=== PATIENT | female | born 1980 ===

== ENCOUNTER 2020-06-13 15:50 | Outpatient (REF) | payer OTHER, SELFPAY ==
--- NOTE | ~2020-06-13 | XR_ITS ---
EXAMINATION: BILATERAL HAND. CLINICAL INFORMATION: Pain. COMPARISON: None TECHNIQUE: 3 views of right hand FINDINGS: RIGHT HAND: There is loss of PIP, DIP and MCP joint space. No bony erosive changes, loose bodies or joint effusion seen. The soft tissues are normal. LEFT HAND: The PIP, DIP and MCP joint space is maintained. No bony erosive changes, loose bodies or soft tissue swelling. No visible acute fracture or dislocation either. XR/XR hand LT 2V IMPRESSION: Unremarkable bilateral hand exam.
--- NOTE | ~2020-06-13 | XR_ITS ---
EXAMINATION: BILATERAL HAND. CLINICAL INFORMATION: Pain. COMPARISON: None TECHNIQUE: 3 views of right hand FINDINGS: RIGHT HAND: There is loss of PIP, DIP and MCP joint space. No bony erosive changes, loose bodies or joint effusion seen. The soft tissues are normal. LEFT HAND: The PIP, DIP and MCP joint space is maintained. No bony erosive changes, loose bodies or soft tissue swelling. No visible acute fracture or dislocation either. XR/XR hand RT 2V IMPRESSION: Unremarkable bilateral hand exam.
== END 2020-06-13 15:51 | disposition home or self-care (01) ==
LOC: HO.XRAY 15:50
PROVIDERS: PCP Internal Medicine; Visit Provider Physician Assistant
DX: M79.641 Pain in right hand (principal); M79.642 Pain in left hand
CPT/HCPCS: 73120

== ENCOUNTER 2020-06-21 15:52 | Outpatient (REF) | payer OTHER, SELFPAY ==
--- NOTE | ~2020-06-21 | CT_ITS ---
EXAMINATION: CT HEAD WITHOUT CONTRAST CLINICAL INFORMATION: Migraine COMPARISON: Previous head CT scans most recent July 2019 TECHNIQUE: Contiguous axial imaging was performed from the skull base to vertex without intravenous administration of contrast. This CT examination was performed using dose optimization techniques as appropriate, variously including the following: *Automated exposure control *Adjustment of mA and/or kV according to patient size (this includes techniques or standardized protocols for targeted exams where dose is matched to indication/reason for exam; i.e. extremities or head) *Use of iterative reconstruction technique DLP: 784 mGy-cm FINDINGS: There is no evidence of acute intracranial hemorrhage or territorial infarction. No abnormal mass effect or midline shift is seen. Noble to white matter differentiation is well preserved. No extra-axial fluid collections are identified. The ventricles are normal in size. There is no abnormal attenuation within the brain parenchyma. The osseous structures and soft tissues are normal. There is membranous soft tissue thickening seen in the floor of the right maxillary sinus. The mastoid air cells and visualized portions of the paranasal sinuses are otherwise clear.. CT/CT head/brain wo con IMPRESSION: No acute intracranial findings. Minimal membranous soft tissue thickening in the floor of the right maxillary sinus.
== END 2020-06-21 15:53 | disposition home or self-care (01) ==
LOC: HO.CT 15:52
PROVIDERS: PCP Physician Assistant; Visit Provider Physician Assistant
DX: G43.009 Migraine without aura, not intractable, without status migrainosus (principal)
CPT/HCPCS: 70450

== ENCOUNTER 2020-11-25 14:38 | Outpatient (REF) | payer OTHER, SELFPAY ==
--- NOTE | ~2020-11-25 | US_ITS ---
EXAMINATION: US VENOUS ULTRASOUND WITH DOPPLER LOWER EXTREMITY, LEFT CLINICAL INFORMATION: Pain left leg. COMPARISON: None TECHNIQUE: Ultrasound of the deep veins is performed from the hip to the calf with compression sonography and color and pulse Doppler assessment. Spectral analysis with color-flow imaging is performed. FINDINGS: There is normal venous compression and respiratory variation and augmented flow. The visualized common femoral vein, superficial femoral vein, profunda femoral vein, popliteal vein, and the trifurcation region shows no evidence of deep venous thrombosis. There is no significant popliteal fossa cyst. If the patient's symptoms persist, followup ultrasound in 5 days 7 days might be of value to exclude proximal propagation from a non-visualized calf vein. US/US venous duplex LE LT IMPRESSION: No DVT demonstrated in the left lower extremity.
== END 2020-11-25 14:39 | disposition home or self-care (01) ==
LOC: HO.US 14:38
PROVIDERS: PCP Internal Medicine; Visit Provider Internal Medicine
DX: M79.605 Pain in left leg (principal)
CPT/HCPCS: 93971

== ENCOUNTER 2021-06-05 13:58 | Emergency (ER) | payer OTHER, SELFPAY ==
[2021-06-05 14:08] VITALS: BP 198/110; PULSE 80; O2SAT 100
[2021-06-05 14:14] VITALS: BP 153/98; PULSE 79; RESP 16; TEMP 36.6; O2SAT 98; BMI 30.7
--- NOTE | 2021-06-05 14:15 | ED_ITS ---
HPI - Allergic Reaction General Chief complaint: Allergic Reaction Stated complaint: sob Time Seen by Provider: 06/05/21 14:12 Source: patient Mode of arrival: EMS Limitations: no limitations History of Present Illness MD complaint: facial swelling (upper lip) Onset (ago): hour(s) (2) Exposure: medication (advil) Symptoms: lip swelling and hoarseness Severity: moderate Treatment prior to arrival: none Previous Allergic Reaction History: other (swelling to aspirin) Related Data Home Medications Medication Instructions Recorded Confirmed fluticasone propionate 110 0 mcg INHALATION 06/02/20 11/24/20 mcg/actuation HFA aerosol inhaler loratadine 10 mg tablet 10 mg PO QAM 06/02/20 11/24/20 montelukast 10 mg tablet 10 mg PO BEDTIME 06/02/20 11/24/20 sumatriptan succinate 50 mg tablet 50 mg PO BID-TID PRN 06/02/20 11/24/20 Previous Rx's Medication Instructions Recorded nnkwfrxklf-tjtewbqkpjikq-ypoacxqk 1 cap PO Q8H 7 Days #21 cap 06/02/20 50 mg-300 mg-40 mg capsule (Fioricet) albuterol sulfate 0.63 mg/3 mL 0.63 mg (3 mL) INHALATION Q4H PRN 02/27/21 solution for nebulization #75 ml albuterol sulfate 90 mcg/actuation 2 puff PO Q4H PRN #6.7 g 02/27/21 aerosol inhaler amoxicillin 875 mg-potassium 1 tab PO Q12H 10 Days #20 tab 02/27/21 clavulanate 125 mg tablet (Augmentin) prednisone 20 mg tablet 20 mg PO DAILY 5 Days #5 tab 02/27/21 prednisone 20 mg tablet 40 mg PO DAILY 3 Days #6 tab 06/05/21 Allergies Allergy/AdvReac Type Severity Reaction Status Date / Time cyclobenzaprine Allergy Intermediate SWELLING Verified 04/05/21 10:48 [From FLEXERIL] aspirin [ASPIRIN] Allergy Mild SWELLING Verified 04/05/21 10:48 ibuprofen [From Allergy Angioedema Verified 06/05/21 15:23 Advil] Review of Systems Verdana 4l Review of Systems: Verdana 4d Verdana 4d Constitutional : No Fever, No Chills ENT/Mouth : positive oral swelling (lip), pos Hoarseness, No Swallowing Difficulty Eyes: No Eye Pain, No Swelling, No Redness Cardiovascular : No Chest Pain, No SOB Respiratory : No Cough, No Sputum, NoNo Wheezing, No Smoke Exposure, No Dyspnea Gastrointestinal : No Nausea, No Vomiting, No Diarrhea, No abdominal Pain Genitourinary : No Dysuria, No Urinary Frequency, No Hematuria Musculoskeletal : No joint pain, No Myalgias, No Joint Swelling Skin : No Skin Lesions, positive rash Neuro : No Weakness, No Numbness, No Headache Psych : No Anxiety/Panic, No Depression Heme/Lymph: No Bruising, No Lymphadenopathy Endocrine : No Polyuria, No Polydipsia All other systems reviewed and are negative [facility] Past Medical History Medical History Hand numbness Left leg pain Moderate persistent asthma in adult without complication Obese Family History Family History (System 04/05/21 @ 10:48 by Denisha Meadows) Mother No problems noted. Father Heart attack Brother No problems noted. Brother Diabetes Sister No problems noted. Sister No problems noted. Daughter No problems noted. 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 Oriented X3. No acute distress. Eyes: Pupils equal, round and reactive to light. ENT: upper lip swelling no stridor no swelling inside mouth, mild hoarseness no diff swallowing no drooling Neck: Normal inspection. Neck supple. CVS: Normal heart rate and rhythm. Pulses normal. Respiratory: No respiratory distress. Breath sounds normal. Abdomen: Soft and non-tender. Skin: Skin warm and dry. Normal skin color. Normal skin turgor. Extremities: No lower extremity edema. No calf ttp Neuro: Oriented X 3. No motor deficit. No sensory deficit. 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 She has no intraoral swelling or diff swallowing. Dispo per improvement. Discharge Plan Discharge Clinical Impression: Angioedema Qualifiers: Encounter type: initial encounter Qualified Code(s): T78.3XXA - Angioneurotic edema, initial encounter Allergic reaction caused by a drug Qualifiers: Encounter type: initial encounter Qualified Code(s): T78.40XA - Allergy, unspecified, initial encounter Patient Disposition: Home, Self-Care Instructions: Angioedema (ED), General Allergic Reaction (ED) Additional Instructions: return to ED for any worsening symptoms or concerns do not take motrin, ibuprofen, advil, aleve, aspirin no tome motrin, ibuprofeno, advil, aleve, aspirina DEVOLVER POR CUALQUIER EMPEORAMIENTO DE LOS S?NTOMAS O PREOCUPACIONES Prescriptions: New prednisone 20 mg tablet 40 mg PO DAILY 3 Days Qty: 6 0RF No Action montelukast 10 mg tablet 10 mg PO BEDTIME 0RF loratadine 10 mg tablet 10 mg PO QAM 0RF sumatriptan succinate 50 mg tablet 50 mg PO BID-TID PRN (Reason: headache) 0RF Flovent HFA 110 mcg/actuation HFA aerosol inhaler 0 mcg inhalation 0RF jzwpsazgrj-ujykqwzfxdzyu-exmm [Fioricet] 50-300-40 mg capsule 1 cap PO Q8H 7 Days Qty: 21 0RF albuterol sulfate 90 mcg/actuation HFA aerosol inhaler 2 puff PO Q4H PRN (Reason: shortness of breath or wheezing) Qty: 6.7 0RF albuterol sulfate 0.63 mg/3 mL solution for nebulization 0.63 mg inhalation Q4H PRN (Reason: shortness of breath or wheezing) Qty: 75 0RF prednisone 20 mg tablet 20 mg PO DAILY 5 Days Qty: 5 0RF amoxicillin-pot clavulanate [Augmentin] 875-125 mg tablet 1 tab PO Q12H 10 Days Qty: 20 0RF Stand Alone Forms: Work/School Release Interventions: ED Discharge Assessment Last Done: 06/05/21 16:59 Discharge Date/Time: 06/05/21 17:00 Print Language: English
[2021-06-05] MEDS: diphenhydrAMINE HCL 50 MG/ML VIAL 25 MG IVPUSH (14:25)
[2021-06-05] MEDS: methylPREDNISolone Sod Succ 125 MG/2 ML VIAL IVPUSH (14:27)
[2021-06-05] MEDS: Famotidine/PF 20 MG/2 ML VIAL IVPUSH (14:28)
[2021-06-05 14:55] VITALS: BP 143/84; PULSE 74; RESP 16; TEMP 36.7; O2SAT 99
--- NOTE | 2021-06-05 15:59 | PC.NURSE ---
Pt alert and oriented x4, calm and cooperative. Denies difficulty breathing or swallowing, pt talking in clear sentences. Pt expresses she feels much better from earlier. O2 on room air is 98% at this time. No swelling noted to the tongue, swelling remains on upper lip, per pt it is improved from earlier. IV intact, vitals stable. Pt resting in stretcher without complaints, will continue to monitor.
[2021-06-05 16:58] VITALS: BP 149/100; PULSE 79; RESP 18; TEMP 36.9; O2SAT 99
== END 2021-06-05 17:00 | disposition home or self-care (01) ==
PROVIDERS: Emergency Provider Emergency Medicine; PCP Internal Medicine
DX: T78.3XXA Angioneurotic edema, initial encounter (principal); T39.315A Adverse effect of propionic acid derivatives, initial encounter; Y92.9 Unspecified place or not applicable
CPT/HCPCS: 96374; 96375; 99284; J1200; J2930

== ENCOUNTER 2021-09-23 10:14 | Outpatient (REF) | payer OTHER, SELFPAY ==
[2021-09-23 11:28] LABS: Alanine Aminotransferase 20 U/L (0-31); Albumin Level 4.2 g/dL (3.5-5.0); Alkaline Phosphatase 69 U/L (39-117); Anion Gap 12 (12-20); Aspartate Amino Transferase 15 U/L (5-31); Bilirubin Total 0.4 mg/dL (0.0-1.0); Blood Urea Nitrogen 8 mg/dL (9-16); Calcium 9.4 mg/dL (8.4-10.2); Carbon Dioxide 28 mmol/L (22-29); Chloride 103 mmol/L (96-108); Cholesterol 156 mg/dL; Estimated Glomerular Filt Rate > 60; Glucose Fasting 98 mg/dL (60-99); HDL Cholesterol 37 mg/dL; LDL Cholesterol Calculated 96 mg/dl; Potassium 4.2 mmol/L (3.3-5.1); Sodium 139 mmol/L (135-145); Total Protein 7.5 g/dL (6.5-8.0); Triglycerides 116 mg/dL
[2021-09-23 11:50] LABS: TSH reflex Free T4 0.87 uIU/mL (0.32-4.0)
[2021-09-25 06:37] LABS: Folate 15.4 ng/mL (> or = 4.0); Vitamin B12 410 pg/mL (200-900)
== END 2021-09-23 10:15 | disposition home or self-care (01) ==
LOC: HO.LAB 10:14
PROVIDERS: PCP Internal Medicine; Visit Provider Nurse Practitioner Family
DX: Z00.00 Encounter for general adult medical examination without abnormal findings (principal); Z13.220 Encounter for screening for lipoid disorders; Z13.29 Encounter for screening for other suspected endocrine disorder
CPT/HCPCS: 36415; 80053; 80061; 82306; 82607; 82746; 84443

== ENCOUNTER 2022-02-20 15:54 | Outpatient (REF) | payer OTHER, SELFPAY ==
[2022-02-21 05:36] LABS: CT PCR NOT DETECTED (Not Detect.); NG PCR NOT DETECTED (Not Detect.)
[2022-02-21 09:22] LABS: BV Int Neg Control Negative (Negative); BV Int Pos Control Positive (Positive)
[2022-02-22 22:17] LABS: HPV mRNA E6/E7 rflx Not Detected (Not Detected)
== END 2022-02-20 15:55 | disposition home or self-care (01) ==
LOC: HO.LNP 15:54
PROVIDERS: Visit Provider Advanced Practice Midwife
DX: Z01.419 Encounter for gynecological examination (general) (routine) without abnormal findings (principal)
CPT/HCPCS: 87480; 87491; 87510; 87591; 87624; 87660; 88142

== ENCOUNTER 2022-02-26 17:17 | Emergency (ER) | payer OTHER, SELFPAY ==
--- NOTE | ~2022-02-26 | CT_ITS ---
EXAMINATION: CT HEAD WITHOUT CONTRAST CLINICAL INFORMATION: Hypertension. Posterior headache. Blurry vision. COMPARISON: CT scan of the head 06/21/2020 TECHNIQUE: Contiguous axial imaging was performed from the skull base to vertex without intravenous administration of contrast. This CT examination was performed using dose optimization techniques as appropriate, variously including the following: *Automated exposure control *Adjustment of mA and/or kV according to patient size (this includes techniques or standardized protocols for targeted exams where dose is matched to indication/reason for exam; i.e. extremities or head) *Use of iterative reconstruction technique DLP: 682 mGy-cm FINDINGS: There is no acute intracranial hemorrhage or abnormal extra-axial collection. No intracranial mass effect or midline shift. Lateral and third ventricles are normal. No hydrocephalus. Noble-white matter differentiation is preserved and there is no evidence of acute territorial infarct. The calvarium and skull base are intact. Mastoid air cells and middle ear cavities are well aerated. No active paranasal sinus disease. CT/CT head/brain wo IV con IMPRESSION: CT scan of the head. No acute intracranial hemorrhage.
--- NOTE | 2022-02-26 17:26 | ECG_ITS ---
Test Reason : CHEST PAIN Blood Pressure : / mmHG Vent. Rate : 087 BPM Atrial Rate : 087 BPM P-R Int : 146 ms QRS Dur : 072 ms QT Int : 372 ms P-R-T Axes : 060 013 014 degrees QTc Int : 447 ms Normal sinus rhythm Moderate voltage criteria for LVH, may be normal variant ( R in aVL , Sokolow-Bui ) Possible Left atrial enlargement Borderline ECG No significant changes seen Referred By: Generic ED Physician Electronically Signed By:DAVE ECHEVARRIA MD
[2022-02-26 18:32] VITALS: BP 139/84; PULSE 73; RESP 16; TEMP 36.6; O2SAT 99; BMI 29.1
--- NOTE | 2022-02-26 21:02 | ED_ITS ---
HPI - Headache General Chief Complaint: Headache Stated Complaint: chest pain, headache Time Seen by Provider: 02/26/22 21:02 Source: patient Mode of arrival: ambulatory Limitations: no limitations History of Present Illness HPI Narrative: 42 yo female with history of GERD, asthma, who presents to the ER for evaluation of hypertension associated with headaches and blurred vision. She states she went to a routine COLLECTIONS ANALYST appointment last week and her BP was noted to be high 160/100. She does not have a history of HTN and is not on any medications for this. She reports she has been checking her BP since and it has been elevated at home, as high as 180/110. She has increased stress and anxiety about it. She has been losing weight if anything and denies increased salt intake. She reports intermittent stabbing chest pains this week as well. They come and go at random times and last seconds. No radiation and no associated SOB, nausea or diaphoresis. Non-smoker. MD elicited complaint: headache Onset (ago): day(s) (6) Onset description: gradually Location: right and occipital Severity: moderate Quality & Timing: aching and throbbing Exacerbating factors: none Relieving factors: nothing Associated symptoms: chest pain Treatments prior to arrival: none Related Data Previous Rx's Medication Instructions Recorded albuterol sulfate 0.63 mg/3 mL 0.63 mg (3 mL) inhalation Q4H PRN 02/27/21 solution for nebulization shortness of breath or wheezing #75 mL sumatriptan succinate 25 mg tablet See Rx Instructions PO .COMPLEX #7 09/20/21 tabs albuterol sulfate 90 mcg/actuation 2 puff PO Q4H PRN shortness of 12/25/21 aerosol inhaler breath or wheezing #6.7 grams cholecalciferol (vitamin D3) 25 25 mcg PO DAILY 90 days #90 caps 12/25/21 mcg (1,000 unit) capsule loratadine 10 mg tablet 10 mg PO QAM 90 days #90 tabs 12/25/21 omeprazole 20 mg capsule,delayed 20 mg PO DAILY 90 days #90 caps 12/25/21 release Allergies Allergy/AdvReac Type Severity Reaction Status Date / Time cyclobenzaprine Allergy Intermediate SWELLING Verified 02/20/22 14:54 [From FLEXERIL] aspirin [ASPIRIN] Allergy Mild SWELLING Verified 02/20/22 14:54 ibuprofen [From Advil] Allergy Angioedema Verified 02/20/22 14:54 Review of Systems Review of Systems: Constitutional: No Fever, No Chills ENT/Mouth: No sore throat, No Rhinorrhea, No Swallowing Difficulty Eyes: No Eye Pain, No Swelling, No Redness, +blurred vision Cardiovascular: + Chest Pain, No SOB, No Orthopnea, No Edema Respiratory: No Cough, No Sputum, No Wheezing, No dyspnea Gastrointestinal: No Nausea, No Vomiting, No Diarrhea, No abdominal Pain Musculoskeletal: No joint pain, No Myalgias Skin: No Skin Lesions, No rash Neuro: No Weakness, No Numbness, No Dizziness, + Headache Psych: + Anxiety/Panic, No Depression Heme/Lymph: No Bruising, No Lymphadenopathy Endocrine: No Polyuria, No Polydipsia [facility] Past Medical History Medical History (Updated 02/26/22 @ 22:03 by ANDERSON Vinson) Acute sinusitis Exposure of implanted vaginal mesh Hand numbness Left leg pain Moderate persistent asthma in adult without complication Obese Surgical History (Updated 02/20/22 @ 16:06 by CRESENCIO Osborne) History of cholecystectomy Hx of tubal ligation Family History Family History Mother No problems noted. Father Heart attack Brother No problems noted. Brother Diabetes Sister No problems noted. Sister No problems noted. Daughter No problems noted. Daughter Down syndrome Other Mental health disorder Social History Social History Housing: Apartment Alcohol intake: never Patient Tobacco Use Status: Never used Tobacco e-Cigarette/Vaping Use: Never Used Second Hand Smoke Exposure: No Advance Directives: No service: No Current occupational status: unemployed Cognitive needs: No Hearing needs: No Vision needs: No Physical Exam Vital Signs: Vital Signs: Last Vital Signs Temp 98.6 F 02/26/22 21:16 Pulse 85 02/26/22 21:16 Resp 13 02/26/22 21:16 BP 129/81 02/26/22 21:16 Pulse Ox 100 02/26/22 21:16 O2 Del Method 02/26/22 21:16 BMI result Body Mass Index 29.1 Appearance: Alert. Oriented X3. No acute distress. Eyes: Pupils equal, round and reactive to light. No nystagmus. Grossly normal visual acuity ENT: Pharynx normal. Neck: Normal inspection. Neck supple. CVS: Normal heart rate and rhythm. Pulses normal. Respiratory: No respiratory distress. Breath sounds normal. Abdomen: Soft and nontender. +BS x4 Skin: Skin warm and dry. Normal skin color. Normal skin turgor. No rashes. Extremities: No lower extremity edema. Neuro: Oriented X 3. No motor deficit. No sensory deficit. CN II-XII intact. Normal speech and cognition. Normal finger to nose and heel to peters bilaterally. Steady gait. Course Course Course Narrative: 42 yo female presenting to the ER for evaluation of HTN along with headaches, blurred vision and chest pain. Reported BP at home 180/110 - here it is 130/80. She appears well. Neuro non-focal. Will get CT head, labs, EKG. Reevaluation(s) Reevaluation #1: Repeat BP 120/80. CT head normal. Troponin <3.5. Her symptoms earlier this week could have been due to symptomatic hypertension but this is now known for sure. She remained normotensive here. No indication to start anti-hypertensive agent. She follows with Dr. Fisher. She will monitor her BP at home and keep a record for her. Return precautions were discussed. Stable for d/c home with outpatient follow up. All questions were answered and patient agrees with plan. [facility] - Headache Medical Records Attestation: I reviewed the patient's medical records. Lab Data Attestation: I reviewed the patient's lab results. Result diagrams: 02/26/22 21:33 02/26/22 21:33 Labs: Lab Results 02/26/22 02/26/22 02/26/22 Range/Units 21:33 21:33 21:33 WBC 7.9 (4.8-10.8) X10*3/uL RBC 4.63 (4.20-5.50) X10*6/uL Hgb 12.5 (12.0-16.0) g/dl Hct 38.3 (37.0-47.0) % MCV 82.7 (80.0-98.0) fL MCH 27.0 (27.0-33.0) pg MCHC 32.6 (31.0-35.0) g/dl RDW 13.1 (11.0-16.0) % Plt Count 281 (160-400) X10*3/uL MPV 9.5 (9.4-12.3) fL Immature Gran % (Auto) 0.1 (0.0-0.4) % Neut % (Auto) 42.3 L (45-73) % Lymph % (Auto) 41.9 H (20-40) % Rogers % (Auto) 12.5 H (2-11) % Eos % (Auto) 2.9 (0-4) % Baso % (Auto) 0.3 (0-2) % Lymph # (Auto) 3.3 (1.2-4.9) X10*3/uL Rogers # (Auto) 1.0 (0.1-1.2) X10*3/uL Eos # (Auto) 0.2 (0.0-0.4) X10*3/uL Baso # (Auto) 0.0 (0.0-0.2) X10*3/uL Abs Immat Gran (auto) 0.01 (0.00-0.03) X10*3/uL Absolute Neuts (auto) 3.4 (2.0-8.3) x10*3/uL Absolute Nucleated RBC 0.000 (0.0-0.012) X10*3/uL Nucleated RBC % (auto) 0.0 (0.0-0.2) /100WBC Sodium 140 (135-145) mmol/L Potassium 4.1 (3.3-5.1) mmol/L Chloride 106 (96-108) mmol/L Carbon Dioxide 25 (22-29) mmol/L Anion Gap 13 (12-20) BUN 12 (9-16) mg/dL Creatinine 0.73 (0.5-1.4) mg/dL Estim Creat Clear Calc 104.5 Estimated GFR > 60 Random Glucose 108 (60-115) mg/dL Calcium 9.2 (8.4-10.2) mg/dL Total Bilirubin < 0.2 (0.0-1.0) mg/dL Direct Bilirubin < 0.2 (0.0-0.5) mg/dL AST 13 (5-31) U/L ALT 14 (0-31) U/L Alkaline Phosphatase 75 (39-117) U/L Troponin I High Sens < 3.5 (<3.5-17.0) ng/L Total Protein 7.2 (6.5-8.0) g/dL Albumin 4.3 (3.5-5.0) g/dL Lipase 31 (8-78) U/L COVID-19 ([facility]) (Negative) COVID-19 Clin Com 02/26/22 Range/Units 21:33 WBC (4.8-10.8) X10*3/uL RBC (4.20-5.50) X10*6/uL Hgb (12.0-16.0) g/dl Hct (37.0-47.0) % MCV (80.0-98.0) fL MCH (27.0-33.0) pg MCHC (31.0-35.0) g/dl RDW (11.0-16.0) % Plt Count (160-400) X10*3/uL MPV (9.4-12.3) fL Immature Gran % (Auto) (0.0-0.4) % Neut % (Auto) (45-73) % Lymph % (Auto) (20-40) % Rogers % (Auto) (2-11) % Eos % (Auto) (0-4) % Baso % (Auto) (0-2) % Lymph # (Auto) (1.2-4.9) X10*3/uL Rogers # (Auto) (0.1-1.2) X10*3/uL Eos # (Auto) (0.0-0.4) X10*3/uL Baso # (Auto) (0.0-0.2) X10*3/uL Abs Immat Gran (auto) (0.00-0.03) X10*3/uL Absolute Neuts (auto) (2.0-8.3) x10*3/uL Absolute Nucleated RBC (0.0-0.012) X10*3/uL Nucleated RBC % (auto) (0.0-0.2) /100WBC Sodium (135-145) mmol/L Potassium (3.3-5.1) mmol/L Chloride (96-108) mmol/L Carbon Dioxide (22-29) mmol/L Anion Gap (12-20) BUN (9-16) mg/dL Creatinine (0.5-1.4) mg/dL Estim Creat Clear Calc Estimated GFR Random Glucose (60-115) mg/dL Calcium (8.4-10.2) mg/dL Total Bilirubin (0.0-1.0) mg/dL Direct Bilirubin (0.0-0.5) mg/dL AST (5-31) U/L ALT (0-31) U/L Alkaline Phosphatase (39-117) U/L Troponin I High Sens (<3.5-17.0) ng/L Total Protein (6.5-8.0) g/dL Albumin (3.5-5.0) g/dL Lipase (8-78) U/L COVID-19 ([facility]) Negative (Negative) COVID-19 Clin Com See Note ECG Data Attestation: I personally reviewed and interpreted this ECG as follows: ECG interpretation date: 02/26/22 ECG interpretation time: 22:13 Interpretation: Normal sinus rhythm, T-wave inversion in lead 3 only, normal CT interval, normal QTC, no ST segment elevations or depressions. Discharge Plan Discharge Clinical Impression: Headache Patient Disposition: Home, Self-Care Instructions: General Headache (ED) Additional Instructions: Your lab workup today was normal. Your EKG was normal. Your chest pain does not seem to be cardiac. Your head CT was normal. Your blood pressure while you were here was normal. No indication to start you on blood pressure medication today. Recommend monitoring your blood pressure 1-2 times per day, keep a record for your doctor. Follow up with your PCP in the next couple of weeks. If you develop new or worsening symptoms call 911 or come back to the ER for further evaluation. Lugo an?lisis de laboratorio de hoy fue normal. Lugo electrocardiograma fue normal. Lugo dolor de pecho no parece ser card?aco. Tu tomograf?a computarizada de la lalito fue normal. Lugo presi?n arterial mientras estuvo aqu? era normal. No hay indicaciones para comenzar con medicamentos para la presi?n arterial hoy. Recomiende controlar lugo presi?n arterial 1-2 veces al d?a, mantenga un registro para lugo m?dico. Nish un seguimiento con lugo PCP en las pr?ximas dos semanas. Si desarrolla s?ntomas nuevos o que empeoran, llame al 911 o regrese a la sepideh de emergencias para renita evaluaci?n adicional. Prescriptions: No Action albuterol sulfate 0.63 mg/3 mL solution for nebulization 0.63 mg inhalation Q4H PRN (Reason: shortness of breath or wheezing) Qty: 75 0RF sumatriptan succinate 25 mg tablet See Rx Instructions PO .COMPLEX Qty: 7 0RF Rx Instructions: take 1 tab at onset of headache; if no relief may repeat 1 tab after at least 2 hrs; max = 4 tabs/24 hr PO cholecalciferol (vitamin D3) 25 mcg (1,000 unit) capsule 25 mcg PO DAILY 90 Days Qty: 90 1RF albuterol sulfate 90 mcg/actuation HFA aerosol inhaler 2 puff PO Q4H PRN (Reason: shortness of breath or wheezing) Qty: 6.7 1RF loratadine 10 mg tablet 10 mg PO QAM 90 Days Qty: 90 0RF omeprazole 20 mg capsule,delayed release(DR/EC) 20 mg PO DAILY 90 Days Qty: 90 1RF Referrals: Tara Powell MD [Primary Care Provider] -
[2022-02-26 21:16] VITALS: BP 129/81; PULSE 85; RESP 13; TEMP 37; O2SAT 100
[2022-02-26 21:38] LABS: MANUAL DIFF FLAG NO
[2022-02-26 21:40] LABS: Basophils Percent Auto 0.3 % (0-2); Eosinophils Absolute Auto 0.2 X10*3/uL (0.0-0.4); Eosinophils Percent Auto 2.9 % (0-4); Hematocrit 38.3 % (37.0-47.0); Hemoglobin 12.5 g/dl (12.0-16.0); Imm Gran Abs Auto 0.01 X10*3/uL (0.00-0.03); Imm Gran Pct Auto 0.1 % (0.0-0.4); Lymphocytes Absolute Auto 3.3 X10*3/uL (1.2-4.9); Lymphocytes Percent Auto 41.9 % (20-40); Mean Corpuscular HGB Conc 32.6 g/dl (31.0-35.0); Mean Corpuscular Volume 82.7 fL (80.0-98.0); Mean Platelet Volume 9.5 fL (9.4-12.3); Monocytes Percent Auto 12.5 % (2-11); Neutrophils Absolute Auto 3.4 x10*3/uL (2.0-8.3); Neutrophils Percent Auto 42.3 % (45-73); Platelet Count 281 X10*3/uL (160-400); Red Blood Count 4.63 X10*6/uL (4.20-5.50); Red Cell Distribution Width 13.1 % (11.0-16.0); White Blood Count 7.9 X10*3/uL (4.8-10.8)
[2022-02-26 21:54] LABS: COVID-19 Test Negative (Negative)
[2022-02-26 22:06] LABS: Troponin-I High Sensitivity < 3.5 ng/L (<3.5-17.0)
[2022-02-26 22:09] LABS: Alanine Aminotransferase 14 U/L (0-31); Albumin Level 4.3 g/dL (3.5-5.0); Alkaline Phosphatase 75 U/L (39-117); Anion Gap 13 (12-20); Aspartate Amino Transferase 13 U/L (5-31); Bilirubin Direct < 0.2 mg/dL (0.0-0.5); Bilirubin Total < 0.2 mg/dL (0.0-1.0); Blood Urea Nitrogen 12 mg/dL (9-16); Calcium 9.2 mg/dL (8.4-10.2); Carbon Dioxide 25 mmol/L (22-29); Chloride 106 mmol/L (96-108); Creatinine Clr Calc Pharmacy 104.5; Estimated Glomerular Filt Rate > 60; Glucose Random 108 mg/dL (60-115); Lipase 31 U/L (8-78); Potassium 4.1 mmol/L (3.3-5.1); Sodium 140 mmol/L (135-145); Total Protein 7.2 g/dL (6.5-8.0)
[2022-02-26] MEDS: Acetaminophen 325 MG TABLET 975 MG PO (22:09)
== END 2022-02-26 22:55 | disposition home or self-care (01) ==
PROVIDERS: Emergency Provider Student in an Organized Health Care Education/Training Program; PCP Internal Medicine
DX: R51.9 Headache, unspecified (principal); R07.89 Other chest pain; Z20.822 Contact with and (suspected) exposure to COVID-19
CPT/HCPCS: 70450; 80053; 82248; 83690; 84484; 85025; 87635; 93005; 99284

== ENCOUNTER 2022-08-29 11:51 | Outpatient (REF) | payer OTHER, SELFPAY ==
[2022-08-29 13:37] LABS: Alanine Aminotransferase 16 U/L (0-31); Albumin Level 4.4 g/dL (3.5-5.0); Alkaline Phosphatase 67 U/L (39-117); Anion Gap 11 (12-20); Aspartate Amino Transferase 16 U/L (5-31); Bilirubin Total 0.5 mg/dL (0.0-1.0); Blood Urea Nitrogen 9 mg/dL (9-16); Calcium 9.3 mg/dL (8.4-10.2); Carbon Dioxide 28 mmol/L (22-29); Chloride 104 mmol/L (96-108); Cholesterol 160 mg/dL; Estimated Glomerular Filt Rate > 60; Glucose Fasting 89 mg/dL (60-99); HDL Cholesterol 44 mg/dL; LDL Cholesterol Calculated 90 mg/dl; Potassium 4.3 mmol/L (3.3-5.1); Sodium 139 mmol/L (135-145); Total Protein 7.2 g/dL (6.5-8.0); Triglycerides 133 mg/dL
== END 2022-08-29 11:52 | disposition home or self-care (01) ==
LOC: HO.LAB 11:51
PROVIDERS: PCP Internal Medicine; Visit Provider Internal Medicine
DX: Z00.00 Encounter for general adult medical examination without abnormal findings (principal)
CPT/HCPCS: 36415; 80053; 80061

== ENCOUNTER 2022-11-21 17:57 | Emergency (ER) | payer OTHER, SELFPAY ==
[2022-11-21 18:11] VITALS: BP 141/87; PULSE 79; RESP 18; TEMP 36.6; O2SAT 100; BMI 30.7
--- NOTE | 2022-11-21 18:12 | ED_ITS ---
HPI - Back Pain/Injury General Chief Complaint: Back Pain/Injury Stated Complaint: L sided back pain? Time Seen by Provider: 11/21/22 18:16 Source: patient Mode of arrival: ambulatory Limitations: no limitations History of Present Illness HPI Narrative: 42-year-old Danish-speaking female presents the ER for evaluation of left-sided middle back pain for the last 3 weeks after she was doing heavy lifting at work. She states the pain has been pretty consistent, worse with movement for last 3 weeks. She denies any associated urinary symptoms, no hematuria, urgency, frequency. No abdominal pain, nausea, vomiting, diarrhea. She has not taken any medications for the pain. MD elicited complaint: back pain and back injury Pertinent past history: prior back pain Onset (ago): week(s) (3) Timing: constant Severity: moderate Quality: stabbing and aching Location: left upper back (Left middle back) Radiation: none Exacerbating factors: movement and lifting Relieving factors: none Context: while lifting Associated symptoms: denies other symptoms Related Data Previous Rx's Medication Instructions Recorded albuterol sulfate 0.63 mg/3 mL 0.63 mg (3 mL) inhalation Q4H PRN 02/27/21 solution for nebulization shortness of breath or wheezing #75 mL sumatriptan succinate 25 mg tablet See Rx Instructions PO .COMPLEX #7 09/20/21 tabs cholecalciferol (vitamin D3) 25 25 mcg PO DAILY 90 days #90 caps 12/25/21 mcg (1,000 unit) capsule loratadine 10 mg tablet 10 mg PO QAM 90 days #90 tabs 12/25/21 omeprazole 20 mg capsule,delayed 20 mg PO DAILY 90 days #90 caps 07/02/22 release Ventolin HFA 90 mcg/actuation 2 puff inhalation Q6H PRN 08/06/22 aerosol inhaler (albuterol sulfate) shortness of breath or wheezing 30 days #8 grams cholestyramine (with sugar) 4 gram 4 g PO DAILY PRN diarrhea 30 days 09/02/22 powder for susp in a packet #60 ea lidocaine 5 % topical patch 1 patch topical DAILY #15 ea 11/21/22 methocarbamol 500 mg tablet 500 mg PO Q8H PRN muscle spasm #14 11/21/22 tabs Allergies Allergy/AdvReac Type Severity Reaction Status Date / Time cyclobenzaprine Allergy Intermediate SWELLING Verified 11/21/22 18:11 [From FLEXERIL] aspirin [ASPIRIN] Allergy Mild SWELLING Verified 11/21/22 18:11 ibuprofen [From Advil] Allergy Angioedema Verified 11/21/22 18:11 Review of Systems Review of Systems: Yes all other systems are reviewed and are negative [facility] Past Medical History Medical History Acute sinusitis Exposure of implanted vaginal mesh Hand numbness Left leg pain Moderate persistent asthma in adult without complication Obese Surgical History History of cholecystectomy Hx of tubal ligation Family History Family History (Updated 08/06/22 @ 14:51 by Tara Mobley MD) Mother HIV (human immunodeficiency virus infection) Father Heart attack HIV (human immunodeficiency virus infection) Brother No problems noted. Brother Diabetes Sister No problems noted. Sister No problems noted. Daughter No problems noted. Daughter Down syndrome Other Mental health disorder Social History Social History Housing: Apartment Alcohol intake: never Patient Tobacco Use Status: Never used Tobacco e-Cigarette/Vaping Use: Never Used Second Hand Smoke Exposure: No Advance Directives: No Advance Directives Information Provided: Yes service: No Current occupational status: unemployed Cognitive needs: No Hearing needs: No Vision needs: No Physical Exam Vital Signs: Vital Signs: Last Vital Signs Temp 97.8 F 11/21/22 18:11 Pulse 79 11/21/22 18:11 Resp 18 11/21/22 18:11 BP 141/87 H 11/21/22 18:11 Pulse Ox 100 11/21/22 18:11 O2 Del Method Room Air 11/21/22 18:11 BMI result Body Mass Index 30.7 Appearance: Alert. Oriented X3. No acute distress. HEENT: normal inspection Neck: Normal inspection. CVS: Normal heart rate and rhythm. Pulses normal. Respiratory: No respiratory distress. Breath sounds normal. Abdomen: Soft and nontender. +BS x4. NO CVA tenderness. Back: normal inspection, nontender spine. Soft tissue tenderness of the middle thoracic area with palpable muscle spasm. Skin: Skin warm and dry. Normal skin color. Normal skin turgor. No rashes. Extremities: No lower extremity edema. No joint swelling. Neuro/psych: Oriented X 3. Grossly normal, nonfocal, steady gait Medical Decision Making Medical Decision Making MDM Narrative: 42-year-old female presents to the ER for evaluation of left low back pain for the last 3 weeks after heavy lifting. Exam is consistent with muscle strain and spasm. No urinary symptoms. She appears well. Whilst treat with muscle relaxers and topical lidocaine patches. She has a history of allergies to NSA IDs and Flexeril. Encouraged follow-up with her primary care doctor, rest, ice. Patient agrees with plan is stable for discharge home Differential Diagnosis Differential Diagnoses: The differential diagnosis associated with the presentation includes muscle strain, muscle spasm, pyelonephritis, UTI, kidney stone External Record Review External record reviewed: Prior outpatient labs and Prior outpatient radiology Tests considered The following testing was considered but not selected: Considered x-ray Prescription Management I considered prescription management with: Pain Medication Critical Care Time Critical Care Time Critical Care Time: No Discharge Plan Discharge Clinical Impression: Back strain Patient Disposition: Home, Self-Care Instructions: Back Pain (ED) Additional Instructions: Your pain is most likely due to muscle strain and spasm. No bending, lifting or twisting. Use ice several times per day for 20 minutes at a time for the next 48 hours and then change to heat. Take medications as prescribed to help with pain and discomfort. Follow up with your Primary Care Doctor this week. If your pain worsens, if you develop new numbness, tingling, weakness, loss of function or incontinence call 911 or come back to the ER right away for evaluation. Lo m?s probable es que perez dolor se deba a tensi?n y espasmos musculares. Sin doblar, levantar o torcer. Use hielo varias veces al d?a edith 20 minutos a la vez edith las pr?ximas 48 horas y luego cambie a calor. Anatone los medicamentos seg?n lo prescrito para ayudar con el dolor y la incomodidad. Nish un seguimiento con perez m?dico de atenci?n primaria esta semana. Si perez dolor empeora, si desarrolla entumecimiento, hormigueo, debilidad, p?rdida de funci?n o incontinencia, llame al 911 o regrese a la sepideh de emergencias de inmediato para renita evaluaci?n. Prescriptions: New lidocaine 5 % adhesive patch,medicated 1 patch topical DAILY Qty: 15 0RF Rx Instructions: leave on most painful area for up to 12 hrs methocarbamol 500 mg tablet 500 mg PO Q8H PRN (Reason: muscle spasm) Qty: 14 0RF No Action omeprazole 20 mg capsule,delayed release(DR/EC) 20 mg PO DAILY 90 Days Qty: 90 1RF cholestyramine (with sugar) 4 gram powder in packet 4 g PO DAILY PRN (Reason: diarrhea) 30 Days Qty: 60 0RF Rx Instructions: administer w/meal; avoid other meds within 1hr before or 4-6hr after dose albuterol sulfate 0.63 mg/3 mL solution for nebulization 0.63 mg inhalation Q4H PRN (Reason: shortness of breath or wheezing) Qty: 75 0RF sumatriptan succinate 25 mg tablet See Rx Instructions PO .COMPLEX Qty: 7 0RF Rx Instructions: take 1 tab at onset of headache; if no relief may repeat 1 tab after at least 2 hrs; max = 4 tabs/24 hr PO cholecalciferol (vitamin D3) 25 mcg (1,000 unit) capsule 25 mcg PO DAILY 90 Days Qty: 90 1RF loratadine 10 mg tablet 10 mg PO QAM 90 Days Qty: 90 0RF albuterol sulfate [Ventolin HFA] 90 mcg/actuation HFA aerosol inhaler 2 puff inhalation Q6H PRN (Reason: shortness of breath or wheezing) 30 Days Qty: 8 1RF Interventions: ED Discharge Assessment Last Done: 11/21/22 18:23 Discharge Date/Time: 11/21/22 18:24
== END 2022-11-21 18:24 | disposition home or self-care (01) ==
PROVIDERS: Emergency Provider Internal Medicine; PCP Internal Medicine
DX: S39.012A Strain of muscle, fascia and tendon of lower back, initial encounter (principal); X50.0XXA Overexertion from strenuous movement or load, initial encounter; Y93.9 Activity, unspecified; Y92.9 Unspecified place or not applicable; Y99.9 Unspecified external cause status
CPT/HCPCS: 99282; 99283

== ENCOUNTER 2022-12-03 16:13 | Emergency (ER) | payer OTHER, SELFPAY ==
--- NOTE | ~2022-12-03 | CT_ITS ---
EXAMINATION: CT ABDOMEN AND PELVIS WITHOUT CONTRAST CLINICAL INFORMATION: Left-sided flank pain. Question stones. COMPARISON: CT 04/14/2019 TECHNIQUE: Multidetector volumetric imaging was performed from the superior aspect of the liver through the pubic symphysis. Sagittal and coronal reformatted images were obtained on the technologist's workstation. This CT examination was performed using dose optimization techniques as appropriate, variously including the following: *Automated exposure control *Adjustment of mA and/or kV according to patient size (this includes techniques or standardized protocols for targeted exams where dose is matched to indication/reason for exam; i.e. extremities or head) *Use of iterative reconstruction technique DLP: 614 mGy-cm FINDINGS: LUNG BASES: The visualized lung bases are unremarkable. LIVER, GALLBLADDER, AND BILIARY TREE: Right lobe measures 20 cm. No focal hepatic lesion or biliary ductal dilatation is present. Status postcholecystectomy. PANCREAS: Unremarkable. No acute inflammatory changes. SPLEEN: Unremarkable. ADRENAL GLANDS: Unremarkable. KIDNEYS AND URETERS: The kidneys are normal in size, shape, and attenuation. No hydronephrosis, hydroureter, or calculi seen. No perinephric stranding. BLADDER: Unremarkable. GASTROINTESTINAL TRACT: The small and large bowel are unremarkable. The appendix is unremarkable. No free fluid. No free air. ABDOMINAL WALL: No significant hernia is appreciated. LYMPH NODES: No lymphadenopathy seen. VASCULAR: Normal caliber aorta. PELVIC VISCERA: Unremarkable. OSSEOUS STRUCTURES: No acute or suspicious osseous abnormality. CT/CT abdomen pelvis wo IV con IMPRESSION: 1. No evidence of renal or ureteral calculi. No hydronephrosis. 2. No acute intra-abdominal findings otherwise identified.. 3. Status postcholecystectomy. Right hepatic lobe measures 20 cm. Fleischner guidelines were followed.
[2022-12-03 16:38] VITALS: BP 148/74; PULSE 80; RESP 18; TEMP 36.9; O2SAT 100; BMI 29.3
--- NOTE | 2022-12-03 16:39 | ED.GENADULT ---
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 Related Data Previous Rx's Medication Instructions Recorded albuterol sulfate 0.63 mg/3 mL 0.63 mg (3 mL) inhalation Q4H PRN 02/27/21 solution for nebulization shortness of breath or wheezing #75 mL sumatriptan succinate 25 mg tablet See Rx Instructions PO .COMPLEX #7 09/20/21 tabs cholecalciferol (vitamin D3) 25 25 mcg PO DAILY 90 days #90 caps 12/25/21 mcg (1,000 unit) capsule loratadine 10 mg tablet 10 mg PO QAM 90 days #90 tabs 12/25/21 omeprazole 20 mg capsule,delayed 20 mg PO DAILY 90 days #90 caps 07/02/22 release Ventolin HFA 90 mcg/actuation 2 puff inhalation Q6H PRN 08/06/22 aerosol inhaler (albuterol sulfate) shortness of breath or wheezing 30 days #8 grams cholestyramine (with sugar) 4 gram 4 g PO DAILY PRN diarrhea 30 days 09/02/22 powder for susp in a packet #60 ea lidocaine 5 % topical patch 1 patch topical DAILY #15 ea 11/21/22 methocarbamol 500 mg tablet 500 mg PO Q8H PRN muscle spasm #14 11/21/22 tabs methocarbamol 500 mg tablet 500 mg PO TID muscle spasm #20 tabs 12/04/22 nitrofurantoin 100 mg PO Q12H 3 days #6 caps 12/04/22 monohydrate/macrocrystals 100 mg capsule (Macrobid) Allergies Allergy/AdvReac Type Severity Reaction Status Date / Time cyclobenzaprine Allergy Intermediate SWELLING Verified 11/21/22 18:11 [From FLEXERIL] aspirin [ASPIRIN] Allergy Mild SWELLING Verified 11/21/22 18:11 ibuprofen [From Advil] Allergy Angioedema Verified 11/21/22 18:11 Review of Systems Constitutional: Constitutional: Reports as per HPI, Denies chills, Denies fatigue, Denies fever(s) and Denies headache(s) ENT: Denies headache(s) Cardiovascular: Cardiovascular: Denies chest pain and Denies dyspnea Respiratory: Respiratory: Denies cough and Denies dyspnea Gastrointestinal: Gastrointestinal: Denies constipation and Denies vomiting Genitourinary: Genitourinary: Denies dysuria Musculoskeletal: Musculoskeletal: Reports back pain Neurologic: Denies headache(s), Denies focal weakness and Denies Sensory deficit (Neuro) Endocrine: Endocrine: Denies fatigue PMFSH Past Medical History Medical History Acute sinusitis Exposure of implanted vaginal mesh Hand numbness Left leg pain Moderate persistent asthma in adult without complication Obese Surgical History History of cholecystectomy Hx of tubal ligation Family History Family History (Updated 08/06/22 @ 14:51 by Tara Mobley MD) Mother HIV (human immunodeficiency virus infection) Father Heart attack HIV (human immunodeficiency virus infection) Brother No problems noted. Brother Diabetes Sister No problems noted. Sister No problems noted. Daughter No problems noted. Daughter Down syndrome Other Mental health disorder Social History Social History Housing: Apartment Alcohol intake: never Patient Tobacco Use Status: Never used Tobacco Smoked in Last 30 Days: No e-Cigarette/Vaping Use: Never Used Second Hand Smoke Exposure: No Use of substances other than those prescribed or required for medical reasons: No Advance Directives: No Advance Directives Information Provided: Yes service: No Current occupational status: unemployed Cognitive needs: No Hearing needs: No Vision needs: No Physical Exam ED Vital Signs: Vital Signs - 24 hr 12/03/22 16:38 Temperature 98.5 F Pulse Rate 80 Respiratory Rate 18 Blood Pressure 148/74 H Pulse Oximetry 100 Oxygen Delivery Method Room Air BMI result Body Mass Index 29.3 Const General: healthy appearing, comfortable, no acute distress, alert and awake Nutritional Appearance: well nourished Orientation/consciousness: patient oriented x3 HENMT Head: Yes normocephalic and Yes atraumatic Eyes Eyelids: Yes eyelids normal Conjunctivae: conjunctivae normal Sclerae: sclerae normal Corneas: corneas normal Pupils: Equal, round and reactive pupils present EOM: EOMs intact bilaterally Neck Neck: Yes full ROM Resp Effort & Inspection: normal respiratory effort, able to speak in complete sentences, no audible wheezes and not labored Auscultation: clear to auscultation bilaterally GI Inspection: No distended Palpation (GI): Soft to palpation, not firm, nontender, no guarding and not rigid Back/Spine/Pelvis Other: Patient is tender in the left lumbar paraspinous region. No vertebral tenderness to straight leg raise. Skin General skin exam: no rashes or lesions noted and elasticity normal Neuro General: patient oriented x3 Cranial nerves: Yes Equal, round and reactive pupils present and Yes Bilaterally intact EOM present Cognition (Neuro): normal cognition Motor exam (neuro): 5/5 motor strength present throughout Sensory Exam: No Sensory deficit (Neuro) Deep tendon reflexes (DTR's): Right patellar reflex intensity grade: 2+ and Left patellar reflex intensity grade: 2+ Extrem Other: Moving all extremities well without any obvious deformities Course Course Course Narrative: This is an RME: Additional HPI, ROS, PE not included below will be deferred to primary provider. 42-year-old male presents with left-sided flank pain, difficulties taking deep breaths, this started a few weeks ago and has been worsening over the past few days , patient reports that left flank pain radiates to left lower abdomen, patient tells me she is very uncomfortable Plan labs, imaging urine. Medical Decision Making Medical Decision Making MDM Narrative: 42-year-old female presents for evaluation of left lower back pain. Her pain is been present for 1 month. Her pain is worse with movement, bending. Her pain is reproducible on exam. Most likely musculoskeletal in origin. She had labs, CT scan the abdomen pelvis did not show any obvious any allergy her pain. She has a UA consistent with contamination versus mild UTI, given she has left flank pain will treat as a UTI. Differential Diagnosis Differential Diagnoses: The differential diagnosis associated with the presentation includes Muscle strain Contusion Radiculopathy Sciatica Pyelonephritis Obstructive uropathy Lab Data MDM Lab Attestation statement: I reviewed the patient's lab results. No leukocytosis, no anemia. No significant chemistry abnormalities or electrolyte abnormalities. 12/03/22 20:29 12/03/22 20:29 Labs: Lab Results 12/03/22 12/03/22 12/03/22 Range/Units 20:29 20:29 20:29 WBC 7.0 (4.8-10.8) X10*3/uL RBC 4.68 (4.20-5.50) X10*6/uL Hgb 12.7 (12.0-16.0) g/dl Hct 39.6 (37.0-47.0) % MCV 84.6 (80.0-98.0) fL MCH 27.1 (27.0-33.0) pg MCHC 32.1 (31.0-35.0) g/dl RDW 12.6 (11.0-16.0) % Plt Count 286 (160-400) X10*3/uL MPV 9.7 (9.4-12.3) fL Immature Gran % (Auto) 0.1 (0.0-0.4) % Neut % (Auto) 41.8 L (45-73) % Lymph % (Auto) 44.8 H (20-40) % Bertie % (Auto) 10.0 (2-11) % Eos % (Auto) 3.0 (0-4) % Baso % (Auto) 0.3 (0-2) % Lymph # (Auto) 3.1 (1.2-4.9) X10*3/uL Bertie # (Auto) 0.7 (0.1-1.2) X10*3/uL Eos # (Auto) 0.2 (0.0-0.4) X10*3/uL Baso # (Auto) 0.0 (0.0-0.2) X10*3/uL Abs Immat Gran (auto) 0.01 (0.00-0.03) X10*3/uL Absolute Neuts (auto) 2.9 (2.0-8.3) x10*3/uL Absolute Nucleated RBC 0.000 (0.0-0.012) X10*3/uL Nucleated RBC % (auto) 0.0 (0.0-0.2) /100WBC D-Dimer High Sensitivty 248 NG/ML Sodium 140 (135-145) mmol/L Potassium 3.7 (3.3-5.1) mmol/L Chloride 105 (96-108) mmol/L Carbon Dioxide 26 (22-29) mmol/L Anion Gap 13 (12-20) BUN 9 (9-16) mg/dL Creatinine 0.71 (0.5-1.4) mg/dL Estim Creat Clear Calc 107.7 Estimated GFR > 60 Random Glucose 111 (60-115) mg/dL Calcium 9.7 (8.4-10.2) mg/dL Magnesium 2.3 (1.6-2.6) mg/dL Total Bilirubin 0.3 (0.0-1.0) mg/dL AST 14 (5-31) U/L ALT 15 (0-31) U/L Alkaline Phosphatase 78 (39-117) U/L Total Protein 7.6 (6.5-8.0) g/dL Albumin 4.2 (3.5-5.0) g/dL Lipase 22 (8-78) U/L Beta HCG, Quant < 2 mIU/mL Urine Color Urine Appearance Urine pH (5.0-9.0) Ur Specific [place] (1.005-1.025) Urine Protein (Neg-Trace) mg/dL Urine Glucose (UA) (Negative) mg/dL Urine Ketones (Negative) mg/dL Urine Blood (Negative) Urine Nitrite (Negative) Ur Leukocyte Esterase (Negative) Urine RBC (0-2) /HPF Urine WBC (0-5) /HPF Ur Squamous Epith Cells (0-2) /HPF Urine Bacteria (None Seen) Hyaline Casts (0-2) /LPF 12/03/22 Range/Units 20:29 WBC (4.8-10.8) X10*3/uL RBC (4.20-5.50) X10*6/uL Hgb (12.0-16.0) g/dl Hct (37.0-47.0) % MCV (80.0-98.0) fL MCH (27.0-33.0) pg MCHC (31.0-35.0) g/dl RDW (11.0-16.0) % Plt Count (160-400) X10*3/uL MPV (9.4-12.3) fL Immature Gran % (Auto) (0.0-0.4) % Neut % (Auto) (45-73) % Lymph % (Auto) (20-40) % Bertie % (Auto) (2-11) % Eos % (Auto) (0-4) % Baso % (Auto) (0-2) % Lymph # (Auto) (1.2-4.9) X10*3/uL Bertie # (Auto) (0.1-1.2) X10*3/uL Eos # (Auto) (0.0-0.4) X10*3/uL Baso # (Auto) (0.0-0.2) X10*3/uL Abs Immat Gran (auto) (0.00-0.03) X10*3/uL Absolute Neuts (auto) (2.0-8.3) x10*3/uL Absolute Nucleated RBC (0.0-0.012) X10*3/uL Nucleated RBC % (auto) (0.0-0.2) /100WBC D-Dimer High Sensitivty NG/ML Sodium (135-145) mmol/L Potassium (3.3-5.1) mmol/L Chloride (96-108) mmol/L Carbon Dioxide (22-29) mmol/L Anion Gap (12-20) BUN (9-16) mg/dL Creatinine (0.5-1.4) mg/dL Estim Creat Clear Calc Estimated GFR Random Glucose (60-115) mg/dL Calcium (8.4-10.2) mg/dL Magnesium (1.6-2.6) mg/dL Total Bilirubin (0.0-1.0) mg/dL AST (5-31) U/L ALT (0-31) U/L Alkaline Phosphatase (39-117) U/L Total Protein (6.5-8.0) g/dL Albumin (3.5-5.0) g/dL Lipase (8-78) U/L Beta HCG, Quant mIU/mL Urine Color Yellow Urine Appearance Cloudy Urine pH 5.5 (5.0-9.0) Ur Specific [place] 1.025 (1.005-1.025) Urine Protein Negative (Neg-Trace) mg/dL Urine Glucose (UA) Negative (Negative) mg/dL Urine Ketones Trace (Negative) mg/dL Urine Blood Trace H (Negative) Urine Nitrite Negative (Negative) Ur Leukocyte Esterase Negative (Negative) Urine RBC 6-10 H (0-2) /HPF Urine WBC 0-5 (0-5) /HPF Ur Squamous Epith Cells 11-20 (0-2) /HPF Urine Bacteria 2+ (None Seen) Hyaline Casts 0-2 (0-2) /LPF Radiology Impression Discussion of test interpretation with radiology: I have reviewed the radiologist's reading. Radiologist Impression: No evidence of renal or ureteral calculi, no hydronephrosis. No acute intra-abdominal findings Discharge Plan Discharge Clinical Impression: Low back pain radiating to left leg, UTI (urinary tract infection) Patient Disposition: Home, Self-Care Instructions: Acute Low Back Pain (ED) Additional Instructions: Your workup in the emergency room today was reassuring Your pain is most likely related to muscle spasms from the your job You did have some bacteria in your urine, so take the Macrobid twice daily for 3 days Use Tylenol as needed for pain and methocarbamol for muscle spasms This may make you sleepy, do not drink alcohol or drive after taking it Prescriptions: New methocarbamol 500 mg tablet 500 mg PO TID Qty: 20 0RF nitrofurantoin monohyd/m-cryst [Macrobid] 100 mg capsule 100 mg PO Q12H 3 Days Qty: 6 0RF Rx Instructions: must administer with a meal/food No Action omeprazole 20 mg capsule,delayed release(DR/EC) 20 mg PO DAILY 90 Days Qty: 90 1RF cholestyramine (with sugar) 4 gram powder in packet 4 g PO DAILY PRN (Reason: diarrhea) 30 Days Qty: 60 0RF Rx Instructions: administer w/meal; avoid other meds within 1hr before or 4-6hr after dose lidocaine 5 % adhesive patch,medicated 1 patch topical DAILY Qty: 15 0RF Rx Instructions: leave on most painful area for up to 12 hrs methocarbamol 500 mg tablet 500 mg PO Q8H PRN (Reason: muscle spasm) Qty: 14 0RF albuterol sulfate 0.63 mg/3 mL solution for nebulization 0.63 mg inhalation Q4H PRN (Reason: shortness of breath or wheezing) Qty: 75 0RF sumatriptan succinate 25 mg tablet See Rx Instructions PO .COMPLEX Qty: 7 0RF Rx Instructions: take 1 tab at onset of headache; if no relief may repeat 1 tab after at least 2 hrs; max = 4 tabs/24 hr PO cholecalciferol (vitamin D3) 25 mcg (1,000 unit) capsule 25 mcg PO DAILY 90 Days Qty: 90 1RF loratadine 10 mg tablet 10 mg PO QAM 90 Days Qty: 90 0RF albuterol sulfate [Ventolin HFA] 90 mcg/actuation HFA aerosol inhaler 2 puff inhalation Q6H PRN (Reason: shortness of breath or wheezing) 30 Days Qty: 8 1RF
[2022-12-03 20:33] LABS: MANUAL DIFF FLAG NO
[2022-12-03 20:38] LABS: Basophils Percent Auto 0.3 % (0-2); Eosinophils Absolute Auto 0.2 X10*3/uL (0.0-0.4); Hematocrit 39.6 % (37.0-47.0); Hemoglobin 12.7 g/dl (12.0-16.0); Imm Gran Abs Auto 0.01 X10*3/uL (0.00-0.03); Imm Gran Pct Auto 0.1 % (0.0-0.4); Lymphocytes Absolute Auto 3.1 X10*3/uL (1.2-4.9); Lymphocytes Percent Auto 44.8 % (20-40); Mean Corpuscular HGB Conc 32.1 g/dl (31.0-35.0); Mean Corpuscular Hemoglobin 27.1 pg (27.0-33.0); Mean Corpuscular Volume 84.6 fL (80.0-98.0); Mean Platelet Volume 9.7 fL (9.4-12.3); Monocytes Absolute Auto 0.7 X10*3/uL (0.1-1.2); Neutrophils Absolute Auto 2.9 x10*3/uL (2.0-8.3); Neutrophils Percent Auto 41.8 % (45-73); Platelet Count 286 X10*3/uL (160-400); Red Blood Count 4.68 X10*6/uL (4.20-5.50); Red Cell Distribution Width 12.6 % (11.0-16.0)
[2022-12-03 20:41] LABS: Appearance Urine Cloudy; Color Urine Yellow; Glucose Urine UA Negative (Negative); Leukocyte Esterase Urine Negative (Negative); Nitrite Urine Negative (Negative); PH 5.5 (5.0-9.0); Specific Gravity - Urine 1.025 (1.005-1.025); UMIC TRIGGER UACC YES; Urine Blood Trace (Negative); Urine Ketones Trace mg/dL (Negative); Urine Protein Negative (Neg-Trace)
[2022-12-03 20:43] LABS: Bacteria Urine 2+ (None Seen); Hyaline Casts Urine 0-2 /LPF (0-2); WBC Urine 0-5 /HPF (0-5)
[2022-12-03 20:48] LABS: D Dimer High Sensitivity 248 NG/ML
[2022-12-03 20:57] LABS: Alanine Aminotransferase 15 U/L (0-31); Albumin Level 4.2 g/dL (3.5-5.0); Alkaline Phosphatase 78 U/L (39-117); Anion Gap 13 (12-20); Aspartate Amino Transferase 14 U/L (5-31); Bilirubin Total 0.3 mg/dL (0.0-1.0); Blood Urea Nitrogen 9 mg/dL (9-16); Calcium 9.7 mg/dL (8.4-10.2); Carbon Dioxide 26 mmol/L (22-29); Chloride 105 mmol/L (96-108); Creatinine Clr Calc Pharmacy 107.7; Estimated Glomerular Filt Rate > 60; Glucose Random 111 mg/dL (60-115); Lipase 22 U/L (8-78); Magnesium 2.3 mg/dL (1.6-2.6); Potassium 3.7 mmol/L (3.3-5.1); Sodium 140 mmol/L (135-145); Total Protein 7.6 g/dL (6.5-8.0)
[2022-12-03 20:58] LABS: HCG Quantitative < 2 mIU/mL
== END 2022-12-04 00:43 | disposition home or self-care (01) ==
PROVIDERS: Physician Assistant; Emergency Provider Emergency Medicine; PCP Internal Medicine
DX: M54.42 Lumbago with sciatica, left side (principal); N39.0 Urinary tract infection, site not specified
CPT/HCPCS: 36415; 74176; 80053; 81001; 83690; 83735; 84702; 85025; 85379; 99284

== ENCOUNTER 2023-02-21 12:57 | Outpatient (REF) | payer OTHER, SELFPAY | END 2023-02-21 12:58 | disposition home or self-care (01) | LOC: HO.LNP 12:57 | PROVIDERS: Visit Provider Advanced Practice Midwife | DX: Z01.419 Encounter for gynecological examination (general) (routine) without abnormal findings (principal); R30.0 Dysuria; T83.721A Exposure of implanted vaginal mesh into vagina, initial encounter; R31.9 Hematuria, unspecified; R33.9 Retention of urine, unspecified; M62.89 Other specified disorders of muscle; Z98.51 Tubal ligation status; Z13.29 Encounter for screening for other suspected endocrine disorder; Z11.3 Encounter for screening for infections with a predominantly sexual mode of transmission; Z79.899 Other long term (current) drug therapy | CPT/HCPCS: 81003; 99396 ==

== ENCOUNTER 2023-02-21 12:57 | Outpatient (AMB) | payer OTHER, SELFPAY ==
[2023-02-21 13:10] VITALS: BP 126/80; BMI 30.3
--- NOTE | 2023-02-21 13:10 | A.OFFVIS_ITS ---
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 Languages And Literature Instructor Required: Yes Languages And Literature Instructor Language: Trinidadian Information Interpreted: non-clinical & clinical Operations Analyst: Operations Analyst Present (Aidyn) Allergies cyclobenzaprine [From FLEXERIL] Allergy (Intermediate, Verified 02/21/23 13:14) SWELLING aspirin [ASPIRIN] Allergy (Mild, Verified 02/21/23 13:14) SWELLING ibuprofen [From Advil] Allergy (Verified 02/21/23 13:14) Angioedema Medication List - Last Reconciled 02/21/23 by Ariana Sims CNM albuterol sulfate 0.63 mg (3 mL) inhalation Q4H PRN cholecalciferol (vitamin D3) 25 mcg PO DAILY 90 days lidocaine 5% 1 patch topical DAILY loratadine 10 mg PO QAM 90 days methocarbamol 500 mg PO TID methocarbamol 500 mg PO Q8H PRN sumatriptan succinate take 1 tab at onset of headache; if no relief may repeat 1 tab after at least 2 hrs; max = 4 tabs/24 hr PO Ventolin HFA 90 mcg/actuation (albuterol sulfate) 2 puffs inhalation Q6H PRN 30 days NS Is last menstrual period known: Yes Last menstrual period: 01/30/23 Post menopausal: No HPI 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 Carrasquillo. Her last Pap smear was done with me on 02/24/2023 but we were at that time in the [facility] office so it was done within the system her previous Paps have been normal but HPV testing was omitted so her Pap smear last year was negative with negative HPV. In addition she tells me she never went for her mammogram that I ordered last year and Dr. Carrasquillo ordered a mammogram for her this year as well and she has that scheduled for March 09. It will be her 1st mammogram she says that her breast do hurt her sometimes before her. Her last period was January 30 2023. She tells me that her periods are sometimes irregular and she sometimes can miss them up for a month or 2 and has in the past miss them for up to 3 months. (I did remind her to please call if that ever happens again and do not wait a long time to seek intervention for that). She has noticed some blood in her urine and also sometimes it candelario in her suprapubic area. She says she had surgery because she had incontinence and even if she coughed her sneezed the urine with just come right out. She said she had mesh surgery and it did fix the problem but now sometimes she sits on the toilet and she can not pee. She says she sometimes goes all day at work without peeing. She does want to be checked for STDs she is worried about her . Patient states is she sometimes feel something in her breast but she could not find it or feel it today and I could not either she is scheduled for mammogram on March 09. [facility] Medical History (Updated 02/21/23 @ 14:03 by Ariana Sims CNM) Exposure of implanted vaginal mesh Moderate persistent asthma in adult without complication Left leg pain Hand numbness Obese Acute sinusitis Surgical History (Updated 02/21/23 @ 13:25 by Ariana Sims CNM) Hx of tubal ligation History of cholecystectomy Family History Mother HIV (human immunodeficiency virus infection) Father Heart attack HIV (human immunodeficiency virus infection) Brother No problems noted. Brother Diabetes Sister No problems noted. Sister No problems noted. Daughter No problems noted. Daughter Down syndrome Other Mental health disorder Social History Housing: Apartment Alcohol intake: never Patient Tobacco Use Status: Never used Tobacco e-Cigarette/Vaping Use: Never Used Second Hand Smoke Exposure: No service: No Current occupational status: unemployed Cognitive needs: No Hearing needs: No Vision needs: No Female Reproductive History Menstrual Age of Menarche: 8 Duration of menses: 3-5 days Date of last menstrual period: 01/30/23 control method: other (tubal ligation) Total pregnancies: 2 Full term: 2 Number of Living Children: 2 Date of last pap smear: 02/21/22 (negative) History of abnormal pap smear: No Physical Exam Vital Signs: Last Vital Signs BP 126/80 02/21/23 13:10 BMI result Body Mass Index 30.3 Const General: healthy appearing, comfortable, no acute distress, well developed and alert Nutritional Appearance: average body habitus Orientation/consciousness: patient oriented x3 Limitations: no limitations HEENT Head: Yes normocephalic Neck Neck: Yes normal visual inspection Chest Chest palpation & inspection: normal inspection of the chest Breast/axilla inspection: normal inspection of the breasts and normal inspection of the axillae Breast/axilla palpation: normal palpation of the breasts and normal palpation of the axillae Resp Effort & Inspection: normal respiratory effort GI Inspection: Yes normal to inspection, No Abdominal wall edema and No distended Palpation (GI): Soft to palpation and nontender Other: Fairly well-healed scars on mons pubis from surgery. External vulva within normal limits vagina pink moist cervix parous pink moist clear discharge no abnormal discharge cervix is mobile nontender uterus midposition to anteverted. Bladder feels somewhat full but patient believes that she did empty completely this time. Very very strong tone with Kegel. General: Yes bladder normal to palpation External Female Exam: normal external appearance and normal appearance of the urethra Speculum Exam - Vagina: normal appearance of the vagina, normal palpation and normal vaginal discharge Speculum Exam - Cervix: normal appearance of the cervix, normal palpation and nontender Bimanual exam- vagina & uterus: normal bimanual exam, normal palpation, uterine size normal, bladder normal to palpation, consistency normal, normal palpation, uterine mobility normal, uterine shape normal, No Cervical tenderness present, non-tender and no cervical motion tenderness Bimanual Exam- Adnexa, other: normal adnexae, no masses, normal and No adnexal tenderness Neuro General: patient oriented x3 Results AMB Urinalysis, Automated UA Leukoctes 0 Michael/uL Last Edit by CRESENCIO Osborne on 02/21/23 13:57 UA Nitrite Negative Last Edit by CRESENCIO Osborne on 02/21/23 13:57 UA Urobilinogen 0 mg/dL Last Edit by CRISTY OsborneA on 02/21/23 13:57 UA Protein 0 mg/dL Last Edit by Aidyn Gt, RMA on 02/21/23 13:57 UA pH 6 Last Edit by Aidyn Gt, RMA on 02/21/23 13:57 UA Blood 1 Tyson/uL Last Edit by Aidyn Gt, RMA on 02/21/23 13:57 UA Specific [place] 1.020 Last Edit by Aidyn Gt, RMA on 02/21/23 13: 57 UA Ketone Negative Last Edit by Aidyn Gt, RMA on 02/21/23 13:57 UA Bilirubin 0 mg/dL Last Edit by Aidaliza Gt, RMA on 02/21/23 13:57 UA Glucose 0 mg/dL Last Edit by Aidaliza Gt, RMA on 02/21/23 13:57 Results Reviewed Results Reviewed: Name: Srikanth GriffithJasson Age/Sex: 42/F Attending: Ariana Sims CNM : 1980 Submitted by: Ariana Sims CNM Copies to: MR #: [id number] Status: DEP REF Collected: 02/20/22 Location: [facility] Received: 02/21/22 Interpretation Satisfactory for evaluation. Negative for intraepithelial lesion or malignancy. HPV mRNA E6/E7: NOT DETECTED This assay detects E6/E7 viral messenger RNA (mRNA) from 14 high-risk HPV types (16, 18, 31, 33, 35, 39, 45, 51, 52, 56, 58, 59, 66, 68) HPV testing performed by [facility], [place], [place]. See reference laboratory pion of the EMR for entire report. Clinical Information LMP: Unknown Previous PAP test: 02/25/18, WNL Material Received ThinPrep-Cervical Electronically Signed By: GRACE Ulloa (ASCP) 02/28/22 [id number] The Pap Test is a screening procedure with the inherent possibility of both false negative and false positive results. Results should be interpreted in the context of historic and current clinical findings. Reliability of the Pap Test is enhanced by performing the test on a regular repetitive basis. Patient: Jasson Rocha Age/Sex: 42/F MR#: [id number] Page 1 of 1 Assessment & Plan Assessment & Plan (1) Cervical cancer screening: Comment: 02/20/2022 Pap is negative with negative HPV. Code(s): Z12.4 - Encounter for screening for malignant neoplasm of cervix (2) Women's annual routine gynecological examination: Code(s): Z01.419 - Encounter for gynecological examination (general) (routine) without abnormal findings (3) Dysuria: Code(s): R30.0 - Dysuria (4) Exposure of implanted vaginal mesh: Code(s): T83.721A - Exposure of implanted vaginal mesh into vagina, initial encounter (5) Hx of tubal ligation: Code(s): Z98.51 - Tubal ligation status (6) Urinary retention with incomplete bladder emptying: Code(s): R33.9 - Retention of urine, unspecified (7) Breast cancer screening: Code(s): Z12.39 - Encounter for other screening for malignant neoplasm of breast (8) Screen for sexually transmitted diseases: Code(s): Z11.3 - Encounter for screening for infections with a predominantly sexual mode of transmission Plan 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 Carrasquillo. Her last Pap smear was done with me on 02/24/2023 but we were at that time in the [facility] office so it was done within the system her previous Paps have been normal but HPV testing was omitted so her Pap smear last year was negative with negative HPV. In addition she tells me she never went for her mammogram that I ordered last year and Dr. Carrasquillo ordered a mammogram for her this year as well and she has that scheduled for March 09. It will be her 1st mammogram she says that her breast do hurt her sometimes before her. Her last period was January 30 2023. She tells me that her periods are sometimes irregular and she sometimes can miss them up for a month or 2 and has in the past miss them for up to 3 months. (I did remind her to please call if that ever happens again and do not wait a long time to seek intervention for that). She has noticed some blood in her urine and also sometimes it candelario in her suprapubic area. She says she had surgery because she had incontinence and even if she coughed her sneezed the urine with just come right out. She said she had mesh surgery and it did fix the problem but now sometimes she sits on the toilet and she can not pee. She says she sometimes goes all day at work without peeing. She does want to be checked for STDs she is worried about her . Reminded her that the mammogram had been ordered last year and she is going to keep the appointment she has this year for it. I also told her we will send the urinalysis for culture to see if she does have a UTI but she should also be following up with her primary care provider and in fact her primary care provider had ordered a UA BORING MACHINE OPERATOR though the patient states she never got a call so she did not know about it. I offered the patient the option of a urogynecological referral back to [facility] or to start with physical therapy to see if there was something she can do to improve her complete emptying and she chose physical therapy I gave her the brochure for it and she says her daughter can translated for her and I placed a referral. In addition she did want to get tested for STDs these by blood work so I ordered HIV hep B hep C and syphilis for her as well testing was done during the visit for gonorrhea chlamydia trichomoniasis Gardnerella and Tena. She was not due for Pap smear as last year's was completely normal with negative HPV. Orders: Orders Bacterial Vaginosis Panel Today R31.9 - Hematuria, unspecified CT NG by PCR Today R31.9 - Hematuria, unspecified Urine Culture Today R31.9 - Hematuria, unspecified Hepatitis C Antibody Today R30.0 - Dysuria, Z11.3 - Encounter for screening for infections with a predominantly sexual mode of transmission HIV Ab/Ag Today R30.0 - Dysuria, Z11.3 - Encounter for screening for infections with a predominantly sexual mode of transmission AMB Urinalysis Automated Today R31.9 - Hematuria, unspecified Hepatitis B Surface Antigen Today R30.0 - Dysuria, Z11.3 - Encounter for screening for infections with a predominantly sexual mode of transmission Syphilis Screen Today R30.0 - Dysuria, Z11.3 - Encounter for screening for infections with a predominantly sexual mode of transmission Referrals Pelvic Professional Architect Referral M62.89 - Other specified disorders of muscle, R30.0 - Dysuria, R33.9 - Retention of urine, unspecified, T83.721A - Exposure of implanted vaginal mesh into vagina, initial encounter, Z01.419 - Encounter for gynecological examination (general) (routine) without abnormal findings, Z12.39 - Encounter for other screening for malignant neoplasm of breast, Z12.4 - Encounter for screening for malignant neoplasm of cervix, Z98.51 - Tubal ligation status Coding Level of Care Code Est Pt Prev Care 40-64y(33454) Diagnoses Cervical cancer screening Z12.4 Women's annual routine gynecological examination Z01.419 Dysuria R30.0 Exposure of implanted vaginal mesh T83.721A Hx of tubal ligation Z98.51 Urinary retention with incomplete bladder emptying R33.9 Breast cancer screening Z12.39 Screen for sexually transmitted diseases Z11.3
== END 2023-02-21 14:00 | disposition home or self-care (01) ==
PROVIDERS: PCP Internal Medicine; Visit Provider Advanced Practice Midwife
DX: Z12.4 Encounter for screening for malignant neoplasm of cervix (principal); Z01.419 Encounter for gynecological examination (general) (routine) without abnormal findings; R30.0 Dysuria; T83.721A Exposure of implanted vaginal mesh into vagina, initial encounter; Z98.51 Tubal ligation status; R33.9 Retention of urine, unspecified; Z12.39 Encounter for other screening for malignant neoplasm of breast; Z11.3 Encounter for screening for infections with a predominantly sexual mode of transmission; R31.9 Hematuria, unspecified
CPT/HCPCS: 99396

== ENCOUNTER 2023-02-21 14:06 | Outpatient (REF) | payer OTHER, SELFPAY ==
[2023-02-21 17:46] LABS: CT PCR NOT DETECTED (Not Detect.); NG PCR NOT DETECTED (Not Detect.)
[2023-02-22 07:26] LABS: HBsAGNum1 0.35 S/CO (0.00-0.99); HIV AB/AG Nonreactive (Nonreactive); HIV Num 1 0.07 S/CO (0.00-0.99); Hepatitis B Surface Antigen Negative (Negative); ~HepC Num1 0.13 S/CO (0.00-0.79); ~Hepatitis C Antibody Nonreactive (Nonreactive)
[2023-02-22 07:41] LABS: Syphilis Screen Nonreactive (Nonreactive)
[2023-02-22 11:15] LABS: BV Int Neg Control Negative (Negative); BV Int Pos Control Positive (Positive)
== END 2023-02-21 14:07 | disposition home or self-care (01) ==
LOC: HO.LAB 14:06
PROVIDERS: PCP Internal Medicine; Visit Provider Advanced Practice Midwife
DX: R30.0 Dysuria (principal); R31.29 Other microscopic hematuria; R39.9 Unspecified symptoms and signs involving the genitourinary system; Z11.3 Encounter for screening for infections with a predominantly sexual mode of transmission
CPT/HCPCS: 0353U; 86780; 86803; 87086; 87340; 87389; 87480; 87510; 87660

== ENCOUNTER 2023-03-30 10:31 | Outpatient (REF) | payer OTHER, SELFPAY ==
--- NOTE | ~2023-03-30 | MM_ITS ---
EXAMINATION: MM SCREENING DIGITAL BREAST TOMOSYNTHESIS, BILATERAL CLINICAL INFORMATION: Screening. Asymptomatic. COMPARISON: Mammography: There are no prior mammograms comparison. This is a baseline study. TECHNIQUE: Digital breast tomosynthesis is performed in both the craniocaudal and mediolateral oblique views along with computer-aided detection (CAD). Synthesized 2D images are generated from the tomosynthesis. FINDINGS: The breasts are heterogeneously dense, which may obscure small masses (ACR BI-RADS breast composition Category c). There are no significant masses, abnormal calcifications, or other abnormalities. MM/MM tomosynthesis screening BI IMPRESSION: No mammographic evidence of malignancy. ASSESSMENT: BI-RADS BI-RADS 1 - Negative RECOMMENDATION: Routine annual mammography screening. 1 year F/U This examination should not preclude the clinical evaluation of a suspicious palpable abnormality. This patient's information was entered into a reminder system with a target due date for their next mammogram.
== END 2023-03-30 10:32 | disposition home or self-care (01) ==
LOC: HO.MAMMO 10:31
PROVIDERS: PCP Internal Medicine; Visit Provider Internal Medicine
DX: Z12.31 Encounter for screening mammogram for malignant neoplasm of breast (principal)
CPT/HCPCS: 77063; 77067

== ENCOUNTER → 2023-03-30 10:45 | Outpatient (BNV) | payer OTHER, SELFPAY | PROVIDERS: PCP Internal Medicine; Visit Provider Radiology Diagnostic Radiology | DX: Z12.31 Encounter for screening mammogram for malignant neoplasm of breast (principal) | CPT/HCPCS: 77063; 77067 ==

== ENCOUNTER 2023-08-12 17:17 | Outpatient (AMB) | payer OTHER, SELFPAY ==
[2023-08-12 17:35] VITALS: BP 124/80
--- NOTE | 2023-08-12 17:35 | MHC.PC.OV ---
Vital Signs 08/12/23 17:35 Height 5 ft 5 in Weight 180 lb BMI 30.0 BP 124/80 Blood Pressure Location Lt brachial Position Sitting Intake Visit Reasons: Annual Exam Intake Note: Patient here for an annual physical exam Wellness Trainer Required: No Accompanied by: Self / Same As Patient Allergies cyclobenzaprine [From FLEXERIL] Allergy (Intermediate, Verified 08/12/23 17:43) SWELLING aspirin [ASPIRIN] Allergy (Mild, Verified 08/12/23 17:43) SWELLING ibuprofen [From Advil] Allergy (Verified 08/12/23 17:43) Angioedema Medication List - Last Reconciled 08/12/23 by Tara Mobley MD albuterol sulfate 0.63 mg (3 mL) inhalation Q4H PRN lidocaine 5% 1 patch topical DAILY loratadine 10 mg PO QAM 90 days methocarbamol 500 mg PO TID sumatriptan succinate take 1 tab at onset of headache; if no relief may repeat 1 tab after at least 2 hrs; max = 4 tabs/24 hr PO Ventolin HFA 90 mcg/actuation (albuterol sulfate) 2 puffs inhalation Q6H PRN 30 days NS Tobacco use date assessed: 08/12/23 Dental Screening Dental Screen Date: 08/12/23 Did you have a dental visit in the last 12 months?: Yes Did you have a dental problem in the last 6 months where you did not have access to dental care?: No Was dental information given to patient?: Patient has dentist HPI HPI Comments History of Present Illness Details This is a 43-year-old female with mild major depression that comes for her physical exam. Last mammogram was 2022. Last Pap smear was 2021 and was normal. I will start her on escitalopram at bedtime for her depression. Denies any chest pain or shortness of breath. [facility] Medical History (Updated 08/12/23 @ 18:50 by Tara Mobley MD) Exposure of implanted vaginal mesh Moderate persistent asthma in adult without complication Left leg pain Hand numbness Obese Acute sinusitis Surgical History Hx of tubal ligation History of cholecystectomy Family History Mother HIV (human immunodeficiency virus infection) Father Heart attack HIV (human immunodeficiency virus infection) Brother No problems noted. Brother Diabetes Sister No problems noted. Sister No problems noted. Daughter No problems noted. Daughter Down syndrome Other Mental health disorder Social History Housing: Apartment Alcohol intake: never Patient Tobacco Use Status: Never used Tobacco e-Cigarette/Vaping Use: Never Used Second Hand Smoke Exposure: No service: No Current occupational status: employed Current occupational exposures/hazards: No Cognitive needs: No Hearing needs: No Vision needs: No Female Reproductive History Menstrual Age of Menarche: 8 Questionnaire PHQ-9 Over the last 2 weeks, how often have you been bothered by any of the following problems? 1. Little interest or pleasure in doing things: several days 2. Feeling down, depressed, or hopeless: several days 3. Trouble falling or staying asleep, or sleeping too much: nearly every day 4. Feeling tired or having little energy: nearly every day 5. Poor appetite or overeating: nearly every day 6. Feeling bad about yourself - or that you are a failure or have let yourself or your family down: not at all 7. Trouble concentrating on things, such as reading the newspaper or watching television: not at all 8. Moving or speaking so slowly that other people could have noticed. Or the opposite - being so fidgety or restless that you have been moving around a lot more than usual: not at all 9. Thoughts that you would be better off or of hurting yourself in some way: not at all Total score: 11 Depression Screening Interpretation: Positive Depression Screening Done: Yes 04718 - PHQ-9 Billing: Yes Source: Developed by Drs. Gasper Estrada, Radhika Garcia, Jun Wells and colleagues, with an educational agatha from [employer]. Thrive Questionnaire Date Thrive assessed: 08/12/23 I am a: Patient What is your living situation today?: I have a steady place to live Within the past 12 months, did the food you bought not last and you didn't have the money to get more?: Never true Within the past 12 months, did you worry whether your food would run out before you got money to buy more?: Never true Do you have trouble paying for medicines?: No Do you have trouble getting transportation to medical appointments?: No Do you have trouble paying your heating and electricity bill?: No Do you have trouble taking care of your child, family member or friend?: No Do you have trouble with day-to-day activities such as bathing, preparing meals, shopping, managing finances, etc.?: No Are you currently unemployed and looking for a job?: No Are you interested in more education?: No Please select the resources that you would like help with: None Currently or been in a relationship where the following occur: no concerns reported THRIVE Score: 0 MACHELLE-7 AMB Questionnaire MACHELLE-7 Date MACHELLE - 7 assessed: 08/12/23 Feeling nervous, anxious, or on edge: 3 = Nearly every day Not being able to stop or control worryin = More than half the days Worrying too much about different things: 3 = Nearly every day Trouble relaxin = Several days Being so restless that it is hard to sit still: 1 = Several days Becoming easily annoyed or irritable: 2 = More than half the days Feeling afraid as if something awful might happen: 2 = More than half the days Total MACHELLE-7 score (0-4 normal; 5-9 mild; 10-14 moderate; 15-21 severe): 14 Source: Developed by Drs. Gasper Estrada, Radhika Garcia, Jun Wells and colleagues, with an educational agatha from [employer]. MACHELLE-7 Assessment Billing MACHELLE-7 Assessment Tool: MACHELLE-7 Assessment 08700 Review of Systems Const All systems reviewed & are unremarkable except as noted in HPI and below Eyes Reports no additional complaints, Denies change in vision and Denies other visual disturbances Card Denies chest pain at rest, Denies chest pain with activity, Denies edema, Denies irregular heart rhythm, Denies claudication, Denies dyspnea, Denies dyspnea on exertion, Denies orthopnea, Denies paroxysmal nocturnal dyspnea and Denies slow heart rate Resp Denies cough, Denies dyspnea and Denies dyspnea on exertion GI Denies abdominal pain, Denies change in bowel habits, Denies excessive flatus, Denies nausea and Denies vomiting Physical exam (Primary Care) Vital Signs: Last Vital Signs BP 124/80 08/12/23 17:35 BMI result Body Mass Index 30.0 Tobacco/Smoking Status: Tobacco use Status Tobacco use date assessed 08/12/23 08/12/23 17:43 Patient Tobacco Use Status Never used Tobacco 08/12/23 17:43 e-Cigarette/Vaping Use Never Used 08/12/23 17:43 PHQ-9: PHQ-9 Score PHQ-9: Total score 11 08/12/23 17:46 Depression Screening Interpretation: Positive Thrive Assessment: Date of Thrive Assessment Date Thrive assessed 08/12/23 08/12/23 17:43 Currently or been in a relationship where the following occur: no concerns reported Const Orientation/consciousness: patient oriented x3 HENMT Head: Yes normal to inspection, Yes normocephalic and Yes atraumatic Ears: external ears normal Eyes General: appearance normal, both eyes and all related structures Eyelids: Yes eyelids normal Conjunctivae: conjunctivae normal Neck Neck: Yes normal visual inspection and Yes supple Resp Effort & Inspection: normal respiratory effort Auscultation: clear to auscultation bilaterally Cardio Jugular venous distension: no JVD Rate: regular rate Rhythm: regular rhythm Heart sounds: S1 normal heart sound present and S2 normal heart sound present GI Inspection: Yes normal to inspection Palpation (GI): Soft to palpation and nontender Auscultation: normal bowel sounds Skin General skin exam: no rashes or lesions noted Neuro General: patient oriented x3 and no focal motor deficits Extrem General: Yes full ROM Psych Appearance: grossly normal Assessment and Plan Assessment & Plan (1) Physical exam: Code(s): Z00.00 - Encounter for general adult medical examination without abnormal findings Plan: Repeat in a year. (2) Mild major depression: Code(s): F32.0 - Major depressive disorder, single episode, mild Plan: Start escitalopram. Orders: Orders Comprehensive [place]. Panel Fast Today Z00.00 - Encounter for general adult medical examination without abnormal findings Lipid Panel Today E78.5 - Hyperlipidemia, unspecified, Z00.00 - Encounter for general adult medical examination without abnormal findings Vitamin D 25-OH Total Today E55.9 - Vitamin D deficiency, unspecified Thyroid Stimulating Hormone Today R63.4 - Abnormal weight loss Referrals Ophthalmology Referral H53.8 - Other visual disturbances Medications: New escitalopram oxalate 5 mg PO BEDTIME 90 days 90 tabs 1RF Refilled methocarbamol 500 mg PO TID 20 tabs 0RF muscle spasm sumatriptan succinate take 1 tab at onset of headache; if no relief may repeat 1 tab after at least 2 hrs; max = 4 tabs/24 hr PO 7 tabs 0RF G43.909 - Migraine, unspecified, not intractable, without status migrainosus Coding Level of Care Code Est Pt Prev Care 40-64y(07261) Diagnoses Physical exam Z00.00 Mild major depression F32.0 Additional Codes MACHELLE-7 Assessment Billing - MACHELLE-7 Assessment Tool: AMCHELLE-7 Assessment 10667 ([id number]) Time Spent (min) 33
== END 2023-08-12 17:51 | disposition home or self-care (01) ==
PROVIDERS: Visit Provider Internal Medicine
DX: Z00.00 Encounter for general adult medical examination without abnormal findings (principal); F32.0 Major depressive disorder, single episode, mild
CPT/HCPCS: 96127; 99396

== ENCOUNTER 2023-08-18 13:19 | Emergency (ER) | payer OTHER, SELFPAY ==
--- NOTE | ~2023-08-18 | XR_ITS ---
Exam: Left shoulder 3 views and right shoulder 3 views. HISTORY: Severe pain. FINDINGS: Preservation joint spaces. No focal bony lesion or soft tissue abnormality. No calcifications. Bone mineralization normal. Lung apices clear. XR/XR shoulder LT min 2V IMPRESSION: Normal left and right shoulder imaging.
--- NOTE | ~2023-08-18 | XR_ITS ---
Exam: Left shoulder 3 views and right shoulder 3 views. HISTORY: Severe pain. FINDINGS: Preservation joint spaces. No focal bony lesion or soft tissue abnormality. No calcifications. Bone mineralization normal. Lung apices clear. XR/XR shoulder RT min 2V IMPRESSION: Normal left and right shoulder imaging.
[2023-08-18 13:22] VITALS: BP 158/100; PULSE 81; RESP 16; TEMP 36.9; O2SAT 95; BMI 30.2
--- NOTE | 2023-08-18 13:24 | ED.BACK ---
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 She states that the pain starts in her shoulders and radiate down into her wrist. Denies any numbness, tingling or weakness. She has been taking Tylenol without any relief. Followed up with her primary care physician who did not advise her on any treatment. She denies any fevers, chills, dizziness, blurred vision, neck pain, chest pain, shortness of breath, abdominal pain, nausea, vomiting or diarrhea. Denies taking any other medications to treat her symptoms. No other complaints or concerns at this time. Timing: constant Severity: moderate Similar Symptoms Previously: No Quality: aching Radiation: none Exacerbating factors: none Relieving factors: none Associated symptoms: denies other symptoms Related Data Previous Rx's ?Medication ?Instructions ?Recorded albuterol sulfate 0.63 mg/3 mL 0.63 mg (3 mL) inhalation Q4H PRN 02/27/21 solution for nebulization shortness of breath or wheezing #75 mL loratadine 10 mg tablet 10 mg PO QAM 90 days #90 tabs 12/25/21 Ventolin HFA 90 mcg/actuation 2 puff inhalation Q6H PRN 08/06/22 aerosol inhaler (albuterol sulfate) shortness of breath or wheezing 30 days #8 grams lidocaine 5 % topical patch 1 patch topical DAILY #15 ea 11/21/22 escitalopram oxalate 5 mg tablet 5 mg PO BEDTIME 90 days #90 tabs 08/12/23 methocarbamol 500 mg tablet 500 mg PO TID muscle spasm #20 tabs 08/12/23 sumatriptan succinate 25 mg tablet See Rx Instructions PO .COMPLEX #7 08/12/23 tabs methocarbamol 750 mg tablet 750 mg PO TID 3 days #9 tabs 08/18/23 prednisone 20 mg tablet 20 mg PO DAILY 5 days #5 tabs 08/18/23 Allergies Allergy/AdvReac Type Severity Reaction Status Date / Time cyclobenzaprine Allergy Intermediate SWELLING Verified 08/18/23 13:23 [From FLEXERIL] aspirin [ASPIRIN] Allergy Mild SWELLING Verified 08/18/23 13:23 ibuprofen [From Advil] Allergy Angioedema Verified 08/18/23 13:23 Review of Systems Review of Systems: Yes all other systems are reviewed and are negative Constitutional: Constitutional: Reports as per [facility] Past Medical History Medical History (Updated 08/19/23 @ 00:01 by Background Dagarret) Exposure of implanted vaginal mesh Moderate persistent asthma in adult without complication Left leg pain Hand numbness Obese Acute sinusitis Surgical History Hx of tubal ligation History of cholecystectomy Family History Family History Mother HIV (human immunodeficiency virus infection) Father Heart attack HIV (human immunodeficiency virus infection) Brother No problems noted. Brother Diabetes Sister No problems noted. Sister No problems noted. Daughter No problems noted. Daughter Down syndrome Other Mental health disorder Social History Social History Housing: Apartment Alcohol intake: never Patient Tobacco Use Status: Never used Tobacco e-Cigarette/Vaping Use: Never Used Second Hand Smoke Exposure: No Advance Directives: No Advance Directives Information Provided: Yes service: No Current occupational status: employed Current occupational exposures/hazards: No Cognitive needs: No Hearing needs: No Vision needs: No Physical Exam Vital Signs: Vital Signs: Last Vital Signs Temp 98 F 08/18/23 16:09 Pulse 73 08/18/23 16:09 Resp 19 08/18/23 16:09 BP 168/90 H 08/18/23 16:09 Pulse Ox 97 08/18/23 16:09 O2 Del Method Room Air 08/18/23 16:09 BMI result Body Mass Index 30.2 Const: General: cooperative, comfortable and no acute distress Orientation/consciousness: patient oriented x3 Limitations: no limitations HEENT: Head: Yes normal to inspection, Yes normocephalic and Yes atraumatic Ears: hearing grossly normal bilaterally General nose exam: Normal external nose present Face and sinus: Yes normal facial exam Mouth: Normal oral and palatal mucosa present, oropharynx normal and moist mucous membranes Throat: Yes posterior oropharynx normal Eyes: General: appearance normal, both eyes and all related structures Eyelids: Yes eyelids normal Conjunctivae: conjunctivae normal Sclerae: sclerae normal Pupils: Equal, round and reactive pupils present EOM: EOMs intact bilaterally Neck: Neck: Yes normal visual inspection, Yes full ROM and Yes no lymphadenopathy Lymphatic: no lymphadenopathy noted Chest: Chest palpation & inspection: normal inspection of the chest Resp: Effort & Inspection: normal respiratory effort and able to speak in complete sentences Auscultation: clear to auscultation bilaterally, no crackles, no rales, no rhonchi and no wheezes Cardio: Rate: regular rate Rhythm: regular rhythm Heart sounds: S1 normal heart sound present and S2 normal heart sound present GI: Inspection: Yes normal to inspection Skin: General skin exam: no rashes or lesions noted Trauma: no lacerations or abrasions Wounds: no wounds Neuro: General: patient oriented x3 and moves all extremities Cranial nerves: Yes Equal, round and reactive pupils present Extrem: Other: Bilateral shoulders with diffuse tenderness without any point tenderness, good range of motion of the shoulders. Negative empty can test bilaterally. Bilateral arms including biceps, triceps and forearms are diffusely tender without any point tenderness. No overlying erythema, edema, increased warmth or swelling. Strong radial pulse. Distal sensation circulation intact. General: Yes normal to inspection Right upper extremity: normal to inspection Left upper extremity: normal to inspection Right lower extremity: normal to inspection Left lower extremity: normal to inspection Course Course Course Narrative: This is an RME: Additional HPI, ROS, PE not included below will be deferred to primary provider. Patient is a 43-year-old female bilateral arm pain; reports starts at shoulders, radiates to bilateral hands, without numbness or tingling. Denies neck pain. Denies precipitating injury. Denies history of similar pain in the past. Denies known tick bite or exposure. Denies CP. Onset was 1 month ago but is progressively worsening. 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 Medical Decision Making Medical Decision Making MDM Narrative: This is a 43-year-old female presenting to the emergency department for evaluation of bilateral shoulder and arm pain x1 month. On arrival, patient mildly hypertensive at 158/100, bilateral arms or diffusely tender without any point tenderness, pain worsens with range of motion. Differential diagnoses include muscle spasms, strain, strain, contusion. Also AC joint separation, arthritis considered. Less likely, septic arthritis. X-rays were obtained, revealing no bony abnormalities. Given patient is allergic to NSAIDs, will treat with course of prednisone, Tylenol, and muscle relaxants. Given return precautions. Advised patient to follow-up with her primary care physician as physical therapy may be beneficial. She understands agrees with plan. Patient stable for discharge. Differential Diagnosis Differential Diagnoses: The differential diagnosis associated with the presentation includes See above Admission/Observation Consideration of admission/observation: Escalation of care including admission/observation considered Escalation of care including admission/observation considered however given workup today not warranted at this time. Lab Data MDM Lab Attestation statement: I reviewed the patient's lab results. Radiology Impression Discussion of test interpretation with radiology: I have reviewed the radiologist's reading. Radiologist Impression: Exam: Left shoulder 3 views and right shoulder 3 views. HISTORY: Severe pain. FINDINGS: Preservation joint spaces. No focal bony lesion or soft tissue abnormality. No calcifications. Bone mineralization normal. Lung apices clear. XR/XR shoulder RT min 2V IMPRESSION: Normal left and right shoulder imaging. Dictated By: Rajinder Larios MD Exam: Left shoulder 3 views and right shoulder 3 views. HISTORY: Severe pain. FINDINGS: Preservation joint spaces. No focal bony lesion or soft tissue abnormality. No calcifications. Bone mineralization normal. Lung apices clear. XR/XR shoulder LT min 2V IMPRESSION: Normal left and right shoulder imaging. Dictated By: Rajinder Larios MD Discharge Plan Discharge Clinical Impression: Muscle spasm, Bilateral shoulder pain Patient Disposition: Home, Self-Care Instructions: Muscle Spasm (ED), Shoulder Pain (ED) Additional Instructions: You were seen in the emergency department due to bilateral arm pain. This is likely due to muscle spasms and strains due to what you do for work. Take anti-inflammatory, prednisone, for the next 5 days. You using Tylenol as directed as needed for pain. Take muscle relaxants as directed, please be advised that this can cause drowsiness, do not drink alcohol or drive while taking this medication. Gentle stretching, massage, can also help with your symptoms. If any new or worsening symptoms occur including but not limited to fevers, chills, chest pain, shortness breast, please return for re-evaluation. Prescriptions: New prednisone 20 mg tablet 20 mg PO DAILY 5 Days Qty: 5 0RF methocarbamol 750 mg tablet 750 mg PO TID 3 Days Qty: 9 0RF No Action lidocaine 5 % adhesive patch,medicated 1 patch topical DAILY Qty: 15 0RF Rx Instructions: leave on most painful area for up to 12 hrs albuterol sulfate 0.63 mg/3 mL solution for nebulization 0.63 mg inhalation Q4H PRN (Reason: shortness of breath or wheezing) Qty: 75 0RF loratadine 10 mg tablet 10 mg PO QAM 90 Days Qty: 90 0RF methocarbamol 500 mg tablet 500 mg PO TID Qty: 20 0RF sumatriptan succinate 25 mg tablet See Rx Instructions PO .COMPLEX Qty: 7 0RF Rx Instructions: take 1 tab at onset of headache; if no relief may repeat 1 tab after at least 2 hrs; max = 4 tabs/24 hr PO escitalopram oxalate 5 mg tablet 5 mg PO BEDTIME 90 Days Qty: 90 1RF albuterol sulfate [Ventolin HFA] 90 mcg/actuation HFA aerosol inhaler 2 puff inhalation Q6H PRN (Reason: shortness of breath or wheezing) 30 Days Qty: 8 1RF Stand Alone Forms: Work/School Release Interventions: ED Discharge Assessment Last Done: 08/18/23 16:09 Discharge Date/Time: 08/18/23 16:10 Print Language: [place]
[2023-08-18 14:20] VITALS: BP 147/96; PULSE 76; RESP 18; TEMP 36.7; O2SAT 98
[2023-08-18 16:09] VITALS: BP 168/90; PULSE 73; RESP 19; TEMP 36.6; O2SAT 97
== END 2023-08-18 16:10 | disposition home or self-care (01) ==
PROVIDERS: Emergency Provider Student in an Organized Health Care Education/Training Program; PCP Internal Medicine
DX: M25.511 Pain in right shoulder (principal); M25.512 Pain in left shoulder; M62.838 Other muscle spasm
CPT/HCPCS: 73030; 99282; 99283

== ENCOUNTER 2023-08-24 09:39 | Outpatient (REF) | payer OTHER, SELFPAY ==
[2023-08-24 11:48] LABS: Alanine Aminotransferase 14 U/L (0-31); Alkaline Phosphatase 64 U/L (39-117); Anion Gap 10 (12-20); Aspartate Amino Transferase 12 U/L (5-31); Bilirubin Total 0.5 mg/dL (0.0-1.0); Blood Urea Nitrogen 8 mg/dL (9-16); Calcium 8.9 mg/dL (8.4-10.2); Carbon Dioxide 27 mmol/L (22-29); Chloride 107 mmol/L (96-108); Cholesterol 141 mg/dL (<200); Estimated Glomerular Filt Rate > 60; Glucose Fasting 91 mg/dL (60-99); HDL Cholesterol 39 mg/dL (>40); LDL Cholesterol Calculated 89 mg/dL (<100); Potassium 3.5 mmol/L (3.3-5.1); Sodium 140 mmol/L (135-145); Triglycerides 67 mg/dL (<150)
[2023-08-24 12:05] LABS: Thyroid Stimulating Hormone 0.73 uIU/mL (0.32-4.0); Vitamin D 25-OH Total 10.1 ng/mL (>30)
== END 2023-08-24 09:40 | disposition home or self-care (01) ==
LOC: HO.LAB 09:39
PROVIDERS: PCP Internal Medicine; Visit Provider Internal Medicine
DX: Z00.00 Encounter for general adult medical examination without abnormal findings (principal); E78.5 Hyperlipidemia, unspecified; E55.9 Vitamin D deficiency, unspecified; R63.4 Abnormal weight loss
CPT/HCPCS: 36415; 80053; 80061; 82306; 84443

== ENCOUNTER 2023-10-18 17:25 | Emergency (ER) | payer OTHER, SELFPAY ==
--- NOTE | ~2023-10-18 | XR_ITS ---
EXAMINATION: XR SHOULDER, RIGHT CLINICAL INFORMATION: Pain COMPARISON: X-rays of the right shoulder 08/18/2023 TECHNIQUE: AP external rotation, Grashey, scapular Y, and axillary views of the right shoulder. FINDINGS: The bones and soft tissues are normal. No fracture. Glenohumeral and acromioclavicular alignment is anatomic with normal joint space. No abnormal soft tissue calcifications. XR/XR shoulder RT min 2V IMPRESSION: Normal right shoulder.
--- NOTE | ~2023-10-18 | XR_ITS ---
EXAMINATION: XR CERVICAL SPINE CLINICAL INFORMATION: Neck pain. Right arm pain. COMPARISON: None available. TECHNIQUE: 4 views of the cervical spine were obtained. All FINDINGS: Cervical spinal alignment is anatomic in the sagittal projection. Vertebral bodies demonstrate preserved stature. Intervertebral disc space heights are well preserved. The C1-C2 relationship is anatomic. The dens is intact. Prevertebral soft tissue is normal in appearance. There is no acute fracture. Lung apices are clear. XR/XR cervical spine 3V IMPRESSION: No acute osseous cervical spine abnormality.
[2023-10-18 17:28] VITALS: BP 159/95; PULSE 87; RESP 16; TEMP 37.1; O2SAT 99; BMI 30.8
--- NOTE | 2023-10-18 17:33 | ED.EXTPRO ---
HPI - Extremity Problem General Chief complaint: Extremity Injury, Upper Stated complaint: R shoulder pain Time Seen by Provider: 10/18/23 17:36 Source: patient and RN notes reviewed Mode of arrival: ambulatory Limitations: no limitations History of Present Illness ED Provider: Radha Bunn PA-C HPI Narrative: This is a 43-year-old Citizen [place]-speaking female, with a history of depression, who presents emergency department with complaints of right shoulder pain for the last several months. 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 She reports that these frequent movements caused her to have worsening pain in her right shoulder. She denies any new injury or trauma. No heavy lifting or falls. She was seen back in August for similar symptoms, was discharged on prednisone and muscle relaxants which provided her with minimal relief. She has not followed up with her primary care physician. She has not been seen by Orthopedics. She denies any fevers, chills, dizziness, blurred vision, neck pain, chest pain, shortness of breath, abdominal pain, nausea, vomiting or diarrhea. She has been taking Tylenol for her symptoms recently which provided her minimal relief. No other complaints or concerns at this time. MD Complaint: extremity pain and joint pain Onset (ago): month(s) Pain Consistency: constant Location: right and upper extremity Quality: aching Radiation: none Relieving factors: immobilization Exacerbating factors: range of motion and palpation Associated symptoms: denies other symptoms Related Data Previous Rx's ?Medication ?Instructions ?Recorded albuterol sulfate 0.63 mg/3 mL 0.63 mg (3 mL) inhalation Q4H PRN 02/27/21 solution for nebulization shortness of breath or wheezing #75 mL loratadine 10 mg tablet 10 mg PO QAM 90 days #90 tabs 12/25/21 Ventolin HFA 90 mcg/actuation 2 puff inhalation Q6H PRN 08/06/22 aerosol inhaler (albuterol sulfate) shortness of breath or wheezing 30 days #8 grams lidocaine 5 % topical patch 1 patch topical DAILY #15 ea 11/21/22 escitalopram oxalate 5 mg tablet 5 mg PO BEDTIME 90 days #90 tabs 08/12/23 methocarbamol 500 mg tablet 500 mg PO TID muscle spasm #20 tabs 08/12/23 sumatriptan succinate 25 mg tablet See Rx Instructions PO .COMPLEX #7 08/12/23 tabs methocarbamol 750 mg tablet 750 mg PO TID 3 days #9 tabs 08/18/23 prednisone 20 mg tablet 20 mg PO DAILY 5 days #5 tabs 08/18/23 cholecalciferol (vitamin D3) 50 50 mcg PO DAILY 90 days #90 caps 08/25/23 mcg (2,000 unit) capsule acetaminophen 500 mg tablet 1,000 mg (2 x 500 mg) PO QID PRN 10/18/23 (Tylenol Extra Strength) pain #30 tabs methocarbamol 750 mg tablet 750 mg PO TID PRN spasm 3 days #9 10/18/23 tabs Allergies Allergy/AdvReac Type Severity Reaction Status Date / Time cyclobenzaprine Allergy Intermediate SWELLING Verified 10/18/23 17:31 [From FLEXERIL] aspirin [ASPIRIN] Allergy Mild SWELLING Verified 10/18/23 17:31 ibuprofen [From Advil] Allergy Angioedema Verified 10/18/23 17:31 Review of Systems Review of Systems: Yes all other systems are reviewed and are negative Constitutional: Constitutional: Reports as per [facility] Past Medical History Medical History (Updated 10/18/23 @ 19:13 by ANDERSON Ramsey) Exposure of implanted vaginal mesh Moderate persistent asthma in adult without complication Left leg pain Hand numbness Obese Acute sinusitis Surgical History Hx of tubal ligation History of cholecystectomy Family History Family History Mother HIV (human immunodeficiency virus infection) Father Heart attack HIV (human immunodeficiency virus infection) Brother No problems noted. Brother Diabetes Sister No problems noted. Sister No problems noted. Daughter No problems noted. Daughter Down syndrome Other Mental health disorder Social History Social History Housing: Apartment Alcohol intake: never Patient Tobacco Use Status: Never used Tobacco e-Cigarette/Vaping Use: Never Used Second Hand Smoke Exposure: No Advance Directives: No Advance Directives Information Provided: No service: No Current occupational status: employed Current occupational exposures/hazards: No Cognitive needs: No Hearing needs: No Vision needs: No Physical Exam Vital Signs: Vital Signs: Last Vital Signs Temp 97.5 F 10/18/23 18:14 Pulse 83 10/18/23 18:14 Resp 16 10/18/23 18:14 BP 135/86 10/18/23 18:14 Pulse Ox 99 10/18/23 18:14 O2 Del Method Room Air 10/18/23 18:14 BMI result Body Mass Index 30.8 Const: General: cooperative, comfortable and no acute distress Orientation/consciousness: patient oriented x3 Limitations: no limitations HEENT: Head: Yes normal to inspection, Yes normocephalic and Yes atraumatic Ears: hearing grossly normal bilaterally General nose exam: Normal external nose present Face and sinus: Yes normal facial exam Mouth: Normal oral and palatal mucosa present, oropharynx normal and moist mucous membranes Throat: Yes posterior oropharynx normal Eyes: General: appearance normal, both eyes and all related structures Eyelids: Yes eyelids normal Conjunctivae: conjunctivae normal Sclerae: sclerae normal Pupils: Equal, round and reactive pupils present EOM: EOMs intact bilaterally Neck: Neck: Yes normal visual inspection, Yes full ROM and Yes no lymphadenopathy Lymphatic: no lymphadenopathy noted Chest: Chest palpation & inspection: normal inspection of the chest Resp: Effort & Inspection: normal respiratory effort and able to speak in complete sentences Auscultation: clear to auscultation bilaterally, no crackles, no rales, no rhonchi and no wheezes Cardio: Rate: regular rate Rhythm: regular rhythm Heart sounds: S1 normal heart sound present and S2 normal heart sound present GI: Inspection: Yes normal to inspection Skin: General skin exam: no rashes or lesions noted Trauma: no lacerations or abrasions Wounds: no wounds Neuro: General: patient oriented x3 and moves all extremities Cranial nerves: Yes Equal, round and reactive pupils present Extrem: Other: Right shoulder, with tenderness palpation throughout the entire joint, most tenderness to palpation along the right AC joint. Patient does have tenderness palpation along the right trapezius muscle with spasm noted. Able to forward flex to about 90?, unable to abduct. Negative empty can. Distal sensation circulation intact. No palpable masses. No obvious bony deformity or swelling. General: Yes normal to inspection Right upper extremity: normal to inspection Left upper extremity: normal to inspection Right lower extremity: normal to inspection Left lower extremity: normal to inspection Course Course Course Narrative: This is an RME performed by Yennifer Argueta CNP: Additional HPI, ROS, PE not included below will be deferred to primary provider. Patient is a 43-year-old female who presents emergency department for evaluation of right neck/right shoulder pain. Onset was a few months ago. Denies obvious injury but does admit to heavy lifting and repetitive motions to the arm while at work. States she was seen here a couple of months ago, received a prescription for muscle relaxers without any improvement. Has not followed up with primary care provider as they do not have an appointment till ?next year?. Reports symptoms are worsening, pain radiates down the left arm, with intermittent numbness Physical exam: not moving the right arm at all reportedly due to pain, neurovascularly intact distally. Plan: Radiographic imaging Reevaluation(s) Reevaluation #1: Cervical x-ray revealing no acute bony abnormality. Shoulder is still pending at this time. X-ray of the shoulder unremarkable. Discussed findings with patient. Placed in sling, cautioned about adhesive capsulitis. Given orthopedic follow-up. She understands and agrees with plan. Discharged on muscle relaxants and Tylenol. Given return precautions. Patient stable for discharge Time: 19:13 Medical Decision Making Medical Decision Making MDM Narrative: This is a 43-year-old female with a history of depression who presents emergency department with complaints of right shoulder pain for the last several months. No trauma or injury to her right shoulder. She was seen in August for similar symptoms, was discharged on prednisone and muscle relaxants which she took with minimal relief. She has not followed up with orthopedics. On arrival, vital signs within normal limits. She is alert and oriented x4. Differential diagnoses include muscle spasm, shoulder strain, sprain, contusion, ligamentous injury. X-rays were ordered by my colleague to rule out any bony abnormalities. Differential Diagnosis Differential Diagnoses: The differential diagnosis associated with the presentation includes See above Radiology Impression Discussion of test interpretation with radiology: I have reviewed the radiologist's reading. Radiologist Impression: EXAMINATION: XR CERVICAL SPINE CLINICAL INFORMATION: Neck pain. Right arm pain. COMPARISON: None available. TECHNIQUE: 4 views of the cervical spine were obtained. All FINDINGS: Cervical spinal alignment is anatomic in the sagittal projection. Vertebral bodies demonstrate preserved stature. Intervertebral disc space heights are well preserved. The C1-C2 relationship is anatomic. The dens is intact. Prevertebral soft tissue is normal in appearance. There is no acute fracture. Lung apices are clear. XR/XR cervical spine 3V IMPRESSION: No acute osseous cervical spine abnormality. Dictated By: Glenn Piper Jr DO EXAMINATION: XR SHOULDER, RIGHT CLINICAL INFORMATION: Pain COMPARISON: X-rays of the right shoulder 08/18/2023 TECHNIQUE: AP external rotation, Grashey, scapular Y, and axillary views of the right shoulder. FINDINGS: The bones and soft tissues are normal. No fracture. Glenohumeral and acromioclavicular alignment is anatomic with normal joint space. No abnormal soft tissue calcifications. XR/XR shoulder RT min 2V IMPRESSION: Normal right shoulder. Dictated By: Edward Montenegro MD Discharge Plan Discharge Clinical Impression: Acute shoulder pain, Trapezius muscle spasm Patient Disposition: Still a Patient Instructions: Muscle Spasm (ED), Shoulder Pain (ED) Additional Instructions: You were seen in the ER for right shoulder pain. You need to follow up with orthopedics for further management of your symptoms. Continue taking tylenol for symptoms. Take muscle relaxants as prescribed. Please be advised that this can cause drowsiness, do not drink alcohol or drive while taking this medication. Gentle massage, stretching, and applying heat or ice can help with your symptoms. If any new or worsening symptoms occur including but not limited to worsening pain, please return for re-evaluation. Call Orthopedics on Saturday for evaluation. We applied a sling to your right shoulder, please do not remain in this at all times, only wear this for comfort. Take or mount of sling multiple times per day and perform gentle stretching and range of motion to prevent frozen shoulder. Prescriptions: New methocarbamol 750 mg tablet 750 mg PO TID PRN (Reason: spasm) 3 Days Qty: 9 0RF acetaminophen [Tylenol Extra Strength] 500 mg tablet 1,000 mg PO QID PRN (Reason: pain) Qty: 30 0RF No Action cholecalciferol (vitamin D3) 50 mcg (2,000 unit) capsule 50 mcg PO DAILY 90 Days Qty: 90 1RF lidocaine 5 % adhesive patch,medicated 1 patch topical DAILY Qty: 15 0RF Rx Instructions: leave on most painful area for up to 12 hrs prednisone 20 mg tablet 20 mg PO DAILY 5 Days Qty: 5 0RF methocarbamol 750 mg tablet 750 mg PO TID 3 Days Qty: 9 0RF albuterol sulfate 0.63 mg/3 mL solution for nebulization 0.63 mg inhalation Q4H PRN (Reason: shortness of breath or wheezing) Qty: 75 0RF loratadine 10 mg tablet 10 mg PO QAM 90 Days Qty: 90 0RF methocarbamol 500 mg tablet 500 mg PO TID Qty: 20 0RF sumatriptan succinate 25 mg tablet See Rx Instructions PO .COMPLEX Qty: 7 0RF Rx Instructions: take 1 tab at onset of headache; if no relief may repeat 1 tab after at least 2 hrs; max = 4 tabs/24 hr PO escitalopram oxalate 5 mg tablet 5 mg PO BEDTIME 90 Days Qty: 90 1RF albuterol sulfate [Ventolin HFA] 90 mcg/actuation HFA aerosol inhaler 2 puff inhalation Q6H PRN (Reason: shortness of breath or wheezing) 30 Days Qty: 8 1RF Referrals: [facility] [place] Orth[facility] Surgeons [Provider Group] Print Language: Citizen [place]
--- OUTSIDE RECORDS SUMMARY | 2023-10-18 17:40 | XMS_ITS | Patient Health Record ---
Author Organization Gasper Ruiz III, MD Address [address] [place] [address] Care Team Providers [employer] Name Role Phone [facility] MD Primary Care Provider Gasper Adams Unavailable [phone] ALLERGIES Allergen (clinical drug ingredient) Drug/Non Drug Allergy documented on EMR Reaction Allergy Type Onset Date Status aspirin Aspirin edema Drug Allergy Active REASON FOR REFERRAL No Information MEDICATIONS Medication SIG (Take, Route, Frequency, Duration) Notes Start Date End Date Status Ethambutol HCl 400 MG as directed Orally Active Pyrazinamide 500 MG as directed Orally Active rifAMPin 300 MG 1 capsule after meal s Orally Once a day Active Isoniazid 300 MG 1 tablet Orally Once a day Active Paxil 20 MG 1 tablet in the morn ing Orally Once a day Not-Taking PriLOSEC 20 MG 1 capsule Orally Onc e a day Not-Taking Vitamin B-6 Active Vistaril 25 MG 1 capsule Orally Thr ee times a day Not-Taking SOCIAL HISTORY Tobacco Use: Social History Observation Description Date Details (start date - stop date) Never Smoker NA - NA Sex Assigned At : Social History Observation Description Sex Assigned At Unknown Tobacco Use/Smoking Question Answer Notes Patient is a nonsmoker Additional Findings: Tobacco Non-User Aggressive non-smoker PROBLEMS Problem Type ICD Code Onset Dates Problem Status W/U Status Risk SNOMED Code Notes Problem Granulocytopenia (D70.9) Active confirmed [id number] The mild neutr openia and granulocytopenia is stable. Flow cytometry on the lymph node showed no lymphoproliferative clonal process. Problem Allergic to aspirin (Z88.8) Active confirmed [id number] She has h ad no serious reactions lately. Problem Lymphadenopathy (R59.1) Active confirmed [id number] The biopsy of the lymph node showed granulomatous disease and she is now being treated with triple therapy at the tuberculosis clinic in [place], [place]. She will not need to return to this office. PLAN OF TREATMENT No Information Insurance Providers Payer Name Payer Address Payer Phone Subscriber Number Group Number Insured Name Patient Relationship to Insured Coverage Start Date Coverage End Date MEDICAID [address] TIFFANY WHITTEN [id number] [phone] [id number] Jasson Duke Self - patient is the insured MEDICAL (GENERAL) HISTORY Medical History History ICD Code Panic attacks menstrual irregularity hemorrhoids intermittent chronic diarrhea Surgical History Surgery Date(Month/Year) tubal ligation lymph node excision mesh placement cholecystectomy, [facility], [address] [facility] 2013 Hospitalization History Reason Date(Month/Year) cholecystectomy 2014
[2023-10-18 18:14] VITALS: BP 135/86; PULSE 83; RESP 16; TEMP 36.4; O2SAT 99
[2023-10-18 19:25] VITALS: BP 135/86; PULSE 83; RESP 16; TEMP 36.4; O2SAT 99
[2023-10-18 19:31] VITALS: BP 148/96; PULSE 73; RESP 16; TEMP 37.1; O2SAT 99
== END 2023-10-18 19:34 | disposition still patient (30) ==
PROVIDERS: Emergency Provider Internal Medicine; PCP Internal Medicine
DX: M25.511 Pain in right shoulder (principal); M54.2 Cervicalgia; M62.838 Other muscle spasm; Z79.899 Other long term (current) drug therapy
CPT/HCPCS: 72040; 73030; 99283; 99284

== ENCOUNTER 2023-11-05 09:50 | Outpatient (AMB) | payer MEDICAID, SELFPAY ==
--- NOTE | 2023-11-05 09:51 | A.OFFVIS_ITS ---
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 The patient describes her pain as sharp and severe in nature. Her pain has gotten worse over the last 6 months in spite of continued non operative treatments. She has failed the last 3 months of a home exercise program. She reports weakness when lifting her right hand above shoulder height. She has tried Tylenol and anti-inflammatory medicines which gave her minimal relief. Group Art Supervisor Services: Group Art Supervisor Present (sister) Allergies cyclobenzaprine [From FLEXERIL] Allergy (Intermediate, Verified 11/05/23 09:51) SWELLING aspirin [ASPIRIN] Allergy (Mild, Verified 11/05/23 09:51) SWELLING ibuprofen [From Advil] Allergy (Verified 11/05/23 09:51) Angioedema Medication List - Last Reconciled 11/05/23 by Dax Day MD acetaminophen (Tylenol Extra Strength) 1,000 mg (2 x 500 mg) PO QID PRN albuterol sulfate 0.63 mg (3 mL) inhalation Q4H PRN cholecalciferol (vitamin D3) 50 mcg PO DAILY 90 days escitalopram oxalate 5 mg PO BEDTIME 90 days lidocaine 5% 1 patch topical DAILY loratadine 10 mg PO QAM 90 days sumatriptan succinate take 1 tab at onset of headache; if no relief may repeat 1 tab after at least 2 hrs; max = 4 tabs/24 hr PO Ventolin HFA 90 mcg/actuation (albuterol sulfate) 2 puffs inhalation Q6H PRN 30 days NS PFSH Medical History (Updated 10/21/23 @ 12:33 by Tara Mobley MD) Exposure of implanted vaginal mesh Moderate persistent asthma in adult without complication Left leg pain Hand numbness Obese Acute sinusitis Surgical History Hx of tubal ligation History of cholecystectomy Family History Mother HIV (human immunodeficiency virus infection) Father Heart attack HIV (human immunodeficiency virus infection) Brother No problems noted. Brother Diabetes Sister No problems noted. Sister No problems noted. Daughter No problems noted. Daughter Down syndrome Other Mental health disorder Social History Housing: Apartment Alcohol intake: never Patient Tobacco Use Status: Never used Tobacco e-Cigarette/Vaping Use: Never Used Second Hand Smoke Exposure: No service: No Current occupational status: employed Current occupational exposures/hazards: No Cognitive needs: No Hearing needs: No Vision needs: No Female Reproductive History Menstrual Age of Menarche: 8 Physical Exam Const Other: Well-nourished well-developed very friendly female awake alert and oriented x3 in no acute distress Extrem Other: Bilateral upper extremity examination shows good capillary refill, no skin lesions noted, normal sensation light touch Right shoulder examination shows decreased range of motion when compared to her left shoulder, 4+ out of 5 strength with supraspinatus testing, tenderness over her acromioclavicular joint, positive impingement signs, no instability Results Reviewed Results Reviewed: X-rays of the patient's right shoulder show severe acromioclavicular joint narrowing, a type 2 acromion, no acute bony abnormalities Assessment & Plan Assessment & Plan (1) Right shoulder pain: Code(s): M25.511 - Pain in right shoulder Category: Medical Plan Ms. Srikanth Griffith presents with progressively worsening right shoulder pain and weakness due to impingement syndrome and possible rotator cuff tearing. I had a lengthy discussion with the patient regarding the treatment options. The risks and benefits of a right shoulder cortisone injection were discussed at length with the patient. The patient wished to proceed. She tolerated the injection well. I will also send the patient for an MRI of her right shoulder to further evaluate the status of her rotator cuff tendons. I will see her back once the MRI is completed. She will continue with her home stretching program in the meantime. Feel free to call me at any time should questions regarding her orthopedic management arise. Thank you very much for asking me to see this very friendly patient. I spent 22 minutes in reviewing the patient's records and imaging studies, seeing the patient and documenting in the medical record. Orders: Orders AMB Joint Injection/Aspiration Today M25.511 - Pain in right shoulder MR shoulder RT wo con Today M25.511 - Pain in right shoulder Coding Level of Care Code New Pt Level 3 (76310) Diagnoses Right shoulder pain M25.511
== END 2023-11-05 10:15 | disposition home or self-care (01) ==
PROVIDERS: PCP Internal Medicine; Visit Provider Orthopaedic Surgery
DX: M25.511 Pain in right shoulder (principal)
CPT/HCPCS: 20610; 99203

== ENCOUNTER → 2023-11-05 09:50 | Outpatient (BNVA) | payer OTHER, SELFPAY | PROVIDERS: PCP Internal Medicine; Visit Provider Orthopaedic Surgery | DX: M25.511 Pain in right shoulder (principal) | CPT/HCPCS: 20610; 99202; J1010 ==

== ENCOUNTER 2023-11-26 12:41 | Outpatient (AMB) | payer OTHER, SELFPAY ==
--- NOTE | 2023-11-26 12:50 | A.OFFVIS_ITS ---
Intake Visit Reasons: OV- RT shoulder pain, discuss tx options Intake Note: Jasson is a 43 year old female who presents with complaints of progressively worsening right shoulder pain and stiffness. She describes her pain as sharp and severe in nature, 02/12. Her symptoms have gotten worse over the last year in spite of continued non operative treatments. I did order an MRI of the patient's right shoulder but it was denied by her insurance company. She has had cortisone injections in the past which gave her no relief. She has also done physical therapy exercises which aggravated her pain. The patient states that she has difficulty lifting her right hand to shoulder height. She has tried Tylenol and anti-inflammatory medicines which gave her minimal relief. Allergies cyclobenzaprine [From FLEXERIL] Allergy (Intermediate, Verified 11/26/23 12:50) SWELLING aspirin [ASPIRIN] Allergy (Mild, Verified 11/26/23 12:50) SWELLING ibuprofen [From Advil] Allergy (Verified 11/26/23 12:50) Angioedema Medication List - Last Reconciled 11/26/23 by Dax Day MD acetaminophen (Tylenol Extra Strength) 1,000 mg (2 x 500 mg) PO QID PRN albuterol sulfate 0.63 mg (3 mL) inhalation Q4H PRN cholecalciferol (vitamin D3) 50 mcg PO DAILY 90 days escitalopram oxalate 5 mg PO BEDTIME 90 days lidocaine 5% 1 patch topical DAILY loratadine 10 mg PO QAM 90 days sumatriptan succinate take 1 tab at onset of headache; if no relief may repeat 1 tab after at least 2 hrs; max = 4 tabs/24 hr PO Ventolin HFA 90 mcg/actuation (albuterol sulfate) 2 puffs inhalation Q6H PRN 30 days NS PFS Medical History Exposure of implanted vaginal mesh Moderate persistent asthma in adult without complication Left leg pain Hand numbness Obese Acute sinusitis Surgical History Hx of tubal ligation History of cholecystectomy Family History Mother HIV (human immunodeficiency virus infection) Father Heart attack HIV (human immunodeficiency virus infection) Brother No problems noted. Brother Diabetes Sister No problems noted. Sister No problems noted. Daughter No problems noted. Daughter Down syndrome Other Mental health disorder Social History Housing: Apartment Alcohol intake: never Patient Tobacco Use Status: Never used Tobacco e-Cigarette/Vaping Use: Never Used Second Hand Smoke Exposure: No service: No Current occupational status: employed Current occupational exposures/hazards: No Cognitive needs: No Hearing needs: No Vision needs: No Female Reproductive History Menstrual Age of Menarche: 8 Physical Exam Const Other: Well-nourished well-developed very friendly female awake alert and oriented x3 in no acute distress Extrem Other: Bilateral upper extremity examination shows good capillary refill, no skin lesio ns noted, normal sensation light touch Right shoulder examination shows decreased active and passive range of motion when compared to her left shoulder with forward flexion to 70 degrees compared to 170 degrees, external rotation to 10 degrees compared to 50 degrees, internal rotation to 10 degrees compared to 50 degrees, 4+ out of 5 strength with supraspinatus testing, positive impingement signs, tenderness over her acromioclavicular joint, no instability Results Reviewed Results Reviewed: X-rays of the patient's right shoulder show severe acromioclavicular joint narrowing, a type 2 acromion, no acute bony abnormalities Assessment & Plan Assessment & Plan (1) Impingement of right shoulder: Code(s): M25.811 - Other specified joint disorders, right shoulder Category: Medical Plan Ms. Srikanth Griffith presents with progressively worsening right shoulder pain and stiffness due to impingement syndrome, acromioclavicular joint arthritis and adhesive capsulitis. I had a lengthy discussion with the patient regarding the treatment options. At this point she has failed continued non operative treatments. The patient's right shoulder MRI was denied by her insurance company. The risks and benefits of right shoulder surgery were discussed at length with the patient. The patient wishes to proceed with surgery. Surgery will involve right shoulder diagnostic arthroscopy with arthroscopic distal clavicle excision, arthroscopic acromioplasty, arthroscopic anterior capsular release and manipulation under anesthesia. The patient will be scheduled for next available date. She will follow-up as instructed. Feel free to call me at any time should questions regarding her orthopedic management arise. I spent 22 minutes in reviewing the patient's records and imaging studies, seeing the patient and documenting in the medical record. Coding Level of Care Code Est Pt Level 3 (84566) Diagnoses Impingement of right shoulder M25.811
== END 2023-11-26 13:13 | disposition home or self-care (01) ==
PROVIDERS: PCP Internal Medicine; Visit Provider Orthopaedic Surgery
DX: M25.811 Other specified joint disorders, right shoulder (principal)
CPT/HCPCS: 99214

== ENCOUNTER → 2023-11-26 12:41 | Outpatient (BNVA) | payer OTHER, SELFPAY | PROVIDERS: PCP Internal Medicine; Visit Provider Orthopaedic Surgery | DX: M25.811 Other specified joint disorders, right shoulder (principal); M19.011 Primary osteoarthritis, right shoulder; M75.01 Adhesive capsulitis of right shoulder | CPT/HCPCS: 99212 ==

== ENCOUNTER 2023-12-27 05:46 | Day surgery (SDC) | payer OTHER, SELFPAY ==
[2023-12-25 10:18] VITALS: BMI 30.8
[2023-12-27] VITALS (7 sets, daily range): BP systolic 140–167; BP diastolic 79–103; PULSE 73–86; RESP 14–17; TEMP 36.3–36.9; O2SAT 96–100
[2023-12-27] MEDS: Lactated Ringers 1,000 ML 80 ML IVCONT (06:47)
--- NOTE | 2023-12-27 09:26 | PM.OP ---
Brief Operative Note Date of Service: 12/27/23 Pre-op diagnosis: Right shoulder impingement syndrome, right shoulder acromioclavicular joint arthritis, right shoulder adhesive capsulitis Post-op diagnosis: same Procedure: Right shoulder diagnostic arthroscopy with right shoulder arthroscopic distal clavicle excision, right shoulder arthroscopic acromioplasty, right shoulder arthroscopic anterior capsular release, right shoulder manipulation under anesthesia Implants: None Surgeon: Dax Day MD Anesthesia: GETA and regional Was an Chemical Treatment Plant Technician used for this Procedure?: No Estimated blood loss (mL): 10 Pathology: none sent Condition: stable Disposition: PACU
--- NOTE | 2023-12-27 09:27 | P.OP_ITS ---
Operative Note Operative Note Date of Service: 12/27/23 Narrative: After the patient was identified as Jasson Griffith and her right shoulder was initialed by myself the patient was brought to the holding area where a right shoulder interscalene regional block was performed by the anesthesiologist in routine fashion. The patient was then brought to the operating room where general anesthesia was induced by the anesthesiologist in routine fashion. The patient was given 2 g of IV Ancef preoperatively for infection prophylaxis. Examination under anesthesia of the patient's right shoulder showed decreased passive range of motion when compared to the left shoulder. The patient's right shoulder had passive forward flexion to 130 degrees compared to 170 degrees, external rotation to 30 degrees compared to 60 degrees, and internal rotation to 50 degrees compared to 60 degrees. The patient was gently positioned in the beach chair position with all bony prominences well padded. The patient's right shoulder region and upper extremity were prepped and draped in sterile fashion. A formal time-out was completed. A #11 scalpel blade was used to make a posterior portal 2 cm inferior and 1 cm medial to the posterolateral corner of the acromion. Blunt trocar technique was used to enter the glenohumeral joint in routine fashion. An anterior portal was made just lateral to the coracoid process after proper positioning was confirmed using a spinal needle. Diagnostic arthroscopy showed minimal degenerative changes of the glenoid and humeral head articular surfaces. There was no evidence of rotator cuff tearing. There was no evidence of injury to the biceps tendon or its insertion onto the glenoid. There was inflammation of the anterior joint capsule consistent with adhesive capsulitis. The ArthroCare Wand was then used to perform an anterior capsular release between the inferior border of the biceps tendon and the superior border of the subscapularis tendon. The arthroscope was then placed from the posterior portal into the subacromial space. A lateral portal was made 2 fingerbreadths lateral to the anterior lateral corner of the acromion. The ArthroCare Wand was used to ablate soft tissues along the undersurface of the acromion as well as to excise the coracoacromial ligament. There was a sharp spur along the undersurface of the acromion which was removed using the hooded bur. The arthroscope was then placed into the lateral portal and the acro mioplasty was completed with the bur in the posterior portal using the posterior aspect of the acromion as a cutting block. The ArthroCare Wand was then brought in through the anterior portal and was used to ablate soft tissues along the acromioclavicular joint and distal clavicle. The posterior and superior ligamentous structures were left intact. A distal clavicle excision of 8 mm was performed using the fluted bur. Any remaining bursal tissue was removed using the arthroscopic shaver. The subacromial space was irrigated and then drained. All arthroscopic instruments were removed. A gentle manipulation under anesthesia was then performed. Full passive range of motion was easily attained. The 3 portals were closed with 3-0 nylon interrupted suture. The subacromial space was injected with Marcaine. Dry sterile dressing was placed over all incisions. The patient's right upper extremity was placed into a sling. The patient was awoken and extubated in the operating room. The patient was transferred to the recovery room in stable condition.
[2023-12-27] MEDS: cefTRIAXone sodium 1 GM in 0.9 % Sodium Chloride 50 ML IV (09:40)
[2023-12-27] MEDS: ondansetron HCL 4 MG/2 ML VIAL IVPUSH (09:59)
--- NOTE | 2023-12-27 10:01 | HO.ANESPROP2 ---
HPI - Anesthesia Eval Consult details Narrative: right shoulder impingement PMFSH Active Problems Active Problems: All Active Problems (Updated 12/27/23 @ 06:17 by Vesta Hart RN) Impingement of right shoulder (Acute) Right shoulder pain (Acute) Mild major depression (Acute) Blurry vision (Acute) Weight loss (Acute) Screen for sexually transmitted diseases (Acute) Breast cancer screening (Acute) Urinary retention with incomplete bladder emptying (Acute) Dysuria (Acute) Physical exam (Acute) Cervical cancer screening (Acute) Women's annual routine gynecological examination (Acute) Low vitamin D level (Acute) Foot callus (Acute) GERD (gastroesophageal reflux disease) (Acute) Screening for diabetes mellitus (Acute) Screening for hyperlipidemia (Acute) Screening for hypothyroidism (Acute) Adult general medical exam (Acute) Bilateral hand pain (Acute) Migraines (Acute) Hx of tubal ligation (Acute) Moderate persistent asthma in adult without complication (Acute) Left leg pain (Acute) Hand numbness (Acute) Obese (Acute) Past Medical History Medical History Lymphoma History of panic attacks Exposure of implanted vaginal mesh Moderate persistent asthma in adult without complication Left leg pain Hand numbness Obese Acute sinusitis Family History Family History Mother HIV (human immunodeficiency virus infection) Father Heart attack HIV (human immunodeficiency virus infection) Brother No problems noted. Brother Diabetes Sister No problems noted. Sister No problems noted. Daughter No problems noted. Daughter Down syndrome Other Mental health disorder Family history of problems with anesthesia: No Surgical History Surgical History Hx of tubal ligation History of cholecystectomy History of Problems with Anesthesia: No Social History Social History Housing: Apartment Are you a primary primary care coordinator to a significant other at home: No Do you presently have visiting nurse or other home services: No Alcohol intake: never Patient Tobacco Use Status: Never used Tobacco e-Cigarette/Vaping Use: Never Used Second Hand Smoke Exposure: No Use of substances other than those prescribed or required for medical reasons: No Have you been hit, kicked, punched, or otherwise hurt by someone within the past year? If so, by whom?: No Are you DNR?: No Advance Directives: No Advance Directives Information Provided: Yes Advance Directives on File: No Recently lost weight without trying: No Patient : No FDLMP: 11/23/2023 : No Poor oral hygiene: No service: No Current occupational status: employed Current occupational exposures/hazards: No Cognitive needs: No Hearing needs: No Vision needs: No Meds Allergies Allergy/AdvReac Type Severity Reaction Status Date / Time ibuprofen [From Advil] Allergy Severe Angioedema Verified 12/27/23 06:19 aspirin [ASPIRIN] Allergy Intermediate SWELLING Verified 12/27/23 06:19 cyclobenzaprine Allergy Intermediate SWELLING Verified 12/27/23 06:19 [From FLEXERIL] Active Medications: Current Medications Lactated Ringer's (Lr) 1,000 mls @ 80 mls/hr IVCONT .[id number] KEISHA Last Admin: 12/27/23 06:47 Dose: 80 mls/hr Exam Height,Weight and Vital Signs: Height 5 ft 5 in Weight 81.647 kg Last Vital Signs Temp 98.5 F 12/27/23 09:23 Pulse 73 12/27/23 09:53 Resp 17 12/27/23 09:53 BP 150/87 H 12/27/23 09:53 Pulse Ox 100 12/27/23 09:53 O2 Del Method Room Air 12/27/23 09:53 O2 Flow Rate 2 12/27/23 09:33 Airway Mallampati Class: II TM Dist: >3cm Neck ROM: Full Heart: rrr Lungs: cta Assessment and Plan Assessment Anesthesia Assessment: Anesthesia Plan Discussed and Chart Reviewed (unable to check reviewed option in chart, but all problems reviewed.) Final Anesthetic Review Family History of Problems with Anesthesia: No History of Problems with Anesthesia: No NPO: Yes ASA Class: II Final Preanesthetic Review: No Changes in Pt Med Stat, Meds/Allgs Chart Reviewed, Consent Obtained/Reviewed and Anes Risks/Benef Reviewed Patient Risk: Intermediate Procedure Risk: Intermediate Anesthetic Plan Anesthetic Plan: GA and Regional Block Disposition: Standard PACU
== END 2023-12-27 10:31 | disposition home or self-care (01) ==
PROVIDERS: PCP Internal Medicine; Visit Provider Orthopaedic Surgery
PROC: (CPT 29805; principal; 2023-12-27 07:30)
DX: M75.41 Impingement syndrome of right shoulder (principal); M75.01 Adhesive capsulitis of right shoulder; M19.011 Primary osteoarthritis, right shoulder; M25.811 Other specified joint disorders, right shoulder; R20.0 Anesthesia of skin; J45.40 Moderate persistent asthma, uncomplicated; Z79.899 Other long term (current) drug therapy; Z88.8 Allergy status to other drugs, medicaments and biological substances; Z88.6 Allergy status to analgesic agent; Z98.890 Other specified postprocedural states
CPT/HCPCS: 29824; 29825; 29826; J0131; J0171; J0665; J0690; J0696; J1100; J2250; J2371; J2405; J2704; J2795; J3010

== ENCOUNTER → 2023-12-27 05:46 | Outpatient (BNV) | payer OTHER, SELFPAY | PROVIDERS: PCP Internal Medicine; Visit Provider Orthopaedic Surgery | DX: M75.41 Impingement syndrome of right shoulder (principal); M19.011 Primary osteoarthritis, right shoulder; M75.01 Adhesive capsulitis of right shoulder | CPT/HCPCS: 29824; 29826 ==

== ENCOUNTER 2024-01-09 08:51 | Outpatient (AMB) | payer OTHER, SELFPAY ==
--- NOTE | 2024-01-09 08:52 | MHC.OFFVIS ---
Intake Visit Reasons: PO RT Shoulder 12/27/23 Intake Note: Jasson is a 44 year old female who presents with complaints of mild to moderate discomfort in her right shoulder after undergoing right shoulder arthroscopic surgery on 12/27/2023. She denies any fevers or chills. She has been doing gentle [id number] exercises on her own. She takes oxycodone which gives her fairly good relief. Allergies ibuprofen [From Advil] Allergy (Severe, Verified 01/09/24 08:52) Angioedema aspirin [ASPIRIN] Allergy (Intermediate, Verified 01/09/24 08:52) SWELLING cyclobenzaprine [From FLEXERIL] Allergy (Intermediate, Verified 01/09/24 08:52) SWELLING Medication List - Last Reconciled 01/09/24 by Dax Day MD acetaminophen (Tylenol Extra Strength) 1,000 mg (2 x 500 mg) PO QID PRN albuterol sulfate 0.63 mg (3 mL) inhalation Q4H PRN cholecalciferol (vitamin D3) 50 mcg PO DAILY 90 days escitalopram oxalate 5 mg PO BEDTIME 90 days lidocaine 5% 1 patch topical DAILY loratadine 10 mg PO QAM 90 days lorazepam (Ativan) 1 mg PO Q12H PRN oxycodone 10 mg (2 x 5 mg) PO Q4H PRN 1 week sumatriptan succinate take 1 tab at onset of headache; if no relief may repeat 1 tab after at least 2 hrs; max = 4 tabs/24 hr PO Ventolin HFA 90 mcg/actuation (albuterol sulfate) 2 puffs inhalation Q6H PRN 30 days NS PFSH Medical History Lymphoma History of panic attacks Exposure of implanted vaginal mesh Moderate persistent asthma in adult without complication Left leg pain Hand numbness Obese Acute sinusitis Surgical History Hx of tubal ligation History of cholecystectomy Family History Mother HIV (human immunodeficiency virus infection) Father Heart attack HIV (human immunodeficiency virus infection) Brother No problems noted. Brother Diabetes Sister No problems noted. Sister No problems noted. Daughter No problems noted. Daughter Down syndrome Other Mental health disorder Social History Housing: Apartment Are you a primary laboratory animal care veterinarian to a significant other at home: No Do you presently have visiting nurse or other home services: No Alcohol intake: never Patient Tobacco Use Status: Never used Tobacco e-Cigarette/Vaping Use: Never Used Second Hand Smoke Exposure: No service: No Current occupational status: employed Current occupational exposures/hazards: No Cognitive needs: No Hearing needs: No Vision needs: No Female Reproductive History Menstrual Age of Menarche: 8 Physical Exam Extrem Other: Right shoulder examination shows that the surgical incisions are healing well, no erythema, mild discomfort with gentle range of motion Assessment & Plan Assessment & Plan (1) Right shoulder pain: Code(s): M25.511 - Pain in right shoulder Category: Medical Plan Ms. Srikanth Griffith is doing well after undergoing right shoulder arthroscopic surgery on 12/27/2023. Her sutures were removed and Steri-Strips placed over her incisions. I did give her a prescription to go to formal physical therapy if she chooses to do so. Otherwise she will continue with her home stretching program. I did refill her prescription for oxycodone. She will contact me prior to her follow-up appointment in 6 weeks should any questions or concerns arise. Feel free to call me at any time should questions regarding her orthopedic management arise. Orders: Orders PT Evaluation and Treatment Today M25.511 - Pain in right shoulder Medications: New oxycodone Partial Fill upon patient request. 5 mg PO Q4H PRN 40 tabs 0RF pain Coding Level of Care Code Global (45932) Diagnoses Right shoulder pain M25.511
== END 2024-01-09 09:15 | disposition home or self-care (01) ==
PROVIDERS: PCP Internal Medicine; Visit Provider Orthopaedic Surgery
DX: M25.511 Pain in right shoulder (principal)
CPT/HCPCS: 99024

== ENCOUNTER → 2024-01-09 08:51 | Outpatient (BNVA) | payer OTHER, SELFPAY | PROVIDERS: PCP Internal Medicine; Visit Provider Orthopaedic Surgery | DX: M25.511 Pain in right shoulder (principal); Z47.89 Encounter for other orthopedic aftercare; Z98.890 Other specified postprocedural states | CPT/HCPCS: 99212 ==

== ENCOUNTER 2024-02-27 11:39 | Outpatient (AMB) | payer OTHER, SELFPAY ==
--- NOTE | 2024-02-27 11:40 | A.OFFVIS_ITS ---
Intake Visit Reasons: PO RT Shoulder 12/27/23 Intake Note: Jasson is a 44 year old female who presents with complaints of mild to moderate discomfort in her right shoulder after undergoing right shoulder arthroscopic surgery on 12/27/2023. She continues with her home stretching program. She would like to go to formal physical therapy here at [facility]. She does take oxycodone as needed for discomfort. Allergies ibuprofen [From Advil] Allergy (Severe, Verified 02/27/24 11:44) Angioedema aspirin [ASPIRIN] Allergy (Intermediate, Verified 02/27/24 11:44) SWELLING cyclobenzaprine [From FLEXERIL] Allergy (Intermediate, Verified 02/27/24 11:44) SWELLING Medication List - Last Reconciled 02/27/24 by Dax Day MD acetaminophen (Tylenol Extra Strength) 1,000 mg (2 x 500 mg) PO QID PRN albuterol sulfate 0.63 mg (3 mL) inhalation Q4H PRN cholecalciferol (vitamin D3) 50 mcg PO DAILY 90 days escitalopram oxalate 5 mg PO BEDTIME 90 days lidocaine 5% 1 patch topical DAILY loratadine 10 mg PO QAM 90 days lorazepam (Ativan) 1 mg PO Q12H PRN oxycodone 10 mg (2 x 5 mg) PO Q4H PRN 1 week oxycodone 5 mg PO Q4H PRN sumatriptan succinate take 1 tab at onset of headache; if no relief may repeat 1 tab after at least 2 hrs; max = 4 tabs/24 hr PO Ventolin HFA 90 mcg/actuation (albuterol sulfate) 2 puffs inhalation Q6H PRN 30 days NS [facility] Medical History Lymphoma History of panic attacks Exposure of implanted vaginal mesh Moderate persistent asthma in adult without complication Left leg pain Hand numbness Obese Acute sinusitis Surgical History Hx of tubal ligation History of cholecystectomy Family History Mother HIV (human immunodeficiency virus infection) Father Heart attack HIV (human immunodeficiency virus infection) Brother No problems noted. Brother Diabetes Sister No problems noted. Sister No problems noted. Daughter No problems noted. Daughter Down syndrome Other Mental health disorder Social History Housing: Apartment Are you a primary animal care service worker to a significant other at home: No Do you presently have visiting nurse or other home services: No Alcohol intake: never Patient Tobacco Use Status: Never used Tobacco e-Cigarette/Vaping Use: Never Used Second Hand Smoke Exposure: No service: No Current occupational status: employed Current occupational exposures/hazards: No Cognitive needs: No Hearing needs: No Vision needs: No Female Reproductive History Menstrual Age of Menarche: 8 Physical Exam Extrem Other: Right shoulder examination shows that the surgical incisions are well healed, no erythema, slightly decreased range of motion when compared to her left shoulder, no instability Assessment & Plan Assessment & Plan (1) Right shoulder pain: Code(s): M25.511 - Pain in right shoulder Category: Medical Plan Jasson continues to do fairly well after undergoing right shoulder arthroscopic surgery on 12/27/2023. She does remain somewhat stiff. I did give her a prescription to go to formal physical therapy here at [facility] per her request. The do's and don'ts of lifting were discussed at length with the patient. I did refill her prescription for oxycodone. She will contact me prior to her follow-up appointment in 2 months should any questions or concerns arise. Feel free to call me at any time should questions regarding her orthopedic management arise. Orders: Orders PT Evaluation and Treatment Today M25.511 - Pain in right shoulder Medications: Changed From oxycodone Partial Fill upon patient request. Take 1-2 tabs every 4 hours as needed for pain following your right shoulder surgery. 10 mg (2 x 5 mg) PO Q4H 1 week PRN 40 tabs 0RF pain To oxycodone Partial Fill upon patient request. Take 1-2 tabs every 4 hours as needed for pain following your right shoulder surgery. 5 mg PO Q8H PRN 30 tabs 0RF pain Coding Level of Care Code Global (41455) Diagnoses Right shoulder pain M25.511
== END 2024-02-27 11:59 | disposition home or self-care (01) ==
PROVIDERS: PCP Internal Medicine; Visit Provider Orthopaedic Surgery
DX: M25.511 Pain in right shoulder (principal)
CPT/HCPCS: 99024

== ENCOUNTER → 2024-02-27 11:39 | Outpatient (BNVA) | payer OTHER, SELFPAY | PROVIDERS: PCP Internal Medicine; Visit Provider Orthopaedic Surgery | DX: F32.0 Major depressive disorder, single episode, mild (principal); R07.2 Precordial pain; I10 Essential (primary) hypertension; E55.9 Vitamin D deficiency, unspecified; Z79.899 Other long term (current) drug therapy; Z23 Encounter for immunization; M25.511 Pain in right shoulder; Z98.890 Other specified postprocedural states | CPT/HCPCS: 90471; 90656; 99212 ==

== ENCOUNTER 2024-02-27 16:41 | Outpatient (AMB) | payer OTHER, SELFPAY ==
[2024-02-27 16:46] VITALS: BP 170/100; BMI 31.1
--- NOTE | 2024-02-27 16:46 | A.OFFPC_ITS ---
Vital Signs 02/27/24 16:46 02/27/24 17:00 Height 5 ft 5 in Weight 187 lb BMI 31.1 BP 170/100 H 170/90 H Blood Pressure Location Lt brachial Lt brachial Position Sitting Sitting Intake Visit Reasons: 6 MONTH DEPRESSION Appeals Officer Required: No Accompanied by: Self / Same As Patient Allergies ibuprofen [From Advil] Allergy (Severe, Verified 02/27/24 17:05) Angioedema aspirin [ASPIRIN] Allergy (Intermediate, Verified 02/27/24 17:05) SWELLING cyclobenzaprine [From FLEXERIL] Allergy (Intermediate, Verified 02/27/24 17:05) SWELLING Medication List - Last Reconciled 02/27/24 by Tara Mobley MD acetaminophen (Tylenol Extra Strength) 1,000 mg (2 x 500 mg) PO QID PRN albuterol sulfate 0.63 mg (3 mL) inhalation Q4H PRN cholecalciferol (vitamin D3) 50 mcg PO DAILY 90 days escitalopram oxalate 5 mg PO BEDTIME 90 days lidocaine 5% 1 patch topical DAILY loratadine 10 mg PO QAM 90 days lorazepam (Ativan) 1 mg PO Q12H PRN oxycodone 5 mg PO Q8H PRN oxycodone 5 mg PO Q4H PRN sumatriptan succinate take 1 tab at onset of headache; if no relief may repeat 1 tab after at least 2 hrs; max = 4 tabs/24 hr PO Ventolin HFA 90 mcg/actuation (albuterol sulfate) 2 puffs inhalation Q6H PRN 30 days NS Tobacco use date assessed: 08/12/23 Dental Screening Dental Screen Date: 08/12/23 HPI HPI Comments History of Present Illness Details This is a 44-year-old female with mild major depression and low vitamin-D that comes today complaining of chest pain located in the left side of the chest that can happen at rest or on exertion. Has had 2 or 3 episodes already. Will order EKG. No associated symptoms with it. Blood pressure has been elevated for awhile and I will start her on losartan. Blood pressure will be recheck in 3 weeks by nurse navigator. Depression is in remission and she stopped taking escitalopram. On vitamin-D supplements for her low vitamin-D. [facility] Medical History (Updated 02/28/24 @ 08:52 by Tara Mobley MD) Lymphoma History of panic attacks Exposure of implanted vaginal mesh Moderate persistent asthma in adult without complication Left leg pain Hand numbness Obese Acute sinusitis Surgical History Hx of tubal ligation History of cholecystectomy Family History Mother HIV (human immunodeficiency virus infection) Father Heart attack HIV (human immunodeficiency virus infection) Brother No problems noted. Brother Diabetes Sister No problems noted. Sister No problems noted. Daughter No problems noted. Daughter Down syndrome Other Mental health disorder Social History Housing: Apartment Are you a primary day care teacher to a significant other at home: No Do you presently have visiting nurse or other home services: No Alcohol intake: never Patient Tobacco Use Status: Never used Tobacco e-Cigarette/Vaping Use: Never Used Second Hand Smoke Exposure: No service: No Current occupational status: employed Current occupational exposures/hazards: No Cognitive needs: No Hearing needs: No Vision needs: No Female Reproductive History Menstrual Age of Menarche: 8 Questionnaire Thrive Questionnaire Date Thrive assessed: 08/12/23 AUDIT C Alcohol Use Questionnaire (AUDIT-C) 1. How often do you have a drink containing alcohol?: Never Total Score: 0 Score Reviewed/Action Taken: No MACHELLE-7 AMB Questionnaire MACHELLE-7 Date MACHELLE - 7 assessed: 08/12/23 Source: Developed by Drs. Gasper Estrada, Radhika Garcia, Jun Wells and colleagues, with an educational agatha from [employer]. Review of Systems Const All systems reviewed & are unremarkable except as noted in HPI and below Card Reports chest pain at rest, Reports chest pain with activity, Denies edema, Denies irregular heart rhythm, Denies claudication, Denies dyspnea, Denies dyspnea on exertion, Denies orthopnea, Denies paroxysmal nocturnal dyspnea and Denies slow heart rate Resp Denies cough, Denies dyspnea and Denies dyspnea on exertion GI Denies abdominal pain, Denies change in bowel habits, Denies excessive flatus, Denies nausea and Denies vomiting Denies urinary incontinence, Denies urinary hesitancy and Denies urinary urgency Musc Denies atrophy, Denies deformity and Denies limited range of motion Physical exam (Primary Care) Vital Signs: Last Vital Signs BP 170/100 H 02/27/24 16:46 BMI result Body Mass Index 31.1 BMI Assessment/Plan discussion: High BMI High, discussed plan: lifestyle, weight reduction, dietary and physical activity Tobacco/Smoking Status: Tobacco use Status Tobacco use date assessed 08/12/23 02/27/24 16:51 Patient Tobacco Use Status Never used Tobacco 02/27/24 16:51 e-Cigarette/Vaping Use Never Used 02/27/24 16:51 Thrive Assessment: Date of Thrive Assessment Date Thrive assessed 08/12/23 02/27/24 16:51 Resp Effort & Inspection: normal respiratory effort Auscultation: clear to auscultation bilaterally Cardio Jugular venous distension: no JVD Rate: regular rate Rhythm: regular rhythm Heart sounds: S1 normal heart sound present and S2 normal heart sound present Extrem General: Yes full ROM Office Procedures Flu Questionnaire Does the patient have a severe egg allergy?: No Does the patient have severe life threatening allergies?: No Does the patient have a fever or illness today?: No Has the patient ever had Guillain-Arverne Syndrome?: No Has the patient ever had any past reaction to a flu shot?: No Immunizations Fluarix Triv [id number] (PF) 45 mcg (15 mcg x 3)/0.5 mL IM syringe Performing Provider: Tara Mobley MD [facility] Administered by: CRESENCIO Cartagena on 02/27/24 17:23 Dose Route Admin Location Dispensed Lot Number Expiration Date [facility] Director Labor Standards 0.5 mL IM Left Deltoid 0.5 mL [id number] 11/02/24 62627-338-75 [facility] VIS Given Date VIS Provided VIS Publication Date 02/27/24 Single Vaccine 20 Eligibility Eligibility Date Funding Source Not [facility] Eligible 02/27/24 Private Coding Level of Care Code Est Pt Level 4 (03122) Complex EM visit Add On G2211 Diagnoses Mild major depression F32.0 Precordial pain R07.2 Chest pain type: precordial pain Essential hypertension I10 Low vitamin D level R79.89 Time Spent (min) 21 Assessment & Plan Assessment & Plan (1) Mild major depression: Code(s): F32.0 - Major depressive disorder, single episode, mild Category: Medical Plan: In remission. (2) Chest pain: Code(s): R07.9 - Chest pain, unspecified Category: Medical Qualifiers: Chest pain type: precordial pain Qualified Code(s): R07.2 - Precordial pain Plan: EKG ordered. (3) Essential hypertension: Code(s): I10 - Essential (primary) hypertension Category: Medical Plan: Start losartan. Blood pressure goal is equal or less than 130/80. Recheck blood pressure with nurse navigator in 3 weeks. (4) Low vitamin D level: Code(s): R79.89 - Other specified abnormal findings of blood chemistry Category: Medical Plan: Continue vitamin-D supplements. Orders: Orders Influenza [id number] Immunization 02/27/24 Z23 - Encounter for immunization ECG 12 lead EKG 02/27/24 R07.9 - Chest pain, unspecified Medications: New losartan 25 mg PO DAILY 90 tabs 1RF 90 days Discontinued escitalopram oxalate Discontinued Reason: Patient Completed Course 5 mg PO BEDTIME 90 days 90 tabs 1RF
[2024-02-27 17:00] VITALS: BP 170/90
== END 2024-02-27 17:18 | disposition home or self-care (01) ==
PROVIDERS: PCP Internal Medicine; Visit Provider Internal Medicine
DX: I10 Essential (primary) hypertension (principal); F32.0 Major depressive disorder, single episode, mild; R07.2 Precordial pain; R79.89 Other specified abnormal findings of blood chemistry

== ENCOUNTER → 2024-03-13 12:43 | Outpatient (REF) | payer OTHER, SELFPAY ==
--- NOTE | 2024-03-13 12:47 | ECG_ITS ---
Test Reason : CHEST PAIN Blood Pressure : / mmHG Vent. Rate : 085 BPM Atrial Rate : 085 BPM P-R Int : 134 ms QRS Dur : 074 ms QT Int : 372 ms P-R-T Axes : 060 022 000 degrees QTc Int : 442 ms Normal sinus rhythm Minimal voltage criteria for LVH, may be normal variant ( Sokolow-Bui ) Borderline ECG When compared with ECG of 26-FEB-2022 17:54, No significant change was found Referred By: Tara Mobley Electronically Signed By:JEFFREY SKY MD
== END ==
LOC: HO.CARD 12:43
PROVIDERS: PCP Internal Medicine; Visit Provider Internal Medicine
DX: R07.9 Chest pain, unspecified (principal)
CPT/HCPCS: 93005

== ENCOUNTER → 2024-03-13 12:47 | Outpatient (BNV) | payer OTHER, SELFPAY | PROVIDERS: PCP Internal Medicine; Visit Provider Internal Medicine Cardiovascular Disease | DX: R07.9 Chest pain, unspecified (principal) | CPT/HCPCS: 93010 ==

== ENCOUNTER → 2024-03-19 15:04 | Outpatient (BNVA) | payer OTHER, SELFPAY | PROVIDERS: PCP Internal Medicine ==

== ENCOUNTER 2024-04-09 11:31 | Outpatient (REF) | payer OTHER, SELFPAY ==
[2024-04-09 12:58] LABS: Appearance Urine Clear; Color Urine Yellow; Glucose Urine UA Negative (Negative); Leukocyte Esterase Urine Negative (Negative); Nitrite Urine Negative (Negative); PH 5.5 (5.0-9.0); Specific Gravity - Urine 1.025 (1.005-1.025); UMIC TRIGGER UACC YES; Urine Blood Small (1+) (Negative); Urine Ketones Negative (Negative); Urine Protein Negative (Neg-Trace)
[2024-04-09 14:17] LABS: Bacteria Urine None Seen (None Seen); Hyaline Casts Urine 0-2 /LPF (0-2); RBC Urine 0-2 /HPF (0-2); Squamous Epithelial Cell Urine 0-2 /HPF (0-2); WBC Urine 0-5 /HPF (0-5)
== END 2024-04-09 11:32 | disposition home or self-care (01) ==
LOC: HO.LAB 11:31
PROVIDERS: PCP Internal Medicine; Visit Provider Internal Medicine
DX: R33.9 Retention of urine, unspecified (principal)
CPT/HCPCS: 81001; 81003

== ENCOUNTER 2024-05-05 11:29 | Outpatient (AMB) | payer OTHER, SELFPAY ==
--- NOTE | 2024-05-05 11:42 | MHC.OFFVIS ---
Vital Signs 05/05/24 11:43 Height 5 ft 5 in Weight 187 lb BMI 31.1 Intake Visit Reasons: OV RT Shoulder 12/27/23 Intake Note: Jasson is a 44 year old female who presents with complaints of mild to moderate discomfort in her right shoulder after undergoing right shoulder arthroscopic surgery on 12/27/2023. She denies any fevers or chills. She is due to start physical therapy next week. She continues with her home stretching program. Emd Teacher Required: Yes Emd Teacher Language: Office Services Clerk Services: Emd Teacher Present Emd Teacher Name: ManiCRESENCIO sandra/RAI Allergies ibuprofen [From Advil] Allergy (Severe, Verified 05/05/24 11:43) Angioedema aspirin [ASPIRIN] Allergy (Intermediate, Verified 05/05/24 11:43) SWELLING cyclobenzaprine [From FLEXERIL] Allergy (Intermediate, Verified 05/05/24 11:43) SWELLING Medication List - Last Reconciled 05/05/24 by Dax Day MD acetaminophen (Tylenol Extra Strength) 1,000 mg (2 x 500 mg) PO QID PRN albuterol sulfate 0.63 mg (3 mL) inhalation Q4H PRN cholecalciferol (vitamin D3) 50 mcg PO DAILY 90 days lidocaine 5% 1 patch topical DAILY loratadine 10 mg PO QAM 90 days lorazepam (Ativan) 1 mg PO Q12H PRN losartan 50 mg PO DAILY 90 days oxycodone 5 mg PO Q8H PRN sumatriptan succinate take 1 tab at onset of headache; if no relief may repeat 1 tab after at least 2 hrs; max = 4 tabs/24 hr PO Ventolin HFA 90 mcg/actuation (albuterol sulfate) 2 puffs inhalation Q6H PRN 30 days NS PFSH Medical History Lymphoma History of panic attacks Exposure of implanted vaginal mesh Moderate persistent asthma in adult without complication Left leg pain Hand numbness Obese Acute sinusitis Surgical History Hx of tubal ligation History of cholecystectomy Family History Mother HIV (human immunodeficiency virus infection) Father Heart attack HIV (human immunodeficiency virus infection) Brother No problems noted. Brother Diabetes Sister No problems noted. Sister No problems noted. Daughter No problems noted. Daughter Down syndrome Other Mental health disorder Social History Housing: Apartment Are you a primary patient care technician instructor to a significant other at home: No Do you presently have visiting nurse or other home services: No Alcohol intake: never Patient Tobacco Use Status: Never used Tobacco e-Cigarette/Vaping Use: Never Used Second Hand Smoke Exposure: No service: No Current occupational status: employed Current occupational exposures/hazards: No Cognitive needs: No Hearing needs: No Vision needs: No Female Reproductive History Menstrual Age of Menarche: 8 Physical Exam Vital Signs: BMI result Body Mass Index 31.1 Const Other: Well-nourished well-developed very friendly female awake alert and oriented x3 in no acute distress Extrem Other: Bilateral upper extremity examination shows good capillary refill, no skin lesions noted, normal sensation light touch Right shoulder examination shows that the surgical incisions are well healed, no erythema, almost full range of motion when compared to her left shoulder, 4+ out of 5 strength with supraspinatus testing, no instability Assessment & Plan Assessment & Plan (1) Right shoulder pain: Code(s): M25.511 - Pain in right shoulder Category: Medical Plan Ms. Srikanth Griffith continues to do fairly well after undergoing right shoulder arthroscopic surgery on 12/27/2023. She will continue with her home stretching program to prevent stiffness. She will start physical therapy next week as scheduled. The do's and don'ts of lifting were discussed at length with the patient. She will contact me prior to her follow-up appointment in 3 months should any questions or concerns arise. Feel free to call me at any time should questions regarding her orthopedic management arise. I spent 21 minutes in reviewing the patient's records and imaging studies, seeing the patient and documenting in the medical record. Coding Level of Care Code Est Pt Level 3 (92172) Complex EM visit Add On G2211 Diagnoses Right shoulder pain M25.511
[2024-05-05 11:43] VITALS: BMI 31.1
== END 2024-05-05 11:57 | disposition home or self-care (01) ==
PROVIDERS: PCP Internal Medicine; Visit Provider Orthopaedic Surgery
DX: M25.511 Pain in right shoulder (principal)
CPT/HCPCS: 99213; G2211

== ENCOUNTER → 2024-05-05 11:29 | Outpatient (BNVA) | payer OTHER, SELFPAY | PROVIDERS: PCP Internal Medicine; Visit Provider Orthopaedic Surgery | DX: M25.511 Pain in right shoulder (principal) | CPT/HCPCS: 99212 ==

== ENCOUNTER 2024-06-17 13:51 | Outpatient (RCR) | payer OTHER, SELFPAY ==
--- NOTE | 2024-05-19 13:20 | MHC.PT.EP ---
[facility] [place] Office [place] Office [place] Office [address] [place] [address] [facility] [phone] F: [phone] F: [phone] F: [phone] F: [phone] Physical Therapy Plan of Care Date of Evaluation: 05/19/24 Date of Surgery: 12/27/23 Diagnosis: Pain in right shoulder s/p Right shoulder diagnostic arthroscopy with right shoulder arthroscopic distal clavicle excision, right shoulder arthroscopic acromioplasty, right shoulder arthroscopic anterior capsular release, right shoulder manipulation under anesthesia with Dr. Day on 12/27/23 Assessment: Pt is a pleasant 44yo F who is 20 weeks post op s/p Right shoulder diagnostic arthroscopy with arthroscopic distal clavicle excision, arthroscopic acromioplasty, arthroscopic anterior capsular release, and manipulation under anesthesia with Dr. Day on 12/27/23. She presents to PT with current impairments in pain, decreased ROM, decreased strength, soft tissue restrictions, decreased scar tissue mobility, and impaired posture. She is limited functionally by overhead ADLs, lifting, reaching and functional use of R UE. She is a good candidate for skilled PT in order to address current impairments in order maximize function and management of symptoms. She is recommended to be seen 2x/week for 4 weeks and will be reassessed. Frequency and Duration: The patient will be seen 2x/week for 4 weeks Short Term Goals: Pt will be I with HEP to promote self management of symptoms Pt will improve R shoulder AROM flexion by at least 10 degrees Pt will report maximum pain of 8/10 in 2 weeks Care Home Goals: Pt will achieve full ROM all planes of right shoulder to assist with overhead ADLs Pt will improve right shoulder flexion strength to at least 4+/5 to assist with lifting and reaching Pt will demonstrate improvements in function as evidenced by statistically significant improvement in SPADI outcome measure Treatment Plan: Modalities to reduce pain, spasms and effusion. Manual therapy to restore motion and function. Therapeutic exercise to improve strength and flexibility. Neuromuscular re-education for posture and balance. Therapeutic activities to return to functional activities of daily living. Electronically signed by: Luna Hernandez, PT, DPT Please sign and return to therapist. Thank you for your referral.
--- NOTE | 2024-07-22 08:39 | MHC.PT.DC ---
[facility] [place] Office [place] Office [address] [phone] F: [phone] F: [phone] F: [phone] F: [phone] Physical Therapy Discharge Report Diagnosis: Pain in right shoulder s/p Right shoulder diagnostic arthroscopy with right shoulder arthroscopic distal clavicle excision, right shoulder arthroscopic acromioplasty, right shoulder arthroscopic anterior capsular release, right shoulder manipulation under anesthesia with Dr. Day on 12/27/23 Date of Surgery: 12/27/23 Date of Evaluation: 05/19/24 Date of Discharge: 07/22/24 Treatments to Date: 5 Cancellations to Date: 2 No Shows to Date: Discharge Status: Discharge Summary: Pt was seen for skilled PT from 05/19/24-06/17/24. Her last scheduled and attended appointment was 06/17/24. She made good progress throughout skilled PT and demonstrated significant improvements in ROM of R shoulder throughout treatment sessions. She is being D/C from skilled PT as she has not attended in > 30 days Electronically signed by: Luna Hernandez, PT, DPT Please sign and return to therapist. Thank you for your referral.
== END 2024-07-22 08:38 | disposition home or self-care (01) ==
LOC: HO.PT 13:51
PROVIDERS: PCP Internal Medicine; Visit Provider Orthopaedic Surgery
DX: M25.511 Pain in right shoulder (principal); Z98.890 Other specified postprocedural states
CPT/HCPCS: 97110; 97140; 97162

== ENCOUNTER 2024-07-29 18:56 | Emergency (ER) | payer OTHER, SELFPAY ==
--- NOTE | ~2024-07-29 | CT_ITS ---
CLINICAL HISTORY: pain r flank?stone CT abdomen and pelvis without contrast Comparison: CT/REG/SR - CT ABDOMEN PELVIS WO IV CON - 12/03/22 17:02 EDT Findings: The lung bases are clear. Hepatomegaly with steatosis. Possible subtle punctate less than 2 mm calculi scattered in the right lower pole kidney series 6, image 49 for example. Diffuse fluid-filled bowel. No bowel obstruction. Diffuse rectal and colonic mural thickening can be seen with proctocolitis. No bowel obstruction. Anteverted uterus with prominent fluid-filled uterine cavity, may be physiologic. Colonic diverticulosis without diverticulitis. Normal appendix. The bones are intact. Postcholecystectomy. IMPRESSION: 1. Possible subtle, less than 2 mm nonobstructive calculi in the right lower pole kidney. 2. Suspect mild proctocolitis. This document has been electronically signed by: Roosevelt Martinez MD on 07/29/2024 21:20:09
[2024-07-29 19:05] VITALS: BP 202/92; PULSE 93; RESP 16; TEMP 36.7; O2SAT 97; BMI 31.1
--- NOTE | 2024-07-29 19:05 | PC.NURSE ---
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
--- NOTE | 2024-07-29 19:07 | ED_ITS ---
HPI - General Adult General Chief complaint: Abdominal Pain Stated complaint: strong abd pain x2days Time Seen by Provider: 07/29/24 20:08 Source: patient Mode of arrival: ambulatory Limitations: no limitations History of Present Illness ED Provider: HPI narrative: Patient is status post cholecystectomy with no significant abdominal complaints in the past noticed sudden onset of pain 2 days ago in the right upper and right mid abdomen associated with nausea no urinary complaint no hematuria no diarrhea no fever no chills no nausea no vomiting Related Data Previous Rx's ?Medication ?Instructions ?Recorded albuterol sulfate 0.63 mg/3 mL 0.63 mg (3 mL) inhalation Q4H PRN 02/27/21 solution for nebulization shortness of breath or wheezing #75 mL loratadine 10 mg tablet 10 mg PO QAM 90 days #90 tabs 12/25/21 Ventolin HFA 90 mcg/actuation 2 puff inhalation Q6H PRN 08/06/22 aerosol inhaler (albuterol sulfate) shortness of breath or wheezing 30 days #8 grams lidocaine 5 % topical patch 1 patch topical DAILY #15 ea 11/21/22 sumatriptan succinate 25 mg tablet See Rx Instructions PO .COMPLEX #7 08/12/23 tabs cholecalciferol (vitamin D3) 50 50 mcg PO DAILY 90 days #90 caps 08/25/23 mcg (2,000 unit) capsule acetaminophen 500 mg tablet 1,000 mg (2 x 500 mg) PO QID PRN 10/18/23 (Tylenol Extra Strength) pain #30 tabs lorazepam 1 mg tablet (Ativan) 1 mg PO Q12H PRN anxiety #5 tabs 11/28/23 oxycodone 5 mg tablet 5 mg PO Q8H PRN pain #30 tabs 03/04/24 losartan 50 mg tablet 50 mg PO DAILY 90 days #90 tabs 03/20/24 ciprofloxacin HCl 500 mg tablet 500 mg PO BID #20 tabs 07/29/24 (Cipro) metronidazole 500 mg tablet 500 mg PO TID #30 tabs 07/29/24 oxycodone 5 mg tablet 5 mg PO Q6H PRN pain #20 tabs 07/29/24 Allergies Allergy/AdvReac Type Severity Reaction Status Date / Time ibuprofen [From Advil] Allergy Severe Angioedema Verified 07/29/24 19:09 aspirin [ASPIRIN] Allergy Intermediate SWELLING Verified 07/29/24 19:09 cyclobenzaprine Allergy Intermediate SWELLING Verified 07/29/24 19:09 [From FLEXERIL] Review of Systems 2 Review of Systems: Yes all other systems are reviewed and are negative [facility] Past Medical History Medical History Lymphoma History of panic attacks Exposure of implanted vaginal mesh Moderate persistent asthma in adult without complication Left leg pain Hand numbness Obese Acute sinusitis Surgical History Hx of tubal ligation History of cholecystectomy Family History Family History Mother HIV (human immunodeficiency virus infection) Father Heart attack HIV (human immunodeficiency virus infection) Brother No problems noted. Brother Diabetes Sister No problems noted. Sister No problems noted. Daughter No problems noted. Daughter Down syndrome Other Mental health disorder Social History Social History Housing: Apartment Are you a primary rn palliative care to a significant other at home: No Do you presently have visiting nurse or other home services: No Alcohol intake: never Patient Tobacco Use Status: Never used Tobacco e-Cigarette/Vaping Use: Never Used Second Hand Smoke Exposure: No Advance Directives: No Advance Directives Information Provided: No Do you have a plan to hurt others: No Plan service: No Current occupational status: employed Current occupational exposures/hazards: No Cognitive needs: No Hearing needs: No Vision needs: No Physical Exam ED Vital Signs: Vital Signs - 24 hr 07/29/24 19:05 07/29/24 21:01 Temperature 98.1 F 98.2 F Pulse Rate 93 87 Respiratory Rate 16 18 Blood Pressure 202/92 H 181/97 H Pulse Oximetry 97 98 Oxygen Delivery Method Room Air Room Air BMI result Body Mass Index 31.1 Appearance: Alert. Oriented X3. No acute distress. Eyes: No pallor or icterus ENT: Pharynx normal. Oral Mucosa moist Neck: Normal inspection. Neck supple. CVS: Normal heart rate and rhythm. Pulses normal. Respiratory: No respiratory distress. Equal air entry bilateral, no wheezing/rales/rhonchi Abdomen: Soft Bowel sounds are present, no mass palpable, right CVA tenderness in right mid and lower abdominal tenderness no rebound tenderness or guarding Skin: Skin warm and dry. Normal skin color. Normal skin turgor. Extremities: No lower extremity edema. No calf tenderness Neuro: Oriented X 3. No motor deficit. Course Course Course Narrative: RME, this is a rapid medical exam performed by Dani Palafox please refer to primary provider for complete H&P- 44 year old female with past medical history significant hypertension, obesity, GERD, status post cholecystectomy presents for evaluation of lower abdominal pain with associated nausea. Plan for basic labs, UA, , will defer any potential imaging to primary ER provider Medications Administered Discontinued Medications Generic Name Dose Route Start Last Admin Trade Name Freq PRN Reason Stop Dose Admin Sodium Chloride 1,000 mls @ 999 mls/hr 07/29/24 20:39 07/29/24 20:54 Ns IV 07/29/24 21:39 999 mls/hr .Q1H1M ONE Administration Morphine Sulfate 4 mg 07/29/24 20:39 07/29/24 20:54 Morphine Sulfate 4 Mg/Ml Cartridge IVPUSH 07/29/24 20:40 4 mg ONCE ONE Administration Protocol Ondansetron HCl 4 mg 07/29/24 20:40 07/29/24 20:55 Ondansetron Hcl 4 Mg/2 Ml Vial IVPUSH 07/29/24 20:41 4 mg ONCE ONE Administration Medical Decision Making Medical Decision Making [facility] Narrative: Cause of patient's right abdominal pain is not clear CT scan showed proctocolitis patient denied any rectal intercourse with pain in the rectum area labs are stable will start on Cipro and Flagyl and follow up with PCP patient has a normal bowel Homans there soft no blood in the stool Differential Diagnosis Differential Diagnoses: The differential diagnosis associated with the presentation includes Renal colic/ diverticulitis/biliary stones/ Lab Data [facility] Lab Attestation statement: I reviewed the patient's lab results. 07/29/24 19:15 07/29/24 19:16 Labs: Lab Results 07/29/24 07/29/24 07/29/24 Range/Units 19:15 19:16 20:10 WBC 6.6 (4.8-10.8) X10*3/uL RBC 4.80 (4.20-5.50) X10*6/uL Hgb 13.2 (12.0-16.0) g/dl Hct 38.5 (37.0-47.0) % MCV 80.2 (80.0-98.0) fL MCH 27.5 (27.0-33.0) pg MCHC 34.3 (31.0-35.0) g/dl RDW 12.4 (11.0-16.0) % Plt Count 297 (160-400) X10*3/uL MPV 9.4 (9.4-12.3) fL Immature Gran % (Auto) 0.2 (0.0-0.4) % Neut % (Auto) 39.2 L (45-73) % Lymph % (Auto) 45.1 H (20-40) % [place] % (Auto) 12.0 H (2-11) % Eos % (Auto) 3.2 (0-4) % Baso % (Auto) 0.3 (0-2) % Lymph # (Auto) 3.0 (1.2-4.9) X10*3/uL [place] # (Auto) 0.8 (0.1-1.2) X10*3/uL Eos # (Auto) 0.2 (0.0-0.4) X10*3/uL Baso # (Auto) 0.0 (0.0-0.2) X10*3/uL Abs Immat Gran (auto) 0.01 (0.00-0.03) X10*3/uL Absolute Neuts (auto) 2.6 (2.0-8.3) x10*3/uL Absolute Nucleated RBC 0.000 (0.0-0.012) X10*3/uL Nucleated RBC % (auto) 0.0 (0.0-0.2) /100WBC Sodium 141 (135-145) mmol/L Potassium 3.6 (3.3-5.1) mmol/L Chloride 107 (96-108) mmol/L Carbon Dioxide 26 (22-29) mmol/L Anion Gap 12 (12-20) BUN 9 (9-16) mg/dL Creatinine 0.68 (0.5-1.4) mg/dL Estim Creat Clear Calc 113.5 Estimated GFR > 60 Random Glucose 100 (60-115) mg/dL Calcium 9.5 D (8.4-10.2) mg/dL Total Bilirubin 0.3 (0.0-1.0) mg/dL AST 41 H (5-31) U/L ALT 64 H (0-31) U/L Alkaline Phosphatase 87 (39-117) U/L Total Protein 7.6 (6.5-8.0) g/dL Albumin 4.3 (3.5-5.0) g/dL Lipase 24 (8-78) U/L Beta HCG, Quant < 2 mIU/mL Urine Color Yellow Urine Appearance Clear Urine pH 6.0 (5.0-9.0) Ur Specific [place] 1.020 (1.005-1.025) Urine Protein Negative (Neg-Trace) mg/dL Urine Glucose (UA) Negative (Negative) mg/dL Urine Ketones Negative (Negative) mg/dL Urine Blood Trace H (Negative) Urine Nitrite Negative (Negative) Ur Leukocyte Esterase Negative (Negative) Urine RBC 3-5 H (0-2) /HPF Urine WBC 0-5 (0-5) /HPF Ur Squamous Epith Cells 0-2 (0-2) /HPF Urine Bacteria None Seen (None Seen) Hyaline Casts 0-2 (0-2) /LPF Independent Interpretation I performed an independent interpretation of an: CT Scan Radiology Impression Discussion of test interpretation with radiology: I have reviewed the radiologist's reading. Radiologist Impression: IMPRESSION: 1. Possible subtle, less than 2 mm nonobstructive calculi in the right lower pole kidney. 2. Suspect mild proctocolitis. This document has been electronically signed by: Roosevelt Martinez MD on 07/29/2024 21:20:09 Discharge Plan Discharge Clinical Impression: Proctocolitis, Right upper quadrant abdominal pain Patient Disposition: Home, Self-Care Instructions: Abdominal Pain (ED), Colitis (ED) Additional Instructions: Cause of your right-sided pain is not clear CT scan showed inflammation rectum and colon Take antibiotics as prescribed Pain medication as prescribed Report to the ER/PCP if not better Prescriptions: New oxycodone 5 mg tablet 5 mg PO Q6H PRN (Reason: pain) Qty: 20 0RF Rx Instructions: Partial Fill upon patient request. ciprofloxacin HCl [Cipro] 500 mg tablet 500 mg PO BID Qty: 20 0RF metronidazole 500 mg tablet 500 mg PO TID Qty: 30 0RF No Action cholecalciferol (vitamin D3) 50 mcg (2,000 unit) capsule 50 mcg PO DAILY 90 Days Qty: 90 1RF lorazepam [Ativan] 1 mg tablet 1 mg PO Q12H PRN (Reason: anxiety) Qty: 5 0RF oxycodone 5 mg tablet 5 mg PO Q8H PRN (Reason: pain) Qty: 30 0RF Rx Instructions: Partial Fill upon patient request. losartan 50 mg tablet 50 mg PO DAILY 90 Days Qty: 90 1RF lidocaine 5 % adhesive patch,medicated 1 patch topical DAILY Qty: 15 0RF Rx Instructions: leave on most painful area for up to 12 hrs acetaminophen [Tylenol Extra Strength] 500 mg tablet 1,000 mg PO QID PRN (Reason: pain) Qty: 30 0RF albuterol sulfate 0.63 mg/3 mL solution for nebulization 0.63 mg inhalation Q4H PRN (Reason: shortness of breath or wheezing) Qty: 75 0RF loratadine 10 mg tablet 10 mg PO QAM 90 Days Qty: 90 0RF sumatriptan succinate 25 mg tablet See Rx Instructions PO .COMPLEX Qty: 7 0RF Rx Instructions: take 1 tab at onset of headache; if no relief may repeat 1 tab after at least 2 hrs; max = 4 tabs/24 hr PO albuterol sulfate [Ventolin HFA] 90 mcg/actuation HFA aerosol inhaler 2 puff inhalation Q6H PRN (Reason: shortness of breath or wheezing) 30 Days Qty: 8 1RF Print Language: Mongolian
[2024-07-29 19:20] LABS: MANUAL DIFF FLAG NO
[2024-07-29 19:21] LABS: Basophils Percent Auto 0.3 % (0-2); Eosinophils Absolute Auto 0.2 X10*3/uL (0.0-0.4); Eosinophils Percent Auto 3.2 % (0-4); Hematocrit 38.5 % (37.0-47.0); Hemoglobin 13.2 g/dl (12.0-16.0); Imm Gran Abs Auto 0.01 X10*3/uL (0.00-0.03); Imm Gran Pct Auto 0.2 % (0.0-0.4); Lymphocytes Percent Auto 45.1 % (20-40); Mean Corpuscular HGB Conc 34.3 g/dl (31.0-35.0); Mean Corpuscular Hemoglobin 27.5 pg (27.0-33.0); Mean Corpuscular Volume 80.2 fL (80.0-98.0); Mean Platelet Volume 9.4 fL (9.4-12.3); Monocytes Absolute Auto 0.8 X10*3/uL (0.1-1.2); Neutrophils Absolute Auto 2.6 x10*3/uL (2.0-8.3); Neutrophils Percent Auto 39.2 % (45-73); Platelet Count 297 X10*3/uL (160-400); Red Cell Distribution Width 12.4 % (11.0-16.0); White Blood Count 6.6 X10*3/uL (4.8-10.8)
[2024-07-29 19:45] LABS: Alanine Aminotransferase 64 U/L (0-31); Albumin Level 4.3 g/dL (3.5-5.0); Alkaline Phosphatase 87 U/L (39-117); Anion Gap 12 (12-20); Aspartate Amino Transferase 41 U/L (5-31); Bilirubin Total 0.3 mg/dL (0.0-1.0); Blood Urea Nitrogen 9 mg/dL (9-16); Calcium 9.5 mg/dL (8.4-10.2); Carbon Dioxide 26 mmol/L (22-29); Chloride 107 mmol/L (96-108); Creatinine Clr Calc Pharmacy 113.5; Estimated Glomerular Filt Rate > 60; Glucose Random 100 mg/dL (60-115); HCG Quantitative < 2 mIU/mL; Lipase 24 U/L (8-78); Potassium 3.6 mmol/L (3.3-5.1); Sodium 141 mmol/L (135-145); Total Protein 7.6 g/dL (6.5-8.0)
[2024-07-29 20:15] LABS: Appearance Urine Clear; Color Urine Yellow; Glucose Urine UA Negative (Negative); Leukocyte Esterase Urine Negative (Negative); Nitrite Urine Negative (Negative); UMIC TRIGGER UACC YES; Urine Blood Trace (Negative); Urine Ketones Negative (Negative); Urine Protein Negative (Neg-Trace)
[2024-07-29 20:17] LABS: Bacteria Urine None Seen (None Seen); Hyaline Casts Urine 0-2 /LPF (0-2); Squamous Epithelial Cell Urine 0-2 /HPF (0-2); WBC Urine 0-5 /HPF (0-5)
[2024-07-29] MEDS: 0.9 % Sodium Chloride 1,000 ML 999 ML IV (20:54)
[2024-07-29] MEDS: Morphine Sulfate 4 MG/ML CARTRIDGE IVPUSH (20:54)
[2024-07-29] MEDS: ondansetron HCL 4 MG/2 ML VIAL IVPUSH (20:55)
[2024-07-29 21:01] VITALS: BP 181/97; PULSE 87; RESP 18; TEMP 36.8; O2SAT 98
--- NOTE | 2024-07-29 21:07 | PC.NURSE ---
Notified Dr. Braga of PTs bp
[2024-07-29 21:53] VITALS: BP 150/84; PULSE 74; RESP 16; TEMP 36.8; O2SAT 98
[2024-07-29] MEDS: levoFLOXacin 500 MG TABLET PO (21:59)
[2024-07-29] MEDS: Dicyclomine HCl 10 MG CAPSULE 20 MG PO (21:59)
[2024-07-29] MEDS: metroNIDAZOLE 500 MG TABLET PO (21:59)
[2024-07-29 22:06] VITALS: BP 150/84; PULSE 74; RESP 16; TEMP 36.8; O2SAT 98
== END 2024-07-29 22:07 | disposition home or self-care (01) ==
PROVIDERS: Physician Assistant; Emergency Provider Internal Medicine; PCP Internal Medicine
DX: K51.30 Ulcerative (chronic) rectosigmoiditis without complications (principal); R10.11 Right upper quadrant pain; Z90.49 Acquired absence of other specified parts of digestive tract
CPT/HCPCS: 36415; 74176; 80053; 81001; 83690; 84702; 85025; 96374; 96375; 99284; J2270; J2405

== ENCOUNTER → 2024-07-29 20:38 | Outpatient (BNV) | payer OTHER, SELFPAY | PROVIDERS: Emergency Provider Internal Medicine; PCP Internal Medicine; Visit Provider Radiology Diagnostic Radiology | DX: N20.0 Calculus of kidney (principal); R16.0 Hepatomegaly, not elsewhere classified; K76.0 Fatty (change of) liver, not elsewhere classified | CPT/HCPCS: 74176 ==

== ENCOUNTER 2024-08-19 16:52 | Outpatient (AMB) | payer OTHER, SELFPAY ==
--- NOTE | 2024-08-19 16:54 | MHC.PC.OV ---
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 Accompanied by: Self / Same As Patient Allergies ibuprofen [From Advil] Allergy (Severe, Verified 08/19/24 17:21) Angioedema aspirin [ASPIRIN] Allergy (Intermediate, Verified 08/19/24 17:21) SWELLING cyclobenzaprine [From FLEXERIL] Allergy (Intermediate, Verified 08/19/24 17:21) SWELLING Medication List - Last Reconciled 08/19/24 by Tara Mobley MD albuterol sulfate 0.63 mg (3 mL) inhalation Q4H PRN losartan 50 mg PO DAILY 90 days sumatriptan succinate take 1 tab at onset of headache; if no relief may repeat 1 tab after at least 2 hrs; max = 4 tabs/24 hr PO Ventolin HFA 90 mcg/actuation (albuterol sulfate) 2 puffs inhalation Q6H PRN 30 days NS Tobacco use date assessed: 08/19/24 Dental Screening Dental Screen Date: 08/19/24 Did you have a dental visit in the last 12 months?: No Did you have a dental problem in the last 6 months where you did not have access to dental care?: No Was dental information given to patient?: Patient has dentist HPI HPI Comments History of Present Illness Details The patient is a 44-year-old female presenting for her physical exam. She needs hypertension management and migraine management. Her hypertension is currently managed with losartan 50 mg. She reports no adverse symptoms such as dizziness, palpitations, or headaches related to her hypertension. For her migraines, she is prescribed sumatriptan, and she reports no significant change in symptomatology. She experiences persistent diarrhea following her previous cholecystectomy, which she attributes to the procedure. The patient has undergone a right shoulder arthroscopy and reports ongoing discomfort, especially upon movement. She has a history of anemia noted but not detailed further. Her health maintenance history includes a normal Pap smear in 2021 and a mammogram in 2022. - Normal Pap smear in 2021 - Mammogram performed in 2022 [facility] Medical History (Updated 08/19/24 @ 17:40 by Tara Mobley MD) Lymphoma History of panic attacks Exposure of implanted vaginal mesh Moderate persistent asthma in adult without complication Left leg pain Hand numbness Obese Acute sinusitis Surgical History (Updated 08/19/24 @ 17:25 by Tara Mobley MD) History of arthroscopy of right shoulder Hx of tubal ligation History of cholecystectomy Family History Mother HIV (human immunodeficiency virus infection) Father Heart attack HIV (human immunodeficiency virus infection) Brother No problems noted. Brother Diabetes Sister No problems noted. Sister No problems noted. Daughter No problems noted. Daughter Down syndrome Other Mental health disorder Social History Housing: Apartment Are you a primary rn palliative care to a significant other at home: No Do you presently have visiting nurse or other home services: No Alcohol intake: never Patient Tobacco Use Status: Never used Tobacco e-Cigarette/Vaping Use: Never Used Second Hand Smoke Exposure: No service: No Current occupational status: employed Current occupational exposures/hazards: No Cognitive needs: No Hearing needs: No Vision needs: No Female Reproductive History Menstrual Age of Menarche: 8 Questionnaire PHQ-9 Over the last 2 weeks, how often have you been bothered by any of the following problems? 1. Little interest or pleasure in doing things: not at all 2. Feeling down, depressed, or hopeless: not at all 3. Trouble falling or staying asleep, or sleeping too much: several days 4. Feeling tired or having little energy: not at all 5. Poor appetite or overeating: not at all 6. Feeling bad about yourself - or that you are a failure or have let yourself or your family down: not at all 7. Trouble concentrating on things, such as reading the newspaper or watching television: not at all 8. Moving or speaking so slowly that other people could have noticed. Or the opposite - being so fidgety or restless that you have been moving around a lot more than usual: not at all 9. 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 Gasper Estrada, Jun Garcia and colleagues, with an educational agatha from [employer]. Thrive Questionnaire Date Thrive assessed: 08/19/24 I am a: Patient What is your living situation today?: I have a steady place to live Within the past 12 months, did the food you bought not last and you didn't have the money to get more?: Sometimes True Within the past 12 months, did you worry whether your food would run out before you got money to buy more?: Sometimes True Do you have trouble paying for medicines?: No Do you have trouble getting transportation to medical appointments?: No Do you have trouble paying your heating and electricity bill?: I choose not to answer this question Do you have trouble taking care of your child, family member or friend?: No Do you have trouble with day-to-day activities such as bathing, preparing meals, shopping, managing finances, etc.?: No Are you currently unemployed and looking for a job?: Yes Are you interested in more education?: Yes Please select the resources that you would like help with: Job search/training Currently or been in a relationship where the following occur: No concerns reported THRIVE Score: 2 AUDIT C Alcohol Use Questionnaire (AUDIT-C) 1. How often do you have a drink containing alcohol?: Never Total Score: 0 Score Reviewed/Action Taken: No MACHELLE-7 AMB Questionnaire MACHELLE-7 Date MACHELLE - 7 assessed: 08/19/24 Feeling nervous, anxious, or on edge: 0 = Not at all Not being able to stop or control worryin = Several days Worrying too much about different things: 1 = Several days Trouble relaxin = Several days Being so restless that it is hard to sit still: 1 = Several days Becoming easily annoyed or irritable: 1 = Several days Feeling afraid as if something awful might happen: 0 = Not at all Total MACHELLE-7 score (0-4 normal; 5-9 mild; 10-14 moderate; 15-21 severe): 5 Source: Developed by Radhika Sepulveda Kurt Kroenke and colleagues, with an educational agatha from [employer]. MACHELLE-7 Assessment Billing MACHELLE-7 Assessment Tool: MACHELLE-7 Assessment 49804 Review of Systems Const All systems reviewed & are unremarkable except as noted in HPI and below Card Denies chest pain at rest, Denies chest pain with activity, Denies edema, Denies irregular heart rhythm, Denies claudication, Denies dyspnea, Denies dyspnea on exertion, Denies orthopnea, Denies paroxysmal nocturnal dyspnea and Denies slow heart rate Resp Denies cough, Denies dyspnea and Denies dyspnea on exertion GI Denies abdominal pain, Denies change in bowel habits, Denies excessive flatus, Denies nausea and Denies vomiting Physical exam (Primary Care) Vital Signs: Last Vital Signs BP 132/80 08/19/24 16:57 BMI result Body Mass Index 32.3 Tobacco/Smoking Status: Tobacco use Status Tobacco use date assessed 08/19/24 08/19/24 17:07 Patient Tobacco Use Status Never used Tobacco 08/19/24 16:56 e-Cigarette/Vaping Use Never Used 08/19/24 16:56 PHQ-9: PHQ-9 Score PHQ-9: Total score 1 08/19/24 17:26 Depression Screening Interpretation: Positive Depression Screening Follow-up: Existing condition, Community Mental Health Worker F/U and Follow-up Visit Requested Thrive Assessment: Date of Thrive Assessment Date Thrive assessed 08/19/24 08/19/24 16:56 Currently or been in a relationship where the following occur: No concerns reported HENNM Head: Yes normal to inspection, Yes normocephalic and Yes atraumatic Ears: external ears normal Eyes General: appearance normal, both eyes and all related structures Eyelids: Yes eyelids normal Conjunctivae: conjunctivae normal Neck Neck: Yes normal visual inspection and Yes supple Resp Effort & Inspection: normal respiratory effort Auscultation: clear to auscultation bilaterally Cardio Jugular venous distension: no JVD Rate: regular rate Rhythm: regular rhythm Heart sounds: S1 normal heart sound present and S2 normal heart sound present GI Inspection: Yes normal to inspection Palpation (GI): Soft to palpation and nontender Auscultation: normal bowel sounds Skin General skin exam: no rashes or lesions noted Neuro General: no focal motor deficits Extrem General: Yes full ROM Psych Appearance: grossly normal Coding Level of Care Code Est Pt Level 3 (57731) Est Pt Prev Care 40-64y(33752) Diagnoses Physical exam Z00.00 Blurry vision H53.8 Left foot pain M79.672 Screening for HIV (human immunodeficiency virus) Z11.4 Chronic GERD K21.9 Impingement of right shoulder M25.811 Mild major depression F32.0 Additional Codes MACHELLE-7 Assessment Billing - MACHELLE-7 Assessment Tool: MACHELLE-7 Assessment 13405 ([id number]) PHQ-9 - 11268 - PHQ-9 Billing: Yes ([id number]) Time Spent (min) 40 Assessment & Plan Assessment & Plan (1) Physical exam: Code(s): Z00.00 - Encounter for general adult medical examination without abnormal findings Category: Medical (2) Blurry vision: Code(s): H53.8 - Other visual disturbances Category: Medical (3) Left foot pain: Code(s): M79.672 - Pain in left foot Category: Medical (4) Screening for HIV (human immunodeficiency virus): Code(s): Z11.4 - Encounter for screening for human immunodeficiency virus [HIV] Category: Medical (5) Chronic GERD: Code(s): K21.9 - Gastro-esophageal reflux disease without esophagitis Category: Medical (6) Impingement of right shoulder: Code(s): M25.811 - Other specified joint disorders, right shoulder Category: Medical (7) Mild major depression: Code(s): F32.0 - Major depressive disorder, single episode, mild Category: Medical Plan During this visit, her hypertension remains managed with losartan 50 mg. I instructed the patient on the importance of monitoring her blood pressure and to report symptoms such as dizziness. Her migraine management with sumatriptan was reviewed. For her ongoing post-cholecystectomy diarrhea, dietary adjustments may help in symptom management, while for right shoulder discomfort post-arthroscopy, I recommended [id number] exercises. Monitoring her anemia status through regular blood work was discussed. Overall adherence to prescribed health maintenance programs, such as regular screenings, was encouraged. Patient was informed and verbally consented to the use of an ambient scribe for clinic note documentation during this visit. During the visit, I discussed the importance of continuing losartan for hypertension and its impact on reducing cardiovascular risks. The use of sumatriptan for managing migraines was reviewed, highlighting its efficacy in controlling her symptoms. The patient was informed of the potential causes of her post-cholecystectomy diarrhea and that dietary changes might alleviate her condition. The need for continued physical therapy exercises for right shoulder post-arthroscopy was explained to maintain mobility. I emphasized the importance of regular follow-ups for her anemia history and adherence to screenings like Pap smears and mammograms. The patient agreed with the management plans, and no additional risks or complications were identified during the discussion. Orders: Orders IRON PROFILE Today D64.9 - Anemia, unspecified [place] upper GI series Today K21.9 - Gastro-esophageal reflux disease without esophagitis Vitamin D 25-OH Total Today E55.9 - Vitamin D deficiency, unspecified Lipid Panel Today E78.5 - Hyperlipidemia, unspecified, I10 - Essential (primary) hypertension Comprehensive [place]. Panel Fast Today I10 - Essential (primary) hypertension HIV Ab/Ag Today Z11.4 - Encounter for screening for human immunodeficiency virus [HIV] Referrals Gastroenterology Referral K21.9 - Gastro-esophageal reflux disease without esophagitis Podiatry Referral M79.672 - Pain in left foot Ophthalmology Referral H53.8 - Other visual disturbances Medications: New omeprazole 20 mg PO DAILY 90 caps 1RF 90 days Refilled Ventolin HFA 90 mcg/actuation (albuterol sulfate) 2 puffs inhalation Q6H PRN 8 grams 1RF shortness of breath or wheezing 30 days NS
[2024-08-19 16:57] VITALS: BP 132/80; BMI 32.3
--- OUTSIDE RECORDS SUMMARY | 2024-08-19 18:25 | XMS_ITS | Patient Health Record ---
Author Organization Gasper Ruiz III, MD Address [address] [place] [address] Care Team Providers Care Dry Folder Cloth Name Role Phone [facility] MD Primary Care Provider Gasper Adams Unavailable [phone] Allergies Allergen (clinical drug ingredient) Drug/Non Drug Allergy documented on EMR Reaction Allergy Type Onset Date Status aspirin Aspirin edema Drug Allergy Active Reason For Referral No Information Medications Medication SIG (Take, Route, Frequency, Duration) Notes [...] Orally Thr ee times a day Not-Taking Social History Tobacco Use: Social History Observation Description Date Details (start date - stop date) Never Smoker NA - NA Tobacco Use/Smoking Question Answer Notes Patient is a nonsmoker Additional Findings: Tobacco Non-User Aggressive non-smoker Problems Problem Type SNOMED Code ICD Code Onset Dates Problem Status W/U Status Risk Notes Problem 700064075 Granulocytopenia (D70.9) Active confirmed The mild neutro penia and granulocytopenia is stable. Flow cytometry on the lymph node showed no lymphoproliferative clonal process. Problem 56509823 Lymphadenopathy (R59.1) Active confirmed The biopsy of t he lymph node showed granulomatous disease and she is now being treated with triple therapy at the tuberculosis clinic in [place], [place]. She will not need to return to this office. Problem 073535106 Allergic to aspirin (Z88.8) Active confirmed She has had no serious reactions lately. Plan Of Treatment No Information Insurance Providers Payer Name Payer Address Payer Phone Subscriber Number Group Number Insured Name Patient Relationship to Insured Coverage Start Date Coverage End Date [place] [address] [place]FFANY WHITTEN [id number] [phone] [id number] Jasson Duke Self - patient is the insured Medical (General) History Medical History History ICD Code Panic attacks menstrual irregularity hemorrhoids intermittent chronic diarrhea Surgical History Surgery Date(Month/Year) tubal ligation lymph node excision mesh placement cholecystectomy, [facility], Dr. West 2013 Hospitalization History Reason Date(Month/Year) cholecystectomy 2013
== END 2024-08-19 17:42 | disposition home or self-care (01) ==
LOC: HO.HMCH 16:53
PROVIDERS: PCP Internal Medicine; Visit Provider Internal Medicine
DX: Z00.00 Encounter for general adult medical examination without abnormal findings (principal); H53.8 Other visual disturbances; F32.0 Major depressive disorder, single episode, mild; Z11.4 Encounter for screening for human immunodeficiency virus [HIV]; M79.672 Pain in left foot; K21.9 Gastro-esophageal reflux disease without esophagitis; M25.811 Other specified joint disorders, right shoulder

== ENCOUNTER → 2024-08-19 16:52 | Outpatient (BNVA) | payer OTHER, SELFPAY | PROVIDERS: PCP Internal Medicine; Visit Provider Internal Medicine | DX: Z00.01 Encounter for general adult medical examination with abnormal findings (principal); H53.8 Other visual disturbances; M79.672 Pain in left foot; K21.9 Gastro-esophageal reflux disease without esophagitis; M25.811 Other specified joint disorders, right shoulder; F32.0 Major depressive disorder, single episode, mild; Z79.899 Other long term (current) drug therapy | CPT/HCPCS: 96127; 99212; 99396 ==

== ENCOUNTER 2024-08-24 12:13 | Outpatient (REF) | payer OTHER, SELFPAY ==
[2024-08-24 13:25] LABS: Alanine Aminotransferase 70 U/L (0-31); Albumin Level 4.3 g/dL (3.5-5.0); Alkaline Phosphatase 66 U/L (39-117); Anion Gap 11 (12-20); Aspartate Amino Transferase 41 U/L (5-31); Bilirubin Total 0.5 mg/dL (0.0-1.0); Blood Urea Nitrogen 10 mg/dL (9-16); Calcium 9.3 mg/dL (8.4-10.2); Carbon Dioxide 28 mmol/L (22-29); Chloride 105 mmol/L (96-108); Cholesterol 183 mg/dL (<200); Estimated Glomerular Filt Rate > 60; Glucose Fasting 101 mg/dL (60-99); HDL Cholesterol 40 mg/dL (>40); Iron 90 mcg/dL (30-160); LDL Cholesterol Calculated 109 mg/dL (<100); Percent Iron Saturation 30 % (15-50); Potassium 4.2 mmol/L (3.3-5.1); Sodium 140 mmol/L (135-145); Total Iron Binding Capacity 304 mcg/dL (228-428); Total Protein 7.4 g/dL (6.5-8.0); Triglycerides 171 mg/dL (<150); Unsaturated Iron Binding 214 ug/dL
[2024-08-24 13:42] LABS: Vitamin D 25-OH Total 15.8 ng/mL (>30)
[2024-08-25 08:30] LABS: HIV AB/AG Nonreactive (Nonreactive); HIV Num 1 0.07 S/CO (0.00-0.99)
== END 2024-08-24 12:14 | disposition home or self-care (01) ==
LOC: HO.LAB 12:13
PROVIDERS: PCP Internal Medicine; Visit Provider Internal Medicine
DX: I10 Essential (primary) hypertension (principal); E55.9 Vitamin D deficiency, unspecified; D64.9 Anemia, unspecified; E78.5 Hyperlipidemia, unspecified; Z11.4 Encounter for screening for human immunodeficiency virus [HIV]
CPT/HCPCS: 36415; 80053; 80061; 82306; 83540; 87389

== ENCOUNTER 2024-09-08 01:58 | Inpatient (IN) | payer OTHER, SELFPAY ==
[2024-09-08] VITALS (7 sets, daily range): BP systolic 128–189; BP diastolic 78–115; PULSE 60–97; RESP 16–18; TEMP 36.6–36.8; O2SAT 98–100; BMI 31.9; BMI 31.8
--- NOTE | ~2024-09-08 | CT_ITS ---
CLINICAL HISTORY: Right flank, RLQ tenderness R O appy, stone CT abdomen and pelvis with contrast Comparison: CT/SR - CT ABDOMEN PELVIS WO IV CON - 07/29/24 20:44 EDT Findings: No consolidation or effusion. Hepatomegaly with steatosis. Tiny splenule. Small cystic focus in the proximal pancreas measuring 7 mm, only visualized on coronal. If clinical concern persists consider follow-up MRI. No urolithiasis. Diffuse colonic mural thickening. Distal small bowel mural thickening pronounced of the terminal ileum with mucosal hyperemia and right lower quadrant inflammatory changes with trace ascites. Regional stranding of the mesenteric fat. No bowel obstruction. Bilateral ovarian cysts, on the left measuring 3.4 cm and on the right measuring 2.8 cm. This may be further evaluated with ultrasound. Anteverted uterus with prominent fluid-filled uterine cavity, may be physiologic. Colonic diverticulosis without focal diverticulitis. Normal appendix. No acute fracture. Disc bulge at L4-L5 and L5-S1. Postcholecystectomy. IMPRESSION: Pancolitis and distal enteritis in the right lower quadrant with trace ascites. This document has been electronically signed by: Roosevelt Martinez MD on 09/08/2024 06:15:37
--- NOTE | ~2024-09-08 | US_ITS ---
EXAMINATION: US ABDOMEN LIMITED CLINICAL INFORMATION: Right sided abdominal pain.. COMPARISON: 06/02/2019 renal ultrasound. Correlation made with CT abdomen and pelvis 09/08/2024. TECHNIQUE: Real-time imaging of the right upper quadrant abdominal viscera. FINDINGS: PANCREAS: Visualized portions are unremarkable. LIVER: The liver is normal in size. Right hepatic lobe measures 15.0 cm. The liver contour is normal. There is diffuse increased liver parenchymal echogenicity, consistent with hepatic steatosis. No focal hepatic lesion. There is no intrahepatic biliary duct dilatation seen. GALLBLADDER: Surgically absent. COMMON BILE DUCT: Normal in caliber measuring 0.7 cm in diameter. RIGHT KIDNEY: No hydronephrosis. Mild caliectasis, uncertain significance. No renal calculi or focal parenchymal lesions. The kidney measures 11.6 cm in maximum dimension. FREE FLUID: None. US/US abdomen limited IMPRESSION: 1. Echogenic liver suggesting fatty infiltration. 2. Cholecystectomy. 3. Mild caliectasis of the right kidney, uncertain etiology or significance. Electronically signed by: Marcos Richmond MD 09/11/2024 03:41 PM EDT
[2024-09-08 02:27] LABS: Hematocrit 40.5 % (37.0-47.0); Hemoglobin 13.7 g/dl (12.0-16.0); Mean Corpuscular HGB Conc 33.8 g/dl (31.0-35.0); Mean Corpuscular Hemoglobin 27.2 pg (27.0-33.0); Mean Corpuscular Volume 80.4 fL (80.0-98.0); Mean Platelet Volume 9.6 fL (9.4-12.3); Platelet Count 263 X10*3/uL (160-400); Red Blood Count 5.04 X10*6/uL (4.20-5.50); Red Cell Distribution Width 12.3 % (11.0-16.0); White Blood Count 5.8 X10*3/uL (4.8-10.8)
[2024-09-08 02:29] LABS: Appearance Urine Clear; Color Urine Yellow; Glucose Urine UA Negative (Negative); Leukocyte Esterase Urine Negative (Negative); Nitrite Urine Negative (Negative); PH 6.5 (5.0-9.0); Specific Gravity - Urine 1.015 (1.005-1.025); UMIC TRIGGER UACC YES; Urine Blood Trace (Negative); Urine Ketones Negative (Negative); Urine Protein Negative (Neg-Trace)
[2024-09-08 02:33] LABS: Bacteria Urine None Seen (None Seen); Hyaline Casts Urine 0-2 /LPF (0-2); Squamous Epithelial Cell Urine 0-2 /HPF (0-2); WBC Urine 0-5 /HPF (0-5)
[2024-09-08 02:41] LABS: COVID-19 Test Negative (Negative); IDNOW Serial# 58CA691E
[2024-09-08 02:42] LABS: IDNOW Serial# 55D5AD1C; Influenza A Negative (Negative); Influenza B2 Negative (Negative)
[2024-09-08 02:54] LABS: Alanine Aminotransferase 69 U/L (0-31); Albumin Level 4.5 g/dL (3.5-5.0); Alkaline Phosphatase 105 U/L (39-117); Anion Gap 15 (12-20); Aspartate Amino Transferase 37 U/L (5-31); Bilirubin Total 0.4 mg/dL (0.0-1.0); Blood Urea Nitrogen 8 mg/dL (9-16); Calcium 9.3 mg/dL (8.4-10.2); Carbon Dioxide 26 mmol/L (22-29); Chloride 104 mmol/L (96-108); Creatinine Clr Calc Pharmacy 116.6; Estimated Glomerular Filt Rate > 60; Glucose Random 128 mg/dL (60-115); Lipase 28 U/L (8-78); Magnesium 1.9 mg/dL (1.6-2.6); Potassium 3.7 mmol/L (3.3-5.1); Sodium 141 mmol/L (135-145); Total Protein 7.6 g/dL (6.5-8.0)
--- NOTE | 2024-09-08 05:20 | ED.ABDPAIN ---
HPI - Abdominal Pain General Chief Complaint: Abdominal Pain Stated Complaint: abd pain Time Seen by Provider: 09/08/24 05:05 Source: patient Mode of arrival: ambulatory Limitations: language barrier (Gambian speaking only, [facility] [place] used[place] History of Present Illness ED Provider: Dr. Juan Antonio Sommers HPI narrative: 44-year-old female with a history of diabetes mellitus, asthma who presents emergency department for evaluation of right lower quadrant abdominal pain, nausea, vomiting and diarrhea. Patient states that at around 01:15 hours she woke up suddenly with severe right lower quadrant pain radiating to her right flank. She states that it was 10/10. Patient reports that she had at least 6 episodes of loose diarrheal stool yesterday and multiple episodes of vomiting. She denied fever or chills. The patient was seen in the emergency department on 07/29/2024 (10 days prior to evaluation) for sudden onset of right upper quadrant and mid abdominal pain associated with nausea. Patient's CT scan of the abdomen pelvis at that time was concerning for mild proctocolitis. She also had an incidental 2 mm right renal stone. Patient was discharged with prescription for ciprofloxacin 500 mg b.i.d. times 10 days and metronidazole 500 mg t.i.d. times 10 days. She was also given a prescription for oxycodone 5 mg q.6 hours PRN. The patient states since since having her cholecystectomy she has had 1-2 loose stools per day. Related Data Home Medications ?Medication ?Instructions ?Recorded ?Confirmed omeprazole 20 mg capsule,delayed 20 mg PO DAILY@0630 09/08/24 09/08/24 release Previous Rx's ?Medication ?Instructions ?Recorded albuterol sulfate 0.63 mg/3 mL 0.63 mg (3 mL) inhalation Q4H PRN 02/27/21 solution for nebulization shortness of breath or wheezing #75 mL sumatriptan succinate 25 mg tablet See Rx Instructions PO .COMPLEX #7 08/12/23 tabs losartan 50 mg tablet 50 mg PO DAILY 90 days #90 tabs 03/20/24 Ventolin HFA 90 mcg/actuation 2 puff inhalation Q6H PRN 08/19/24 aerosol inhaler (albuterol sulfate) shortness of breath or wheezing 30 days #8 grams cholecalciferol (vitamin D3) 50 50 mcg PO DAILY 90 days #90 caps 08/24/24 mcg (2,000 unit) capsule Allergies Allergy/AdvReac Type Severity Reaction Status Date / Time ibuprofen [From Advil] Allergy Severe Angioedema Verified 09/08/24 02:10 aspirin [ASPIRIN] Allergy Intermediate SWELLING Verified 09/08/24 02:10 cyclobenzaprine Allergy Intermediate SWELLING Verified 09/08/24 02:10 [From FLEXERIL] Review of Systems Review of Systems Yes all other systems are reviewed and are negative [facility] Past Medical History [facility] Narrative: Social history: She denies tobacco, alcohol and drug use Medical History Lymphoma History of panic attacks Exposure of implanted vaginal mesh Moderate persistent asthma in adult without complication Left leg pain Hand numbness Obese Acute sinusitis Surgical History History of arthroscopy of right shoulder Hx of tubal ligation History of cholecystectomy Family History Family History Mother HIV (human immunodeficiency virus infection) Father Heart attack HIV (human immunodeficiency virus infection) Brother No problems noted. Brother Diabetes Sister No problems noted. Sister No problems noted. Daughter No problems noted. Daughter Down syndrome Other Mental health disorder Social History Social History Housing: Apartment Are you a primary intensive care medicine specialist to a significant other at home: No Do you presently have visiting nurse or other home services: No Alcohol intake: never Patient Tobacco Use Status: Never used Tobacco e-Cigarette/Vaping Use: Never Used Second Hand Smoke Exposure: No Use of substances other than those prescribed or required for medical reasons: No Advance Directives: No Advance Directives Information Provided: Yes service: No Current occupational status: employed Current occupational exposures/hazards: No Cognitive needs: No Hearing needs: No Vision needs: No Physical Exam ED Vital Signs: Vital Signs - 24 hr 09/08/24 02:05 09/08/24 06:09 Temperature 98.3 F Pulse Rate 97 72 Respiratory Rate 18 18 Blood Pressure 176/115 H 144/90 H Pulse Oximetry 98 99 Oxygen Delivery Method Room Air Room Air BMI result Body Mass Index 31.9 Vital signs revealed an elevated blood pressure of 176/115 otherwise unremarkable Exam: General: Awake, alert in no distress Head: Normocephalic, atraumatic EENT: PERRL, Lids normal, sclera normal, conjunctiva normal, nose normal , ears normal, throat without erythema or exudates Neck: Supple, no adenopathy Lung: breath sounds symmetric, no wheezing, rales or rhonchi Chest: symmetric movement, nontender Heart: regular rate and rhythm, normal S1, S2 no murmurs or rubs Abdomen: soft, moderate right lower quadrant tenderness, mild to moderate diffuse abdominal tenderness, normoactive bowel sounds, no rebound, no voluntary or involuntary guarding Back: no vertebral tenderness, no CVAT Extremities: no deformities, moves all extremities symmetrically Neuro: Awake, alert, oriented, normal speech, cranial nerves intact, moves all extremities symmetrically Psych: Pleasant, cooperative Medical Decision Making Medical Decision Making MDM Narrative: 44-year-old female with a history of diabetes mellitus, asthma who presents emergency department for evaluation of right lower quadrant abdominal pain, nausea, vomiting and diarrhea. Patient states that at around 01:15 hours she woke up suddenly with severe right lower quadrant pain radiating to her right flank. She states that it was 10/10. Patient reports that she had at least 6 episodes of loose diarrheal stool yesterday. She denied fever or chills. The patient was seen in the emergency department on 07/29/2024 (10 days prior to evaluation) for sudden onset of right upper quadrant and mid abdominal pain associated with nausea. Patient's CT scan of the abdomen pelvis at that time was concerning for mild proctocolitis. She also had an incidental 2 mm right renal stone. Patient was discharged with prescription for ciprofloxacin 500 mg b.i.d. times 10 days and metronidazole 500 mg t.i.d. times 10 days. She was also given a prescription for oxycodone 5 mg q.6 hours PRN. Vital signs revealed an elevated blood pressure otherwise unremarkable. Physical examination revealed moderate right lower quadrant tenderness with mild to moderate diffuse abdominal tenderness. Differential diagnosis: ?Includes but is not limited to pancreatitis, diverticulitis, C difficile colitis, appendicitis, ureteral colic, ureteral stone, anemia, electrolyte abnormalities, viral gastroenteritis, COVID, influenza, RSV Course: 05:20 Patient was treated with normal saline IV x1 L, morphine 4 mg IV and Zofran 4 mg IV. 07:07 Patient's pain improved from 5/10 to 2/10. My interpretation patient's laboratory evaluation is as follows: WBC was normal 5800. CMP revealed an elevated glucose of 128, elevated AST and ALT of 37 and 69. COVID-19, RSV and influenza tests were negative. Quantitative beta-hCG was below detectable limits. CT scan of the abdomen pelvis with IV contrast revealed a normal appendix. The patient had diffuse colonic mural thickening with distal small bowel mural thickening more prominent at the terminal ileum with mucosal hyperemia and right lower quadrant inflammation with trace ascites and regional stranding of the mesenteric fat. Given these finding, it is possible the patient may have inflammatory bowel disease versus infectious enteritis/colitis. I did order CRP, ESR, blood cultures x2, lactic acid, C diff and GI panel. Patient was ordered to get normal saline IV at 125 cc an hour, Zosyn 4.5 g IV. I did discuss the patient's presentation over tiger text with the covering hospitalist, Dr Pedro and the patient will be admitted for further treatment. Admission/Observation Consideration of admission/observation: Escalation of care including admission/observation considered (Yes) Consult Healthcare Provider Management of the patient was discussed with: Hospitalist Lab Data MDM Lab Attestation statement: I reviewed the patient's lab results. 09/08/24 02:20 09/08/24 02:20 Labs: Lab Results 09/08/24 Range/Units 02:20 WBC 5.8 (4.8-10.8) X10*3/uL RBC 5.04 (4.20-5.50) X10*6/uL Hgb 13.7 (12.0-16.0) g/dl Hct 40.5 (37.0-47.0) % MCV 80.4 (80.0-98.0) fL MCH 27.2 (27.0-33.0) pg MCHC 33.8 (31.0-35.0) g/dl RDW 12.3 (11.0-16.0) % Plt Count 263 (160-400) X10*3/uL MPV 9.6 (9.4-12.3) fL Absolute Nucleated RBC 0.000 (0.0-0.012) X10*3/uL Nucleated RBC % (auto) 0.0 (0.0-0.2) /100WBC Sodium 141 (135-145) mmol/L Potassium 3.7 (3.3-5.1) mmol/L Chloride 104 (96-108) mmol/L Carbon Dioxide 26 (22-29) mmol/L Anion Gap 15 (12-20) BUN 8 L (9-16) mg/dL Creatinine 0.67 (0.5-1.4) mg/dL Estim Creat Clear Calc 116.6 Estimated GFR > 60 Random Glucose 128 H (60-115) mg/dL Estimat Average Glucose 120 mg/dL Hemoglobin A1c % 5.8 (<6.0) % Calcium 9.3 (8.4-10.2) mg/dL Magnesium 1.9 (1.6-2.6) mg/dL Total Bilirubin 0.4 (0.0-1.0) mg/dL AST 37 H (5-31) U/L ALT 69 H (0-31) U/L Alkaline Phosphatase 105 (39-117) U/L Total Protein 7.6 (6.5-8.0) g/dL Albumin 4.5 (3.5-5.0) g/dL Lipase 28 (8-78) U/L Beta HCG, Quant < 2 mIU/mL Urine Color Yellow Urine Appearance Clear Urine pH 6.5 (5.0-9.0) Ur Specific Patterson 1.015 (1.005-1.025) Urine Protein Negative (Neg-Trace) mg/dL Urine Glucose (UA) Negative (Negative) mg/dL Urine Ketones Negative (Negative) mg/dL Urine Blood Trace H (Negative) Urine Nitrite Negative (Negative) Ur Leukocyte Esterase Negative (Negative) Urine RBC 3-5 H (0-2) /HPF Urine WBC 0-5 (0-5) /HPF Ur Squamous Epith Cells 0-2 (0-2) /HPF Urine Bacteria None Seen (None Seen) Hyaline Casts 0-2 (0-2) /LPF COVID-19 (LUZ ELENA) Negative (Negative) COVID-19 Clin Com See Note Influenza Type A (MALIKA) Negative (Negative) Influenza Type B (MALIKA) Negative (Negative) Influenza A & B Note See Note Radiology Impression Discussion of test interpretation with radiology: I have reviewed the radiologist's reading. Radiologist Impression: CT abdomen and pelvis with contrast Comparison: CT/SR - CT ABDOMEN PELVIS WO IV CON - 3/26/25 20:44 EDT Findings: No consolidation or effusion. Hepatomegaly with steatosis. Tiny splenule. Small cystic focus in the proximal pancreas measuring 7 mm, only visualized on coronal. If clinical concern persists consider follow-up MRI. No urolithiasis. Diffuse colonic mural thickening. Distal small bowel mural thickening pronounced of the terminal ileum with mucosal hyperemia and right lower quadrant inflammatory changes with trace ascites. Regional stranding of the mesenteric fat. No bowel obstruction. Bilateral ovarian cysts, on the left measuring 3.4 cm and on the right measuring 2.8 cm. This may be further evaluated with ultrasound. Anteverted uterus with prominent fluid-filled uterine cavity, may be physiologic. Colonic diverticulosis without focal diverticulitis. Normal appendix. No acute fracture. Disc bulge at L4-L5 and L5-S1. Postcholecystectomy. IMPRESSION: Pancolitis and distal enteritis in the right lower quadrant with trace ascites. This document has been electronically signed by: Roosevelt Martinez MD on 09/08/2024 06:15:37 Independent Historian Clinical information obtained from an independent historian. History obtained from or confirmed by: Spouse Chronic Conditions Patient?s care impacted by: Diabetes and Other ( asthma) Medications Administered Generic Name Dose Route Start Last Admin Trade Name Freq PRN Reason Stop Dose Admin Piperacillin Sod/Tazobactam 100 mls @ 200 mls/hr 09/08/24 14:00 09/08/24 14:33 Sod 4.5 gm/ Sodium Chloride IV Infused Q6H KEISHA Infusion Morphine Sulfate 4 mg 09/08/24 07:23 09/08/24 11:55 Morphine Sulfate 4 Mg/Ml Cartridge IVPUSH 4 mg Q4H PRN Administration Pain, Severe (Pain Scale 7-10) Protocol Sodium Chloride 3 ml 09/08/24 08:00 09/08/24 15:07 0.9 % Sodium Chloride Flush 3 Ml Syringe IVFLUSH Not Given QSHIFT KEISHA Discontinued Medications Generic Name Dose Route Start Last Admin Trade Name Freq PRN Reason Stop Dose Admin Sodium Chloride 1,000 mls @ 999 mls/hr 09/08/24 05:20 09/08/24 06:29 Ns IV 09/08/24 06:20 Infused .Q1H1M STA Infusion Sodium Chloride 1,000 mls @ 125 mls/hr 09/08/24 06:56 09/08/24 15:08 Ns IV 09/08/24 14:55 Infused .Q8H STA Infusion Piperacillin Sod/Tazobactam 100 mls @ 200 mls/hr 09/08/24 06:56 09/08/24 10:28 Sod 4.5 gm/ Sodium Chloride IV 09/08/24 07:25 Infused ONCE ONE Infusion Iohexol 85 ml 09/08/24 05:54 09/08/24 05:55 Iohexol 350 Mg/Ml 100 Ml Infus..Btl IV 09/08/24 05:55 85 ml ONCE ONE Administration Morphine Sulfate 4 mg 09/08/24 05:20 09/08/24 05:27 Morphine Sulfate 4 Mg/Ml Cartridge IVPUSH 09/08/24 05:21 4 mg ONCE STA Administration Protocol Ondansetron HCl 4 mg 09/08/24 05:20 09/08/24 05:27 Ondansetron Hcl 4 Mg/2 Ml Vial IVPUSH 09/08/24 05:21 4 mg ONCE ONE Administration Critical Care Time Critical Care Time Critical Care Time: Yes Total Critical Care Time: 35 Attestation: Critical Care: The patient was critically ill with a high probability of imminent or life threatening deterioration. I spent greater than 30 minutes of discontinuous time evaluating the patient,delivering critical care at the bedside, discussing and evaluating pertinent data with consultants. Critical care time does not include time spent performing separately billable procedures or teaching. Total time spent performing critical care was 35 minutes. Discharge Plan Discharge Clinical Impression: Terminal ileitis, Abdominal pain, Pancolitis, Vomiting, Diarrhea Interventions: Admission Worksheet (ED) Last Done: 09/08/24 15:25
[2024-09-08] MEDS: 0.9 % Sodium Chloride 1,000 ML 999 ML IV (05:27)
[2024-09-08] MEDS: ondansetron HCL 4 MG/2 ML VIAL IVPUSH ×2 (05:27→16:54)
[2024-09-08] MEDS: Morphine Sulfate 4 MG/ML CARTRIDGE IVPUSH ×3 (05:27→16:54)
[2024-09-08 05:46] LABS: HCG Quantitative < 2 mIU/mL
[2024-09-08] MEDS: iohexoL 350 MG/ML 100 ML INFUS..BTL 85 ML IV (05:55)
[2024-09-08] MEDS: Piperacillin Sodium/Tazobactam 4.5 GM in 0.9 % Sodium Chloride 100 ML IV ×3 (07:32→19:04)
[2024-09-08] MEDS: 0.9 % Sodium Chloride 1,000 ML 125 ML IV (07:36)
[2024-09-08] MEDS: 0.9 % Sodium Chloride Flush 3 ML SYRINGE IVFLUSH ×2 (07:40→19:06)
[2024-09-08 07:48] LABS: C Reactive Protein 0.93 mg/dL (< or = 0.50)
[2024-09-08 07:50] LABS: Lactic Acid 1.2 mmol/L (0.5-2.0)
[2024-09-08 08:08] LABS: Erythrocyte Sedimentation Rate 9 MM/HR (0-20)
[2024-09-08 08:35] LABS: Estimated Average Glucose 120 mg/dL; Hemoglobin A1C 141.6377 umol/L; Hemoglobin A1c % 5.8 % (<6.0)
--- NOTE | 2024-09-08 09:50 | PHA.MEDREC ---
Addendum entered by Maureen Navarro RPh 09/08/24 10:43: [facility] [place] reviewed Original Note: Pharmacy Consult ? Medication Reconciliation Pharmacy has completed the medication reconciliation. Spoke to patient through diplomatic interpreter/translator service to confirm med list. Patient was able to name all of her medications.
--- NOTE | 2024-09-08 11:18 | MHC.CM.PN ---
PT LIVES WITH FAMILY SHE IS INDEPENDENT HAS A RIDE HOME WILL NOT NEED SERVICES WHEN DCD
--- NOTE | 2024-09-08 11:40 | PM.IMHP ---
History of Present Illness Date of Service: 09/08/24 Attending physician on admission: Vijay Pedro Chief Complaint: abd pain 44 y/o F with pmhx of asthma (mild intermittent)came for lower quadrant abdominal pain(both sides ), nausea, vomiting and diarrhea. on 07/29/2024-patient had abd pain and has CT scan of the abdomen pelvis at that time was concerning for mild proctocolitis. She also had an incidental 2 mm right renal stone. Patient was discharged with prescription for ciprofloxacin 500 mg b.i.d. times 10 days and metronidazole 500 mg t.i.d. times 10 days. She was also given a prescription for oxycodone 5 mg q.6 hours PRN. Patient says that she was feeling somewhat better with the above management but was still having intermittent abdominal pain and she says she has diarrhea on and off at the baseline . She comes to the hospital this time complaining of lower back abdominal pain , nausea vomiting, diarrhea-she says her symptoms are somewhat more pronounced than before, she denies any recent travel or sick contacts or eating outside food. Denies any fever or chills Vital signs revealed an elevated blood pressure otherwise unremarkable. Physical examination revealed moderate right lower quadrant tenderness with mild to moderate diffuse abdominal tenderness. No significant abnormalities on the patient's labs. CT scan of the abdomen pelvis IV contrast revealed a normal appendix, has that terminal ileitis and pancolitis. in ED:given morphine 4 mg IV, Zofran 4 mg IV and normal saline x1 L with improvement of her pain. After the CT finding I ordered blood cultures x2, lactic acid, C diff, GI panel, ESR, CRP and Zosyn 4.5 g IV. Patient is admitted for further evaluation of her enteritis/pancolitis Review of Systems Review of Systems: as above. Yes all other systems are reviewed and are negative [facility] [place] Medical History Lymphoma History of panic attacks Exposure of implanted vaginal mesh Moderate persistent asthma in adult without complication Left leg pain Hand numbness Obese Acute sinusitis Family History Mother HIV (human immunodeficiency virus infection) Father Heart attack HIV (human immunodeficiency virus infection) Brother No problems noted. Brother Diabetes Sister No problems noted. Sister No problems noted. Daughter No problems noted. Daughter Down syndrome Other Mental health disorder Surgical History History of arthroscopy of right shoulder Hx of tubal ligation History of cholecystectomy Social History Household Members: Family Housing: Apartment Are you a primary child day care provider to a significant other at home: No Do you presently have visiting nurse or other home services: No Alcohol intake: never Patient Tobacco Use Status: Never used Tobacco e-Cigarette/Vaping Use: Never Used Second Hand Smoke Exposure: No service: No Current occupational status: employed Current occupational exposures/hazards: No Cognitive needs: No Hearing needs: No Vision needs: No Meds Allergies Allergy/AdvReac Type Severity Reaction Status Date / Time ibuprofen [From Advil] Allergy Severe Angioedema Verified 09/08/24 02:10 aspirin [ASPIRIN] Allergy Intermediate SWELLING Verified 09/08/24 02:10 cyclobenzaprine Allergy Intermediate SWELLING Verified 09/08/24 02:10 [From FLEXERIL] Active Medications: Current Medications Acetaminophen (Acetaminophen 325 Mg Tablet) 650 mg PO Q6H PRN PRN Reason: Pain, Mild 1-3,fever,headache Calcium Carbonate (Calcium Carbonate 750 Mg Tab.Chew) 750 mg PO Q4H PRN PRN Reason: Heartburn Sodium Chloride (Ns) 1,000 mls @ 125 mls/hr IV .Q8H STA Stop: 09/08/24 14:55 Last Admin: 09/08/24 07:36 Dose: 125 mls/hr Piperacillin Sod/Tazobactam (Sod 4.5 gm/ Sodium Chloride) 100 mls @ 200 mls/hr IV Q6H KEISHA Magnesium Hydroxide (Milk Of Magnesia 30 Ml Oral.Susp) 30 ml PO DAILY PRN PRN Reason: Constipation Melatonin (Melatonin 3 Mg Tablet) 6 mg PO BEDTIME PRN PRN Reason: Insomnia Morphine Sulfate (Morphine Sulfate 4 Mg/Ml Cartridge) 4 mg IVPUSH Q4H PRN; Protocol PRN Reason: Pain, Severe (Pain Scale 7-10) Sodium Chloride (0.9 % Sodium Chloride Flush 3 Ml Syringe) 3 ml IVFLUSH QSHIFT KEISHA Last Admin: 09/08/24 07:40 Dose: 3 ml Home Medications ?Medication ?Instructions ?Recorded ?Confirmed ?Last Taken ?Type omeprazole 20 mg capsule,delayed 20 mg PO DAILY@0630 09/08/24 09/08/24 09/07/24 History release Physical Exam Vital Signs and Narrative: Vital Signs: Last Vital Signs Temp 98.3 F 09/08/24 02:05 Pulse 67 09/08/24 08:57 Resp 16 09/08/24 08:57 BP 128/81 09/08/24 08:57 Pulse Ox 98 09/08/24 08:57 O2 Del Method Room Air 09/08/24 08:57 BMI result Body Mass Index 31.9 Appearance: Alert.? Oriented X3.? cvs: rrr, [id number] . res: clear to auscultation ,no rhonchii or wheezing abd: no rebound or guarding ,nt, bs present. ext pulses present , no cyanosis ,. neuro: axo3 , nonfocal. Results Labs 09/08/24 02:20 09/08/24 02:20 Labs: Laboratory Results - last 24 hr 09/08/24 09/08/24 02:20 07:25 MCV 80.4 MCH 27.2 MCHC 33.8 RDW 12.3 Plt Count 263 MPV 9.6 Absolute Nucleated RBC 0.000 Nucleated RBC % (auto) 0.0 ESR 9 Anion Gap 15 Estim Creat Clear Calc 116.6 Estimated GFR > 60 Random Glucose 128 H Estimat Average Glucose 120 Hemoglobin A1c % 5.8 Lactic Acid 1.2 Calcium 9.3 Magnesium 1.9 Total Bilirubin 0.4 AST 37 H ALT 69 H Alkaline Phosphatase 105 C-Reactive Protein 0.93 H Total Protein 7.6 Albumin 4.5 Lipase 28 Beta HCG, Quant < 2 Urine Color Yellow Urine Appearance Clear Urine pH 6.5 Ur Specific [place] 1.015 Urine Protein Negative Urine Glucose (UA) Negative Urine Ketones Negative Urine Blood Trace H Urine Nitrite Negative Ur Leukocyte Esterase Negative Urine RBC 3-5 H Urine WBC 0-5 Ur Squamous Epith Cells 0-2 Urine Bacteria None Seen Hyaline Casts 0-2 COVID-19 (LUZ ELENA) Negative COVID-19 Clin Com See Note Influenza Type A (MALIKA) Negative Influenza Type B (MALIKA) Negative Influenza A & B Note See Note Imaging Radiologist's Impressions: CT abd: Pancolitis and distal enteritis in the right lower quadrant with trace ascites. Assessment and Plan (1) Diarrhea: Qualifiers: Diarrhea type: infectious Qualified Code(s): A09 - Infectious gastroenteritis and colitis, unspecified Status: Acute (2) Vomiting: Qualifiers: Vomiting type: unspecified Nausea presence: unspecified Qualified Code(s): R11.10 - Vomiting, unspecified Status: Acute (3) Pancolitis: Status: Acute (4) Abdominal pain: Qualifiers: Abdominal location: right lower quadrant Qualified Code(s): R10.31 - Right lower quadrant pain Status: Acute Plan 44 y/o F with pmhx of asthma (mild intermittent)came for lower quadrant abdominal pain(both sides ), nausea, vomiting and diarrhea. Medrano colitis: Significant abdominal pain, nausea vomiting unable to tolerate diet Denies any fever On and off symptoms from couple of weeks now which is getting worse. Not septic at present. Plan: IV hydration, IV antibiotics, IV pain medication, antiemetics, GI evaluation Asthma: Stable Continue home asthma medications. Mild hyperglycemia: We will check hemoglobin A1c. Hypotension: Continue home medication losartan. DVT prophylaxis: SubQ Lovenox. Patient confirmed that she is full code. Above management discussed with the patient detail length, patient patient will benefit from at least 2 midnight stays considering has medrano colitis and significant symptoms as well as unable to tolerate diet, need IV hydration, renal function electrolyte monitoring as well as IV antibiotics and pain medications. Also need GI evaluation. Above management discussed with the patient in detail length with the help of formal service waiter, time spent 70 minute. Quality Stroke Does the patient have a stroke diagnosis?: No VTE Prior VTE?: No VTE Risk Level:: Medical - moderate - high VTE Device Contraindication: N/A - Device Ordered VTE Drug Contraindication: N/A - Med Ordered
--- NOTE | 2024-09-08 13:13 | P.CNGI_ITS ---
History of Present Illness Data of Consult Service Date: 09/08/24 Requesting physician: Vijay Pedro Primary Care Provider: Tara Mobley MD HPI Reason for consult: Enterocolitis This is a 44-year-old female past medical history of cholecystectomy, who presents to the hospital for right-sided abdominal pain with nausea and vomiting. Pt seen with jailor. Patient states that she has been having intermittent relapsing remitting abdominal pain since at least July. She was seen in the emergency room at that time as well and noted to have proctocolitis on imaging. She was discharged home at that time. Since then, has been having this pain intermittently assoc with 4-5 loose watery non bloody stools daily. Has not seen flavoring maker for this. Has never had a colonoscopy. No family history of inflammatory bowel disease or colon cancer. Currently, has had 4 bowel movements since this morning. She also had 5 episodes of nonbloody nonbilious emesis at home but that has since improved. Labs showed no white count. Chem 7 normal with mildly elevated LFTs CRP is 0.9. Stool studies including GI PCR and C diff are pending. CT abdomen pelvis with IV contrast independently reviewed and shows thickening of rectum and sigmoid colon as well as ileocecal valve and terminal ileum. Review of Systems 2 Review of Systems: Yes all other systems are reviewed and are negative PMFSH Past Medical History Medical History Lymphoma History of panic attacks Exposure of implanted vaginal mesh Moderate persistent asthma in adult without complication Left leg pain Hand numbness Obese Acute sinusitis Family History Family History Mother HIV (human immunodeficiency virus infection) Father Heart attack HIV (human immunodeficiency virus infection) Brother No problems noted. Brother Diabetes Sister No problems noted. Sister No problems noted. Daughter No problems noted. Daughter Down syndrome Other Mental health disorder Surgical History Surgical History History of arthroscopy of right shoulder Hx of tubal ligation History of cholecystectomy Social History Social History Housing: Apartment Are you a primary health careers instructor to a significant other at home: No Do you presently have visiting nurse or other home services: No Alcohol intake: never Patient Tobacco Use Status: Never used Tobacco e-Cigarette/Vaping Use: Never Used Second Hand Smoke Exposure: No Use of substances other than those prescribed or required for medical reasons: No Advance Directives: No Advance Directives Information Provided: Yes service: No Current occupational status: employed Current occupational exposures/hazards: No Cognitive needs: No Hearing needs: No Vision needs: No Meds Allergies Allergy/AdvReac Type Severity Reaction Status Date / Time ibuprofen [From Advil] Allergy Severe Angioedema Verified 09/08/24 02:10 aspirin [ASPIRIN] Allergy Intermediate SWELLING Verified 09/08/24 02:10 cyclobenzaprine Allergy Intermediate SWELLING Verified 09/08/24 02:10 [From FLEXERIL] Active Medications: Current Medications Acetaminophen (Acetaminophen 325 Mg Tablet) 650 mg PO Q6H PRN PRN Reason: Pain, Mild 1-3,fever,headache Calcium Carbonate (Calcium Carbonate 750 Mg Tab.Chew) 750 mg PO Q4H PRN PRN Reason: Heartburn Sodium Chloride (Ns) 1,000 mls @ 125 mls/hr IV .Q8H STA Stop: 09/08/24 14:55 Last Admin: 09/08/24 07:36 Dose: 125 mls/hr Piperacillin Sod/Tazobactam (Sod 4.5 gm/ Sodium Chloride) 100 mls @ 200 mls/hr IV Q6H [facility] Magnesium Hydroxide (Milk Of Magnesia 30 Ml Oral.Susp) 30 ml PO DAILY PRN PRN Reason: Constipation Melatonin (Melatonin 3 Mg Tablet) 6 mg PO BEDTIME PRN PRN Reason: Insomnia Morphine Sulfate (Morphine Sulfate 4 Mg/Ml Cartridge) 4 mg IVPUSH Q4H PRN; Protocol PRN Reason: Pain, Severe (Pain Scale 7-10) Last Admin: 09/08/24 11:55 Dose: 4 mg Sodium Chloride (0.9 % Sodium Chloride Flush 3 Ml Syringe) [facility] Last Admin: 09/08/24 07:40 Dose: 3 ml Home Medications ?Medication ?Instructions ?Recorded ?Confirmed ?Last Taken ?Type omeprazole 20 mg capsule,delayed 20 mg PO DAILY@0630 09/08/24 09/08/24 09/07/24 History release Physical Exam 2 Vital Signs: Vital Signs: Last Vital Signs Temp 98.0 F 09/08/24 12:00 Pulse 60 09/08/24 12:00 Resp 18 09/08/24 12:00 BP 152/80 H 09/08/24 12:00 Pulse Ox 99 09/08/24 12:00 O2 Del Method Room Air 09/08/24 12:00 BMI result Body Mass Index 31.9 No apparent distress Nonicteric No overt resp distress Abdomen soft, mildly distended, mild tenderness in RLQ without guarding Alert and oriented x3 Results Labs 09/08/24 02:20 09/08/24 02:20 Labs: Short CBC 09/08/24 Range/Units 02:20 WBC 5.8 (4.8-10.8) X10*3/uL Hgb 13.7 (12.0-16.0) g/dl Hct 40.5 (37.0-47.0) % Plt Count 263 (160-400) X10*3/uL BMP 09/08/24 02:20 Sodium 141 Potassium 3.7 Chloride 104 Carbon Dioxide 26 BUN 8 L Creatinine 0.67 Calcium 9.3 Liver Function 09/08/24 Range/Units 02:20 Total Bilirubin 0.4 (0.0-1.0) mg/dL AST 37 H (5-31) U/L ALT 69 H (0-31) U/L Alkaline Phosphatase 105 (39-117) U/L Albumin 4.5 (3.5-5.0) g/dL Urine 09/08/24 Range/Units 02:20 Urine Color Yellow Urine Appearance Clear Urine pH 6.5 (5.0-9.0) Ur Specific [place] 1.015 (1.005-1.025) Urine Protein Negative (Neg-Trace) mg/dL Urine Glucose (UA) Negative (Negative) mg/dL Assessment and Plan (1) Abdominal pain: Status: Acute (2) Terminal ileitis: Status: Acute (3) Diarrhea: Status: Acute (4) Vomiting: Status: Acute Plan Patient presenting with abdominal pain x 2 months with chronic watery nonbloody diarrhea. Differentials include inflammatory bowel disease, especially Crohn's given terminal ileum involvement on the CT scan, chronic infectious illness, mesenteric ischemia less likely given age and location - patient would be much sicker with IRCI. Plan: - Agree with GI PCR, C Diff and fecal calpro - If infectious panel negative, will plan for diagnostic colo - tentatively booked for - Diet as tolerated today. CLD tmrw - Serial abd exams - Hepatitis serology and TSPOT ordered in case crohns confirmed and pt needs to start therapy Thank you for allowing me to participate in her care. Please do not hesitate to reach out for any questions or concerns. Procedures Date of Service Date of Service: 09/08/24
[2024-09-08] MEDS: Losartan Potassium 50 MG TABLET PO (16:52)
[2024-09-08] MEDS: Metoclopramide HCl 10 MG/2 ML VIAL 5 MG IVPUSH (19:49)
[2024-09-08] MEDS: Lactated Ringers 1,000 ML 100 ML IVCONT (20:35)
[2024-09-09 00:05] LABS: CDiff Gene PCR NEGATIVE (Negative)
[2024-09-09] MEDS: Piperacillin Sodium/Tazobactam 4.5 GM in 0.9 % Sodium Chloride 100 ML IV ×4 (01:50→20:53)
[2024-09-09 03:08] VITALS: BP 130/67; PULSE 72; RESP 20; TEMP 36.3; O2SAT 97
[2024-09-09] MEDS: Omeprazole 20 MG CAPSULE.DR PO (05:37)
[2024-09-09] MEDS: Lactated Ringers 1,000 ML 100 ML IVCONT ×2 (07:01→15:57)
[2024-09-09 07:10] LABS: HBS Num1 0.35 mIU/mL (0-7.99); HBc Num1 0.13 S/CO (0.00-0.79); HBsAGNum1 0.38 S/CO (0.00-0.99); Hepatitis B Core Antibody Nonreactive (Nonreactive); Hepatitis B Surface Antigen Negative (Negative); ~HepC Num1 0.18 S/CO (0.00-0.79); ~Hepatitis B Surface Antibody NONREACTIVE (Nonreactive); ~Hepatitis C Antibody Nonreactive (Nonreactive)
[2024-09-09 07:37] VITALS: BP 149/74; PULSE 64; TEMP 36.2; O2SAT 96
[2024-09-09 07:51] VITALS: BP 149/74
[2024-09-09] MEDS: Losartan Potassium 50 MG TABLET PO (07:51)
[2024-09-09] MEDS: Cholecalciferol (Vitamin D3) 25 MCG TABLET 50 MCG PO (07:52)
[2024-09-09] MEDS: 0.9 % Sodium Chloride Flush 3 ML SYRINGE IVFLUSH ×2 (08:06→20:53)
--- NOTE | 2024-09-09 08:20 | HO.PM.IMPN ---
Subjective Subjective Date of Service: 09/09/24 Review of Systems Follow up pancolitis pain is improved still some nausea Physical Exam Vital Signs: Vital Signs: Last Vital Signs Temp 97.1 F 09/09/24 07:37 Pulse 64 09/09/24 07:37 Resp 20 09/09/24 03:08 BP 149/74 H 09/09/24 07:51 Pulse Ox 96 09/09/24 07:37 O2 Del Method Room Air 09/09/24 07:37 BMI result Body Mass Index 31.8 Appearing in no acute distress lung sounds are clear to auscultation heart regular rate rhythm, clear S1, S2 positive bowel sounds, abdomen is soft, nontender neuro patient is alert x3, no focal deficits Objective Data Active Medications Acetaminophen (Acetaminophen 325 Mg Tablet) 650 mg PO Q6H PRN PRN Reason: Pain, Mild 1-3,fever,headache Albuterol Sulfate (Albuterol Sulfate (0.042%) 1.25 Mg/3 Ml Vial.Neb) 0.63 mg INHALE Q4H PRN PRN Reason: shortness of breath or wheezing Albuterol Sulfate (Albuterol Sulfate 90 Mcg 8 Gm Inhaler) 2 puff INHALE Q6H PRN PRN Reason: shortness of breath or wheezing Calcium Carbonate (Calcium Carbonate 750 Mg Tab.Chew) 750 mg PO Q4H PRN PRN Reason: Heartburn Piperacillin Sod/Tazobactam (Sod 4.5 gm/ Sodium Chloride) 100 mls @ 200 mls/hr IV Q6H [facility] Last Admin: 09/09/24 07:52 Dose: 200 mls/hr Documented By: KAYLEEN Lactated Ringer's (Lr) 1,000 mls @ 100 mls/hr IVCONT .Q10H [facility] Last Admin: 09/09/24 07:01 Dose: 100 mls/hr Documented By: DANIEL Losartan Potassium (Losartan Potassium 50 Mg Tablet) 50 mg PO DAILY [facility]; Protocol Last Admin: 09/09/24 07:51 Dose: 50 mg Documented By: KAYLEEN Magnesium Hydroxide (Milk Of Magnesia 30 Ml Oral.Susp) 30 ml PO DAILY PRN PRN Reason: Constipation Melatonin (Melatonin 3 Mg Tablet) 6 mg PO BEDTIME PRN PRN Reason: Insomnia Morphine Sulfate (Morphine Sulfate 4 Mg/Ml Cartridge) 4 mg IVPUSH Q4H PRN; Protocol PRN Reason: Pain, Severe (Pain Scale 7-10) Last Admin: 09/08/24 16:54 Dose: 4 mg Documented By: DANILO Omeprazole (Omeprazole 20 Mg Capsule.Dr) 20 mg PO DAILY@0630 [facility] Last Admin: 09/09/24 05:37 Dose: 20 mg Documented By: DANIEL Ondansetron HCl (Ondansetron Hcl 4 Mg/2 Ml Vial) 4 mg IVPUSH Q6H PRN PRN Reason: Nausea and Vomiting Last Admin: 09/08/24 16:54 Dose: 4 mg Documented By: DANILO Polyethylene Glycol/Electrolytes (Peg 3350/Na Sulf,Bicarb,Cl/Kcl 4,000 Ml Soln.Recon) 4,000 ml PO ONCE@1500 [facility]ISHA; Protocol Stop: 09/09/24 15:01 Sodium Chloride (0.9 % Sodium Chloride Flush 3 Ml Syringe) 3 ml IVFLUSH QSHIFT [facility] Last Admin: 09/09/24 08:06 Dose: 3 ml Documented By: KAYLEEN Sumatriptan Succinate (Sumatriptan Succinate 25 Mg Tablet) 25 mg PO DAILY MRX1 PRN PRN Reason: Migraine Headache Vitamin D (Cholecalciferol (Vitamin D3) 25 Mcg Tablet) 50 mcg PO DAILY [facility] Last Admin: 09/09/24 07:52 Dose: 50 mcg Documented By: KAYLEEN Labs 09/08/24 02:20 09/08/24 02:20 Labs: Laboratory Results - last 24 hr 09/08/24 09/08/24 09/09/24 02:20 23:01 06:15 Hold Purple Top SEE NOTE Estimat Average Glucose 120 Hemoglobin A1c % 5.8 C. difficile Tox B Gene NEGATIVE Hep Bs Antigen Hep Bs Antibody Hep B Core Total Ab Hepatitis C Ab (EIA) 09/09/24 06:19 Hold Purple Top Estimat Average Glucose Hemoglobin A1c % C. difficile Tox B Gene Hep Bs Antigen Negative Hep Bs Antibody NONREACTIVE Hep B Core Total Ab Nonreactive Hepatitis C Ab (EIA) Nonreactive Assessment and Plan (1) Abdominal pain: Status: Acute Plan 44 y/o F with pmhx of asthma (mild intermittent) came for lower quadrant abdominal pain(both sides ), nausea, vomiting and diarrhea. Pancolitis On and off symptoms from couple of weeks now which is getting worse. Abdominal CT showing pancolitis and distal enteritis in the right lower quadrant with trace ascites No sepsis C diff negative, stool studies pending, hepatitis panel negative, Tspot pending Continue IV fluids Continue Zosyn Continue PPI GI> plan for colonoscopy on , clear liquid diet today and NPO after midnight Asthma No exacerbation Continue inhalers as needed Mild hyperglycemia A1c 5.8 Hypertension with Hypotension. Resolved Continue losartan DVT prophylaxis: SubQ Lovenox. Full code Quality Stroke Does the patient have a stroke diagnosis?: No VTE Prior VTE?: No VTE Risk Level:: Medical - moderate - high VTE Device Contraindication: N/A - Device Ordered VTE Drug Contraindication: N/A - Med Ordered
[2024-09-09 09:52] LABS: Adenovirus F 40/41 Not Detected (Not Detect.); Astrovirus Not Detected (Not Detect.); Campylobacter Not Detected (Not Detect.); Cryptosporidium Not Detected (Not Detect.); Cyclospora cayetanensis Not Detected (Not Detect.); E. coli EAEC Not Detected (Not Detect.); E. coli EPEC Not Detected (Not Detect.); E. coli ETEC Not Detected (Not Detect.); E. coli STEC Not Detected (Not Detect.); Entamoeba histolytica Not Detected (Not Detect.); Giardia lamblia Not Detected (Not Detect.); Norovirus GI/GII Not Detected (Not Detect.); Plesiomonas shigelloides Not Detected (Not Detect.); Rotavirus A Not Detected (Not Detect.); Salmonella Not Detected (Not Detect.); Sapovirus Not Detected (Not Detect.); Shigella sp./EIEC Not Detected (Not Detect.); Vibrio Not Detected (Not Detect.); Vibrio Cholerae Not Detected (Not Detect.); Yersinia enterocolitica Not Detected (Not Detect.)
--- NOTE | 2024-09-09 11:08 | MHC.CM.PN ---
NOT MEDICALLY CLEARED FOR DC AT THIS TIME. CM WILL CONTINUE TO FOLLOW.
[2024-09-09] MEDS: Acetaminophen 325 MG TABLET 650 MG PO (14:21)
[2024-09-09] MEDS: PEG 3350/Na Sulf,Bicarb,Cl/KCL 4,000 ML SOLN.RECON 4000 ML PO (14:21)
[2024-09-09 15:54] VITALS: BP 125/84; PULSE 67; RESP 16; TEMP 36.2; O2SAT 98
[2024-09-09 19:18] VITALS: BP 166/84; PULSE 69; RESP 16; TEMP 36.4; O2SAT 98
[2024-09-09] MEDS: Morphine Sulfate 4 MG/ML CARTRIDGE IVPUSH (20:50)
[2024-09-09] MEDS: ondansetron HCL 4 MG/2 ML VIAL IVPUSH (20:57)
[2024-09-10] VITALS (7 sets, daily range): BP systolic 127–178; BP diastolic 72–100; PULSE 61–83; RESP 14–18; TEMP 36.2–37.1; O2SAT 97–98
[2024-09-10] MEDS: Lactated Ringers 1,000 ML 100 ML IVCONT (00:56)
[2024-09-10] MEDS: Piperacillin Sodium/Tazobactam 4.5 GM in 0.9 % Sodium Chloride 100 ML IV ×3 (02:16→13:06)
[2024-09-10 03:58] LABS: Hepatitis A Antibody IgG Nonreactive (Nonreactive); ~Hepatitis A Antibody IgG 0.52 S/CO (0.00-0.99)
[2024-09-10] MEDS: Acetaminophen 325 MG TABLET 650 MG PO (06:29)
[2024-09-10] MEDS: Losartan Potassium 50 MG TABLET PO (07:52)
--- NOTE | 2024-09-10 08:51 | PC.NURSE ---
per primary rn from floor pt tb spot for crohns panel not tb infection pt off resp precaution or aware
--- NOTE | 2024-09-10 13:05 | MHC.SHP ---
Pre-Procedural Eval Section A - 24 Hr Update-Section A only Date of Service: 09/10/24 The patient is an INPATIENT: Yes The patient has been examined within 24 hours of the surgical procedure. The History & Physical has been completed within 30 days and I have reviewed it.: Yes Section B - Complete if H&P > 30 days Chief Complaint: Pancolitis Allergies: Allergies Allergy/AdvReac Type Severity Reaction Status Date / Time ibuprofen [From Advil] Allergy Severe Angioedema Verified 09/08/24 02:10 aspirin [ASPIRIN] Allergy Intermediate SWELLING Verified 09/08/24 02:10 cyclobenzaprine Allergy Intermediate SWELLING Verified 09/08/24 02:10 [From FLEXERIL] Plan Diagnosis/Plan: Unchanged I have reviewed the history and physical and performed a pertinent physical examination on my patient. No changes have occurred unless specified. Time Spent With Patient Time: Total time managing care of this patient today ____ minutes.
[2024-09-10] MEDS: Lactated Ringers 1,000 ML 80 ML IVCONT (13:43)
--- NOTE | 2024-09-10 14:29 | HO.ANESPROP2 ---
HPI - Anesthesia Eval Consult details Narrative: 44 yo F presenting for colonoscopy PMF Active Problems Active Problems: All Active Problems Diarrhea (Acute) Vomiting (Acute) Pancolitis (Acute) Abdominal pain (Acute) Terminal ileitis (Acute) Blurry vision (Acute) Left foot pain (Acute) Screening for HIV (human immunodeficiency virus) (Acute) Chronic GERD (Acute) Essential hypertension (Acute) Chest pain (Acute) Impingement of right shoulder (Acute) Right shoulder pain (Acute) Mild major depression (Acute) Blurry vision (Acute) Weight loss (Acute) Screen for sexually transmitted diseases (Acute) Breast cancer screening (Acute) Urinary retention with incomplete bladder emptying (Acute) Dysuria (Acute) Physical exam (Acute) Cervical cancer screening (Acute) Women's annual routine gynecological examination (Acute) Low vitamin D level (Acute) Foot callus (Acute) GERD (gastroesophageal reflux disease) (Acute) Screening for diabetes mellitus (Acute) Screening for hyperlipidemia (Acute) Screening for hypothyroidism (Acute) Adult general medical exam (Acute) Bilateral hand pain (Acute) Migraines (Acute) Hx of tubal ligation (Acute) Moderate persistent asthma in adult without complication (Acute) Left leg pain (Acute) Hand numbness (Acute) Obese (Acute) Past Medical History Medical History Lymphoma History of panic attacks Exposure of implanted vaginal mesh Moderate persistent asthma in adult without complication Left leg pain Hand numbness Obese Acute sinusitis Family History Family History Mother HIV (human immunodeficiency virus infection) Father Heart attack HIV (human immunodeficiency virus infection) Brother No problems noted. Brother Diabetes Sister No problems noted. Sister No problems noted. Daughter No problems noted. Daughter Down syndrome Other Mental health disorder Family history of problems with anesthesia: No Surgical History Surgical History History of arthroscopy of right shoulder Hx of tubal ligation History of cholecystectomy History of Problems with Anesthesia: No Social History Social History Household Members: Family Housing: Apartment Are you a primary health care administrator to a significant other at home: No Do you presently have visiting nurse or other home services: No Alcohol intake: never Patient Tobacco Use Status: Never used Tobacco e-Cigarette/Vaping Use: Never Used Second Hand Smoke Exposure: No service: No Current occupational status: employed Current occupational exposures/hazards: No Cognitive needs: No Hearing needs: No Vision needs: No Meds Allergies Allergy/AdvReac Type Severity Reaction Status Date / Time ibuprofen [From Advil] Allergy Severe Angioedema Verified 09/08/24 02:10 aspirin [ASPIRIN] Allergy Intermediate SWELLING Verified 09/08/24 02:10 cyclobenzaprine Allergy Intermediate SWELLING Verified 09/08/24 02:10 [From FLEXERIL] Active Medications: Current Medications Acetaminophen (Acetaminophen 325 Mg Tablet) 650 mg PO Q6H PRN PRN Reason: Pain, Mild 1-3,fever,headache Last Admin: 09/10/24 06:29 Dose: 650 mg Albuterol Sulfate (Albuterol Sulfate (0.042%) 1.25 Mg/3 Ml Vial.Neb) 0.63 mg INHALE Q4H PRN PRN Reason: shortness of breath or wheezing Albuterol Sulfate (Albuterol Sulfate 90 Mcg 8 Gm Inhaler) 2 puff INHALE Q6H PRN PRN Reason: shortness of breath or wheezing Calcium Carbonate (Calcium Carbonate 750 Mg Tab.Chew) 750 mg PO Q4H PRN PRN Reason: Heartburn Piperacillin Sod/Tazobactam (Sod 4.5 gm/ Sodium Chloride) 100 mls @ 200 mls/hr IV Q6H [facility], [facility]1983 Last Infusion: 09/10/24 13:39 Dose: Infused Lactated Ringer's (Lr) 1,000 mls @ 100 mls/hr IVCONT .Q10H [facility] Last Admin: 09/10/24 13:39 Dose: Not Given Lactated Ringer's (Lr) 1,000 mls @ 80 mls/hr IVCONT .[id number] [facility], [facility]1983 Last Admin: 09/10/24 13:43 Dose: 80 mls/hr Losartan Potassium (Losartan Potassium 50 Mg Tablet) 50 mg PO DAILY [facility]; Protocol Last Admin: 09/10/24 07:52 Dose: 50 mg Magnesium Hydroxide (Milk Of Magnesia 30 Ml Oral.Susp) 30 ml PO DAILY PRN PRN Reason: Constipation Melatonin (Melatonin 3 Mg Tablet) 6 mg PO BEDTIME PRN PRN Reason: Insomnia Morphine Sulfate (Morphine Sulfate 4 Mg/Ml Cartridge) 4 mg IVPUSH Q4H PRN; Protocol PRN Reason: Pain, Severe (Pain Scale 7-10) Last Admin: 09/09/24 20:50 Dose: 4 mg Omeprazole (Omeprazole 20 Mg Capsule.Dr) 20 mg PO DAILY@629 [facility] Last Admin: 09/10/24 06:29 Dose: Not Given Ondansetron HCl (Ondansetron Hcl 4 Mg/2 Ml Vial) 4 mg IVPUSH Q6H PRN PRN Reason: Nausea and Vomiting Last Admin: 09/09/24 20:57 Dose: 4 mg Sodium Chloride (0.9 % Sodium Chloride Flush 3 Ml Syringe) 3 ml IVFLUSH QSHIFT [facility] Last Admin: 09/10/24 08:01 Dose: Not Given Sumatriptan Succinate (Sumatriptan Succinate 25 Mg Tablet) 25 mg PO DAILY MRX1 PRN PRN Reason: Migraine Headache Vitamin D (Cholecalciferol (Vitamin D3) 25 Mcg Tablet) 50 mcg PO DAILY [facility] Last Admin: 09/10/24 08:47 Dose: Not Given Home Medications ?Medication ?Instructions ?Recorded ?Confirmed ?Last Taken ?Type omeprazole 20 mg capsule,delayed 20 mg PO DAILY@62909/08/24 09/08/24 09/07/24 History release Exam Exam Date and Time: 09/10/24 1430 Height,Weight and Vital Signs: Height 5 ft 5 in Weight 86.8 kg Last Vital Signs Temp 98.7 F 09/10/24 13:36 Pulse 82 09/10/24 13:36 Resp 14 09/10/24 13:36 BP 178/100 H 09/10/24 13:36 Pulse Ox 98 09/10/24 13:36 O2 Del Method Room Air 09/10/24 13:36 Pertinent Lab Results Pertinent Lab Results: Laboratory Tests 09/08/24 09/08/24 09/08/24 02:20 07:25 23:01 WBC 5.8 RBC 5.04 Hgb 13.7 Hct 40.5 MCV 80.4 MCH 27.2 MCHC 33.8 RDW 12.3 Plt Count 263 MPV 9.6 Absolute Nucleated RBC 0.000 Nucleated RBC % (auto) 0.0 ESR 9 Hold Purple Top Sodium 141 Potassium 3.7 Chloride 104 Carbon Dioxide 26 Anion Gap 15 BUN 8 L Creatinine 0.67 Estim Creat Clear Calc 116.6 Estimated GFR > 60 Random Glucose 128 H Estimat Average Glucose 120 Hemoglobin A1c % 5.8 Lactic Acid 1.2 Calcium 9.3 Magnesium 1.9 Total Bilirubin 0.4 AST 37 H ALT 69 H Alkaline Phosphatase 105 C-Reactive Protein 0.93 H Total Protein 7.6 Albumin 4.5 Lipase 28 Beta HCG, Quant < 2 Urine Color Yellow Urine Appearance Clear Urine pH 6.5 Ur Specific Dale 1.015 Urine Protein Negative Urine Glucose (UA) Negative Urine Ketones Negative Urine Blood Trace H Urine Nitrite Negative Ur Leukocyte Esterase Negative Urine RBC 3-5 H Urine WBC 0-5 Ur Squamous Epith Cells 0-2 Urine Bacteria None Seen Hyaline Casts 0-2 Stl C. cayetanensis PCR Not Detected Stool Rotavirus A PCR Not Detected Stl Adenov F 40/41 PCR Not Detected Stool Astrovirus (PCR) Not Detected Stool Campylobacter PCR Not Detected Stool Cryptosporidium PCR Not Detected Stl Sh Tox Pr E STEC PCR Not Detected Stool E coli O157 PCR Not applicable Stl Enterotoxigenic E PCR Not Detected Stool EPEC (PCR) Not Detected Stool EAEC (PCR) Not Detected Stl E. histolytica PCR Not Detected Stool Giardia Lamblia PCR Not Detected Stl P. shigelloides PCR Not Detected Stool Salmonella PCR Not Detected Stool Sapovirus (PCR) Not Detected Stl Shigella/EIEC PCR Not Detected St Y.enterocolitica PCR Not Detected Stool Vibrio (PCR) Not Detected Stl Vibrio cholerae PCR Not Detected Stl Norovirus GI/GII PCR Not Detected C. difficile Tox B Gene NEGATIVE COVID-19 (LUZ ELENA) Negative COVID-19 Clin Com See Note Hepatitis A IgG Ab Hep Bs Antigen Hep Bs Antibody Hep B Core Total Ab Hepatitis C Ab (EIA) Influenza Type A (MALIKA) Negative Influenza Type B (MALIKA) Negative Influenza A & B Note See Note 09/09/24 09/09/24 06:15 06:19 WBC RBC Hgb Hct MCV MCH MCHC RDW Plt Count MPV Absolute Nucleated RBC Nucleated RBC % (auto) ESR Hold Purple Top SEE NOTE Sodium Potassium Chloride Carbon Dioxide Anion Gap BUN Creatinine Estim Creat Clear Calc Estimated GFR Random Glucose Estimat Average Glucose Hemoglobin A1c % Lactic Acid Calcium Magnesium Total Bilirubin AST ALT Alkaline Phosphatase C-Reactive Protein Total Protein Albumin Lipase Beta HCG, Quant Urine Color Urine Appearance Urine pH Ur Specific Dale Urine Protein Urine Glucose (UA) Urine Ketones Urine Blood Urine Nitrite Ur Leukocyte Esterase Urine RBC Urine WBC Ur Squamous Epith Cells Urine Bacteria Hyaline Casts Stl C. cayetanensis PCR Stool Rotavirus A PCR Stl Adenov F 40/41 PCR Stool Astrovirus (PCR) Stool Campylobacter PCR Stool Cryptosporidium PCR Stl Sh Tox Pr E STEC PCR Stool E coli O157 PCR Stl Enterotoxigenic E PCR Stool EPEC (PCR) Stool EAEC (PCR) Stl E. histolytica PCR Stool Giardia Lamblia PCR Stl P. shigelloides PCR Stool Salmonella PCR Stool Sapovirus (PCR) Stl Shigella/EIEC PCR St Y.enterocolitica PCR Stool Vibrio (PCR) Stl Vibrio cholerae PCR Stl Norovirus GI/GII PCR C. difficile Tox B Gene COVID-19 (LUZ ELENA) COVID-19 Clin Com Hepatitis A IgG Ab Nonreactive Hep Bs Antigen Negative Hep Bs Antibody NONREACTIVE Hep B Core Total Ab Nonreactive Hepatitis C Ab (EIA) Nonreactive Influenza Type A (MALIKA) Influenza Type B (MALIKA) Influenza A & B Note Airway Mallampati Class: I TM Dist: >3cm Neck ROM: Full Loose/Missing/Broken Teeth: No (patient denies any loose or broken teeth) Heart: S1S2 Lungs: CTAB Assessment and Plan Assessment Anesthesia Assessment: Anesthesia Plan Discussed and Chart Reviewed Final Anesthetic Review Family History of Problems with Anesthesia: No History of Problems with Anesthesia: No NPO: Yes ASA Class: II Final Preanesthetic Review: No Changes in Pt Med Stat, Meds/Allgs Chart Reviewed, Consent Obtained/Reviewed and Anes Risks/Benef Reviewed Patient Risk: Low Procedure Risk: Low Anesthetic Plan Anesthetic Plan: MAC: and Agree w/ Assess. and Plan Disposition: Standard PACU
--- NOTE | 2024-09-10 15:00 | P.OPN-COLO_ITS ---
Colonoscopy Operative Note Operative Note Date of Service: 09/10/24 Narrative: Procedure: Colonoscopy Indication: Chronic diarrhea, abnormal CT scan Endoscopist: Nataly Hilario MD Anesthesia Provider: Dr Brigida Hawk Anesthesia type: MAC Instrument: Olympus [id number]-[id number] Consent: Indication, risks vs benefits, and alternatives were discussed with the patient who gave written informed consent to proceed. An parts interpreter was utilized to assist with the consent. EKG, pulse, pulse oximetry and blood pressure were monitored throughout the procedure. Please see anesthesia flowsheet. Procedure: The patient was brought to the procedure room and placed in the left lateral decubitus position. IV medications were administered by the anesthesia provider in attendance. A digital rectal exam was performed which was normal. A distal attachment cap was affixed to the tip of the colonoscope which was then inserted through the anus and advanced through the colon to the cecum at 75 cm,and terminal ileum. Appendiceal orifice and ileocecal valve were identified. Mucosa was carefully examined under high definition white light as the instrument was slowly withdrawn in a retrograde panoramic fashion. Retroflexion was performed in ascending colon and rectum. The procedure was not difficult. There were no immediate obvious complications. The quality of the prep was BBPS: 3+2+3 = adequate Withdrawal time 8 minutes. Limitations: No limitations. Findings: Mucosa: Normal to cecum and terminal ileum. Cold forceps biopsies were taken from terminal ileum and all portions of the colon for histological evaluation. Protruding lesions: * Medium internal hemorrhoids [without] stigmata of recent bleeding. Impression: 1. Normal colon and terminal ileum mucosa 2. Internal hemorrhoids Recommendations: - Follow path results. - Can discontinue antibiotics - Diet as tolerated - repeat colonoscopy for asymptomatic colorectal cancer screening in 10 years
[2024-09-10] MEDS: 0.9 % Sodium Chloride Flush 3 ML SYRINGE IVFLUSH ×2 (16:40→20:39)
--- NOTE | 2024-09-10 16:44 | P.DS_ITS ---
DS: Providers Provider Date of Service: 09/11/24 Date of admission: 09/08/24 07:24 Date of discharge: 09/11/24 Primary care physician: Tara Mobley MD Consults: 09/08/24 08:22 Consult to Gastroenterology Routine Consulting Provider: [facility] [place] [facility] Reason for consultation: Colitis Has provider been notified: No Attending physician on discharge: [facility] Discharging clinician: Carmella Peres DS: Diagnosis Discharge Diagnosis (1) Abdominal pain: Status: Acute DS: Summary Hospital Course Hospital Course: From H&P on the day of admission 44 y/o F with pmhx of asthma (mild intermittent)came for lower quadrant abdominal pain(both sides ), nausea, vomiting and diarrhea. on 07/29/2024-patient had abd pain and has CT scan of the abdomen pelvis at that time was concerning for mild proctocolitis. She also had an incidental 2 mm right renal stone. Patient was discharged with prescription for ciprofloxacin 500 mg b.i.d. times 10 days and metronidazole 500 mg t.i.d. times 10 days. She was also given a prescription for oxycodone 5 mg q.6 hours PRN. Patient says that she was feeling somewhat better with the above management but was still having intermittent abdominal pain and she says she has diarrhea on and off at the baseline . She comes to the hospital this time complaining of lower back abdominal pain , nausea vomiting, diarrhea-she says her symptoms are somewhat more pronounced than before, she denies any recent travel or sick contacts or eating outside food. Denies any fever or chills Vital signs revealed an elevated blood pressure otherwise unremarkable. Physical examination revealed moderate right lower quadrant tenderness with mild to moderate diffuse abdominal tenderness. No significant abnormalities on the patient's labs. CT scan of the abdomen pelvis IV contrast revealed a normal appendix, has that terminal ileitis and pancolitis. in ED:given morphine 4 mg IV, Zofran 4 mg IV and normal saline x1 L with improvement of her pain. After the CT finding I ordered blood cultures x2, lactic acid, C diff, GI panel, ESR, CRP and Zosyn 4.5 g IV. Patient is admitted for further evaluation of her enteritis/pancolitis abdominal pain Pancolitis seen on imaging. No sepsis C diff negative, gi panel negative. initially treated with IV antibiotics. Seen by GI, underwent colonoscopy on September 10 - noted to have normal colon and terminal ileum mucosa, internal hemorrhoids. Recommended to discontinue antibiotics and advance diet as tolerated. RUQ US negative pt s/p cholecystectomy. Outpatient follow-up for path results. CT scan showing bilateral ovarian cysts-can have further evaluation outpatient ultrasound. No lower abdominal pain. patient feeling better, tolerated regular diet and eager to return home. Time Attestation Discharge Coordination Time (in mins): 35 Quality: Safe Use of Opioids Does Pt have an Active Cancer Diagnosis on the Problem List?: No Quality: Stroke Does the patient have a stroke diagnosis?: No Physical Exam Vital Signs: Vital Signs: Last Vital Signs Temp 98.6 F 09/10/24 15:21 Pulse 68 09/10/24 15:21 Resp 16 09/10/24 15:21 BP 150/88 H 09/10/24 15:21 Pulse Ox 98 09/10/24 15:21 O2 Del Method Room Air 09/10/24 15:21 BMI result Body Mass Index 31.8 Const: General: cooperative, comfortable, no acute distress, alert and awake Nutritional Appearance: average body habitus Orientation/consciousness: patient oriented x3 Resp: Effort & Inspection: normal respiratory effort, able to speak in c omplete sentences, no respiratory distress and no use of accessory muscles Cardio: Rate: regular rate GI: Inspection: No distended Palpation (GI): Soft to palpation Neuro: General: patient oriented x3, moves all extremities and CN's II-XI intact bilaterally DS: Data Data Completed and Pending Pending studies at discharge: Pending at discharge 09/10/24 14:51 Surgical [PTH] Routine Labs on day of discharge: Laboratory Results - last 24 hr 09/09/24 06:19 Hepatitis A IgG Ab Nonreactive Preliminary micro results at discharge 09/08/24 07:28 Blood Culture - Preliminary Blood - Venous No growth after 48 hours. 09/08/24 07:25 Blood Culture - Preliminary Blood - Venous No growth after 48 hours. Discharge Plan Discharge Anticipated Discharge Date/Time: 09/11/24 16:07 Patient Disposition: Home, Self-Care Discharge Diagnosis: abdominal pain Referrals: Tara Powell MD [Primary Care Provider] - 1 Week Nataly Hilario MD [Physician] - 1 Week Discharge Medications: Continued losartan 50 mg tablet 50 mg PO DAILY 90 Days Qty: 90 1RF cholecalciferol (vitamin D3) 50 mcg (2,000 unit) capsule 50 mcg PO DAILY 90 Days Qty: 90 1RF omeprazole 20 mg capsule,delayed release(DR/EC) 20 mg PO DAILY@0630 albuterol sulfate 0.63 mg/3 mL solution for nebulization 0.63 mg inhalation Q4H PRN (Reason: shortness of breath or wheezing) Qty: 75 0RF sumatriptan succinate 25 mg tablet See Rx Instructions PO .COMPLEX Qty: 7 0RF Rx Instructions: take 1 tab at onset of headache; if no relief may repeat 1 tab after at least 2 hrs; max = 4 tabs/24 hr PO albuterol sulfate [Ventolin HFA] 90 mcg/actuation HFA aerosol inhaler 2 puff inhalation Q6H PRN (Reason: shortness of breath or wheezing) 30 Days Qty: 8 1RF Discharge Orders: Discharge Order (Routine); Ordered 09/11/24 Ordered By: Carmella Peres Activity on Discharge: As tolerated Stand Alone Forms: Patient Portal Discharge page Print Language: Kiswahili Care Plan Goals: See below Health Concerns: abdominal pain Plan of Treatment: no indication for antibiotics. Colonoscopy unremarkable follow-up with GI for pathology results ovarian cysts - recommend outpatient US follow up - discuss with PCP call to schedule follow-up appointment with PCP Assessment: see discharge summary
[2024-09-10] MEDS: Morphine Sulfate 4 MG/ML CARTRIDGE IVPUSH (20:39)
[2024-09-10] MEDS: Melatonin 3 MG TABLET 6 MG PO (20:39)
[2024-09-11 03:45] VITALS: BP 129/78; PULSE 73; RESP 16; TEMP 36.7; O2SAT 98
[2024-09-11] MEDS: Omeprazole 20 MG CAPSULE.DR PO (05:29)
[2024-09-11] MEDS: Morphine Sulfate 4 MG/ML CARTRIDGE IVPUSH (07:10)
--- NOTE | 2024-09-11 07:10 | P.PNIM_ITS ---
Subjective Subjective Date of Service: 09/10/24 Interval History: Seen and examined this morning Still reporting some right side pain Plan for colonoscopy today Review of Systems Review of Systems: Yes all other systems are reviewed and are negative Constitutional Constitutional: Denies chills and Denies fever(s) Physical Exam 2 Vital Signs: Vital Signs: Last Vital Signs Temp 98.0 F 09/11/24 03:45 Pulse 73 09/11/24 03:45 Resp 16 09/11/24 03:45 BP 129/78 09/11/24 03:45 Pulse Ox 98 09/11/24 03:45 O2 Del Method Room Air 09/11/24 03:45 BMI result Body Mass Index 31.8 Const: General: cooperative, comfortable, no acute distress, alert and awake Nutritional Appearance: average body habitus Orientation/consciousness: p atient oriented x3 Resp: Effort & Inspection: normal respiratory effort and able to speak in complete sentences Cardio: Rate: regular rate GI: Inspection: No distended Palpation (GI): Soft to palpation Neuro: General: patient oriented x3, moves all extremities and CN's II-XI intact bilaterally Objective Data Active Medications Acetaminophen (Acetaminophen 325 Mg Tablet) 650 mg PO Q6H PRN PRN Reason: Pain, Mild 1-3,fever,headache Last Admin: 09/10/24 06:29 Dose: 650 mg Documented By: APOORVA Albuterol Sulfate (Albuterol Sulfate (0.042%) 1.25 Mg/3 Ml Vial.Neb) 0.63 mg INHALE Q4H PRN PRN Reason: shortness of breath or wheezing Albuterol Sulfate (Albuterol Sulfate 90 Mcg 8 Gm Inhaler) 2 puff INHALE Q6H PRN PRN Reason: shortness of breath or wheezing Calcium Carbonate (Calcium Carbonate 750 Mg Tab.Chew) 750 mg PO Q4H PRN PRN Reason: Heartburn Losartan Potassium (Losartan Potassium 50 Mg Tablet) 50 mg PO DAILY KEISHA; Protocol Last Admin: 09/10/24 07:52 Dose: 50 mg Documented By: TELLO Magnesium Hydroxide (Milk Of Magnesia 30 Ml Oral.Susp) 30 ml PO DAILY PRN PRN Reason: Constipation Melatonin (Melatonin 3 Mg Tablet) 6 mg PO BEDTIME PRN PRN Reason: Insomnia Last Admin: 09/10/24 20:39 Dose: 6 mg Documented By: DANIEL Morphine Sulfate (Morphine Sulfate 4 Mg/Ml Cartridge) 4 mg IVPUSH Q4H PRN; Protocol PRN Reason: Pain, Severe (Pain Scale 7-10) Last Admin: 09/10/24 20:39 Dose: 4 mg Documented By: DANIEL Naloxone HCl (Naloxone Hcl 0.4 Mg/Ml Vial) 0.04 mg IVPUSH Q5M PRN PRN Reason: Excessive sedation or RR < 8 Omeprazole (Omeprazole 20 Mg Capsule.Dr) 20 mg PO DAILY@0630 [facility] Last Admin: 09/11/24 05:29 Dose: 20 mg Documented By: DANIEL Ondansetron HCl (Ondansetron Hcl 4 Mg/2 Ml Vial) 4 mg IVPUSH Q6H PRN PRN Reason: Nausea and Vomiting Last Admin: 09/09/24 20:57 Dose: 4 mg Documented By: DEMETRIUS Sodium Chloride (0.9 % Sodium Chloride Flush 3 Ml Syringe) 3 ml IVFLUSH QSHIFT [facility] Last Admin: 09/10/24 20:39 Dose: 3 ml Documented By: DANIEL Sumatriptan Succinate (Sumatriptan Succinate 25 Mg Tablet) 25 mg PO DAILY MRX1 PRN PRN Reason: Migraine Headache Vitamin D (Cholecalciferol (Vitamin D3) 25 Mcg Tablet) 50 mcg PO DAILY [facility] Last Admin: 09/10/24 08:47 Dose: Not Given Documented By: TELLO Non-Admin Reason: NPO Labs 09/08/24 02:20 09/08/24 02:20 Microbiology Microbiology Results: Microbiology 09/08/24 07:28 Blood Culture - Preliminary Blood - Venous No growth after 48 hours. 09/08/24 07:25 Blood Culture - Preliminary Blood - Venous No growth after 48 hours. Assessment and Plan (1) Abdominal pain: Status: Acute Plan 44 y/o F with pmhx of asthma (mild intermittent) came for lower quadrant abdominal pain(both sides ), nausea, vomiting and diarrhea. Pancolitis Abdominal CT showing pancolitis and distal enteritis in the right lower quadrant with trace ascites No sepsis C diff negative, stool studies negative continue abx colonoscopy planned today Asthma No exacerbation Continue inhalers as needed Mild hyperglycemia A1c 5.8 Hypertension with Hypotension. Resolved Continue losartan DVT prophylaxis: SubQ Lovenox. Full code Quality Stroke Does the patient have a stroke diagnosis?: No VTE Prior VTE?: No VTE Risk Level:: Medical - moderate - high VTE Device Contraindication: N/A - Device Ordered VTE Drug Contraindication: N/A - Med Ordered
[2024-09-11] MEDS: 0.9 % Sodium Chloride Flush 3 ML SYRINGE IVFLUSH (07:11)
--- NOTE | 2024-09-11 07:44 | HO.POSTANES ---
Post Anesthesia Evaluation Post Anesthesia Evaluation Date of Service: 09/11/24 Vital Signs: Vital Signs Temp Pulse Resp BP Pulse Ox O2 Del Method 09/11/24 03:45 98.0 F 73 16 129/78 98 Room Air 09/10/24 23:26 97.9 F 67 16 127/72 97 Room Air 09/10/24 19:59 97.5 F 69 18 159/80 H 97 Room Air Anesthesia: TIVA Mental Status: Awake Pain Control: Satisfactory Nausea/Vomiting: None Hydration: Adequate Anesthesia-Related Issues: No Anes. Related Issues
[2024-09-11 07:58] VITALS: BP 132/82; PULSE 64; RESP 16; TEMP 36.7; O2SAT 96
[2024-09-11 09:11] VITALS: BP 131/78
[2024-09-11] MEDS: Losartan Potassium 50 MG TABLET PO (09:11)
[2024-09-11] MEDS: Cholecalciferol (Vitamin D3) 25 MCG TABLET 50 MCG PO (09:11)
[2024-09-11] MEDS: ondansetron HCL 4 MG/2 ML VIAL IVPUSH (09:13)
[2024-09-11 12:00] VITALS: BP 136/86; PULSE 65; RESP 16; TEMP 36.8; O2SAT 97
--- NOTE | 2024-09-11 12:06 | MHC.CM.PN ---
Patient not medically cleared for dc at this time. CM will continue to follow.
[2024-09-11] MEDS: Prochlorperazine Edisylate 10 MG/2 ML VIAL 5 MG IVPUSH (13:19)
[2024-09-11 15:48] VITALS: BP 160/82; PULSE 73; RESP 18; TEMP 36.5; O2SAT 98
[2024-09-12 09:58] LABS: TS Negative Control Passed; TS Panel A 11; TS Panel B 9; TS Positive Control Passed; TSpotTB Positive (Negative)
[2024-09-14 16:58] LABS: Calprotectin, Fecal 340 mcg/g
== END 2024-09-11 17:02 | disposition home or self-care (01) | DRG 251 ==
LOC: HO.ED 05:10 → HO.EDOVER 07:31 → HO.S3 15:19
PROVIDERS: Internal Medicine; Admitting Provider Internal Medicine; Emergency Provider Emergency Medicine Emergency Medical Services; PCP Internal Medicine; Visit Provider Physician Assistant Medical
PROC: 0DJD8ZZ Inspection of Lower Intestinal Tract, Via Natural or Artificial Opening Endoscopic (ICD-10-PCS; CPT 45378; principal; 2024-09-10 14:40)
DX: R10.9 Unspecified abdominal pain (principal); I95.9 Hypotension, unspecified; I10 Essential (primary) hypertension; N83.202 Unspecified ovarian cyst, left side; N83.201 Unspecified ovarian cyst, right side; R73.9 Hyperglycemia, unspecified; J45.20 Mild intermittent asthma, uncomplicated; K64.8 Other hemorrhoids; Z20.822 Contact with and (suspected) exposure to COVID-19; Z79.899 Other long term (current) drug therapy
CPT/HCPCS: 45380; 36415; 74177; 76705; 80053; 81001; 83036; 83605; 83690; 83735; 83993; 84702; 85027; 85652; 86140; 86481; 86704; 86706; 86708; 86803; 87040; 87340; 87493; 87502; 87507; 87635; 88305; 88341; 88342; 99221; 99285; J0737; J2003; J2270; J2405; J2543; J2704; J2765; J7120; Q9967

== ENCOUNTER → 2024-09-08 05:22 | Outpatient (BNV) | payer OTHER, SELFPAY | PROVIDERS: Emergency Provider Emergency Medicine Emergency Medical Services; PCP Internal Medicine; Visit Provider Radiology Diagnostic Radiology | DX: K51.00 Ulcerative (chronic) pancolitis without complications (principal) | CPT/HCPCS: 74177 ==

== ENCOUNTER 2024-09-08 07:24 | Outpatient (BNV) | payer OTHER, SELFPAY | END 2024-09-11 14:52 | PROVIDERS: Admitting Provider Internal Medicine; Emergency Provider Emergency Medicine Emergency Medical Services; PCP Internal Medicine; Visit Provider Radiology Diagnostic Radiology | DX: K76.0 Fatty (change of) liver, not elsewhere classified (principal); Z90.5 Acquired absence of kidney; N28.89 Other specified disorders of kidney and ureter | CPT/HCPCS: 76705 ==

== ENCOUNTER → 2024-09-08 07:24 | Outpatient (BNV) | payer OTHER, SELFPAY | PROVIDERS: Admitting Provider Internal Medicine; Emergency Provider Emergency Medicine Emergency Medical Services; PCP Internal Medicine; Visit Provider Internal Medicine | DX: R10.9 Unspecified abdominal pain (principal); K50.00 Crohn's disease of small intestine without complications; R19.7 Diarrhea, unspecified; R11.10 Vomiting, unspecified | CPT/HCPCS: 99223 ==

== ENCOUNTER → 2024-09-08 07:24 | Outpatient (BNV) | payer OTHER, SELFPAY | PROVIDERS: Admitting Provider Internal Medicine; Emergency Provider Emergency Medicine Emergency Medical Services; PCP Internal Medicine; Visit Provider Internal Medicine | DX: A09 Infectious gastroenteritis and colitis, unspecified (principal); R11.10 Vomiting, unspecified; R10.31 Right lower quadrant pain | CPT/HCPCS: 99223; 99232; 99239; 99499 ==

== ENCOUNTER 2024-09-18 13:18 | Outpatient (REF) | payer OTHER, SELFPAY ==
[2024-09-18 17:37] LABS: Urine Cytology See Pathology rpt
== END 2024-09-18 13:19 | disposition home or self-care (01) ==
LOC: HO.LNP 13:18
PROVIDERS: PCP Internal Medicine
DX: R31.9 Hematuria, unspecified (principal); R10.31 Right lower quadrant pain; A09 Infectious gastroenteritis and colitis, unspecified
CPT/HCPCS: 81002; 87086; 88112; 99212

== ENCOUNTER 2024-09-18 13:18 | Outpatient (AMB) | payer OTHER, SELFPAY ==
--- OUTSIDE RECORDS SUMMARY | 2024-09-18 13:21 | XMS_ITS | Patient Health Record ---
Author Organization Gasper Ruiz III, MD Address [address] [place] [address] Care Team Providers Care Reading Specialist Name Role Phone [facility] MD Primary Care Provider Gasper Adams Unavailable [phone] Allergies Allergen (clinical drug ingredient) Drug/Non Drug [...] Problem Status W/U Status Risk Notes Problem 078124970 Granulocytopenia (D70.9) Active confirmed The mild neutro penia and granulocytopenia is stable. Flow cytometry on the lymph node showed no lymphoproliferative clonal process. Problem [id number] Lymphadenopathy (R59.1) Active confirmed The biopsy of t he lymph node showed granulomatous disease and she is now being treated with triple therapy at the tuberculosis clinic in [place], [place]. She will not need to return to this office. Problem [id number] Allergic to aspirin (Z88.8) Active confirmed She has had no serious reactions lately. Plan Of Treatment No Information Insurance Providers Payer Name Payer Address Payer Phone Subscriber Number Group Number Insured Name Patient Relationship to Insured Coverage Start Date Coverage End Date [place] [address] [place] WHITTEN [id number] [phone] [id number] Jasson Duke Self - patient is the insured Medical (General) History Medical History History ICD Code Panic attacks menstrual irregularity hemorrhoids intermittent chronic diarrhea Surgical History Surgery Date(Month/Year) tubal ligation lymph node excision mesh placement cholecystectomy, [facility], Dr[address] 2013 Hospitalization History Reason Date(Month/Year) cholecystectomy 2013
--- NOTE | 2024-09-18 13:25 | A.OFFPC_ITS ---
Vital Signs 09/18/24 13:27 Height 5 ft 9 in Weight 188 lb 4 oz BMI 27.8 BP 120/72 Blood Pressure Location Lt brachial Position Sitting Pulse 80 Pulse Source Pulse Oximeter Temp 97.1 F Temp Source Temporal Artery Scan Pulse Oximetry (%) 98 Oxygen Delivery Method Room Air Intake Visit Reasons: [facility] Panc[place]itis Intake Note: Patient is here to follow-up after a visit the emergency department at [facility] 09[place]11/24 General Farmer Required: Yes General Farmer Language: Band Salvager Name: Julian([id number]) Information Interpreted: non-clinical & clinical Plant 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 Control Room Operator: Not Required per policy Accompanied by: Self / Same As Patient Allergies ibuprofen [From Advil] Allergy (Severe, Verified 09/18/24 13:36) Angioedema aspirin [ASPIRIN] Allergy (Intermediate, Verified 09/18/24 13:36) SWELLING cyclobenzaprine [From FLEXERIL] Allergy (Intermediate, Verified 09/18/24 13:36) SWELLING Medication List - Last Reconciled 09/18/24 by Elva Mckeon PA-C albuterol sulfate 0.63 mg (3 mL) inhalation Q4H PRN cholecalciferol (vitamin D3) 50 mcg PO DAILY 90 days losartan 50 mg PO DAILY 90 days omeprazole 20 mg PO DAILY@0630 sumatriptan succinate take 1 tab at onset of headache; if no relief may repeat 1 tab after at least 2 hrs; max = 4 tabs/24 hr PO Ventolin HFA 90 mcg/actuation (albuterol sulfate) 2 puffs inhalation Q6H PRN 30 days NS Tobacco use date assessed: 09/18/24 Dental Screening Dental Screen Date: 08/19/24 HPI [facility] [place] Pancolitis HPI Details 44-year-old female with past medical his tory of asthma coming to the office for hospital discharge follow up. In review of the notes, patient was seen in [facility] ED 09/08/2024 for lower quadrant pain CT of the abdomen and pelvis concerning for mild proctocolitis given ciprofloxacin and metronidazole and discharged home. Patient returned a few days later complaining of low back pain CT scan revealed ileitis and pancolitis face who was admitted for further evaluation. Initially treated with IV antibiotics underwent colonoscopy May recommended to discontinue antibiotics and follow up with path results outpatient CT scan also showing bilateral ovarian cysts recommending outpatient ultrasound. 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 Presenting with continued abdominal pain, and diarrhea. She reports recent onset abdominal pain associated with food intake, which improved very mildly after antibiotic treatment received in the hospital during a previous emergency visit. Diarrhea episodes alternate in consistency, and blood was noted in her urine at the hospital. There is inflammation detected in her colon, and she suffers from acid reflux but denies chest pain or shortness of breath. The diarrhea is described as nonbloody and alternating between liquid and formed stool. [facility] Medical History Lymphoma History of panic attacks Exposure of implanted vaginal mesh Moderate persistent asthma in adult without complication Left leg pain Hand numbness Obese Acute sinusitis Surgical History History of arthroscopy of right shoulder Hx of tubal ligation History of cholecystectomy Family History Mother HIV (human immunodeficiency virus infection) Father Heart attack HIV (human immunodeficiency virus infection) Brother No problems noted. Brother Diabetes Sister No problems noted. Sister No problems noted. Daughter No problems noted. Daughter Down syndrome Other Mental health disorder Social History Household Members: Family Housing: Apartment Are you a primary post anesthesia care unit nurse to a significant other at home: No Do you presently have visiting nurse or other home services: No Alcohol intake: never Patient Tobacco Use Status: Never used Tobacco e-Cigarette/Vaping Use: Never Used Second Hand Smoke Exposure: No service: No Current occupational status: employed Current occupational exposures/hazards: No Cognitive needs: No Hearing needs: No Vision needs: No Female Reproductive History Menstrual Age of Menarche: 8 Questionnaire Thrive Questionnaire Date Thrive assessed: 08/19/24 I am a: Patient What is your living situation today?: I have a steady place to live Within the past 12 months, did the food you bought not last and you didn't have the money to get more?: Sometimes True Within the past 12 months, did you worry whether your food would run out before you got money to buy more?: Sometimes True Do you have trouble paying for medicines?: No Do you have trouble getting transportation to medical appointments?: No Do you have trouble paying your heating and electricity bill?: I choose not to answer this question Do you have trouble taking care of your child, family member or friend?: No Do you have trouble with day-to-day activities such as bathing, preparing meals, shopping, managing finances, etc.?: No Are you currently unemployed and looking for a job?: Yes Are you interested in more education?: Yes Please select the resources that you would like help with: Job search/training Currently or been in a relationship where the following occur: No concerns reported THRIVE Score: 2 MACHELLE-7 AMB Questionnaire MACHELLE-7 Date MACHELLE - 7 assessed: 08/19/24 Source: Developed by Drs. Gasper Estrada, Radhika Garcia, Jun Wells and colleagues, with an educational agatha from [employer]. Review of Systems Const Denies body aches, Denies chills, Denies fever(s), Denies headache(s) and Denies poor appetite Eyes Reports no additional complaints ENT Denies dizziness and Denies headache(s) Card Denies chest pain, Denies lightheadedness and Denies dyspnea Resp Denies cough and Denies dyspnea GI Reports abdominal pain, Denies melena, Denies bloating, Denies hematochezia, Denies constipation, Reports heartburn, Denies fecal incontinence, Reports diarrhea, Denies nausea and Denies vomiting Reports no additional complaints Musc Reports no additional complaints and Denies abnormal gait Skin/Breast Reports system reviewed and no additional complaints, except as documented Neuro Denies abnormal gait, Denies dizziness and Denies headache(s) Psych Reports no additional complaints Physical exam (Primary Care) Vital Signs: Last Vital Signs Temp 97.1 F 09/18/24 13:27 Pulse 80 09/18/24 13:27 BP 120/72 09/18/24 13:27 Pulse Ox 98 09/18/24 13:27 Oxygen Delivery Method Room Air 09/18/24 13:27 BMI result Body Mass Index 27.8 Tobacco/Smoking Status: Tobacco use Status Tobacco use date assessed 09/18/24 09/18/24 13:33 Patient Tobacco Use Status Never used Tobacco 09/18/24 13:33 e-Cigarette/Vaping Use Never Used 09/18/24 13:33 Thrive Assessment: Date of Thrive Assessment Date Thrive assessed 08/19/24 09/18/24 13:33 Currently or been in a relationship where the following occur: No concerns reported Const General: cooperative, healthy appearing, comfortable and no acute distress Orientation/consciousness: patient oriented x3 HENMT Head: Yes normocephalic Ears: hearing grossly normal bilaterally General nose exam: Normal external nose present Eyes General: appearance normal, both eyes and all related structures Conjunctivae: conjunctivae normal Neck Neck: Yes full ROM and Yes no lymphadenopathy Resp Effort & Inspection: normal respiratory effort Auscultation: clear to auscultation bilaterally, no crackles, no rales, no rhonchi and no wheezes Cardio Rate: regular rate Rhythm: regular rhythm GI Other: Right flank tenderness Palpation (GI): Soft to palpation, not firm, Tenderness to palpation present (GI) in the RLQ and in the RUQ, no guarding, not rigid, no masses and No Rebound tenderness present Skin General skin exam: no rashes or lesions noted Neuro General: patient oriented x3 Gait exam (Neuro): Normal gait present Extrem General: Yes normal to inspection, Yes full ROM and No edema Psych Affect: normal affect Attitude: cooperative Insight: Good insight present (Psych) Judgement: Good judgement present (Psych) Results AMB Urinalysis Dipstick UR Leukocytes Negative Last Edit by CRESENCIO Rodriguez on 09/18/24 14:18 UR Nitrite Negative Last Edit by CRESENCIO Rodriguez on 09/18/24 14:18 UR Urobilinogen Normal Last Edit by CRESENCIO Rodriguez on 09/18/24 14:18 UR Protein Trace Last Edit by CRESENCIO Rodriguez on 09/18/24 14:18 UR Ph 5.0 Last Edit by CRESENCIO Rodriguez on 09/18/24 14:18 UR Blood Large Last Edit by CRESENCIO Rodriguez on 09/18/24 14:18 UR Specific [place] 1.030 Last Edit by CRESENCIO Rodriguez on 09/18/24 14: 18 UR Ketone Negative Last Edit by CRESENCIO Rodriguez on 09/18/24 14:18 UR Bilirubin Negative Last Edit by RCESENCIO Rodriguez on 09/18/24 14:18 UR Glucose Negative Last Edit by CRESENCIO Rodriguez on 09/18/24 14:18 Results Reviewed Results Reviewed: Laboratory Last Values Urine pH (Clinic) 5.0 09/18/24 14:09 Specific [place] (Clinic) 1.030 09/18/24 14:09 Ur Protein (Clinic) Trace 09/18/24 14:09 Ur Ketones (Clinic) Negative 09/18/24 14:09 Urine Blood (Clinic) Large A* 09/18/24 14:09 Urine Nitrite Negative 09/18/24 14:09 Urine Bilirubin (Clinic) Negative 09/18/24 14:09 Urobilinogen (Clinic) Normal 09/18/24 14:09 Leukocyte Esterase (Clinic) Negative 09/18/24 14:09 Urine Glucose (Clinic) Negative 09/18/24 14:09 Coding Level of Care Code Est Pt Level 4 (73624) Diagnoses Hematuria R31.9 Right lower quadrant abdominal pain R10.31 Abdominal location: right lower quadrant Diarrhea of infectious origin A09 Diarrhea type: infectious Assessment & Plan Assessment & Plan (1) Hematuria: Code(s): R31.9 - Hematuria, unspecified Category: Medical Plan: Patient having hematuria during hospital workup. Urinalysis was obtained in the office redemonstrated hematuria. Urine cytology and urine culture will be obtained and referral was placed to Urology as well. (2) Abdominal pain: Code(s): R10.9 - Unspecified abdominal pain Category: Medical Qualifiers: Abdominal location: right lower quadrant Qualified Code(s): R10.31 - Right lower quadrant pain Plan: Patient having continued but improved abdominal pain entirety of the right side extending to the right flank. She does also have diarrhea which may be related to her cholecystectomy. Patient was supposed to have follow up with GI 1 week after discharge patient was provided with the number from GI advised to reach out as soon as possible to schedule this appointment. On exam there was no evidence of acute abdomen and I discussed with patient red flag symptoms and when to present for re-evaluation. I also gave the patient strict return protocols. For the diarrhea plan to initiate cholestyramine to see if this improves her symptoms plan to follow up with GI. (3) Diarrhea: Code(s): R19.7 - Diarrhea, unspecified Category: Medical Qualifiers: Diarrhea type: infectious Qualified Code(s): A09 - Infectious gastroenteritis and colitis, unspecified Plan: See above Plan This note was constructed using voice recognition software. While every effort has been made to ensure accuracy and hydraulic assembler, still areas may have been included sometimes these areas may affect the content or meeting of the given symptoms. Total time spent caring for the patient today was 20 minutes. This includes time spent before the visit reviewing the chart, time spent during the visit, and time spent after the visit and documentation. Patient was informed and verbally consented to the use of an ambient scribe for clinic note documentation during this visit. Orders: Orders Urine Cytology Today R31.9 - Hematuria, unspecified AMB Urinalysis Dipstick Today R31.9 - Hematuria, unspecified, Z13.9 - Encounter for screening, unspecified Urine Culture Today R31.9 - Hematuria, unspecified Referrals Urology Referral R31.9 - Hematuria, unspecified Medications: New cholestyramine (with sugar) 4 gram administer w/meal; avoid other meds within 1hr before or 4-6hr after dose 4 grams PO TID 378 grams 0RF R31.9 - Hematuria, unspecified
[2024-09-18 13:27] VITALS: BP 120/72; PULSE 80; TEMP 36.2; O2SAT 98; BMI 27.8
== END 2024-09-18 14:16 | disposition home or self-care (01) ==
LOC: HO.HMCH 13:18
PROVIDERS: PCP Internal Medicine
DX: R31.9 Hematuria, unspecified (principal); R10.31 Right lower quadrant pain; A09 Infectious gastroenteritis and colitis, unspecified; Z13.9 Encounter for screening, unspecified

== ENCOUNTER 2024-09-21 11:22 | Outpatient (AMB) | payer OTHER, SELFPAY ==
--- NOTE | 2024-09-21 11:23 | MHC.OFFVIS ---
Vital Signs 09/21/24 11:33 Height 5 ft 9 in Pulse 90 Pulse Source Pulse Oximeter Pulse Oximetry (%) 98 Oxygen Delivery Method Room Air Intake Visit Reasons: Nataly Hilario Reff/TB skin test Maintenance Associate Required: Yes Maintenance Associate Services: Maintenance Associate Present Maintenance Associate Name: Lena Rosenberg CMA Information Interpreted: clinical only Allergies ibuprofen [From Advil] Allergy (Severe, Verified 09/21/24 11:33) Angioedema aspirin [ASPIRIN] Allergy (Intermediate, Verified 09/21/24 11:33) SWELLING cyclobenzaprine [From FLEXERIL] Allergy (Intermediate, Verified 09/21/24 11:33) SWELLING HPI HPI Nataly Hilario Reff/TB skin test: Details: She was referred by Dr Hilario for positive IGRA on 09/09/2024. She had prior positive IGRA and received INH and B6 7 years ago she says (prob in Next [employer]). She has no complaints. [facility] Medical History Lymphoma History of panic attacks Exposure of implanted vaginal mesh Moderate persistent asthma in adult without complication Left leg pain Hand numbness Obese Acute sinusitis Surgical History History of arthroscopy of right shoulder Hx of tubal ligation History of cholecystectomy Family History Mother HIV (human immunodeficiency virus infection) Father Heart attack HIV (human immunodeficiency virus infection) Brother No problems noted. Brother Diabetes Sister No problems noted. Sister No problems noted. Daughter No problems noted. Daughter Down syndrome Other Mental health disorder Social History Household Members: Family Housing: Apartment Are you a primary customer care representative to a significant other at home: No Do you presently have visiting nurse or other home services: No Alcohol intake: never Patient Tobacco Use Status: Never used Tobacco e-Cigarette/Vaping Use: Never Used Second Hand Smoke Exposure: No service: No Current occupational status: employed Current occupational exposures/hazards: No Cognitive needs: No Hearing needs: No Vision needs: No Female Reproductive History Menstrual Age of Menarche: 8 Review of Systems Const All systems reviewed & are unremarkable except as noted in HPI and below Physical Exam Vital Signs: Last Vital Signs Pulse 90 09/21/24 11:33 Pulse Ox 98 09/21/24 11:33 Oxygen Delivery Method Room Air 09/21/24 11:33 Const General: cooperative Orientation/consciousness: patient oriented x3 HEENT Head: Yes normal to inspection Mouth: Normal oral and palatal mucosa present Eyes General: appearance normal, both eyes and all related structures Pupils: Equal, round and reactive pupils present Resp Effort & Inspection: normal respiratory effort Cardio Rate: regular rate Rhythm: regular rhythm GI Palpation (GI): Soft to palpation and nontender General: Yes no CVA tenderness Back/Spine/Pelvis Back: no CVA tenderness Skin General skin exam: no rashes or lesions noted Neuro General: patient oriented x3 Cranial nerves: Yes CN's II-XII intact bilaterally and Yes Equal, round and reactive pupils present Extrem General: Yes normal to inspection Psych Appearance: grossly normal Assessment & Plan Assessment & Plan (1) Positive TB test: Comment: This was known in past and she had treatment. Code(s): R76.11 - Nonspecific reaction to tuberculin skin test without active tuberculosis Category: Medical Plan: No further treatment. No further testing. She is eligible for medication for Crohns if needed and follow for symptoms such as hemoptysis,lymphadenopathy,cough and weight loss. See again if needed. Coding Level of Care Code New Pt Level 3 (91324) Diagnoses Positive TB test R76.11
[2024-09-21 11:33] VITALS: PULSE 90; O2SAT 98
--- OUTSIDE RECORDS SUMMARY | 2024-09-21 12:05 | XMS_ITS | Patient Health Record ---
Author Organization Gasper Ruiz III, MD Address [address] [place] [address] Care Team Providers Care Lung Puller Name Role Phone [facility] MD Primary Care Provider Gasper Adams Unavailable [phone] Allergies Allergen (clinical drug ingredient) Drug/Non Drug [...] Problem Status W/U Status Risk Notes Problem 186581560 Granulocytopenia (D70.9) Active confirmed The mild neutro penia and granulocytopenia is stable. Flow cytometry on the lymph node showed no lymphoproliferative clonal process. Problem [id number] Lymphadenopathy (R59.1) Active confirmed The biopsy of t he lymph node showed granulomatous disease and she is now being treated with triple therapy at the tuberculosis clinic in [place], [place]. She will not need to return to this office. Problem [id number] Allergic to aspirin (Z88.8) Active confirmed She has had no serious reactions lately. Plan Of Treatment No Information Insurance Providers Payer Name Payer Address Payer Phone Subscriber Number Group Number Insured Name Patient Relationship to Insured Coverage Start Date Coverage End Date MED[place] [address] TIFFANY WHITTEN [id number] [phone] [id number] Jasson Duke Self - patient is the insured Medical (General) History Medical History History ICD Code Panic attacks menstrual irregularity hemorrhoids intermittent chronic diarrhea Surgical History Surgery Date(Month/Year) tubal ligation lymph node excision mesh placement cholecystectomy, [facility], Dr. West 2013 Hospitalization History Reason Date(Month/Year) cholecystectomy 2013
== END 2024-09-21 12:53 | disposition home or self-care (01) ==
LOC: HO.HID 11:22
PROVIDERS: PCP Internal Medicine; Visit Provider Internal Medicine
DX: R76.11 Nonspecific reaction to tuberculin skin test without active tuberculosis (principal)
CPT/HCPCS: 99203

== ENCOUNTER → 2024-09-21 11:22 | Outpatient (BNVA) | payer OTHER, SELFPAY | PROVIDERS: PCP Internal Medicine; Visit Provider Internal Medicine | DX: R76.11 Nonspecific reaction to tuberculin skin test without active tuberculosis (principal) | CPT/HCPCS: 99202 ==

== ENCOUNTER 2024-10-06 12:53 | Outpatient (AMB) | payer OTHER, SELFPAY ==
--- NOTE | 2024-10-06 13:27 | A.OFFVIS_ITS ---
Vital Signs 10/06/24 13:28 Height 5 ft 9 in Weight 188 lb BMI 27.8 Intake Visit Reasons: OV RT Shoulder 12/27/23 Intake Note: Jasson is a 44 year old female who presents with complaints of intermittent pain in her right shoulder after undergoing right shoulder arthroscopic surgery on 12/27/2023. She has completed formal physical therapy. She denies any fevers or chills. She has taken Tylenol which gives her mild relief. She continues with her home stretching program. Allergies ibuprofen [From Advil] Allergy (Severe, Verified 09/21/24 11:33) Angioedema aspirin [ASPIRIN] Allergy (Intermediate, Verified 09/21/24 11:33) SWELLING cyclobenzaprine [From FLEXERIL] Allergy (Intermediate, Verified 09/21/24 11:33) SWELLING Medication List - Last Reconciled 10/06/24 by Dax Day MD albuterol sulfate 0.63 mg (3 mL) inhalation Q4H PRN cholecalciferol (vitamin D3) 50 mcg PO DAILY 90 days cholestyramine (with sugar) 4 gram 4 grams PO TID losartan 50 mg PO DAILY 90 days omeprazole 20 mg PO DAILY@0630 sumatriptan succinate take 1 tab at onset of headache; if no relief may repeat 1 tab after at least 2 hrs; max = 4 tabs/24 hr PO tramadol 50 mg PO Q12H PRN Ventolin HFA 90 mcg/actuation (albuterol sulfate) 2 puffs inhalation Q6H PRN 30 days NS PFSH Medical History Lymphoma History of panic attacks Exposure of implanted vaginal mesh Moderate persistent asthma in adult without complication Left leg pain Hand numbness Obese Acute sinusitis Surgical History History of arthroscopy of right shoulder Hx of tubal ligation History of cholecystectomy Family History Mother HIV (human immunodeficiency virus infection) Father Heart attack HIV (human immunodeficiency virus infection) Brother No problems noted. Brother Diabetes Sister No problems noted. Sister No problems noted. Daughter No problems noted. Daughter Down syndrome Other Mental health disorder Social History (Reviewed 06/03/25 @ 13:32 by PK Garcia Household Members: Family Housing: Apartment Are you a primary summer child caregiver to a significant other at home: No Do you presently have visiting nurse or other home services: No Alcohol intake: never Patient Tobacco Use Status: Never used Tobacco e-Cigarette/Vaping Use: Never Used Second Hand Smoke Exposure: No service: No Current occupational status: employed Current occupational exposures/hazards: No Cognitive needs: No Hearing needs: No Vision needs: No Female Reproductive History Menstrual Age of Menarche: 8 Physical Exam Vital Signs: BMI result Body Mass Index 27.8 Const Other: Well-nourished well-developed very friendly female awake alert and oriented x3 in no acute distress Extrem Other: Bilateral upper extremity examination shows good capillary refill, no skin lesions noted, normal sensation light touch Right shoulder examination shows that the surgical incisions are well healed, no erythema, slightly decreased range of motion when compared to her left shoulder, 4+ out of 5 strength with supraspinatus testing, no instability Assessment & Plan Assessment & Plan (1) Right shoulder pain: Code(s): M25.511 - Pain in right shoulder Category: Medical Plan Ms. Srikanth Griffith presents with continued right shoulder discomfort after undergoing arthroscopic surgery on 12/27/2023 most likely due to rotator cuff tendinosis and continued stiffness. I had a lengthy discussion with the patient regarding the treatment options. We will hold off on a cortisone injection at this time. I did give her a prescription for tramadol to help with her discomfort. She will contact me prior to her follow-up appointment in 2 months should any questions or concerns arise. Feel free to call me at any time should questions regarding her orthopedic management arise. I spent 22 minutes in reviewing the patient's records and imaging studies, seeing the patient and documenting in the medical record. Medications: New tramadol 50 mg PO Q12H PRN 40 tabs 0RF pain Coding Level of Care Code Est Pt Level 3 (61101) Complex EM visit Add On G2211 Diagnoses Right shoulder pain M25.511
[2024-10-06 13:28] VITALS: BMI 27.8
--- OUTSIDE RECORDS SUMMARY | 2024-10-06 14:13 | XMS_ITS | Clinical Summary ---
Author Organization [address] [facility] Address [address] [place] [address] Phone Care Team Providers Care Loader Name Role Phone Unavailable Primary Care Provider Unavailabl e Social History Tobacco Use Types Packs/Day Years Used Date Smoking Tobacco: Never Assessed Comments Unknown Sex and Gender Information Value Date Recorded Sex Assigned at Not on file Legal Sex Female 10:13 AM EDT Gender Identity Not on file Sexual Orientation Not on file Plan of Treatment Upcoming Encounters Date Type Department Care Team ([facility] Contact Info) Description 12/03/2024 9:00 AM EDT Consult Orthopedic Surgery - [place] [id number] [address] Miky Cueva, DPM [address] [address] Health Maintenance Due Date Last Done Comments Breast Cancer Screening 1980 DTaP,Tdap,and Td Vaccines (1 - Tdap) 01/02/1999 Hepatitis B Vaccines (1 of 3 - 19+ 3-dose series) 01/02/1999 Cervical Cancer Screening: P ap Smear 01/02/2001 COVID-19 Vaccine ( - 2023-2 5 season) 2024 Depression Screening 09/08/2024 HIV Screening 09/08/2024 Hepatitis C Screening 09/08/2024 Social Influencers of Health Screening 09/08/2024 Influenza Vaccine (Season Ended) 2025 HIB Vaccines Aged Out No longer eligi ble based on patient's age to complete this topic HPV Vaccines Aged Out No longer eligi ble based on patient's age to complete this topic Hepatitis A Vaccines Aged Out No long er eligible based on patient's age to complete this topic IPV Vaccines Aged Out No longer eligi ble based on patient's age to complete this topic MMR Vaccines Aged Out No longer eligi ble based on patient's age to complete this topic Meningococcal ACWY Vaccine Aged Out N o longer eligible based on patient's age to complete this topic Meningococcal B Vaccine Aged Out No l onger eligible based on patient's age to complete this topic Pneumococcal Vaccine: Pediat rics (0 to 5 Years) and At-Risk Patients (6 to 64 Years) Aged Out No longer eligible b ased on patient's age to complete this topic RSV Immunization Patients Un lorri 20 months Aged Out No longer eligible b ased on patient's age to complete this topic Varicella Vaccines Aged Out No longer eligible based on patient's age to complete this topic Insurance [place]
== END 2024-10-06 13:47 | disposition home or self-care (01) ==
LOC: HO.HOS 12:54
PROVIDERS: PCP Internal Medicine; Visit Provider Orthopaedic Surgery
DX: M25.511 Pain in right shoulder (principal)
CPT/HCPCS: 99213; G2211

== ENCOUNTER → 2024-10-06 12:53 | Outpatient (BNVA) | payer OTHER, SELFPAY | PROVIDERS: PCP Internal Medicine; Visit Provider Orthopaedic Surgery | DX: M25.511 Pain in right shoulder (principal) | CPT/HCPCS: 99212 ==

== ENCOUNTER 2024-10-11 10:53 | Emergency (ER) | payer OTHER, SELFPAY ==
--- NOTE | ~2024-10-11 | XR_ITS ---
CLINICAL HISTORY: middle finger ?blood blister 3 views right 3rd digit including PA hand Comparison: None Findings: No fracture subluxations or dislocations. Joint intervals are preserved. No marginal erosions or overhanging osteophytes. No periostitis or bony destruction No radiopaque foreign body. Probable focal soft tissue swelling versus nodule involving the dermis volar aspect 3rd distal phalanx Impression: 1. No acute fractures malalignment or bony destructive processes. Focal soft tissue swelling versus nodule involving the dermis volar aspect 3rd distal phalanx measures 3.6 mm This document has been electronically signed by: Ben Goyal MD on 10/11/2024 12:07:59
[2024-10-11 11:12] VITALS: BP 159/94; PULSE 88; RESP 19; TEMP 36.6; O2SAT 98; BMI 31.4
--- NOTE | 2024-10-11 11:14 | ED.SKABFB ---
HPI - Skin/Abscess/Foreign Bdy General Chief complaint: Extremity Injury, Upper Stated complaint: finger pain Time Seen by Provider: 10/11/24 13:23 Source: patient, RN notes reviewed and old records reviewed Mode of arrival: ambulatory History of Present Illness ED Provider: Cherry Hernandez PA-C HPI narrative: 44-year-old female with past medical history lymphoma, asthma, GERD presenting to the ED complaining of painful blister to right middle finger x 3 weeks. Denies known injury, trauma, fall, crushing. Denies anticoagulation use. Admits tried to pop herself at home. Related Data Home Medications ?Medication ?Instructions ?Recorded ?Confirmed omeprazole 20 mg capsule,delayed 20 mg PO DAILY@0630 09/08/24 10/06/24 release Previous Rx's ?Medication ?Instructions ?Recorded albuterol sulfate 0.63 mg/3 mL 0.63 mg (3 mL) inhalation Q4H PRN 02/27/21 solution for nebulization shortness of breath or wheezing #75 mL sumatriptan succinate 25 mg tablet See Rx Instructions PO .COMPLEX #7 08/12/23 tabs Ventolin HFA 90 mcg/actuation 2 puff inhalation Q6H PRN 08/19/24 aerosol inhaler (albuterol sulfate) shortness of breath or wheezing 30 days #8 grams cholecalciferol (vitamin D3) 50 50 mcg PO DAILY 90 days #90 caps 08/24/24 mcg (2,000 unit) capsule tramadol 50 mg tablet 50 mg PO Q12H PRN pain #40 tabs 10/06/24 cholestyramine (with sugar) 4 gram 4 g PO TID #378 grams 10/07/24 oral powder losartan 50 mg tablet 50 mg PO DAILY 90 days #90 tabs 10/08/24 Allergies Allergy/AdvReac Type Severity Reaction Status Date / Time ibuprofen [From Advil] Allergy Severe Angioedema Verified 10/11/24 11:15 aspirin [ASPIRIN] Allergy Intermediate SWELLING Verified 10/11/24 11:15 cyclobenzaprine Allergy Intermediate SWELLING Verified 10/11/24 11:15 [From FLEXERIL] Review of Systems Review of Systems: Yes all other systems are reviewed and are negative Constitutional: Constitutional: Reports as per HPI [facility] Past Medical History Attestation statement: The following information was validated with the patient. Source: old records reviewed Medical History Lymphoma History of panic attacks Exposure of implanted vaginal mesh Moderate persistent asthma in adult without complication Left leg pain Hand numbness Obese Acute sinusitis Surgical History History of arthroscopy of right shoulder Hx of tubal ligation History of cholecystectomy Family History Family History Mother HIV (human immunodeficiency virus infection) Father Heart attack HIV (human immunodeficiency virus infection) Brother No problems noted. Brother Diabetes Sister No problems noted. Sister No problems noted. Daughter No problems noted. Daughter Down syndrome Other Mental health disorder Social History Social History Household Members: Family Housing: Apartment Are you a primary date night caregiver to a significant other at home: No Do you presently have visiting nurse or other home services: No Alcohol intake: never Patient Tobacco Use Status: Never used Tobacco e-Cigarette/Vaping Use: Never Used Second Hand Smoke Exposure: No Advance Directives: No Advance Directives Information Provided: Yes Do you have a plan to hurt others: No Plan service: No Current occupational status: employed Current occupational exposures/hazards: No Cognitive needs: No Hearing needs: No Vision needs: No Physical Exam Vital Signs: Vital Signs: Last Vital Signs Temp 98 F 10/11/24 11:12 Pulse 88 10/11/24 11:12 Resp 19 10/11/24 11:12 BP 159/94 H 10/11/24 11:12 Pulse Ox 98 10/11/24 11:12 O2 Del Method Room Air 10/11/24 11:12 BMI result Body Mass Index 31.4 Const: General: cooperative, healthy appearing and no acute distress Orientation/consciousness: patient oriented x3 Limitations: no limitations HEENT: Head: Yes normal to inspection and Yes atraumatic Ears: hearing grossly normal bilaterally General nose exam: Normal external nose present Face and sinus: Yes normal facial exam Eyes: General: appearance normal, both eyes and all related structures EOM: EOMs intact bilaterally Neck: Neck: Yes normal visual inspection and Yes no meningeal signs Resp: Effort & Inspection: normal respiratory effort and no respiratory distress Cardio: Rate: regular rate Skin: Other: Blood blister appreciated to palmar aspect of distal right 3rd digit. Mildly tender to palpation. No surrounding erythema. No streaking. Full range of motion to digit intact. Rashes: no rashes Neuro: General: patient oriented x3, tone normal and no meningeal signs Cranial nerves: Yes CN's II-XII intact bilaterally Gait exam (Neuro): Normal gait present Extrem: General: Yes normal to inspection Course Course Course Narrative: This is a Rapid Medical Exam performed in triage by Cherry Hernandez PA-C. Full HPI, ROS and PE to be performed by primary ED provider. 44 yo F w/pmhx lymphoma, panic attacks presenting to the ED c/o painful ?blister to R middle finger x3 weeks. Admits to intermittent bleeding. denies known inj or AC use PE: ?small blood blisted to palmar aspect R 3rd digit. +ttp Plan: XR XR finger RT min 2V Impression: 1. No acute fractures malalignment or bony destructive processes. Focal soft tissue swelling versus nodule involving the dermis volar aspect 3rd distal phalanx measures 3.6 mm > needle aspiration performed with 18 gauge > blood expressed - controlled with direct pressure. Bandage applied. Recommended close dermatology follow up Results discussed with patient including worrisome signs and symptoms and strict return precautions, and when to return to the emergency department. They verbalized understanding and feel safe for discharge at this time. Medical Decision Making Medical Decision Making MDM Narrative: 44-year-old female with past medical history lymphoma, asthma, GERD presenting to the ED complaining of painful blister to right middle finger x 3 weeks. Please refer to images above. Concern for blood blister/?hemangioma. No evidence of abscess/cellulitis or septic joint Plan: X-ray, aspiration Please refer to course for remaining clinical decision making, interpretation of labs/imaging results, and discussions with consultants and/or family members. Differential Diagnosis Differential Diagnoses: The differential diagnosis associated with the presentation includes As above Independent Interpretation I performed an independent interpretation of an: Plain X-Ray Radiology Impression Discussion of test interpretation with radiology: I have reviewed the radiologist's reading. External Record Review External record reviewed: Inpatient record, Office record, Outpatient record, Prior outpatient labs, Prior outpatient radiology, Primary care record and Outside ED record Tests considered The following testing was considered but not selected: As above Prescription Management I considered prescription management with: Pain Medication and Antibiotic Chronic Conditions Patient?s care impacted by: Other Social Determinants Patient?s care significantly limited by Social Determinants of Health including: Other Social Determinant of Health Discharge Plan Discharge Clinical Impression: Blood blister Patient Disposition: Home, Self-Care Additional Instructions: Please follow up with Dermatology -call tomorrow to make next soonest appointment If area begins to look infected, is red, there is pus drainage, you fever, or red streaking of your finger return to the emergency department If area starts to rebleed, and you can not control the bleeding after 15 minutes of direct pressure without letting go at home return to the emergency department Prescriptions: No Action cholecalciferol (vitamin D3) 50 mcg (2,000 unit) capsule 50 mcg PO DAILY 90 Days Qty: 90 1RF cholestyramine (with sugar) 4 gram powder 4 g PO TID Qty: 378 0RF Rx Instructions: administer w/meal; avoid other meds within 1hr before or 4-6hr after dose losartan 50 mg tablet 50 mg PO DAILY 90 Days Qty: 90 1RF omeprazole 20 mg capsule,delayed release(DR/EC) 20 mg PO DAILY@0630 albuterol sulfate 0.63 mg/3 mL solution for nebulization 0.63 mg inhalation Q4H PRN (Reason: shortness of breath or wheezing) Qty: 75 0RF sumatriptan succinate 25 mg tablet See Rx Instructions PO .COMPLEX Qty: 7 0RF Rx Instructions: take 1 tab at onset of headache; if no relief may repeat 1 tab after at least 2 hrs; max = 4 tabs/24 hr PO albuterol sulfate [Ventolin HFA] 90 mcg/actuation HFA aerosol inhaler 2 puff inhalation Q6H PRN (Reason: shortness of breath or wheezing) 30 Days Qty: 8 1RF tramadol 50 mg tablet 50 mg PO Q12H PRN (Reason: pain) Qty: 40 0RF Referrals: [facility] [Outside] [facility] [Outside] aTra Powell MD [Primary Care Provider] - 1 week Print Language: Georgian
[2024-10-11 14:17] VITALS: BP 159/94; PULSE 88; RESP 19; TEMP 36.6; O2SAT 98
== END 2024-10-11 14:18 | disposition home or self-care (01) ==
PROVIDERS: Emergency Provider Emergency Medicine; PCP Internal Medicine
DX: S60.422A Blister (nonthermal) of right middle finger, initial encounter (principal); X58.XXXA Exposure to other specified factors, initial encounter; Y93.9 Activity, unspecified; Y92.9 Unspecified place or not applicable; Y99.9 Unspecified external cause status
CPT/HCPCS: 10160; 73140; 99282; 99283; 99284

== ENCOUNTER → 2024-10-11 11:15 | Outpatient (BNV) | payer OTHER, SELFPAY | PROVIDERS: PCP Internal Medicine; Visit Provider Radiology Diagnostic Radiology | DX: R22.31 Localized swelling, mass and lump, right upper limb (principal) | CPT/HCPCS: 73140 ==

== ENCOUNTER 2024-10-18 11:16 | Emergency (ER) | payer OTHER, SELFPAY ==
[2024-10-18 11:24] VITALS: BP 174/97; PULSE 80; RESP 18; TEMP 36.9; O2SAT 99; BMI 30.5
--- NOTE | 2024-10-18 11:27 | ED.SKABFB ---
HPI - Skin/Abscess/Foreign Bdy General Chief complaint: Extremity Problem Stated complaint: finger infection Time Seen by Provider: 10/18/24 11:54 Source: patient Mode of arrival: ambulatory Limitations: no limitations History of Present Illness ED Provider: DALIA ORTEGA PA-C HPI narrative: 44-year-old Vincentian-speaking female, left hand dominant, with pmhx significant for HTN, lymphoma, GERD presents to the ED today for evaluation of wound to right middle finger x1 week. Patient reports noticing a small red area to her right middle finger approximately 1 month ago. This area has been growing in size since. She was evaluated at our facility on 10/11/2024 and had I and D performed. She was discharged home with dermatology follow-up. She is not prescribed any antibiotics at that time. She states that since being discharged home, the area has grown in size with associated swelling and pain. The area has been draining clear fluid. She states she is awaiting a referral from her PCP to follow up with the dermatology. Denies injury or trauma to the area. Denies any fever, chills, numbness/tingling/weakness of the right hand. Denies history of diabetes. Related Data Home Medications ?Medication ?Instructions ?Recorded ?Confirmed omeprazole 20 mg capsule,delayed 20 mg PO DAILY@0630 09/08/24 10/06/24 release Previous Rx's ?Medication ?Instructions ?Recorded albuterol sulfate 0.63 mg/3 mL 0.63 mg (3 mL) inhalation Q4H PRN 02/27/21 solution for nebulization shortness of breath or wheezing #75 mL sumatriptan succinate 25 mg tablet See Rx Instructions PO .COMPLEX #7 08/12/23 tabs Ventolin HFA 90 mcg/actuation 2 puff inhalation Q6H PRN 08/19/24 aerosol inhaler (albuterol sulfate) shortness of breath or wheezing 30 days #8 grams cholecalciferol (vitamin D3) 50 50 mcg PO DAILY 90 days #90 caps 08/24/24 mcg (2,000 unit) capsule tramadol 50 mg tablet 50 mg PO Q12H PRN pain #40 tabs 10/06/24 cholestyramine (with sugar) 4 gram 4 g PO TID #378 grams 10/07/24 oral powder losartan 50 mg tablet 50 mg PO DAILY 90 days #90 tabs 10/08/24 cephalexin 500 mg capsule 500 mg PO QID 7 days #28 caps 10/18/24 doxycycline monohydrate 100 mg 100 mg PO BID 7 days #14 caps 10/18/24 capsule Allergies Allergy/AdvReac Type Severity Reaction Status Date / Time ibuprofen [From Advil] Allergy Severe Angioedema Verified 10/18/24 11:28 aspirin [ASPIRIN] Allergy Intermediate SWELLING Verified 10/18/24 11:28 cyclobenzaprine Allergy Intermediate SWELLING Verified 10/18/24 11:28 [From FLEXERIL] Review of Systems Review of Systems: Constitutional: No fever, chills, fatigue, night sweats, weight changes ENT/Mouth: No ear pain, hearing loss, nasal congestion, sinus pain, rhinorrhea, sore throat Eyes: No eye pain, swelling, redness, vision changes, discharge Cardio: No chest pain, palpitations, WILEY, orthopnea, peripheral edema Pulm: No SOB, cough, sputum, wheezing, dyspnea, hemoptysis GI: No nausea, vomiting, hematemesis, abdominal pain, diarrhea, constipation, hematochezia, melena : No irregular bleeding, dysuria, frequency, urgency, hesitancy, hematuria, flank pain, urinary flow changes, urinary incontinence or retention MSK: No back pain, neck pain, joint pain, myalgias Skin: No rashes, +finger lesion Neuro: No weakness, numbness, paresthesias, LOC, dizziness, headache Psych: No anxiety/panic, depression, SI/HI, AH/VH All other systems reviewed and are negative. [facility] Past Medical History Attestation statement: The following information was validated with the patient. Source: old records reviewed and nursing notes reviewed Medical History Lymphoma History of panic attacks Exposure of implanted vaginal mesh Moderate persistent asthma in adult without complication Left leg pain Hand numbness Obese Acute sinusitis Surgical History History of arthroscopy of right shoulder Hx of tubal ligation History of cholecystectomy Family History Family History Mother HIV (human immunodeficiency virus infection) Father Heart attack HIV (human immunodeficiency virus infection) Brother No problems noted. Brother Diabetes Sister No problems noted. Sister No problems noted. Daughter No problems noted. Daughter Down syndrome Other Mental health disorder Social History Social History Household Members: Family Housing: Apartment Are you a primary women's health care nurse practitioner to a significant other at home: No Do you presently have visiting nurse or other home services: No Alcohol intake: never Patient Tobacco Use Status: Never used Tobacco Smoked in Last 30 Days: No e-Cigarette/Vaping Use: Never Used Second Hand Smoke Exposure: No Use of substances other than those prescribed or required for medical reasons: No Advance Directives: No Advance Directives Information Provided: Yes service: No Current occupational status: employed Current occupational exposures/hazards: No Cognitive needs: No Hearing needs: No Vision needs: No Physical Exam Vital Signs: Vital Signs: Last Vital Signs Temp 98.2 F 10/18/24 13:51 Pulse 72 10/18/24 13:51 Resp 18 10/18/24 13:51 BP 158/91 H 10/18/24 13:51 Pulse Ox 98 10/18/24 13:51 O2 Del Method Room Air 10/18/24 13:51 BMI result Body Mass Index 30.5 Hypertensive, vitals otherwise WNL General: Well appearing, in no acute distress. Skin: +see photo of right 3rd digit below Head: Normocephalic, atraumatic. EENT: Hearing is intact b/l. Conjunctiva clear. PERRLA. EOM intact. Moist mucous membranes. Cardiac: Chest wall symmetric. RRR Lungs: Normal respiratory effort without accessory muscle use Ext:+raised circular lesion noted to dorsal aspect of distal right 3rd digit. indurated center with surrounding fluctuance. no bleeding or discharge. ttp. no streaking. FROM intact to digit. sensation intact. Neuro: AOx3. Normal speech. Ambulating with steady gait. Course Course Course Narrative: Tere Pan APRN This is a rapid medical exam. Deferred additional HPI, ROS, PE to primary provider. 44 yo female with PMH HTN, left hand dominant here with swelling/pain to right hand 3rd digit x 1 month. Seen on 10/11 and I&D was performed. Patient reports increased swelling/pain. Unknown cause. Does not tolerate manipulation in triage. Applied topical LMX, may need digital block for I&D VSS Reevaluation(s) Reevaluation #1: Area does not appear to be abscessed however surrounding area does appear to be infected superficially. I did attempt needle aspiration and was able to express minimal clear discharge. Gram stain and culture sent. I have concern that this lesion may be cancerous in nature. I advised prompt outpatient follow up with PCP and dermatology. Referral provided. Will place patient on keflex and doxy in the meantime. Patient has remained stable throughout ED visit today. Discussed worrisome signs and symptoms and when to return to the ED. All questions answered at this time. Patient is agreeable with disposition and stable for discharge. Medications Administered Discontinued Medications Generic Name Dose Route Start Last Admin Trade Name Freq PRN Reason Stop Dose Admin Lidocaine HCl 1 appl 10/18/24 11:27 10/18/24 11:33 Lidocaine 4 % Cream Kit TOPICAL 10/18/24 11:28 1 appl ONCE ONE Administration Protocol Lidocaine HCl 5 ml 10/18/24 12:09 10/18/24 12:53 Lidocaine Hcl 1 % Mpf 5 Ml Vial INFILTRATI 10/18/24 12:10 5 ml ONCE ONE Administration Medical Decision Making Medical Decision Making MDM Narrative: 44-year-old Vincentian-speaking female, left hand dominant, with pmhx significant for HTN, lymphoma, GERD presents to the ED today for evaluation of wound to right middle finger x1 week. she is hypertensive, vitals are otherwise wnl. she is well appearing and in NAD. On exam, raised circular lesion noted to dorsal aspect of distal right 3rd digit. indurated center with surrounding fluctuance. no bleeding or discharge. ttp. no streaking. FROM intact to digit. sensation intact. Differential diagnosis includes blood blister, hemangioma, skin carcinoma, skin lesion, abscess Plan for needle aspiration, routine Gram stain/culture, and disposition. I do not feel as thought imaging is warranted at this time. Differential Diagnosis Differential Diagnoses: The differential diagnosis associated with the presentation includes as above. Admission/Observation not indicated External Record Review External record reviewed: Inpatient record Prescription Management I considered prescription management with: Pain Medication and Antibiotic (keflex, doxy) Social Determinants Patient?s care significantly limited by Social Determinants of Health including: Other Social Determinant of Health Critical Care Time Critical Care Time Critical Care Time: No Discharge Plan Discharge Clinical Impression: Finger lesion Patient Disposition: Home, Self-Care Instructions: Skin Biopsy (DC) Additional Instructions: The lesion on your right middle finger appears infected. A swab from the lesion has been sent to the lab to see what bacteria grows. In the meantime I am placing you on 2 different antibiotics (Keflex and doxycycline). Take both of these as prescribed. Take these to completion. As discussed, I am concerned about this skin lesion and feel you'd benefit from a biopsy of the area. I have provided you with referrals to dermatology. Please follow up with your primary care provider as well as you made need a referral from them. Return with any new or worsening symptoms. In the case of an emergency call 911. Prescriptions: New cephalexin 500 mg capsule 500 mg PO QID 7 Days Qty: 28 0RF doxycycline monohydrate 100 mg capsule 100 mg PO BID 7 Days Qty: 14 0RF No Action cholecalciferol (vitamin D3) 50 mcg (2,000 unit) capsule 50 mcg PO DAILY 90 Days Qty: 90 1RF cholestyramine (with sugar) 4 gram powder 4 g PO TID Qty: 378 0RF Rx Instructions: administer w/meal; avoid other meds within 1hr before or 4-6hr after dose losartan 50 mg tablet 50 mg PO DAILY 90 Days Qty: 90 1RF omeprazole 20 mg capsule,delayed release(DR/EC) 20 mg PO DAILY@0630 albuterol sulfate 0.63 mg/3 mL solution for nebulization 0.63 mg inhalation Q4H PRN (Reason: shortness of breath or wheezing) Qty: 75 0RF sumatriptan succinate 25 mg tablet See Rx Instructions PO .COMPLEX Qty: 7 0RF Rx Instructions: take 1 tab at onset of headache; if no relief may repeat 1 tab after at least 2 hrs; max = 4 tabs/24 hr PO albuterol sulfate [Ventolin HFA] 90 mcg/actuation HFA aerosol inhaler 2 puff inhalation Q6H PRN (Reason: shortness of breath or wheezing) 30 Days Qty: 8 1RF tramadol 50 mg tablet 50 mg PO Q12H PRN (Reason: pain) Qty: 40 0RF Referrals: [facility] [Provider Group] - 1 week (concerning skin lesion hx lymphoma) Tara Powell MD [Primary Care Provider] - 3 days (concerning skin lesion) Interventions: ED Discharge Assessment Last Done: 10/18/24 13:51 Discharge Date/Time: 10/18/24 13:53 Print Language: Vincentian
[2024-10-18] MEDS: Lidocaine 4 % Cream KIT 1 APPL TOPICAL (11:33)
[2024-10-18 12:11] VITALS: BP 167/100; PULSE 82; RESP 18; TEMP 36.9; O2SAT 95
[2024-10-18] MEDS: Lidocaine HCl 1 % MPF 5 ML VIAL INFILTRATI (12:53)
[2024-10-18 13:48] VITALS: BP 158/91; PULSE 72; RESP 18; TEMP 36.8; O2SAT 98
[2024-10-18 13:51] VITALS: BP 158/91; PULSE 72; RESP 18; TEMP 36.8; O2SAT 98
== END 2024-10-18 13:53 | disposition home or self-care (01) ==
PROVIDERS: Emergency Provider Emergency Medicine; PCP Internal Medicine
DX: L98.9 Disorder of the skin and subcutaneous tissue, unspecified (principal); M79.645 Pain in left finger(s)
CPT/HCPCS: 87070; 87147; 87205; 99284; J2003

== ENCOUNTER 2024-10-19 13:10 | Outpatient (AMB) | payer OTHER, SELFPAY ==
--- NOTE | 2024-10-19 13:12 | MHC.PC.OV ---
Vital Signs 10/19/24 13:13 Height 5 ft 6 in Weight 186 lb BMI 30.0 BP 136/82 Blood Pressure Location Lt brachial Position Sitting Intake Visit Reasons: Finger lesion Cafe Operator Required: No Accompanied by: Self / Same As Patient Allergies ibuprofen [From Advil] Allergy (Severe, Verified 10/19/24 13:51) Angioedema aspirin [ASPIRIN] Allergy (Intermediate, Verified 10/19/24 13:51) SWELLING cyclobenzaprine [From FLEXERIL] Allergy (Intermediate, Verified 10/19/24 13:51) SWELLING Medication List - Last Reconciled 10/19/24 by Tara Mobley MD albuterol sulfate 0.63 mg (3 mL) inhalation Q4H PRN cephalexin 500 mg PO QID 7 days cholecalciferol (vitamin D3) 50 mcg PO DAILY 90 days cholestyramine (with sugar) 4 gram 4 grams PO TID doxycycline monohydrate 100 mg PO BID 7 days losartan 50 mg PO DAILY 90 days omeprazole 20 mg PO DAILY@0630 sumatriptan succinate take 1 tab at onset of headache; if no relief may repeat 1 tab after at least 2 hrs; max = 4 tabs/24 hr PO tramadol 50 mg PO Q12H PRN Ventolin HFA 90 mcg/actuation (albuterol sulfate) 2 puffs inhalation Q6H PRN 30 days NS Tobacco use date assessed: 09/18/24 Dental Screening Dental Screen Date: 08/19/24 HPI HPI Comments History of Present Illness Details The patient is a 44-year-old female presenting with a skin abscess. The abscess was initially identified as a small nodule, which later became inflamed and painful. The patient reported that the abscess was opened and drained, but it continued to discharge fluid and bleed. The patient has experienced weight loss and abdominal pain, which worsens with certain foods such as salsa and pepper. She has been eating very little due to the pain, contributing to her weight loss. The patient also reports experiencing panic attacks, particularly at night, which affect her sleep. These episodes are associated with a fear of vomiting and a general sense of unease when visiting the hospital. [facility] Medical History Lymphoma History of panic attacks Exposure of implanted vaginal mesh Moderate persistent asthma in adult without complication Left leg pain Hand numbness Obese Acute sinusitis Surgical History History of arthroscopy of right shoulder Hx of tubal ligation History of cholecystectomy Family History Mother HIV (human immunodeficiency virus infection) Father Heart attack HIV (human immunodeficiency virus infection) Brother No problems noted. Brother Diabetes Sister No problems noted. Sister No problems noted. Daughter No problems noted. Daughter Down syndrome Other Mental health disorder Social History Household Members: Family Housing: Apartment Are you a primary attending ambulatory care to a significant other at home: No Do you presently have visiting nurse or other home services: No Alcohol intake: never Patient Tobacco Use Status: Never used Tobacco e-Cigarette/Vaping Use: Never Used Second Hand Smoke Exposure: No service: No Current occupational status: employed Current occupational exposures/hazards: No Cognitive needs: No Hearing needs: No Vision needs: No Female Reproductive History Menstrual Age of Menarche: 8 Questionnaire Thrive Questionnaire Date Thrive assessed: 08/19/24 I am a: Patient What is your living situation today?: I have a steady place to live Within the past 12 months, did the food you bought not last and you didn't have the money to get more?: Sometimes True Within the past 12 months, did you worry whether your food would run out before you got money to buy more?: Sometimes True Do you have trouble paying for medicines?: No Do you have trouble getting transportation to medical appointments?: No Do you have trouble paying your heating and electricity bill?: I choose not to answer this question Do you have trouble taking care of your child, family member or friend?: No Do you have trouble with day-to-day activities such as bathing, preparing meals, shopping, managing finances, etc.?: No Are you currently unemployed and looking for a job?: Yes Are you interested in more education?: Yes Please select the resources that you would like help with: Job search/training Currently or been in a relationship where the following occur: No concerns reported THRIVE Score: 2 MACHELLE-7 AMB Questionnaire MACHELLE-7 Date MACHELLE - 7 assessed: 08/19/24 Source: Developed by Drs. Gasper Estrada, Radhika Garcia, Jun Wells and colleagues, with an educational agatha from [employer]. Review of Systems Const All systems reviewed & are unremarkable except as noted in HPI and below Card Denies chest pain at rest, Denies chest pain with activity, Denies edema, Denies irregular heart rhythm, Denies claudication, Denies dyspnea, Denies dyspnea on exertion, Denies orthopnea, Denies paroxysmal nocturnal dyspnea and Denies slow heart rate Resp Denies cough, Denies dyspnea and Denies dyspnea on exertion GI Denies abdominal pain, Denies change in bowel habits, Denies excessive flatus, Denies nausea and Denies vomiting Denies urinary incontinence, Denies urinary hesitancy and Denies urinary urgency Neuro Denies lack of coordination Physical exam (Primary Care) Vital Signs: Last Vital Signs BP 136/82 10/19/24 13:13 BMI result Body Mass Index 30.0 Tobacco/Smoking Status: Tobacco use Status Tobacco use date assessed 09/18/24 10/19/24 13:19 Patient Tobacco Use Status Never used Tobacco 10/19/24 13:19 e-Cigarette/Vaping Use Never Used 10/19/24 13:19 Thrive Assessment: Date of Thrive Assessment Date Thrive assessed 08/19/24 10/19/24 13:19 Currently or been in a relationship where the following occur: No concerns reported Resp Effort & Inspection: normal respiratory effort Auscultation: clear to auscultation bilaterally Cardio Jugular venous distension: no JVD Rate: regular rate Rhythm: regular rhythm Heart sounds: S1 normal heart sound present and S2 normal heart sound present Extrem General: Yes full ROM Coding Level of Care Code Est Pt Level 4 (21837) Complex EM visit Add On G2211 Diagnoses Skin lesion L98.9 Essential hypertension I10 Chronic GERD K21.9 Mild major depression F32.0 Time Spent (min) 22 Assessment & Plan Assessment & Plan (1) Skin lesion: Code(s): L98.9 - Disorder of the skin and subcutaneous tissue, unspecified Category: Medical (2) Essential hypertension: Code(s): I10 - Essential (primary) hypertension Category: Medical (3) Chronic GERD: Code(s): K21.9 - Gastro-esophageal reflux disease without esophagitis Category: Medical (4) Mild major depression: Code(s): F32.0 - Major depressive disorder, single episode, mild Category: Medical Plan The patient will be referred to dermatology for further evaluation of the skin abscess, with consideration for a biopsy to determine the underlying cause. Given the open and draining nature of the abscess, surgical intervention may be necessary, and a referral to surgery has been made to expedite care. For the abdominal pain and weight loss, dietary modifications have been advised to avoid foods that exacerbate symptoms. Further gastrointestinal evaluation may be warranted if symptoms persist. The patient has been advised to manage panic attacks with appropriate interventions, and a follow-up for mental health support may be considered if symptoms continue. Patient was informed and verbally consented to the use of an ambient scribe for clinic note documentation during this visit. Orders: Referrals General Surgery Referral L98.9 - Disorder of the skin and subcutaneous tissue, unspecified Medications: New hydroxyzine HCl 25 mg PO BID PRN 60 tabs 1RF anxiety 30 days
[2024-10-19 13:13] VITALS: BP 136/82
--- OUTSIDE RECORDS SUMMARY | 2024-10-19 14:37 | XMS_ITS | Clinical Summary ---
Author Organization 175 [facility] Address [address] [place] [address] Phone Care Team Providers Care Viticulturist Name Role Phone Unavailable Primary Care Provider Unavailabl e Social History Tobacco Use Types Packs/Day Years Used Date Smoking Tobacco: Never Assessed Comments Unknown Sex and Gender Information Value Date Recorded Sex Assigned at Not on file Legal Sex Female 10:13 AM EDT Gender Identity Not on file Sexual Orientation Not on file Plan of Treatment Upcoming Encounters Date Type Department Care Team ([facility] Contact Info) Description 12/03/2024 9:00 AM EDT Consult Orthopedic Surgery - [place] [id number] [address] Miky Cueva, DPM [address] [address] Health Maintenance Due Date Last Done Comments [...]
== END 2024-10-19 14:06 | disposition home or self-care (01) ==
LOC: HO.HMCH 13:11
PROVIDERS: PCP Internal Medicine; Visit Provider Internal Medicine
DX: L98.9 Disorder of the skin and subcutaneous tissue, unspecified (principal); I10 Essential (primary) hypertension; K21.9 Gastro-esophageal reflux disease without esophagitis; F32.0 Major depressive disorder, single episode, mild

== ENCOUNTER → 2024-10-19 13:10 | Outpatient (BNVA) | payer OTHER, SELFPAY | PROVIDERS: PCP Internal Medicine; Visit Provider Internal Medicine | DX: K21.9 Gastro-esophageal reflux disease without esophagitis (principal); R10.9 Unspecified abdominal pain; R63.4 Abnormal weight loss; L02.519 Cutaneous abscess of unspecified hand; F41.0 Panic disorder [episodic paroxysmal anxiety]; I10 Essential (primary) hypertension; F32.0 Major depressive disorder, single episode, mild | CPT/HCPCS: 99212 ==

== ENCOUNTER 2024-11-02 09:20 | Emergency (ER) | payer OTHER, SELFPAY ==
[2024-11-02 09:30] VITALS: BP 175/104; PULSE 84; RESP 16; TEMP 36.2; O2SAT 98; BMI 32.2
--- NOTE | 2024-11-02 10:24 | ED_ITS ---
HPI - General Adult General Chief complaint: Wound/Laceration Stated complaint: lump on r middle finger Time Seen by Provider: 11/02/24 10:00 Source: patient and court interpreter Limitations: language barrier (Taiwanese-speaking) History of Present Illness ED Provider: Martha Jaramillo PA-C HPI narrative: 44-year-old female with medical history of lymphoma, asthma, GERD, presents to the ED due to worsening pain, and increased growth of lesion of right middle finger. Patient states she has noticed a lesion on this finger for the past 2 months. She has been seen in the department 10/11 and had area drained. She came back to the department on 10/18 due to increased pain and growth of lesion, and prescribed a course of Keflex and doxycycline. She returns today with persistent pain, an eruption of growth of the right middle finger. Patient states the pain is now traveling down to the distal palm, and is having difficulty bending the 1st DIP. Patient reports the lesion is draining clear yellow fluid. Patient has appointment with [facility] 11/17/24 but pain is worsening promting her to seek care today. Denies fevers, chills, nausea, vomiting, diarrhea, black/tarry stool. complaint: lesion of R middle finger Onset (ago): month(s) (2 ) Location: upper extremity (Right 3rd digit directly above DIP) Radiation: non-radiation Severity: moderate Quality: stabbing Pain Consistency: constant Relieving factors: none Exacerbating factors: movement Associated symptoms: denies other symptoms Treatments prior to arrival: none Related Data Home Medications ?Medication ?Instructions ?Recorded ?Confirmed omeprazole 20 mg capsule,delayed 20 mg PO DAILY@0630 0 09/08/24 10/19/24 release Previous Rx's ?Medication ?Instructions ?Recorded albuterol sulfate 0.63 mg/3 mL 0.63 mg (3 mL) inhalati on Q4H PRN 02/27/21 solution for nebulization shortness of breath or wheez ing #75 mL sumatriptan succinate 25 mg tablet See Rx Instructions PO .COMPLEX #7 08/12/23 tabs Ventolin HFA 90 mcg/actuation 2 puff inhalation Q6H NM N 08/19/24 aerosol inhaler (albuterol sulfate) shortness of breat h or wheezing 30 days #8 grams cholecalciferol (vitamin D3) 50 50 mcg PO DAILY 90 day s #90 caps 08/24/24 mcg (2,000 unit) capsule tramadol 50 mg tablet 50 mg PO Q12H PRN pain #40 t abs 10/06/24 cholestyramine (with sugar) 4 gram 4 g PO TID #378 gra ms 10/07/24 oral powder losartan 50 mg tablet 50 mg PO DAILY 90 days #90 t abs 10/08/24 cephalexin 500 mg capsule 500 mg PO QID 7 days #28 cap s 10/18/24 doxycycline monohydrate 100 mg 100 mg PO BID 7 days #1 4 caps 10/18/24 capsule hydroxyzine HCl 25 mg tablet 25 mg PO BID PRN anxiety 30 days 10/19/24 #60 tabs Allergies Allergy/AdvReac Type Severity Reaction Status Date / Time ibuprofen (From Advil) Allergy Severe Angioedema Verified 11/02/24 09:33 aspirin (ASPIRIN) Allergy Intermediate SWELLING Verified 11/02/24 09:33 cyclobenzaprine (From Allergy Intermediate SWELLING Verified 11/02/24 09:33 FLEXERIL) Review of Systems Review of Systems: CONST: Negative for fever, body aches and chills. HENT: Negative for neck pain/stiffness, headache, congestion, sore throat, swelling. EYES: Negative for discharge/pain or vision changes. RESP: Negative for cough/hemoptysis and shortness of breath. CV: Negative chest pain, difficulty breathing, palpitations. ABD: Negative pain, nausea, vomiting. : Negative increase frequency, dysuria, blood in urine or stool. MUSC: Negative for muscle aches, edema. SKIN: Negative rash, lesions/sores. POS pain, continued growth of lesion on R DIP 3rd digit NEURO: Negative headache, dizziness, weakness. Yes all other systems are reviewed and are negative [facility] Past Medical History Attestation statement: The following information was validated with the patient. Source: old records reviewed and nursing notes reviewed Medical History Lymphoma History of panic attacks Exposure of implanted vaginal mesh Moderate persistent asthma in adult without complication Left leg pain Hand numbness Obese Acute sinusitis Surgical History History of arthroscopy of right shoulder Hx of tubal ligation History of cholecystectomy Family History Family History Mother HIV (human immunodeficiency virus infection) Father Heart attack HIV (human immunodeficiency virus infection) Brother No problems noted. Brother Diabetes Sister No problems noted. Sister No problems noted. Daughter No problems noted. Daughter Down syndrome Other Mental health disorder Social History Social History Household Members: Family Housing: Apartment Are you a primary child care lead teacher to a significant other at home: No Do you presently have visiting nurse or other home services: No Alcohol intake: never Patient Tobacco Use Status: Never used Tobacco e-Cigarette/Vaping Use: Never Used Second Hand Smoke Exposure: No Advance Directives: No Advance Directives Information Provided: Yes Do you have a plan to hurt others: No Plan service: No Current occupational status: employed Current occupational exposures/hazards: No Cognitive needs: No Hearing needs: No Vision needs: No Physical Exam ED Vital Signs: Vital Signs - 24 hr 11/02/24 09:30 Temperature 97.1 F Pulse Rate 84 Respiratory Rate 16 Blood Pressure 175/104 H Pulse Oximetry 98 Oxygen Delivery Method Room Air BMI result Body Mass Index 32.2 GENERAL APPEARANCE: ?AxOx4, generally well-appearing, no acute distress. HEENT: ?NC, AT. MMM. EOMI, clear conjunctiva, oropharynx clear. HEART:? Normal rate and regular rhythm, normal S1/S1, no m/r/g LUNGS:? CTAB, moving air well. No crackles or wheezes are heard. ABDOMEN: ?Soft, nontender, nondistended with good bowel sounds heard. BACK: No CVAT, no obvious deformity. EXTREMITIES: ?Without cyanosis, clubbing or edema. R hand, 3rd digit DIP with skin lesion/growth scant yellow fluid, no erythema, no edema of finger, ROM of DIP limited due to pain. Radial pulse 2+ NEUROLOGICAL: ?Grossly nonfocal. Alert and oriented, moving all 4 extremities. Observed to ambulate with normal gait. Skin: ?Warm and dry without any rash. Medical Decision Making Medical Decision Making MDM Narrative: 44-year-old female with medical history of lymphoma, asthma, GERD, presents to the ED due to worsening pain, and increased growth of lesion of right middle finger. Patient states she has noticed a lesion on this finger for the past 2 months. She has been seen in the department 10/11 and had area drained. She came back to the department on 10/18 due to increased pain and growth of lesion, and prescribed a course of Keflex and doxycycline. She returns today with persistent pain, an eruption of growth of the right middle finger. Patient states the pain is now traveling down to the distal palm, and is having difficulty bending the 1st DIP. Patient reports the lesion is draining clear yellow fluid. Patient has appointment with [facility]/24 but pain is worsening prompting her to seek care today. VSS, hypertensive on chart review this seems to be patient's baseline, in no acute distress, nontoxic appearing. On physical exam right hand reveals lesion/ skin eruption of the 3rd digit DIP, scant yellow fluid, no erythema, no edema of finger, TTP, no streaking, ROM of DIP limited due to pain, sensations intact. Radial pulse 2+ Patient has been seen twice in the emergency department over the last month. Lesion keeps growing. I believe this could be a possible nodular melanoma, patient needs biopsy of finger. I called [facility] today and was able to get the patient in sooner on 11/09 at 9:30 a.m. I let the patient know that she has a new appointment that was moved up. Patient is in understanding of her new appointment, urged the patient that she can not miss this appointment. Urged the patient that she needs a biopsy of the finger. Counseled the patient on strict return precautions. Differential Diagnosis Differential Diagnoses: The differential diagnosis associated with the presentation includes Skin carcinoma Skin lesion Hemangioma Abscess External Record Review External record reviewed: Inpatient record, Office record and Outpatient record Discharge Plan Discharge Clinical Impression: Finger lesion Patient Disposition: Home, Self-Care Additional Instructions: You were evaluated in the ED today due to a finger lesion on your right 3rd finger. You have been seen multiple times in the ED due to this lesion that is growing. I called [facility] today who was able to move up your appointment to 11/09/2024 at 9:30 a.m. please make sure to go to this appointment do not miss it. I believe you need a biopsy of this finger lesion. You can continue to take Tylenol every 6 hours to manage your pain. Please return to the emergency department if you experience fevers over 100.4?, increasing pain, increasing drainage, inability to move the right hand, tightness of the right limb, or any other new/concerning/worsening symptoms. Prescriptions: No Action cholecalciferol (vitamin D3) 50 mcg (2,000 unit) capsule 50 mcg PO DAILY 90 Days Qty: 90 1RF cholestyramine (with sugar) 4 gram powder 4 g PO TID Qty: 378 0RF Rx Instructions: administer w/meal; avoid other meds within 1hr before or 4-6hr after dose losartan 50 mg tablet 50 mg PO DAILY 90 Days Qty: 90 1RF omeprazole 20 mg capsule,delayed release(DR/EC) 20 mg PO DAILY@0630 cephalexin 500 mg capsule 500 mg PO QID 7 Days Qty: 28 0RF doxycycline monohydrate 100 mg capsule 100 mg PO BID 7 Days Qty: 14 0RF albuterol sulfate 0.63 mg/3 mL solution for nebulization 0.63 mg inhalation Q4H PRN (Reason: shortness of breath or wheezing) Qty: 75 0RF sumatriptan succinate 25 mg tablet See Rx Instructions PO .COMPLEX Qty: 7 0RF Rx Instructions: take 1 tab at onset of headache; if no relief may repeat 1 tab after at least 2 hrs; max = 4 tabs/24 hr PO hydroxyzine HCl 25 mg tablet 25 mg PO BID PRN (Reason: anxiety) 30 Days Qty: 60 1RF albuterol sulfate [Ventolin HFA] 90 mcg/actuation HFA aerosol inhaler 2 puff inhalation Q6H PRN (Reason: shortness of breath or wheezing) 30 Days Qty: 8 1RF tramadol 50 mg tablet 50 mg PO Q12H PRN (Reason: pain) Qty: 40 0RF Print Language: Taiwanese
--- OUTSIDE RECORDS SUMMARY | 2024-11-02 11:00 | XMS_ITS | Clinical Summary ---
Author Organization 175 [facility] Address [address] [place] [address] Phone Care Team Providers Care Senior Net Architect Name Role Phone Unavailable Primary Care Provider Unavailabl e Social History Tobacco Use Types Packs/Day Years Used Date Smoking Tobacco: Never Assessed Comments Unknown Sex and Gender Information Value Date Recorded Sex Assigned at Not on file Legal Sex Female 10:13 AM EDT Gender Identity Not on file Sexual Orientation Not on file Plan of Treatment Upcoming Encounters Date Type Department Care Team ([facility] Contact Info) Description 12/03/2024 9:00 AM EDT Consult Orthopedic Surgery - [place] [address] [phone] Miky Cueva, DPM [address] [address] Health Maintenance Due Date Last Done Comments [...]
[2024-11-02 11:55] VITALS: BP 175/104; PULSE 84; RESP 16; TEMP 36.2; O2SAT 98
== END 2024-11-02 12:38 | disposition home or self-care (01) ==
PROVIDERS: Emergency Provider Emergency Medicine; PCP Internal Medicine
DX: R22.31 Localized swelling, mass and lump, right upper limb (principal); M79.644 Pain in right finger(s)
CPT/HCPCS: 99282

== ENCOUNTER 2024-11-09 14:44 | Outpatient (AMB) | payer OTHER, SELFPAY ==
--- NOTE | 2024-11-09 15:00 | A.OFFVIS_ITS ---
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 Patient states she has noticed a lesion on this finger for the past 2 months. She has been seen in ED department 10/11 and had area drained. She returned to the department on 10/18 due to increased pain and growth of lesion, and was prescribed a course of Keflex and doxycycline. She return to ED on 11/02/24 with persistent pain, an eruption of growth of the right middle finger. Patient states the pain is now traveling down to the distal palm, and is having difficulty bending the 1st DIP. Patient reports the lesion is draining clear yellow fluid. Patient has appointment with [facility] 11/17/24 but pain is worsening. 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 Patient states she has noticed a lesion on this finger for the past 2 months. She has been seen in ED department 10/11 and had area drained. She returned to the department on 10/18 due to increased pain and growth of lesion, and was prescribed a course of Keflex and doxycycline. She return to ED on 11/02/24 with persistent pain, an eruption of growth of the right middle finger. Patient states the pain is now traveling down to the distal palm, and is having difficulty bending the 1st DIP. Patient reports the lesion is draining clear yellow fluid. Patient has appointment with [facility] 11/17/24 but pain is worsening. [facility] Medical History Lymphoma History of panic attacks Exposure of implanted vaginal mesh Moderate persistent asthma in adult without complication Left leg pain Hand numbness Obese Acute sinusitis Surgical History History of arthroscopy of right shoulder Hx of tubal ligation History of cholecystectomy Family History Mother HIV (human immunodeficiency virus infection) Father Heart attack HIV (human immunodeficiency virus infection) Brother No problems noted. Brother Diabetes Sister No problems noted. Sister No problems noted. Daughter No problems noted. Daughter Down syndrome Other Mental health disorder Social History Household Members: Family Housing: Apartment Are you a primary healthcare corporate account director to a significant other at home: No Do you presently have visiting nurse or other home services: No Alcohol intake: never Patient Tobacco Use Status: Never used Tobacco e-Cigarette/Vaping Use: Never Used Second Hand Smoke Exposure: No service: No Current occupational status: employed Current occupational exposures/hazards: No Cognitive needs: No Hearing needs: No Vision needs: No Female Reproductive History Menstrual Age of Menarche: 8 Review of Systems Const All systems reviewed & are unremarkable except as noted in HPI and below Physical Exam Vital Signs: BMI result Body Mass Index 31.1 Extrem Other: Patient is alert, oriented, and in no acute distress. Neuro: Normal sensation of the tips of all digits of the right hand at this time Vascular: Cap refill brisk Pain: Mild tenderness to palpation about the mass noted on the volar aspect of the distal right middle finger Pain with range of motion of the right middle finger ROM: Patient is able to get close to making a closed fist with the right middle finger, but reports pain when doing so Can flex and extend all other digits fully and without difficulty Skin: There is noted to be an approximately 2 cm in diameter lesion with the appearance of emerging from the skin Lesion is mushroom shaped There appears to be some moisture present on the lesion, no purulence or evidence of infection No lacerations or abrasions. General: No ecchymosis, erythema, or evidence of infection. Psych: Appears grossly normal Affect normal Attitude cooperative Assessment & Plan Assessment & Plan (1) Skin lesion of right upper extremity: Code(s): L98.9 - Disorder of the skin and subcutaneous tissue, unspecified Category: Medical Plan 1. Lesion of right middle finger Patient is educated about this condition Patient is educated about the typical recovery course At this time, patient is referred to Dr. Browne for surgical consult and discussion of removal of this mass Follow-up in 1-[address] Browne Patient is amenable to this plan Coding Level of Care Code New Pt Level 3 (65471) Diagnoses Skin lesion of right upper extremity L98.9
[2024-11-09 15:01] VITALS: BMI 31.1
--- OUTSIDE RECORDS SUMMARY | 2024-11-09 15:15 | XMS_ITS | Patient Health Record ---
Author Organization Gasper Ruiz III, MD Address [address] [place] [address] Care Team Providers Care Senior Web Engineer Name Role Phone [facility] Morris MD Primary Care Provider Gasper Adams Unavailable [phone] Allergies Allergen (clinical drug ingredient) Drug/Non Drug [...] Problem Status W/U Status Risk Notes Problem 800894388 Granulocytopenia (D70.9) Active confirmed The mild neutro penia and granulocytopenia is stable. Flow cytometry on the lymph node showed no lymphoproliferative clonal process. Problem [id number] Lymphadenopathy (R59.1) Active confirmed The biopsy of t he lymph node showed granulomatous disease and she is now being treated with triple therapy at the tuberculosis clinic in [place], [place]. She will not need to return to this office. Problem [id number] Allergic to aspirin (Z88.8) Active confirmed She has had no serious reactions lately. Plan Of Treatment No Information Insurance Providers Payer Name Payer Address Payer Phone Subscriber Number Group Number Insured Name Patient Relationship to Insured Coverage Start Date Coverage End Date [place] [address] TIFFANY WHITTEN [id number] [phone] [id number] Jasson Duke Self - patient is the insured Medical (General) History Medical History History ICD Code Panic attacks menstrual irregularity hemorrhoids intermittent chronic diarrhea Surgical History Surgery Date(Month/Year) tubal ligation lymph node excision mesh placement cholecystectomy, [facility], Dr. West 2013 Hospitalization History Reason Date(Month/Year) cholecystectomy 2013
--- OUTSIDE RECORDS SUMMARY | 2024-11-09 15:15 | XMS_ITS | Clinical Summary ---
Author Organization [facility] Address [address] [place] [address] Phone Care Team Providers Care Directional Bore Operator Name Role Phone Unavailable Primary Care Provider Unavailabl e Social History Tobacco Use Types Packs/Day Years Used Date Smoking Tobacco: Never Assessed Comments Unknown Sex and Gender Information Value Date Recorded Sex Assigned at Not on file Legal Sex Female 10:13 AM EDT Gender Identity Not on file Sexual Orientation Not on file Plan of Treatment Upcoming Encounters Date Type Department Care Team ([facility] Contact Info) Description 12/03/2024 9:00 AM EDT Consult Orthopedic Surgery - [place] [address] [address] Miky Cueva, DPM [address] [address] Health Maintenance Due Date Last Done Comments [...] 5 Years) and At-Risk Patients (6 to 49 Years) Aged Out No longer eligible b ased on patient's age to complete this topic RSV Immunization Patients Un lorri 20 months Aged Out No longer eligible b ased on patient's age to complete this topic Varicella Vaccines Aged Out No longer eligible based on patient's age to complete this topic Insurance MEDICAID - [place]
== END 2024-11-09 15:35 | disposition home or self-care (01) ==
LOC: HO.HOS 14:44
PROVIDERS: PCP Internal Medicine
DX: L98.9 Disorder of the skin and subcutaneous tissue, unspecified (principal)
CPT/HCPCS: 99203

== ENCOUNTER → 2024-11-09 14:44 | Outpatient (BNVA) | payer OTHER, SELFPAY | PROVIDERS: PCP Internal Medicine | DX: L98.9 Disorder of the skin and subcutaneous tissue, unspecified (principal) | CPT/HCPCS: 99202 ==

== ENCOUNTER 2024-11-13 10:40 | Outpatient (AMB) | payer OTHER, SELFPAY ==
--- NOTE | 2024-11-12 20:05 | A.OFFVIS_ITS ---
Intake Visit Reasons: hematuria Intake Note: New patient presents today for initial visit for hematuria Urology Medication:None Blood Thinner:None Antibiotic Allergies:None PVR:115ml Gum Rolling Machine Operator Name: [id number] bala Allergies ibuprofen (From Advil) Allergy (Severe, Verified 11/13/24 15:08) Angioedema aspirin (ASPIRIN) Allergy (Intermediate, Verified 11/13/24 15:08) SWELLING cyclobenzaprine (From FLEXERIL) Allergy (Intermediate, Verified 11/13/24 15:08) SWELLING HPI Comments Details: New patient for hematuria The patient has had multiple imaging over the last few months 1 CTAP without contrast question 2 mm stone, 1 CTAP with contrast no urolithiasis, abdominal ultrasound no urolithiasis PFSH Medical History Lymphoma History of panic attacks Exposure of implanted vaginal mesh Moderate persistent asthma in adult without complication Left leg pain Hand numbness Obese Acute sinusitis Surgical History History of arthroscopy of right shoulder Hx of tubal ligation History of cholecystectomy Family History Mother HIV (human immunodeficiency virus infection) Father Heart attack HIV (human immunodeficiency virus infection) Brother No problems noted. Brother Diabetes Sister No problems noted. Sister No problems noted. Daughter No problems noted. 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 Current occupational exposures/hazards: No Cognitive needs: No Hearing needs: No Vision needs: No Female Reproductive History Menstrual Age of Menarche: 8 Review of Systems Const All systems reviewed & are unremarkable except as noted in HPI and below Reports no additional complaints Eyes Reports no additional complaints ENT Reports no additional complaints Card Reports no additional complaints Resp Reports no additional complaints GI Reports no additional complaints Reports as per HPI Musc Reports no additional complaints Skin/Breast Reports system reviewed and no additional complaints, except as documented Neuro Reports no additional complaints Psych Reports no additional complaints Endo Reports no additional complaints Compa/Lymph Reports no additional complaints Aller/Immun Reports no additional complaints Results AMB Urinalysis, Automated UA Leukoctes 0 Michael/uL Last Edit by Jaylyn Islas on 11/13/24 15:18 UA Nitrite Negative Last Edit by Jaylyn Islas on 11/13/24 15:18 UA Urobilinogen 3.5 mg/dL Last Edit by Jaylyn Islas on 11/13/24 15:18 UA Protein 1 mg/dL Last Edit by Jaylyn Islas on 11/13/24 15:18 UA pH 6.0 Last Edit by Jaylyn Islas on 11/13/24 15:18 UA Blood 80 Tyson/uL Last Edit by Jaylyn Islas on 11/13/24 15:18 UA Specific [place] 1.025 Last Edit by Jaylyn Islas on 11/13/24 15:18 UA Ketone Negative Last Edit by Jaylyn Islas on 11/13/24 15:18 UA Bilirubin 0 mg/dL Last Edit by Jaylyn Islas on 11/13/24 15:18 UA Glucose 0 mg/dL Last Edit by Jaylyn Islas on 11/13/24 15:18 Assessment & Plan Assessment & Plan Orders: Orders AMB Urinalysis Automated Today Z13.9 - Encounter for screening, unspecified Coding
--- OUTSIDE RECORDS SUMMARY | 2024-11-13 11:17 | XMS_ITS | Clinical Summary ---
Author Organization 175 [facility] Address [address] [place] [address] Phone Care Team Providers Care Set Painter Name Role Phone Unavailable Primary Care Provider Unavailabl e Social History Tobacco Use Types Packs/Day Years Used Date Smoking Tobacco: Never Assessed Comments Unknown Sex and Gender Information Value Date Recorded Sex Assigned at Not on file Legal Sex Female 10:13 AM EDT Gender Identity Not on file Sexual Orientation Not on file Plan of Treatment Upcoming Encounters Date Type Department Care Team ([facility] Contact Info) Description 12/03/2024 9:00 AM EDT Consult Orthopedic Surgery - [place] [address] [address] Miky Cueva, DPM [address] [address] Health Maintenance Due Date Last Done Comments Breast Cancer Screening 1980 DTaP,Tdap,and Td Vaccines (1 - Tdap) 01/02/1999 Hepatitis B Vaccines (1 of 3 - 19+ 3-dose series) 01/02/1999 Cervical Cancer Screening: P ap Smear 01/02/2001 COVID-19 Vaccine ( - 2023-2 5 season) 2024 Depression Screening 09/08/2024 HIV Screening 09/08/2024 Hepatitis C Screening 09/08/2024 Social Influencers of Health Screening 09/08/2024 Influenza Vaccine (#1) 2025 HIB Vaccines Aged Out No longer [...]
--- OUTSIDE RECORDS SUMMARY | 2024-11-13 11:17 | XMS_ITS | Patient Health Record ---
Author Organization Gasper Ruiz III, MD Address [address] [address] Care Team Providers Care Supervisor Acoustical Tile Carpenters Name Role Phone Mt Morris MD Primary Care Provider Gasper Adams Unavailable [phone] Allergies Allergen (clinical drug ingredient) Drug/Non Drug [...] Problem Status W/U Status Risk Notes Problem [id number] Granulocytopenia (D70.9) Active confirmed The mild neutro penia and granulocytopenia is stable. Flow cytometry on the lymph node showed no lymphoproliferative clonal process. Problem [id number] Lymphadenopathy (R59.1) Active confirmed The biopsy of t he lymph node showed granulomatous disease and she is now being treated with triple therapy at the tuberculosis clinic in [place], [place]. She will not need to return to this office. Problem [id number] Allergic to aspirin (Z88.8) Active confirmed She has had no serious reactions lately. Plan Of Treatment No Information Insurance Providers Payer Name Payer Address Payer Phone Subscriber Number Group Number Insured Name Patient Relationship to Insured Coverage Start Date Coverage End Date MEDICAID [place] [address] TIFFANY WHITTEN [id number] [phone] [id number] Jasson Duke Self - patient is the insured Medical (General) History Medical History History ICD Code Panic attacks menstrual irregularity hemorrhoids intermittent chronic diarrhea Surgical History Surgery Date(Month/Year) tubal ligation lymph node excision mesh placement cholecystectomy, [facility], Dr. West 2013 Hospitalization History Reason Date(Month/Year) cholecystectomy 2013
== END 2024-11-13 12:05 | disposition home or self-care (01) ==
LOC: HO.HUSH 10:41
PROVIDERS: PCP Internal Medicine; Visit Provider Urology
DX: Z13.9 Encounter for screening, unspecified (principal)

== ENCOUNTER 2024-11-13 10:40 | Outpatient (REF) | payer OTHER, SELFPAY | END 2024-11-13 10:41 | disposition home or self-care (01) | LOC: HO.LAB 10:40 | PROVIDERS: PCP Internal Medicine; Visit Provider Urology | DX: R30.0 Dysuria (principal); R31.9 Hematuria, unspecified; L98.0 Pyogenic granuloma; L98.9 Disorder of the skin and subcutaneous tissue, unspecified; Z13.9 Encounter for screening, unspecified | CPT/HCPCS: 81003; 88112; 99212 ==

== ENCOUNTER 2024-11-13 14:45 | Outpatient (AMB) | payer OTHER, SELFPAY ==
--- NOTE | 2024-11-13 15:02 | A.OFFVIS_ITS ---
Vital Signs 11/13/24 15:11 Height 5 ft 6 in Weight 193 lb BMI 31.1 Handedness Left Intake Visit Reasons: OV-RT 3rd digit mass Intake Note: Jasson is a 44 year old left hand dominant female presents today for a follow up visit of her right middle finger lump. Patient has appointment with [facility] 11/17/24 but pain is worsening. She expresses that the lump on the volar aspect of the right middle finger is casuing her a lot of pain. Patient has been wrapping her finger at night and through out the day but she notices white liquid and blood coming out. 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 She has had a three-month history of a growing mass on the pad of her right middle finger. She says the ER tried to do something to get rid of it but it did not work and was painful. She says that it just keeps getting bigger and is fragile and bleeds a lot. She denies any known injury. [facility] Medical History Lymphoma History of panic attacks Exposure of implanted vaginal mesh Moderate persistent asthma in adult without complication Left leg pain Hand numbness Obese Acute sinusitis Surgical History History of arthroscopy of right shoulder Hx of tubal ligation History of cholecystectomy Family History Mother HIV (human immunodeficiency virus infection) Father Heart attack HIV (human immunodeficiency virus infection) Brother No problems noted. Brother Diabetes Sister No problems noted. Sister No problems noted. Daughter No problems noted. Daughter Down syndrome Other Mental health disorder Social History (Updated 11/13/24 @ 15:11 by Elisha Zamarirpa) Household Members: Family Housing: Apartment Are you a primary patient care coordinator to a significant other at home: No Do you presently have visiting nurse or other home services: No Alcohol intake: never Patient Tobacco Use Status: Never used Tobacco e-Cigarette/Vaping Use: Never Used Second Hand Smoke Exposure: No service: No Current occupational status: employed Current occupation: left hand dominant Current occupational exposures/hazards: No Cognitive needs: No Hearing needs: No Vision needs: No Female Reproductive History Menstrual Age of Menarche: 8 Physical Exam Vital Signs: BMI result Body Mass Index 31.1 Extrem Other: The patient was alert oriented and in no acute distress. She has a rather large soft tissue mass most consistent with a pyogenic granuloma on the pad of her right middle finger. It measures perhaps 2 cm in diameter. It has a fairly large stalk that is probably 8-10 mm in diameter. She has good active range of motion at the MCP and PIP joints. No purulence or evidence of infection. Cap refill brisk to the tip of the digit Radiographs three views of the right hand from 10/11/2024 were reviewed by me today in clinic. They show no fractures or bony abnormalities in the middle finger. Results AMB Urinalysis, Automated UA Leukoctes 0 Michael/uL Last Edit by Crystal Islas on 11/13/24 15:18 UA Nitrite Negative Last Edit by Crystal Islas on 11/13/24 15:18 UA Urobilinogen 3.5 mg/dL Last Edit by Crystal Islas on 11/13/24 15:18 UA Protein 1 mg/dL Last Edit by Crystal Islas on 11/13/24 15:18 UA pH 6.0 Last Edit by Crystal Islas on 11/13/24 15:18 UA Blood 80 Tyson/uL Last Edit by Crystal Islas on 11/13/24 15:18 UA Specific [place] 1.025 Last Edit by Crystal Islas on 11/13/24 15:18 UA Ketone Negative Last Edit by Crystal Islas on 11/13/24 15:18 UA Bilirubin 0 mg/dL Last Edit by Crystal Islas on 11/13/24 15:18 UA Glucose 0 mg/dL Last Edit by Crystal Islas on 11/13/24 15:18 Assessment & Plan Assessment & Plan (1) Pyogenic granuloma: Code(s): L98.0 - Pyogenic granuloma Category: Medical (2) Skin lesion of right upper extremity: Code(s): L98.9 - Disorder of the skin and subcutaneous tissue, unspecified Category: Medical Plan Assessment and plan: 1. Right middle finger soft tissue mass consistent with pyogenic granuloma Pad of the finger X3 months I educated the patient about this condition We discussed operative and non operative treatment options and I am recommending surgery. Looking at the calendar looks like the soon as we can get it in his going to be on Saturday11/23/2024 The risks and benefits of operative treatment were discussed with the patient and the patient wishes to proceed with surgery. These risks include, but are not limited to risk of damage to blood vessels, nerves, tendons, infection, recurrence, incomplete relief of preoperative symptoms, persistent pain, possible need for further surgery and the risks associated with regional blocks and anesthesia. The plan is to take the patient to the operating room 11/23/2024 for the following procedures: 1. Right middle finger mass excisional biopsy under general 2. [ ] All of the preoperative paperwork including the consent was filled out today. All the patient's questions were answered. The patient understands that they will be contacted by our chief of surgery soon to schedule this procedure She is going to be seeing a plastic surgeon on Saturday. I told her that if they can get her in sooner it would not hurt my feelings at all for her to get this done sooner. However this way we at least have her down with a placed on the OR schedule for the 23 of November. She would prefer to have this done under general, and I do not think that is unreasonable. Coding Level of Care Code Est Pt Level 4 (58699) Diagnoses Pyogenic granuloma L98.0 Skin lesion of right upper extremity L98.9
[2024-11-13 15:11] VITALS: BMI 31.1
== END 2024-11-13 16:28 | disposition home or self-care (01) ==
LOC: HO.HOS 14:45
PROVIDERS: PCP Internal Medicine; Visit Provider Orthopaedic Surgery
DX: L98.0 Pyogenic granuloma (principal); L98.9 Disorder of the skin and subcutaneous tissue, unspecified
CPT/HCPCS: 99214

== ENCOUNTER 2024-11-20 07:14 | Outpatient (REF) | payer OTHER, SELFPAY ==
--- NOTE | ~2024-11-20 | FL_ITS ---
EXAMINATION: XR FLUOROSCOPY UPPER GI WITH AIR CLINICAL INFORMATION: Gastroesophageal reflux disease without esophagitis. COMPARISON: None available. TECHNIQUE: Routine upper GI air contrast study was performed in upright and lying position. FINDINGS: Following oral administration of thick barium and effervescent granules there is normal propagation bolus from the oral cavity through the pharynx, esophagus into stomach without any evidence of obstruction, narrowing or stricture. On placing patient supine and prone lying the course, caliber and peristalsis of the stomach, duodenal bulb and sweep is normal. The mucosal pattern of stomach and duodenum is normal. FLUOROSCOPY TIME: 2 minute 44 seconds DOSE AREA PRODUCT: [id number] uGy-m2 (microgray-meter squared) FL/FL upper GI w air IMPRESSION: Unremarkable upper GI air contrast study. Electronically signed by: Pramod Gay MD 11/20/2024 01:38 PM EDT
--- OUTSIDE RECORDS SUMMARY | 2024-11-20 07:16 | XMS_ITS | Patient Health Record ---
Author Organization Gasper Ruiz III, MD Address [address] [place] [address] Care Team Providers Care Extract Operator Name Role Phone Mt Morris MD Primary Care Provider Gasper Adams Unavailable [phone] Allergies Allergen (clinical drug ingredient) Drug/Non Drug [...] Problem Status W/U Status Risk Notes Problem [id number] Granulocytopenia (D70.9) Active confirmed The mild neutro penia and granulocytopenia is stable. Flow cytometry on the lymph node showed no lymphoproliferative clonal process. Problem [id number] Lymphadenopathy (R59.1) Active confirmed The biopsy of t he lymph node showed granulomatous disease and she is now being treated with triple therapy at the tuberculosis clinic in [place], [place]. She will not need to return to this office. Problem [id number] Allergic to aspirin (Z88.8) Active confirmed She has had no serious reactions lately. Plan Of Treatment No Information Insurance Providers Payer Name Payer Address Payer Phone Subscriber Number Group Number Insured Name Patient Relationship to Insured Coverage Start Date Coverage End Date MEDICAID [place] [address] TIFFANY WHITTEN [id number] [phone] [id number] Jasson Duke Self - patient is the insured Medical (General) History Medical History History ICD Code Panic attacks menstrual irregularity hemorrhoids intermittent chronic diarrhea Surgical History Surgery Date(Month/Year) tubal ligation lymph node excision mesh placement cholecystectomy, [facility], Dr. West 2013 Hospitalization History Reason Date(Month/Year) cholecystectomy 2013
--- OUTSIDE RECORDS SUMMARY | 2024-11-20 07:16 | XMS_ITS | Clinical Summary ---
Author Organization 175 [facility] Address [address] [place] [address] Phone Care Team Providers Care Slab Lifting Engineer Name Role Phone Unavailable Primary Care Provider Unavailabl e Social History Tobacco Use Types Packs/Day Years Used Date Smoking Tobacco: Never Assessed Comments Unknown Sex and Gender Information Value Date Recorded Sex Assigned at Not on file Legal Sex Female 10:13 AM EDT Gender Identity Not on file Sexual Orientation Not on file Plan of Treatment Upcoming Encounters Date Type Department Care Team ([facility] Contact Info) Description 12/03/2024 9:00 AM EDT Consult Orthopedic Surgery - [place] [address] [address] [address] Miky Cueva, DPM [address] [address] Health Maintenance Due Date Last Done Comments [...]
== END 2024-11-20 07:15 | disposition home or self-care (01) ==
LOC: HO.XRAY 07:14
PROVIDERS: PCP Internal Medicine; Visit Provider Internal Medicine
DX: K21.9 Gastro-esophageal reflux disease without esophagitis (principal)
CPT/HCPCS: 74246

== ENCOUNTER → 2024-11-20 07:16 | Outpatient (BNV) | payer OTHER, SELFPAY | PROVIDERS: PCP Internal Medicine; Visit Provider Radiology Diagnostic Radiology | DX: K21.9 Gastro-esophageal reflux disease without esophagitis (principal) | CPT/HCPCS: 74246 ==

== ENCOUNTER 2024-11-26 09:52 | Outpatient (AMB) | payer OTHER, SELFPAY ==
--- NOTE | 2024-11-26 09:59 | A.OFFVIS_ITS ---
Vital Signs 11/26/24 10:06 Height 5 ft 6 in Weight 191 lb BMI 30.8 BP 141/77 H Pulse 83 Pulse Oximetry (%) 97 Oxygen Delivery Method Room Air Intake Visit Reasons: gerd Intake Note: Patient new consult for GERD. Patient cc: diarrhea and denies any other GI issues. Patient came to the [facility] ON 09/2024 and have a Colonoscopy and last saturday she did an upper GI series. Visual Education Teacher Required: Yes Accompanied by: Family/Other Allergies ibuprofen (From Advil) Allergy (Severe, Verified 11/26/24 10:02) Angioedema aspirin (ASPIRIN) Allergy (Intermediate, Verified 11/26/24 10:02) SWELLING cyclobenzaprine (From FLEXERIL) Allergy (Intermediate, Verified 11/26/24 10:02) SWELLING Medication List - Last Reconciled 11/26/24 by Tiara Tee CNP albuterol sulfate 0.63 mg (3 mL) inhalation Q4H PRN cholecalciferol (vitamin D3) 50 mcg PO DAILY 90 days cholestyramine (with sugar) 4 gram 4 grams PO TID hydroxyzine HCl 25 mg PO BID PRN 30 days losartan 50 mg PO DAILY 90 days omeprazole 20 mg PO DAILY@0630 sumatriptan succinate take 1 tab at onset of headache; if no relief may repeat 1 tab after at least 2 hrs; max = 4 tabs/24 hr PO tramadol 50 mg PO Q12H PRN Ventolin HFA 90 mcg/actuation (albuterol sulfate) 2 puffs inhalation Q6H PRN 30 days NS HPI HPI gerd: Details: Patient is a Rwandan speaking 44-year-old female with PMH of asthma and pre- diabetes. Referred by PCP for further evaluation of epigastric pain. Patient is accompanied by sister. Pt presents with >6 mo hx of epigastric pain, initially starting in the lower abdomen and persisting since onset. Pain is described as sharp and intermittent, with variable severity, and is not fully relieved by current prescribed therapy. Daily, frequent episodes of non-bloody diarrhea are reported. Symptoms are aggravated by spicy foods and carbonated beverages. Pt has been taking omeprazole, often exceeding prescribed dose, with limited relief. Nausea is present, but vomiting is rare and only occurred during a prior acute episode. No regurgitation or dysphagia. Hx notable for prior hospitalization in July 05/2025 treated for proctolitis and again 09/2024 for similar symptoms, including right lower quadrant pain, nausea, vomiting, and diarrhea. Imaging during hospitalization showed intestinal thickening, also elevated fecal calprotectin and prior kidney stones. She underwent colonoscopy during admission with normal findings and more recently upper GI during series also with normal findings. Cholecystectomy in past; pt reports change from constipation to chronic loose stools post-op. No improvement with cholestyramine at current dosing. No known family hx of colon cancer or GI malignancy. Weight has been stable (180-190 lbs). BP noted to be elevated. Patient denies: fever/chills, n/v, appetite changes, dysphasia, unintentional wt loss or melena/hematochezia. Social hx: -denies ETOH use -denies recreational drug use -non-smoker -Diet: Generally healthy; breakfast sandwiches, chicken, fish, occasional grapes. Drinks water and Sprite; Sprite intake not excessive. - family hx as below -denies personal hx of CA -denies significant cardiopulmonary history -tolerated anesthesia in the past without difficulty. [facility] Medical History Lymphoma History of panic attacks Exposure of implanted vaginal mesh Moderate persistent asthma in adult without complication Left leg pain Hand numbness Obese Acute sinusitis Surgical History History of arthroscopy of right shoulder Hx of tubal ligation History of cholecystectomy Family History Mother HIV (human immunodeficiency virus infection) Father Heart attack HIV (human immunodeficiency virus infection) Brother No problems noted. Brother Diabetes Sister No problems noted. Sister No problems noted. Daughter No problems noted. 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 Current occupational exposures/hazards: No Cognitive needs: No Hearing needs: No Vision needs: No Female Reproductive History Menstrual Age of Menarche: 8 Review of Systems Const Reports as per [facility] ENT Reports as per [facility] Card Reports as per [facility] Resp Reports as per [facility] GI Reports as per [facility] Reports as per [facility] Physical Exam Vital Signs: Last Vital Signs Pulse 83 11/26/24 10:06 BP 141/77 H 11/26/24 10:06 Pulse Ox 97 11/26/24 10:06 Oxygen Delivery Method Room Air 11/26/24 10:06 BMI result Body Mass Index 30.8 Const General: healthy appearing, no acute distress and well developed Nutritional Appearance: average body habitus Orientation/consciousness: patient oriented x3 HEENT Head: Yes normal to inspection, Yes normocephalic and Yes atraumatic Face and sinus: Yes normal facial exam Eyes General: appearance normal, both eyes and all related structures Neck Neck: Yes normal visual inspection Resp Effort & Inspection: normal respiratory effort, able to speak in complete sentences, no tracheal deviation and symmetric chest movement Auscultation: clear to auscultation bilaterally Cardio Jugular venous distension: no JVD Rate: regular rate Rhythm: regular rhythm Heart sounds: S1 normal heart sound present, S2 normal heart sound present, no gallops and no murmurs GI Inspection: Yes normal to inspection and No distended Palpation (GI): Soft to palpation, not firm, nontender and No hepatosplenomegaly present Auscultation: normal bowel sounds Neuro General: patient oriented x3 Gait exam (Neuro): Normal gait present Psych Appearance: grossly normal Mental Status: mental status grossly normal Speech and movement: Normal speech and movement present Affect: normal affect Attitude: cooperative Thought process: Normal thought process present Thought content: Normal thought content present Insight: Good insight present (Psych) Judgement: Good judgement present (Psych) Results Reviewed Results Reviewed: Date of Service: 11/20/24 Procedure(s): FL upper GI w air Accession Number(s): [id number] cc: Tara Powell MD~ EXAMINATION: XR FLUOROSCOPY UPPER GI WITH AIR CLINICAL INFORMATION: Gastroesophageal reflux disease without esophagitis. COMPARISON: None available. TECHNIQUE: Routine upper GI air contrast study was performed in upright and lying position. FINDINGS: Following oral administration of thick barium and effervescent granules there is normal propagation bolus from the oral cavity through the pharynx, esophagus into stomach without any evidence of obstruction, narrowing or stricture. On placing patient supine and prone lying the course, caliber and peristalsis of the stomach, duodenal bulb and sweep is normal. The mucosal pattern of stomach and duodenum is normal. FLUOROSCOPY TIME: 2 minute 44 seconds DOSE AREA PRODUCT: 2709 uGy-m2 (microgray-meter squared) FL/FL upper GI w air IMPRESSION: Unremarkable upper GI air contrast study. Date of Service: 09/11/24 Procedure(s): US abdomen limited Accession Number(s): [id number] cc: Carmella Peres; Tara Powell MD~ EXAMINATION: US ABDOMEN LIMITED CLINICAL INFORMATION: Right sided abdominal pain.. COMPARISON: 06/02/2019 renal ultrasound. Correlation made with CT abdomen and pelvis 09/08/2024. TECHNIQUE: Real-time imaging of the right upper quadrant abdominal viscera. FINDINGS: PANCREAS: Visualized portions are unremarkable. LIVER: The liver is normal in size. Right hepatic lobe measures 15.0 cm. The liver contour is normal. There is diffuse increased liver parenchymal echogenicity, consistent with hepatic steatosis. No focal hepatic lesion. There is no intrahepatic biliary duct dilatation seen. GALLBLADDER: Surgically absent. COMMON BILE DUCT: Normal in caliber measuring 0.7 cm in diameter. RIGHT KIDNEY: No hydronephrosis. Mild caliectasis, uncertain significance. No renal calculi or focal parenchymal lesions. The kidney measures 11.6 cm in maximum dimension. FREE FLUID: None. US/US abdomen limited IMPRESSION: 1. Echogenic liver suggesting fatty infiltration. 2. Cholecystectomy. 3. Mild caliectasis of the right kidney, uncertain etiology or significance. Operative Note Date of Service: 09/10/24 Narrative: Procedure: Colonoscopy Indication: Chronic diarrhea, abnormal CT scan Endoscopist: Nataly Hilario MD Anesthesia Provider: Dr Brigida Hawk Anesthesia type: MAC Instrument: Olympus [id number]-H190L Consent: Indication, risks vs benefits, and alternatives were discussed with the patient who gave written informed consent to proceed. An checkroom attendant was ari qiu to assist with the consent. EKG, pulse, pulse oximetry and blood pressure were monitored throughout the procedure. Please see anesthesia flowsheet. Procedure: The patient was brought to the procedure room and placed in the left lateral decubitus position. IV medications were administered by the anesthesia provider in attendance. A digital rectal exam was performed which was normal. A distal attachment cap was affixed to the tip of the colonoscope which was then inserted through the anus and advanced through the colon to the cecum at 75 cm,and terminal ileum. Appendiceal orifice and ileocecal valve were identified. Mucosa was carefully examined under high definition white light as the instrument was slowly withdrawn in a retrograde panoramic fashion. Retroflexion was performed in ascending colon and rectum. The procedure was not difficult. There were no immediate obvious complications. The quality of the prep was BBPS: 3+2+3 = adequate Withdrawal time 8 minutes. Limitations: No limitations. Findings: Mucosa: Normal to cecum and terminal ileum. Cold forceps biopsies were taken from terminal ileum and all portions of the colon for histological evaluation. Protruding lesions: Medium internal hemorrhoids [without] stigmata of recent bleeding. Impression: 1. Normal colon and terminal ileum mucosa 2. Internal hemorrhoids Recommendations: - Follow path results. - Can discontinue antibiotics - Diet as tolerated - repeat colonoscopy for asymptomatic colorectal cancer screening in 10 years PATHOLOGY Collected: 09/10/24 Location: [facility] Received: 09/11/24 ADDENDUM REPORT Addendum Addendum #1 (D): Immunostains on the spindle cells show diffuse positive actin, negative CD117, with few S100 positive cells, consistent with smooth muscle, likely incidental leiomyoma. Controls stain appropriately. Electronically Signed By: Korin Nguyen 09/16/24 0948 Diagnosis A. Terminal ileum, biopsy: Ileal mucosa with no specific change; no ileitis, granulomas or dysplasia. B. Colon, cecum, biopsy: Colonic mucosa with lymphoid aggregates and no specific change; no colitis, granulomas or dysplasia. C. Colon, ascending, biopsy: Colonic mucosa with lymphoid aggregates and no specific change; no colitis, granulomas or dysplasia. D. Colon, transverse, biopsy: Colonic mucosa with lymphoid aggregates and prominent smooth muscle, otherwise no specific change; no colitis, granulomas or dysplasia (see comment). E. Colon, sigmoid, biopsy: Colonic mucosa with no specific change; no colitis, granulomas or dysplasia. F. Colon, sigmoid, biopsy: Colonic mucosa with no specific change; no colitis, granulomas or dysplasia. G. Colon, rectum, biopsy: Colonic mucosa with few lamina propria foamy ma crophages otherwise no specific change; no colitis/proctitis, granulomas or dysplasia. Comment: (D): Appearances suggest an incidental leiomyoma; stains pending with addendum to follow. Clinical History Pre-Op Dx: Pancolitis, diarrhea, abd. pain Post-Op Dx: Hemorrhoid Date of Service: 09/08/24 Procedure(s): CT abdomen pelvis w IV con Accession Number(s): [id number] cc: Tara Powell MD; Juan Antonio Sommers MD~ Report Number: [id number]: Total DLP = 643.00 mGy-cm CLINICAL HISTORY: Right flank, RLQ tenderness R O appy, stone CT abdomen and pelvis with contrast Comparison: CT/SR - CT ABDOMEN PELVIS WO IV CON - 07/29/24 20:44 EDT Findings: No consolidation or effusion. Hepatomegaly with steatosis. Tiny splenule. Small cystic focus in the proximal pancreas measuring 7 mm, only visualized on coronal. If clinical concern persists consider follow-up MRI. No urolithiasis. Diffuse colonic mural thickening. Distal small bowel mural thickening pronounced of the terminal ileum with mucosal hyperemia and right lower quadrant inflammatory changes with trace ascites. Regional stranding of the mesenteric fat. No bowel obstruction. Bilateral ovarian cysts, on the left measuring 3.4 cm and on the right measuring 2.8 cm. This may be further evaluated with ultrasound. Anteverted uterus with prominent fluid-filled uterine cavity, may be physiologic. Colonic diverticulosis without focal diverticulitis. Normal appendix. No acute fracture. Disc bulge at L4-L5 and L5-S1. Postcholecystectomy. IMPRESSION: Pancolitis and distal enteritis in the right lower quadrant with trace ascites. This document has been electronically signed by: Roosevelt Martinez MD on 09/08/2024 06:15:37 Assessment & Plan Assessment & Plan (1) Diarrhea: Comment: 09/10/2024 colonoscopy complete with adequate prep-Normal colon and terminal ileum mucosa, Internal hemorrhoids. recommendation for repeat in 10 years (2034) Code(s): R19.7 - Diarrhea, unspecified Category: Medical Qualifiers: Diarrhea type: infectious Qualified Code(s): A09 - Infectious gastroenteritis and colitis, unspecified Plan: Pt with >6 mo hx of persistent diarrhea, abdominal pain, prior imaging showing intestinal thickening, and elevated stool inflammatory markers. However, normal colonoscopy. DDX: post cholecystectomy syndrome VS IBS-D VS less likely celiac. Additional Tests: -celiac antibodies -obtain fat-soluble vitamin levels -repeat fecal calprotectin once stools are more formed Medications: -Change cholestyramine to formulation without sugar and increase to QID dosing -add methylcelluose with titration plan to increase to 2G/daily for stool bulking Lifestyle Modifications: -follow low FODMAP diet, handout mailed to patient -Advised avoidance of spicy foods, increase hydration 11/27/24 1005: Spoke with Elmerivet the same a.m. via checkroom attendant [phone] to discuss change in plan after reviewing normal upper GI series completed 11/20/2024. Advise we will hold off on upper endoscopy and work to get stools more formed. Lab and medication changes as above. She is agreeable to plan. Plan Time: I spent a total of 60 minutes on the date of encounter which includes: Preparing to see the patient (reviewed previous documentation, test results and medical history) Performing a medically appropriate exam and/or evaluation Ordering medications, tests, and procedures Documenting clinical information in the health record Orders: Orders Transglutaminase IgA 11/26/24 A09 - Infectious gastroenteritis and colitis, unspecified, R10.31 - Right lower quadrant pain Vitamin A Today R19.7 - Diarrhea, unspecified Vitamin K1 Today R19.7 - Diarrhea, unspecified Vitamin E Today R19.7 - Diarrhea, unspecified H Pylori Breath Test 11/26/24 K21.9 - Gastro-esophageal reflux disease without esophagitis, R10.31 - Right lower quadrant pain Medications: New sucralfate Take on tablet two times daily as needed. Take an empty stomach. Avoid antacids within 30 minutes. 1 g PO BID 90 tabs 1RF cholestyramine Take four times daily with meals. No meds 1 hr before/4-6 hr after dose 4 grams PO QID 239.4 grams 0RF pantoprazole Take 1 tablet daily 40 mg PO QAM 28 tabs 0RF methylcellulose (laxative) (Citrucel) Take one tablet twice daily X 2 weeks, then start new prescription 500 mg PO BID 30 tabs 0RF methylcellulose (laxative) (Citrucel) Take two tablets twice daily 1,000 mg (2 x 500 mg) PO BID 120 tabs 1RF Discontinued 2 cholestyramine (with sugar) 4 gram administer w/meal; avoid other meds within 1hr before or 4-6hr after dose Discontinued Reason: Doctor's Order 4 grams PO TID 378 grams 0RF Coding Level of Care Code New Pt New Pt Level 5 (77743) Patient Type New Diagnoses Diarrhea of infectious origin A09 Diarrhea type: infectious
[2024-11-26 10:06] VITALS: BP 141/77; PULSE 83; O2SAT 97; BMI 30.8
--- OUTSIDE RECORDS SUMMARY | 2024-11-26 10:35 | XMS_ITS | Clinical Summary ---
Author Organization [address] [facility] Address [address] [place] [address] Phone Care Team Providers Care Tank Shop Supervisor Name Role Phone Unavailable Primary Care Provider Unavailabl e Social History Tobacco Use Types Packs/Day Years Used Date Smoking Tobacco: Never Assessed Comments Unknown Sex and Gender Information Value Date Recorded Sex Assigned at Not on file Legal Sex Female 10:13 AM EDT Gender Identity Not on file Sexual Orientation Not on file Plan of Treatment Upcoming Encounters Date Type Department Care Team ([facility] Contact Info) Description 12/03/2024 9:00 AM EDT Consult Orthopedic Surgery - [place] [id number] [address] Miky Cueva, DPM [address] [address] Health Maintenance Due Date Last Done Comments Breast Cancer Screening 1980 DTaP,Tdap,and Td Vaccines (1 - Tdap) 01/02/1999 Hepatitis B Vaccines (1 of 3 - 19+ 3-dose series) 01/02/1999 Cervical Cancer Screening: P ap Smear 01/02/2001 COVID-19 Vaccine ( - 2023-2 5 season) 2024 Depression Screening 05/06/2024 HIV Screening 09/08/2024 Hepatitis C Screening 09/08/2024 [...]
--- OUTSIDE RECORDS SUMMARY | 2024-11-26 10:35 | XMS_ITS | Patient Health Record ---
Author Organization Gasper Ruiz III, MD Address [address] [place] [address] Care Team Providers Care Rough Rice Tender Name Role Phone [facility] MD Primary Care Provider Gasper Adams Unavailable [phone] Allergies Allergen (clinical drug ingredient) Drug/Non Drug [...] Problem Status W/U Status Risk Notes Problem 979815603 Granulocytopenia (D70.9) Active confirmed The mild neutro penia and granulocytopenia is stable. Flow cytometry on the lymph node showed no lymphoproliferative clonal process. Problem [id number] Lymphadenopathy (R59.1) Active confirmed The biopsy of t he lymph node showed granulomatous disease and she is now being treated with triple therapy at the tuberculosis clinic in [place], [place]. She will not need to return to this office. Problem 255624647 Allergic to aspirin (Z88.8) Active confirmed She has had no serious reactions lately. Plan Of Treatment No Information Insurance Providers Payer Name Payer Address Payer Phone Subscriber Number Group Number Insured Name Patient Relationship to Insured Coverage Start Date Coverage End Date [place] [address] TIFFANY WHITTEN [id number] [phone] [id number] Jasson Duke Self - patient is the insured Medical (General) History Medical History History ICD Code Panic attacks menstrual irregularity hemorrhoids intermittent chronic diarrhea Surgical History Surgery Date(Month/Year) tubal ligation lymph node excision mesh placement cholecystectomy, [facility], Dr. [address] 2013 Hospitalization History Reason Date(Month/Year) cholecystectomy 2013
== END 2024-11-26 10:48 | disposition home or self-care (01) ==
LOC: HO.HGI 09:53
PROVIDERS: PCP Internal Medicine; Visit Provider Nurse Practitioner Family
DX: A09 Infectious gastroenteritis and colitis, unspecified (principal)
CPT/HCPCS: 99205

== ENCOUNTER → 2024-11-26 09:52 | Outpatient (BNVA) | payer OTHER, SELFPAY | PROVIDERS: PCP Internal Medicine; Visit Provider Nurse Practitioner Family | DX: K21.9 Gastro-esophageal reflux disease without esophagitis (principal); R10.31 Right lower quadrant pain; A09 Infectious gastroenteritis and colitis, unspecified; Z90.49 Acquired absence of other specified parts of digestive tract | CPT/HCPCS: 99202 ==

== ENCOUNTER 2024-12-08 11:16 | Outpatient (AMB) | payer OTHER, SELFPAY ==
--- NOTE | 2024-12-08 11:21 | A.OFFVIS_ITS ---
Vital Signs 12/08/24 11:25 Height 5 ft 5 in Weight 190 lb BMI 31.6 Intake Visit Reasons: OV RT Shoulder 12/27/23 , Neck pain Intake Note: Jasson is a 44 year old female who presents with complaints of intermittent discomfort along the lateral aspect of her right shoulder after undergoing right shoulder arthroscopic surgery on 12/27/2023. She also has intermittent neck pain which radiates into her right arm. She denies any weakness. She denies any fevers or chills. She has tried Tylenol and tramadol which gave her only mild relief. Carbon Coating Machine Operator Required: Yes Carbon Coating Machine Operator Services: Carbon Coating Machine Operator Offered & Declined Carbon Coating Machine Operator Name: Sister Allergies ibuprofen (From Advil) Allergy (Severe, Verified 12/08/24 11:26) Angioedema aspirin (ASPIRIN) Allergy (Intermediate, Verified 12/08/24 11:26) SWELLING cyclobenzaprine (From FLEXERIL) Allergy (Intermediate, Verified 12/08/24 11:26) SWELLING Medication List - Last Reconciled 12/08/24 by Dax Day MD albuterol sulfate 0.63 mg (3 mL) inhalation Q4H PRN cholecalciferol (vitamin D3) 50 mcg PO DAILY 90 days cholestyramine 4 grams PO QID hydroxyzine HCl 25 mg PO BID PRN 30 days losartan 50 mg PO DAILY 90 days methylcellulose (laxative) (Citrucel) 500 mg PO BID methylcellulose (laxative) (Citrucel) 1,000 mg (2 x 500 mg) PO BID pantoprazole 40 mg PO QAM sucralfate 1 g PO BID sumatriptan succinate take 1 tab at onset of headache; if no relief may repeat 1 tab after at least 2 hrs; max = 4 tabs/24 hr PO Ventolin HFA 90 mcg/actuation (albuterol sulfate) 2 puffs inhalation Q6H PRN 30 days NS PFSH Medical History Lymphoma History of panic attacks Exposure of implanted vaginal mesh Moderate persistent asthma in adult without complication Left leg pain Hand numbness Obese Acute sinusitis Surgical History History of arthroscopy of right shoulder Hx of tubal ligation History of cholecystectomy Family History Mother HIV (human immunodeficiency virus infection) Father Heart attack HIV (human immunodeficiency virus infection) Brother No problems noted. Brother Diabetes Sister No problems noted. Sister No problems noted. Daughter No problems noted. 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 Current occupational exposures/hazards: No Cognitive needs: No Hearing needs: No Vision needs: No Female Reproductive History Menstrual Age of Menarche: 8 Physical Exam Vital Signs: BMI result Body Mass Index 31.6 Const Other: Well-nourished well-developed very friendly female awake alert and oriented x3 in no acute distress Neck Other: Cervical spine examination shows right-sided paraspinal muscle tenderness, pain with range of motion, positive Spurling's test Extrem Other: Right shoulder examination shows that the surgical incisions are well healed, no erythema, decreased range of motion when compared to her left shoulder, 4+ out of 5 strength with supraspinatus testing, no instability Assessment & Plan Assessment & Plan (1) Right shoulder pain: Code(s): M25.511 - Pain in right shoulder Category: Medical (2) Neck pain: Code(s): M54.2 - Cervicalgia Category: Medical Plan Jasson presents with neck pain which radiates into her right arm possibly due to cervical stenosis or a disc herniation. She also has residual right shoulder discomfort after undergoing right shoulder arthroscopic surgery due to rotator cuff tendinosis. I had a lengthy discussion with the patient regarding the treatment options. She wishes to hold off on a cortisone injection for now. I did give her a prescription to go to formal physical therapy. The do's and don'ts of lifting were discussed at length with the patient. The patient will contact me prior to her follow-up appointment in 2-3 months should any questions or concerns arise. Feel free to call me at any time should questions regarding her orthopedic management arise. I spent 20 minutes in reviewing the patient's records and imaging studies, seeing the patient and documenting in the medical record. Orders: Orders PT Evaluation and Treatment 12/09/24 M25.511 - Pain in right shoulder, M54.2 - Cervicalgia Coding Level of Care Code Est Pt Level 3 (79483) Complex EM visit Add On G2211 Diagnoses Right shoulder pain M25.511 Neck pain M54.2
[2024-12-08 11:25] VITALS: BMI 31.6
--- OUTSIDE RECORDS SUMMARY | 2024-12-08 12:03 | XMS_ITS | Patient Health Record ---
Author Organization Gasper Ruiz III, MD Address [address] [address] Care Team Providers Care Counselor Dormitory Name Role Phone Mt Morris MD Primary Care Provider Gasper Adams Unavailable [phone] Allergies Allergen (clinical drug ingredient) Drug/Non Drug [...] Problem Status W/U Status Risk Notes Problem [id number] Granulocytopenia (D70.9) Active confirmed The mild neutro penia and granulocytopenia is stable. Flow cytometry on the lymph node showed no lymphoproliferative clonal process. Problem [id number] Lymphadenopathy (R59.1) Active confirmed The biopsy of t he lymph node showed granulomatous disease and she is now being treated with triple therapy at the tuberculosis clinic in [place], [place]. She will not need to return to this office. Problem [id number] Allergic to aspirin (Z88.8) Active confirmed She has had no serious reactions lately. Plan Of Treatment No Information Insurance Providers Payer Name Payer Address Payer Phone Subscriber Number Group Number Insured Name Patient Relationship to Insured Coverage Start Date Coverage End Date [place] [address] [place] [id number] [phone] [id number] Jasson Duke Self - patient is the insured Medical (General) History Medical History History ICD Code Panic attacks menstrual irregularity hemorrhoids intermittent chronic diarrhea Surgical History Surgery Date(Month/Year) tubal ligation lymph node excision mesh placement cholecystectomy, [facility], Dr. West 2013 Hospitalization History Reason Date(Month/Year) cholecystectomy 2013
== END 2024-12-08 11:39 | disposition home or self-care (01) ==
LOC: HO.HOS 11:17
PROVIDERS: PCP Internal Medicine; Visit Provider Orthopaedic Surgery
DX: M25.511 Pain in right shoulder (principal); M54.2 Cervicalgia
CPT/HCPCS: 99213

== ENCOUNTER → 2024-12-08 11:16 | Outpatient (BNVA) | payer OTHER, SELFPAY | PROVIDERS: PCP Internal Medicine; Visit Provider Orthopaedic Surgery | DX: M25.511 Pain in right shoulder (principal); M54.2 Cervicalgia | CPT/HCPCS: 99212 ==

== ENCOUNTER 2024-12-11 12:57 | Outpatient (AMB) | payer OTHER, SELFPAY ==
--- OUTSIDE RECORDS SUMMARY | 2024-12-11 13:00 | XMS_ITS | Patient Health Record ---
Author Organization Gasper Ruiz III, MD Address [address] [place] [address] Care Team Providers Care Building Specialist Name Role Phone Mt Morris MD Primary Care Provider Gasper Adams Unavailable [phone] Allergies Allergen (clinical drug ingredient) Drug/Non Drug [...] Problem Status W/U Status Risk Notes Problem [id number] Granulocytopenia (D70.9) Active confirmed The mild neutro penia and granulocytopenia is stable. Flow cytometry on the lymph node showed no lymphoproliferative clonal process. Problem [id number] Lymphadenopathy (R59.1) Active confirmed The biopsy of t he lymph node showed granulomatous disease and she is now being treated with triple therapy at the tuberculosis clinic in [place], [place]. She will not need to return to this office. Problem [id number] Allergic to aspirin (Z88.8) Active confirmed She has had no serious reactions lately. Plan Of Treatment No Information Insurance Providers Payer Name Payer Address Payer Phone Subscriber Number Group Number Insured Name Patient Relationship to Insured Coverage Start Date Coverage End Date MED[place] [address] [place] [id number] [phone] [id number] Jasson Duke Self - patient is the insured Medical (General) History Medical History History ICD Code Panic attacks menstrual irregularity hemorrhoids intermittent chronic diarrhea Surgical History Surgery Date(Month/Year) tubal ligation lymph node excision mesh placement cholecystectomy, [facility], Dr. West 2013 Hospitalization History Reason Date(Month/Year) cholecystectomy 2013
--- NOTE | 2024-12-11 13:18 | AM.OFFVISNUR ---
Intake Visit Reasons: H. Pylori B. Test Allergies ibuprofen (From Advil) Allergy (Severe, Verified 12/08/24 11:26) Angioedema aspirin (ASPIRIN) Allergy (Intermediate, Verified 12/08/24 11:26) SWELLING cyclobenzaprine (From FLEXERIL) Allergy (Intermediate, Verified 12/08/24 11:26) SWELLING Nursing Note Patient presents for collection of H Pylori breath test. Patient has been fasting for 1 hour (nothing to eat, drink, no chewing gum or smoking) has not taken any antacid medication for at least 2 weeks and has no allergies to artificial sweeteners.?? Assessment & Plan Assessment & Plan (1) GERD (gastroesophageal reflux disease): Code(s): K21.9 - Gastro-esophageal reflux disease without esophagitis Category: Medical Qualifiers: Esophagitis presence: esophagitis presence not specified Qualified Code(s): K21.9 - Gastro-esophageal reflux disease without esophagitis (2) Abdominal pain: Code(s): R10.9 - Unspecified abdominal pain Category: Medical Qualifiers: Abdominal location: right lower quadrant Qualified Code(s): R10.31 - Right lower quadrant pain (3) Chronic GERD: Code(s): K21.9 - Gastro-esophageal reflux disease without esophagitis Category: Medical Plan Patient presents for collection of H Pylori breath test. Patient has been fasting for 1 hour (nothing to eat, drink, no chewing gum or smoking) has not taken any antacid medication for at least 2 weeks and has no allergies to artificial sweeteners.???This test checks for an overgrowth of bacteria in your stomach. We all have bacteria but some may have more than others. It is treatable. if the test comes back negative there is nothing else to do. If the test result is positive we will treat you with 2 antibiotics and a medication to decrease the acid in your stomach (PPI) for 2 weeks. Two weeks after you have completed the treatment we will retest you to make sure the overgrowth has resolved. Patient Instructions: Process for specimen collection and reason for testing was explained to the patient. Specimen collection. Patient instructed to take a deep breath and then exhale into the blue bag, filling it up as much as possible. Patient instructed to drink a mixture of water and the artificial sweetener with a straw. A 15 minute wait period was observed. Patient instructed to take a deep breath and then exhale into the pink bag, filling it up as much as possible.?? Coding Level of Care Code Established Pt Est Pt Level 1 (91518) Patient Type Established Medical Decision Making Straight Forward Diagnoses Gastroesophageal reflux disease, unspecified whether esophagitis present K21.9 Esophagitis presence: esophagitis presence not specified Right lower quadrant abdominal pain R10.31 Abdominal location: right lower quadrant Chronic GERD K21.9
== END 2024-12-11 13:21 | disposition home or self-care (01) ==
LOC: HO.HGI 12:58
PROVIDERS: PCP Internal Medicine; Visit Provider Nurse Practitioner Family
DX: K21.9 Gastro-esophageal reflux disease without esophagitis (principal); R10.31 Right lower quadrant pain

== ENCOUNTER 2024-12-11 12:57 | Outpatient (REF) | payer OTHER, SELFPAY | END 2024-12-11 12:58 | disposition home or self-care (01) | LOC: HO.LNP 12:57 | PROVIDERS: PCP Internal Medicine; Visit Provider Nurse Practitioner Family | DX: K21.9 Gastro-esophageal reflux disease without esophagitis (principal); R10.31 Right lower quadrant pain | CPT/HCPCS: 83013; 99211 ==

== ENCOUNTER 2025-02-23 06:46 | Day surgery (SDC) | payer OTHER, SELFPAY ==
--- OUTSIDE RECORDS SUMMARY | 2025-02-03 11:12 | XMS_ITS | Patient Health Record ---
Author Organization Gasper Ruiz III, MD Address [address] [place] [address] Care Team Providers Care Patent Chemist Name Role Phone Mt Morris MD Primary Care Provider Dr. Gasper Adams III Unavailable Allergies Allergen (clinical drug ingredient) Drug/Non Drug [...] Problem Status W/U Status Risk Notes Problem [id number] Granulocytopenia (D70.9) Active confirmed The mild neutro penia and granulocytopenia is stable. Flow cytometry on the lymph node showed no lymphoproliferative clonal process. Problem [id number] Lymphadenopathy (R59.1) Active confirmed The biopsy of t he lymph node showed granulomatous disease and she is now being treated with triple therapy at the tuberculosis clinic in [place], [place]. She will not need to return to this office. Problem [id number] Allergic to aspirin (Z88.8) Active confirmed She has had no serious reactions lately. Plan Of Treatment No Information Insurance Providers Payer Name Payer Address Payer Phone Subscriber Number Group Number Insured Name Patient Relationship to Insured Coverage Start Date Coverage End Date [place] [address] [place] [id number] [phone] [id number] Jasson Duke Self - patient is the insured Medical (General) History Medical History History ICD Code Panic attacks menstrual irregularity hemorrhoids intermittent chronic diarrhea Surgical History Surgery Date(Month/Year) tubal ligation lymph node excision mesh placement cholecystectomy, [facility], Dr. [facility] 2013 Hospitalization History Reason Date(Month/Year) cholecystectomy 2013
--- OUTSIDE RECORDS SUMMARY | 2025-02-03 11:12 | XMS_ITS | Clinical Summary ---
Author Organization [address] [facility] Address [address] [place] [address] Phone Care Team Providers Care Dry Press Operator Helper Name Role Phone Unavailable Primary Care Provider Unavailabl e Allergies Active Allergy Reactions Criticality Noted Date Comments Aspirin Swelling 12/03/2024 Cyclobenzaprine 12/03/2024 Ibuprofen 12/03/2024 Medications allantoin 0.5 % gel Apply 1 Application topically 1 (one) time each day. 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); Left foot pain from Last 3 Months Social History Tobacco Use Types Packs/Day Years Used Date Smoking Tobacco: Never Assessed Comments Unknown Sex and Gender Information Value Date Recorded Sex Assigned at Not on file Legal Sex Female 10:13 AM EDT Gender Identity Not on file Sexual Orientation Not on file Last Filed Vital Signs Vital Sign Reading Time Taken Comments Blood Pressure - - Pulse - - Temperature - - Respiratory Rate - - Oxygen Saturation - - Inhaled Oxygen Concentration - - Weight 87.1 kg (192 lb) 12/03/2024 9:15 AM EDT Height 165.1 cm (5' 5 ) 12/03/2024 9:15 AM EDT Body Mass Index 31.95 12/03/2024 9:15 AM EDT Plan of Treatment Health Maintenance Due Date Last Done Comments Breast Cancer Screening 1980 Colorectal Cancer Screening: Colonoscopy 1980 Hepatitis B Vaccines (1 of 3 - 19+ 3-dose series) 01/02/1999 Cervical Cancer Screening: Pap Smear 01/02/2001 HPV Vaccines (1 - 3-dose SCDM series) 01/02/2007 Depression Screening 05/06/2024 HIV Screening 09/08/2024 Hepatitis C Screening 09/08/2024 Social Influencers of Health Screening 09/08/2024 COVID-19 Vaccine ( - 2023- season) 2025 Influenza Vaccine (#1) 2025 , 04/27/2019, 02/24/2018, Additional history exists DTaP,Tdap,and Td Vaccines (3 - Td or Tdap) 04/27/2029 04/27/2019, 04/10/2010 RSV Immunization Adult Patients (1 - 1-dose 75+ series) 01/02/2055 HIB Vaccines Aged Out No longer eligi [...] age to complete this topic Pneumococcal Vaccine: Pediatrics (0 to 5 Years) and At-Risk Patients (6 to 49 Years) Aged Out No longer eligible based on patient's age to complete this topic RSV Immunization Patients Under 20 months Aged Out No longer eligible based on patient's age to complete this topic Varicella Vaccines Aged Out No longer eligible based on patient's age to complete this topic Insurance [place]ID - [place] [facility]
--- NOTE | 2025-02-19 13:53 | P.CONAN_ITS ---
Documented by User: Cherry Meier NP 02/19/25 13:56 HPI - Anesthesia Eval Consult details Narrative: 45 yr old female for ?Cystoscopy & Bladder Biopsy GERD: on PPI H/O asthma H/O anxiety & panic attacks especially when visiting hospital [facility] Active Problems Active Problems: All Active Problems (Updated 12/08/24 @ 11:40 by Dax Day MD) Neck pain (Acute) Pyogenic granuloma (Acute) Skin lesion of right upper extremity (Acute) Skin lesion (Acute) Hematuria (Acute) Positive TB test (Acute) Abdominal pain (Acute) Blurry vision (Acute) Left foot pain (Acute) Screening for HIV (human immunodeficiency virus) (Acute) Chronic GERD (Acute) Essential hypertension (Acute) Chest pain (Acute) Impingement of right shoulder (Acute) Right shoulder pain (Acute) Mild major depression (Acute) Blurry vision (Acute) Weight loss (Acute) Screen for sexually transmitted diseases (Acute) Breast cancer screening (Acute) Urinary retention with incomplete bladder emptying (Acute) Dysuria (Acute) Physical exam (Acute) Cervical cancer screening (Acute) Women's annual routine gynecological examination (Acute) Low vitamin D level (Acute) Foot callus (Acute) GERD (gastroesophageal reflux disease) (Acute) Screening for diabetes mellitus (Acute) Screening for hyperlipidemia (Acute) Screening for hypothyroidism (Acute) Adult general medical exam (Acute) Bilateral hand pain (Acute) Migraines (Acute) Hx of tubal ligation (Acute) Moderate persistent asthma in adult without complication (Acute) Left leg pain (Acute) Hand numbness (Acute) Obese (Acute) Past Medical History Medical History Lymphoma History of panic attacks Exposure of implanted vaginal mesh Moderate persistent asthma in adult without complication Left leg pain Hand numbness Obese Acute sinusitis Family History Family History Mother HIV (human immunodeficiency virus infection) Father Heart attack HIV (human immunodeficiency virus infection) Brother No problems noted. Brother Diabetes Sister No problems noted. Sister No problems noted. Daughter No problems noted. Daughter Down syndrome Other Mental health disorder Family history of problems with anesthesia: No Surgical History Surgical History History of arthroscopy of right shoulder Hx of tubal ligation History of cholecystectomy History of Problems with Anesthesia: No Social History Social History (Updated 12/08/24 @ 11:27 by Alyse Parks) Household Members: Family Housing: Apartment Are you a primary career coordinator to a significant other at home: No Do you presently have visiting nurse or other home services: No Alcohol intake: never Patient Tobacco Use Status: Never used Tobacco e-Cigarette/Vaping Use: Never Used Second Hand Smoke Exposure: No Use of substances other than those prescribed or required for medical reasons: No Are you DNR?: No Advance Directives: No Advance Directives Information Provided: Yes Patient : No (tubal ligation) : No Poor oral hygiene: No service: No Current occupational status: employed 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 Current occupational exposures/hazards: No Cognitive needs: No Hearing needs: No Vision needs: No Meds Allergies Allergy/AdvReac Type Severity Reaction Status Date / Time ibuprofen (From Advil) Allergy Severe Angioedema Verified 12/08/24 11:26 aspirin (ASPIRIN) Allergy Intermediate SWELLING Verified 12/08/24 11:26 cyclobenzaprine (From Allergy Intermediate SWELLING Verified 12/08/24 11:26 FLEXERIL) Exam Height,Weight and Vital Signs: Height 5 ft 6 in Weight 84.368 kg Assessment and Plan Final Anesthetic Review Family History of Problems with Anesthesia: No History of Problems with Anesthesia: No Documented by User: Daren Monterroso MD 02/23/25 08:22 [facility] Past Medical History Medical History Lymphoma History of panic attacks Exposure of implanted vaginal mesh Moderate persistent asthma in adult without complication Left leg pain Hand numbness Obese Acute sinusitis Patient : No Family History Family History Mother HIV (human immunodeficiency virus infection) Father Heart attack HIV (human immunodeficiency virus infection) Brother No problems noted. Brother Diabetes Sister No problems noted. Sister No problems noted. Daughter No problems noted. Daughter Down syndrome Other Mental health disorder Surgical History Surgical History History of arthroscopy of right shoulder Hx of tubal ligation History of cholecystectomy Social History Social History (Updated 12/08/24 @ 11:27 by Alyse Parks) Household Members: Family Housing: Apartment Are you a primary career coordinator to a significant other at home: No Do you presently have visiting nurse or other home services: No Alcohol intake: never Patient Tobacco Use Status: Never used Tobacco e-Cigarette/Vaping Use: Never Used Second Hand Smoke Exposure: No Use of substances other than those prescribed or required for medical reasons: No Are you DNR?: No Advance Directives: No Advance Directives Information Provided: Yes Patient : No (tubal ligation) : No Poor oral hygiene: No service: No Current occupational status: employed 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 Current occupational exposures/hazards: No Cognitive needs: No Hearing needs: No Vision needs: No Meds Allergies Allergy/AdvReac Type Severity Reaction Status Date / Time ibuprofen (From Advil) Allergy Severe Angioedema Verified 12/08/24 11:26 aspirin (ASPIRIN) Allergy Intermediate SWELLING Verified 12/08/24 11:26 cyclobenzaprine (From Allergy Intermediate SWELLING Verified 12/08/24 11:26 FLEXERIL) Exam Airway Mallampati Class: II TM Dist: <=3cm Neck ROM: Full Loose/Missing/Broken Teeth: No Heart: ok Lungs: ok Assessment and Plan Assessment Anesthesia Assessment: Anesthesia Plan Discussed and Chart Reviewed Final Anesthetic Review NPO: Yes ASA Class: II Final Preanesthetic Review: No Changes in Pt Med Stat, Meds/Allgs Chart Reviewed, Consent Obtained/Reviewed and Anes Risks/Benef Reviewed Patient Risk: Intermediate Procedure Risk: Low Anesthetic Plan Anesthetic Plan: GA and Agree w/ Assess. and Plan Disposition: Standard PACU
[2025-02-23 07:19] VITALS: BMI 31.2
[2025-02-23 07:37] VITALS: BP 168/102; PULSE 98; RESP 16; TEMP 36.8; O2SAT 100
[2025-02-23] MEDS: Lactated Ringers 1,000 ML 100 ML IVCONT (07:53)
[2025-02-23 07:54] VITALS: BP 142/91; PULSE 84
--- NOTE | 2025-02-23 07:56 | MHC.SHP ---
Pre-Procedural Eval Section A - 24 Hr Update-Section A only Date of Service: 02/23/25 The patient is an INPATIENT: No The patient has been examined within 24 hours of the surgical procedure. The History & Physical has been completed within 30 days and I have reviewed it.: Yes Section B - Complete if H&P > 30 days Chief Complaint: Hematuria, unspecified Allergies: Allergies Allergy/AdvReac Type Severity Reaction Status Date / Time ibuprofen (From Advil) Allergy Severe Angioedema Verified 12/08/24 11:26 aspirin (ASPIRIN) Allergy Intermediate SWELLING Verified 12/08/24 11:26 cyclobenzaprine (From Allergy Intermediate SWELLING Verified 12/08/24 11:26 FLEXERIL) Plan Diagnosis/Plan: Unchanged I have reviewed the history and physical and performed a pertinent physical examination on my patient. No changes have occurred unless specified. Cystoscopy. Possible bladder biopsy. Discussed risks to include but not limited to, blood in the urine, burning with urination, urgency. Time Spent With Patient Time: Total time managing care of this patient today ____ minutes.
--- NOTE | 2025-02-23 07:57 | W.PM.OPN ---
Operative Note Operative Note Date of Service: 02/23/25 Narrative: PREOP DIAGNOSIS: Microscopic hematuria POSTOP DIAGNOSIS: Microscopic hematuria PROCEDURE: Cystoscopy, examination under anesthesia. SURGEON: Pedro Anguiano MD ANESTHESIA: General Indications: Jasson is being evaluated for persistent microscopic hematuria, history of sling procedure with mesh tape. Lower urinary tract symptoms of urgency. Details of procedure: The patient was brought into the operating room placed on the OR table in supine position. 2 g of Ancef IV. General anesthesia was administered. The patient was repositioned into lithotomy position, prepped and draped in the usual sterile fashion. Time-out was done per protocol. Pelvic Examination under anesthesia, bladder neck well supported. A 22 fr cystoscope was placed transurethrally into the bladder. There was squamous metaplasia noted, normal finding. The right and left ureteral orifices were visualized along the trigone in normal position. The entire bladder was visualized. There were no suspicious bladder lesions seen. No evidence of mesh erosion. The cystoscope was removed. 2% lidocaine urojet was passed transurethrally into the bladder. The patient was brought out of anesthesia and taken to recovery in stable condition. Complications: None EBL: minimal (<5 mL) Drains: None
[2025-02-23 08:57] VITALS: BP 104/64; PULSE 81; RESP 16; TEMP 36.7; O2SAT 97
[2025-02-23 09:12] VITALS: BP 122/73; PULSE 66; RESP 12; TEMP 36.4; O2SAT 99
== END 2025-02-23 09:42 | disposition home or self-care (01) ==
PROVIDERS: PCP Internal Medicine; Visit Provider Urology
PROC: (CPT 52000; principal; 2025-02-23 08:50)
DX: R31.29 Other microscopic hematuria (principal); R39.15 Urgency of urination; R30.0 Dysuria; C85.90 Non-Hodgkin lymphoma, unspecified, unspecified site; J45.40 Moderate persistent asthma, uncomplicated; J01.90 Acute sinusitis, unspecified; E66.9 Obesity, unspecified; R20.0 Anesthesia of skin; Z88.6 Allergy status to analgesic agent; Z88.8 Allergy status to other drugs, medicaments and biological substances; Z98.890 Other specified postprocedural states
CPT/HCPCS: 52000; J0690; J2003; J2405; J2704; J3010

== ENCOUNTER → 2025-02-23 06:46 | Outpatient (BNV) | payer OTHER, SELFPAY | PROVIDERS: PCP Internal Medicine; Visit Provider Urology | DX: R31.29 Other microscopic hematuria (principal) | CPT/HCPCS: 52000 ==

== ENCOUNTER 2025-04-07 14:32 | Outpatient (AMB) | payer OTHER, SELFPAY ==
--- NOTE | 2025-04-07 14:48 | MHC.OFFVIS ---
Vital Signs 04/07/25 14:51 Height 5 ft 5 in Weight 189 lb BMI 31.4 Handedness Left Intake Visit Reasons: OV RT Shoulder 12/27/23 DR Intake Note: Jasson is a 45 year old woman who presents with complaints of mild to moderate discomfort in her right shoulder after undergoing right shoulder arthroscopic surgery on 12/27/2023. She continues with her home stretching program. She denies any fevers or chills. She has tried Tylenol which gives her mild relief. Accompanied by: partner Allergies ibuprofen (From Advil) Allergy (Severe, Verified 04/07/25 14:51) Angioedema aspirin (ASPIRIN) Allergy (Intermediate, Verified 04/07/25 14:51) SWELLING cyclobenzaprine (From FLEXERIL) Allergy (Intermediate, Verified 04/07/25 14:51) SWELLING Medication List - Last Reconciled 04/07/25 by Dax Day MD albuterol sulfate 0.63 mg (3 mL) inhalation Q4H PRN cholecalciferol (vitamin D3) 50 mcg PO DAILY 90 days cholestyramine 4 grams PO QID hydroxyzine HCl 25 mg PO BID PRN 30 days losartan 50 mg PO DAILY 90 days methylcellulose (laxative) (Citrucel) 500 mg PO BID methylcellulose (laxative) (Citrucel) 1,000 mg (2 x 500 mg) PO BID pantoprazole 40 mg PO QAM sucralfate 1 g PO BID sumatriptan succinate take 1 tab at onset of headache; if no relief may repeat 1 tab after at least 2 hrs; max = 4 tabs/24 hr PO Ventolin HFA 90 mcg/actuation (albuterol sulfate) 2 puffs inhalation Q6H PRN 30 days NS PFSH Medical History Lymphoma History of panic attacks Exposure of implanted vaginal mesh Moderate persistent asthma in adult without complication Left leg pain Hand numbness Obese Acute sinusitis Surgical History History of arthroscopy of right shoulder Hx of tubal ligation History of cholecystectomy Family History Mother HIV (human immunodeficiency virus infection) Father Heart attack HIV (human immunodeficiency virus infection) Brother No problems noted. Brother Diabetes Sister No problems noted. Sister No problems noted. Daughter No problems noted. 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 Current occupational exposures/hazards: No Cognitive needs: No Hearing needs: No Vision needs: No Female Reproductive History Menstrual Age of Menarche: 8 Physical Exam Vital Signs: BMI result Body Mass Index 31.4 Extrem Other: Right shoulder examination shows that the surgical incisions are well healed, no erythema, slightly decreased range of motion when compared to her left shoulder, mild discomfort with resisted forward flexion, no instability Assessment & Plan Assessment & Plan (1) Right shoulder pain: Code(s): M25.511 - Pain in right shoulder Category: Medical Plan Jasson continues to do fairly well after undergoing right shoulder arthroscopic surgery on 12/27/2023. She will continue with her home stretching program. The do's and don'ts of lifting were discussed at length with the patient. I did give her a prescription for a Medrol Dosepak to help with her discomfort. We will hold off on a cortisone injection at this time. She will contact me prior to her follow-up appointment in 2-3 months should any questions or concerns arise. Feel free to call me at any time should questions regarding her orthopedic management arise. I spent 20 minutes in reviewing the patient's records and imaging studies, seeing the patient and documenting in the medical record. Medications: New methylprednisolone (Medrol (Syed)) PO PER PKG DIR 21 ea 0RF Coding Level of Care Code Est Pt Level 3 (09828) Complex visit Add On G2211 Diagnoses Right shoulder pain M25.511
[2025-04-07 14:51] VITALS: BMI 31.4
--- OUTSIDE RECORDS SUMMARY | 2025-04-07 17:30 | XMS_ITS | Clinical Summary ---
Author Organization [address] [facility] Address [address] [place] [address] Phone Care Team Providers Care Floor Service Worker Spring Name Role Phone Unavailable Primary Care Provider Unavailabl e Allergies Active Allergy Reactions Criticality Noted Date Comments Aspirin Swelling 12/03/2024 Cyclobenzaprine 12/03/2024 Ibuprofen 12/03/2024 Medications allantoin 0.5 % gel Apply 1 Application topically 1 (one) time each day. 30 mL 2 Active Social History Tobacco Use Types Packs/Day Years [...] of Health Screening 09/08/2024 COVID-19 Vaccine ( season) 2025 Influenza Vaccine (#1) 2025 , [...] complete this topic Insurance [place]ID - [place] [facility]
--- OUTSIDE RECORDS SUMMARY | 2025-04-07 17:31 | XMS_ITS | Patient Health Record ---
Author Organization Gasper Ruiz III, MD Address [address] [place] [address] Care Team Providers Care Video Operator Name Role Phone [facility] MD Primary Care Provider Dr. Gasper Adams III Unavailable [phone] Allergies Allergen (clinical drug ingredient) Drug/Non Drug [...] Problem Status W/U Status Risk Notes Problem [id number] Granulocytopenia (D70.9) Active confirmed The mild neutro penia and granulocytopenia is stable. Flow cytometry on the lymph node showed no lymphoproliferative clonal process. Problem [id number] Lymphadenopathy (R59.1) Active confirmed The biopsy of t he lymph node showed granulomatous disease and she is now being treated with triple therapy at the tuberculosis clinic in [place], [place]. She will not need to return to this office. Problem [id number] Allergic to aspirin (Z88.8) Active confirmed She has had no serious reactions lately. Plan Of Treatment No Information Insurance Providers Payer Name Payer Address Payer Phone Subscriber Number Group Number Insured Name Patient Relationship to Insured Coverage Start Date Coverage End Date [place] [address] [place]ITTEN [id number] [phone] [id number] Jasson Duke Self - patient is the insured Medical (General) History Medical History History ICD Code Panic attacks menstrual irregularity hemorrhoids intermittent chronic diarrhea Surgical History Surgery Date(Month/Year) tubal ligation lymph node excision mesh placement cholecystectomy, [facility], Dr. [facility] 2013 Hospitalization History Reason Date(Month/Year) cholecystectomy 2013
== END 2025-04-07 15:12 | disposition home or self-care (01) ==
LOC: HO.HOS 14:33
PROVIDERS: PCP Internal Medicine; Visit Provider Orthopaedic Surgery
DX: M25.511 Pain in right shoulder (principal)
CPT/HCPCS: 99213

== ENCOUNTER → 2025-04-07 14:32 | Outpatient (BNVA) | payer OTHER, SELFPAY | PROVIDERS: PCP Internal Medicine; Visit Provider Orthopaedic Surgery | DX: M25.511 Pain in right shoulder (principal) | CPT/HCPCS: 99212 ==

== ENCOUNTER 2025-04-09 15:39 | Outpatient (AMB) | payer OTHER, SELFPAY ==
--- NOTE | 2025-04-09 15:58 | A.OFFVIS_ITS ---
Vital Signs 04/09/25 15:59 Height 5 ft 5 in Weight 189 lb BMI 31.4 BP 150/81 H Blood Pressure Location Lt brachial Position Sitting Pulse 83 Intake Visit Reasons: follow up Intake Note: Patient follow up for Diarrhea , h-pylori results. No lab results. Patient cc: Right side of abdominal pain x 2 dates, acid reflux and med is not helping, and diarrhea and med is helping. Also she is been having dry mouth/throat all date with choking sensation. 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 FU for ongoing diarrhea, abdominal pain, and reflux. She accompanied by her who is translating during this visit. Jasson continues to experience daily loose stools ([place] 7), with no change in frequency or character since the last visit. Diarrhea persists despite cholestyramine (only taking once daily vs. prescribed up to four times daily). Abdominal pain, described as RLQ, intermittent but present most days, varying in intensity, sometimes improves post-BM. Pain similar to prior episodes which previously required hospitalization ( September 2024) for pancolitis . No GI bleeding; denies N/V. Reflux persists; pantoprazole offers partial relief. No fever. No new dietary or lifestyle modifications reported. Has not yet started recently prescribed Medrol dose pack for she is prescribed by Ortho for right shoulder pain by ; intent expressed to begin. Reports ovarian cysts on prior imaging; no acute gynecological symptoms noted. No recent hospitalizations or urgent care visits since last FU. [facility] Medical History (Updated 04/09/25 @ 16:37 by Tiara Tee CNP) Elevated fecal calprotectin Lymphoma History of panic attacks Exposure of implanted vaginal mesh Moderate persistent asthma in adult without complication Left leg pain Hand numbness Obese Acute sinusitis Surgical History History of arthroscopy of right shoulder Hx of tubal ligation History of cholecystectomy Family History Mother HIV (human immunodeficiency virus infection) Father Heart attack HIV (human immunodeficiency virus infection) Brother No problems noted. Brother Diabetes Sister No problems noted. Sister No problems noted. Daughter No problems noted. 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 Current occupational exposures/hazards: No Cognitive needs: No Hearing needs: No Vision needs: No Female Reproductive History Menstrual Age of Menarche: 8 Review of Systems Const Reports as per HPI ENT Reports as per HPI Card Reports as per HPI Resp Reports as per HPI GI Reports as per HPI Reports as per HPI Physical Exam Vital Signs: Last Vital Signs Pulse 83 04/09/25 15:59 BP 150/81 H 04/09/25 15:59 BMI result Body Mass Index 31.4 Const General: healthy appearing, no acute distress and well developed Nutritional Appearance: average body habitus Orientation/consciousness: patient oriented x3 HEENT Head: Yes normal to inspection, Yes normocephalic and Yes atraumatic Face and sinus: Yes normal facial exam Eyes General: appearance normal, both eyes and all related structures Neck Neck: Yes normal visual inspection Resp Effort & Inspection: normal respiratory effort, able to speak in complete sentences, no tracheal deviation and symmetric chest movement Cardio Jugular venous distension: no JVD GI Inspection: Yes normal to inspection and No distended Palpation (GI): Soft to palpation, not firm, Tenderness to palpation present (GI) (mild tenderness to deep palpation RLQ, no rebound/guarding) in the RLQ and No hepatosplenomegaly present Auscultation: normal bowel sounds Neuro General: patient oriented x3 Gait exam (Neuro): Normal gait present Psych Appearance: grossly normal Mental Status: mental status grossly normal Speech and movement: Normal speech and movement present Affect: normal affect Attitude: cooperative Thought process: Normal thought process present Thought content: Normal thought content present Insight: Good insight present (Psych) Judgement: Good judgement present (Psych) Assessment & Plan Assessment & Plan (1) Diarrhea: Comment: 09/10/2024 colonoscopy complete with adequate prep-Normal colon and terminal ileum mucosa, Internal hemorrhoids. recommendation for repeat in 10 years (2034) Code(s): R19.7 - Diarrhea, unspecified Category: Medical Qualifiers: Diarrhea type: infectious Qualified Code(s): A09 - Infectious gastroenteritis and colitis, unspecified Plan: Persistent, not improved; frequency and severity unchanged. Nonadherence to full cholestyramine dose likely contributor. Prior workup for colitis; gallbladder removal history; insufficient dietary/lifestyle measures. Additional testing: - CT enterography (CTE) w/ contrast: ordered urgent to assess small bowel and clarify source of inflammation. - Repeat stool calprotectin: to trend inflammation. - Labs: repeat renal function prior to CTE, as required for contrast. Medications: - increase cholestyramine powder to up to 4x/day w/ meals (sugar-free formulation); reinforce correct dosing. - Initiate/reinforce fiber supplement/tablet daily (bulking agent). - Maintain Medrol dose pack as recently prescribed; monitor for response; report any changes in portal. Lifestyle Recommendations: - Educate/reiterate need for low-fat diet post-cholecystectomy to minimize bile- induced stool losses. - Hydration emphasized. Referrals / Coordination of Care: - Radiology scheduling for CTE. Coordinate timing of labs w/ imaging. Follow-Up Plan: - FU after CTE and labs, or sooner if significant symptom change or adverse effects. - Portal communication for symptom updates, particularly in relation to steroid trial. (2) Chronic GERD: Code(s): K21.9 - Gastro-esophageal reflux disease without esophagitis Category: Medical Plan: Partially controlled on pantoprazole; Sx persist. Medications: - Continue pantoprazole as prescribed. - Add PRN famotidine (Pepcid) for breakthrough reflux symptoms. - Refill all relevant GI/Rx as needed. Lifestyle Recommendations: - Reinforce low-fat, caffeine/alcohol avoidance strategies. - Discuss head-of-bed elevation, meal spacing. Referrals / Coordination of Care: None at this stage. Follow-Up Plan: Assess control at next visit; consider EGD if unresponsive to escalation. (3) Abdominal pain: Code(s): R10.9 - Unspecified abdominal pain Category: Medical Qualifiers: Abdominal location: right lower quadrant Qualified Code(s): R10.31 - Right lower quadrant pain Plan: Persistent, intermittent, non-localized; no red flag features. Known ovarian cysts on prior imaging (R>L). Overlapping GI and gynecologic sx. Additional testing: - CTE as above Medications: None specific at this time; GI regimen may offer some symptom relief. Lifestyle Recommendations: None specific beyond above. Referrals / Coordination of Care: If cyst(s) increase in size or cause severe pain, will consider spectacle truer consult. Monitor via imaging. Follow-Up Plan: Revisit after CTE/clinical review. Plan Follow-up after imaging or sooner as needed Time: I spent a total of 45 minutes on the date of encounter which includes: Preparing to see the patient (reviewed previous documentation, test results and medical history) Performing a medically appropriate exam and/or evaluation Ordering medications, tests, and procedures Documenting clinical information in the health record Orders: Orders CT enterography 04/09/25 A09 - Infectious gastroenteritis and colitis, unspecified, R19.5 - Other fecal abnormalities Basic Metabolic Panel 04/09/25 Z01.812 - Encounter for preprocedural laboratory examination C Reactive Protein 04/09/25 R10.31 - Right lower quadrant pain Complete Blood Count Auto Diff 04/09/25 R10.31 - Right lower quadrant pain, R19.5 - Other fecal abnormalities Calprotectin, Fecal 04/09/25 R19.5 - Other fecal abnormalities Medications: New famotidine Take one tablet as needed for acid reflux 20 mg PO DAILY PRN 90 tabs 0RF GERD Changed From pantoprazole 40 mg PO QAM 28 tabs 0RF To pantoprazole 40 mg PO QAM 90 tabs 0RF 90 days From methylcellulose (laxative) (Citrucel) Take one tablet twice daily X 2 weeks, then start new prescription 500 mg PO BID 30 tabs 0RF To methylcellulose (laxative) (Citrucel) Take one tablet twice daily 500 mg PO BID 60 tabs 0RF 30 days Refilled cholestyramine Take four times daily with meals. No meds 1 hr before/4-6 hr after dose 4 grams PO QID 239.4 grams 0RF Discontinued sucralfate Take on tablet two times daily as needed. Take an empty stomach. Avoid antacids within 30 minutes. Discontinued Reason: No Longer Medically Relevant 1 g PO BID 90 tabs 1RF methylcellulose (laxative) (Citrucel) Take two tablets twice daily Discontinued Reason: Duplicate 1,000 mg (2 x 500 mg) PO BID 120 tabs 1RF Coding Level of Care Code Established Pt Est Pt Level 5 (34996) Patient Type Established Diagnoses Diarrhea of infectious origin A09 Diarrhea type: infectious Chronic GERD K21.9 Right lower quadrant abdominal pain R10.31 Abdominal location: right lower quadrant
[2025-04-09 15:59] VITALS: BP 150/81; PULSE 83; BMI 31.4
--- OUTSIDE RECORDS SUMMARY | 2025-04-09 19:36 | XMS_ITS | Clinical Summary ---
Author Organization [address] [facility] Address [address] [place] [address] Phone Care Team Providers Care Life Science Taxonomist Name Role Phone Unavailable Primary Care Provider [...] complete this topic Insurance [place]ICAID - [place] [facility]
--- OUTSIDE RECORDS SUMMARY | 2025-04-09 19:36 | XMS_ITS | Patient Health Record ---
Author Organization Gasper Ruiz III, MD Address 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 Gasper Adams III Unavailable [phone] Allergies Allergen (clinical drug ingredient) Drug/Non Drug [...] Problem Status W/U Status Risk Notes Problem [id number] Granulocytopenia (D70.9) Active confirmed The mild neutro penia and granulocytopenia is stable. Flow cytometry on the lymph node showed no lymphoproliferative clonal process. Problem [id number] Lymphadenopathy (R59.1) Active confirmed The biopsy of t he lymph node showed granulomatous disease and she is now being treated with triple therapy at the tuberculosis clinic in [place], [place]. She will not need to return to this office. Problem [id number] Allergic to aspirin (Z88.8) Active confirmed She has had no serious reactions lately. Plan Of Treatment No Information Insurance Providers Payer Name Payer Address Payer Phone Subscriber Number Group Number Insured Name Patient Relationship to Insured Coverage Start Date Coverage End Date MEDICA[place] [address] [place] [id number] [phone] [id number] Jasson Duke Self - patient is the insured Medical (General) History Medical History History ICD Code Panic attacks menstrual irregularity hemorrhoids intermittent chronic diarrhea Surgical History Surgery Date(Month/Year) tubal ligation lymph node excision mesh placement cholecystectomy, [facility], Dr. [facility] 2013 Hospitalization History Reason Date(Month/Year) cholecystectomy 2013
== END 2025-04-09 17:22 | disposition home or self-care (01) ==
LOC: HO.HGI 15:40
PROVIDERS: PCP Internal Medicine; Visit Provider Nurse Practitioner Family
DX: A09 Infectious gastroenteritis and colitis, unspecified (principal); K21.9 Gastro-esophageal reflux disease without esophagitis; R10.31 Right lower quadrant pain
CPT/HCPCS: 99215

== ENCOUNTER → 2025-04-09 15:39 | Outpatient (BNVA) | payer OTHER, SELFPAY | PROVIDERS: PCP Internal Medicine; Visit Provider Nurse Practitioner Family | DX: A09 Infectious gastroenteritis and colitis, unspecified (principal); K21.9 Gastro-esophageal reflux disease without esophagitis; R10.31 Right lower quadrant pain; Z79.899 Other long term (current) drug therapy | CPT/HCPCS: 99212 ==